=== PATIENT | female | born 1935 | race Caucasian/White ===

== ENCOUNTER 2019-11-22 12:02 | Outpatient (REF) | payer MEDICARE, OTHER, SELFPAY ==
[2019-11-22 14:43] LABS: Anion Gap 17 (12-20); Blood Urea Nitrogen 30 mg/dL (9-16); Calcium 10.3 mg/dL (8.4-10.2); Carbon Dioxide 21 mmol/L (22-29); Chloride 110 mmol/L (96-108); Estimated Glomerular Filt Rate 32; Potassium 4.8 mmol/l (3.3-5.1); Sodium 143 mmol/L (135-145)
[2019-11-25 19:16] LABS: Calcium (PTHI) 10.3 mg/dL (8.6-10.4); PTHI 211 pg/mL (14-64)
== END 2019-11-22 12:03 | disposition home or self-care (01) ==
LOC: HO.HMGCLDS 12:02
PROVIDERS: PCP Family Medicine; Visit Provider Family Medicine
DX: I10 Essential (primary) hypertension (principal); E21.3 Hyperparathyroidism, unspecified
CPT/HCPCS: 36415; 80051; 82310; 82565; 83970; 84520

== ENCOUNTER 2020-03-23 09:57 | Outpatient (REF) | payer MEDICARE, OTHER, SELFPAY ==
--- NOTE | 2020-03-23 | US_ITS ---
EXAMINATION: US EXTRACRANIAL CAROTID DUPLEX, BILATERAL CLINICAL INFORMATION: Carotid artery stenosis COMPARISON: Carotid artery ultrasound on 07/12/2018 and 07/17/2012 TECHNIQUE: Real-time ultrasound and Doppler techniques (integrating B-mode 2-D vascular images, Doppler spectral analysis and color-flow Doppler imaging) were utilized to interrogate the extracranial carotid arteries, the vertebral arteries and proximal subclavian arteries bilaterally. The degree of stenosis is determined by criteria similar to NASCET. FINDINGS: Right Side: 1. There is minimal atherosclerotic plaque seen in the bifurcation/proximal ICA region. 2. The common carotid artery PSV proximally is 87.4 cm/s and distally 95 cm/s. 3. The proximal internal carotid artery velocities are 103 cm/s systolic and 22.9 cm/s diastolic. 4. The proximal external carotid artery PSV is 96.2 cm/s. 5. The vertebral artery shows antegrade flow. 6. The subclavian artery waveforms are normal. Left Side: 1. There is mild to moderate atherosclerotic plaque seen in the bifurcation/proximal ICA region. 2. The common carotid artery PSV proximally is 99.7 cm/s and distally 58.1 cm/s. 3. The proximal internal carotid artery velocities are 127 cm/s systolic and 40.9 cm/s diastolic. 4. The proximal external carotid artery PSV is 139 cm/s. 5. The vertebral artery shows antegrade flow. 6. The subclavian artery waveforms are normal. US/US carotid duplex BI IMPRESSION: 1. RIGHT: Minimal, non-hemodynamically significant stenosis of the proximal right internal carotid artery corresponding to a 0-49% stenosis by velocity criteria. There is no change in the severity of disease when compared to the prior exam on 07/12/2018. 2. LEFT: Moderate, hemodynamically significant stenosis of the proximal left internal carotid artery corresponding to a 50-79% stenosis by velocity criteria. This represents an increase in the severity of disease when compared to the prior exam on 07/12/2018, previously 0-49% stenosis by velocity criteria.
[2020-03-23 14:21] LABS: Alanine Aminotransferase 25 U/L (0-31); Anion Gap 17 (12-20); Blood Urea Nitrogen 27 mg/dL (9-16); Carbon Dioxide 22 mmol/L (22-29); Chloride 107 mmol/L (96-108); Estimated Glomerular Filt Rate 33; Potassium 4.4 mmol/L (3.3-5.1); Sodium 142 mmol/L (135-145)
== END 2020-03-23 09:58 | disposition home or self-care (01) ==
LOC: HO.HMGCX 09:57
PROVIDERS: PCP Family Medicine; Visit Provider Internal Medicine
DX: E05.90 Thyrotoxicosis, unspecified without thyrotoxic crisis or storm (principal); E78.00 Pure hypercholesterolemia, unspecified; I10 Essential (primary) hypertension; Z79.899 Other long term (current) drug therapy; I65.23 Occlusion and stenosis of bilateral carotid arteries
CPT/HCPCS: 36415; 80051; 82310; 82550; 82565; 84460; 84520; 93880

== ENCOUNTER → 2020-04-16 10:31 | Outpatient (BNVA) | payer MEDICARE, OTHER, SELFPAY | PROVIDERS: PCP Family Medicine; Visit Provider Internal Medicine | DX: E66.9 Obesity, unspecified (principal); J98.4 Other disorders of lung; G47.34 Idiopathic sleep related nonobstructive alveolar hypoventilation; J44.9 Chronic obstructive pulmonary disease, unspecified; F17.200 Nicotine dependence, unspecified, uncomplicated | CPT/HCPCS: 99212 ==

== ENCOUNTER → 2020-04-21 14:16 | Outpatient (BNVA) | payer MEDICARE, OTHER, SELFPAY | PROVIDERS: PCP Family Medicine; Visit Provider Internal Medicine | DX: Z13.89 Encounter for screening for other disorder (principal) | CPT/HCPCS: 93005; 99212 ==

== ENCOUNTER 2020-04-21 14:58 | Emergency (ER) | payer MEDICARE, OTHER, SELFPAY ==
--- NOTE | ~2020-04-21 | CT_ITS ---
EXAMINATION: CT BRAIN AND CT CERVICAL SPINE WITHOUT CONTRAST. CLINICAL INFORMATION: Status post fall. COMPARISON: None TECHNIQUE: 5 mm thin axial and reformatted 2 mm thin sagittal and coronal images of brain were obtained. Subsequently axial 3 mm thin and reformatted 2 mm thin sagittal and coronal images of cervical spine were obtained. DLP 1567 mGy. FINDINGS: Brain: There is no acute intra-axial, extra-axial bleed, collection, masses or midline shift. There is no acute infarction in evolution. The lateral ventricles are symmetrical in size and configuration without enlargement. There is dystrophic bibasal ganglia calcifications. The great white matter differentiation is maintained. Bone windows reveal no calvarial abnormality. Bilateral paranasal sinuses and mastoid air cells are well-aerated. There is no scalp soft tissue abnormality. Cervical spine: On sagittal reconstructed images there is normal cervical lordosis. Grade 1 anterolisthesis C4 over C5. Rest of the alignment is normal. Loss of C3-C4, C5-C6 and C6-C7 disc heights with mild posterior spondylosis noted. The craniovertebral junction and C1-C2 alignment is normal. There is moderate bilateral mild facet joint arthropathy is also seen on the right at C3-C4 disc level. No visible acute fracture or dislocation seen. The prevertebral and paravertebral soft tissues are normal. The thyroid lobes are symmetrical and normal. The lung apices are clear. CT/CT head/brain wo con IMPRESSION: No acute intracranial process seen. Degenerative disc changes C3-C4, C5-C6 and C6 S1 disc levels with posterior spondylosis. No visible acute fracture or dislocation seen.
--- NOTE | ~2020-04-21 | CT_ITS ---
EXAMINATION: CT BRAIN AND CT CERVICAL SPINE WITHOUT CONTRAST. CLINICAL INFORMATION: Status post fall. COMPARISON: None TECHNIQUE: 5 mm thin axial and reformatted 2 mm thin sagittal and coronal images of brain were obtained. Subsequently axial 3 mm thin and reformatted 2 mm thin sagittal and coronal images of cervical spine were obtained. DLP 1567 mGy. FINDINGS: Brain: There is no acute intra-axial, extra-axial bleed, collection, masses or midline shift. There is no acute infarction in evolution. The lateral ventricles are symmetrical in size and configuration without enlargement. There is dystrophic bibasal ganglia calcifications. The great white matter differentiation is maintained. Bone windows reveal no calvarial abnormality. Bilateral paranasal sinuses and mastoid air cells are well-aerated. There is no scalp soft tissue abnormality. Cervical spine: On sagittal reconstructed images there is normal cervical lordosis. Grade 1 anterolisthesis C4 over C5. Rest of the alignment is normal. Loss of C3-C4, C5-C6 and C6-C7 disc heights with mild posterior spondylosis noted. The craniovertebral junction and C1-C2 alignment is normal. There is moderate bilateral mild facet joint arthropathy is also seen on the right at C3-C4 disc level. No visible acute fracture or dislocation seen. The prevertebral and paravertebral soft tissues are normal. The thyroid lobes are symmetrical and normal. The lung apices are clear. CT/CT cervical spine wo con IMPRESSION: No acute intracranial process seen. Degenerative disc changes C3-C4, C5-C6 and C6 S1 disc levels with posterior spondylosis. No visible acute fracture or dislocation seen.
[2020-04-21 15:01] VITALS: BP 150/58; PULSE 81; RESP 16; TEMP 36.6; O2SAT 96; BMI 48.0
--- NOTE | 2020-04-21 15:20 | ED.FALL ---
HPI - Fall General Chief Complaint: Fall Stated Complaint: FALL Time Seen by Provider: 04/21/20 15:15 Source: patient Mode of arrival: other (Stretcher from primary care office upstairs) Limitations: no limitations History of Present Illness HPI Narrative: 84-year-old female with past medical history that is significant for obesity, chronic obstructive pulmonary disease not on oxygen, obesity, reactive airway disease who is a sometimes smoker she does at baseline use a walker with wheels she was presenting today to the outpatient primary care offices for routine visit while she was awaiting her appointment in the office waiting room she was sitting on her walker with wheels as she was trying to wheel herself out of the bathroom she apparently reports her walker wheels bump on the door threshold and causing her to fall backwards hitting her head causing laceration to the posterior scalp. Denies LOC. Denies any torso or extremity injury. Aside from the fall and related scalp laceration she reports she has otherwise been doing well. She is not sure of her last tetanus vaccination. She is on daily aspirin otherwise no other anticoagulant. MD complaint: fall Onset (ago): minute(s) Fall from: other (Sitting on walkers with wheels ) Fall witnessed: yes, by bystander (Medical staff in the office) Place fall occurred: other (Doctor's office) Loss of consciousness: none Prolonged down time: no Symptoms prior to fall: none Context: tripped/slipped Location of injury: head Associated symptoms (after fall): other (She reports pain at the posterior scalp laceration and mild nausea) Related Data Home Medications Medication Instructions Recorded Confirmed atorvastatin 40 mg tablet 40 mg PO DAILY 04/16/20 04/21/20 cholecalciferol (vitamin D3) 10 10 mcg PO DAILY 04/16/20 04/21/20 mcg (400 unit) capsule furosemide 20 mg tablet 20 mg PO DAILY 04/16/20 04/21/20 lisinopril 20 mg tablet 20 mg PO DAILY 04/16/20 04/21/20 metoprolol succinate 25 mg 25 mg PO DAILY 04/16/20 04/21/20 tablet,extended release 24 hr aspirin 81 mg tablet,delayed 81 mg PO DAILY 04/21/20 04/21/20 release Previous Rx's Medication Instructions Recorded umeclidinium 62.5 mcg/actuation 1 inh INHALATION DAILY 30 Days #30 11/28/19 blister powder for inhalation ea albuterol sulfate 90 mcg/actuation 2 puff INHALATION Q4-6H PRN #3 ea 02/10/20 aerosol inhaler Allergies Allergy/AdvReac Type Severity Reaction Status Date / Time No Known Allergies Allergy Verified 04/16/20 10:42 [No Known Allergies*] Review of Systems Review of Systems: Constitutional: No Weight loss, No Fever, No Chills, No Night Sweats, No Fatigue, No Malaise ENT/Mouth: No Hearing loss, No Ear Pain, No Nasal Congestion, No Sinus Pain, No Hoarseness, No sore throat, No Rhinorrhea, No Swallowing Difficulty Eyes: No Eye Pain, No Swelling, No Redness, No Foreign Body, No Discharge, No Vision Changes Cardiovascular: No Chest Pain, No SOB, No Dyspnea on Exertion, No Orthopnea, No Edema, No Palpitations Respiratory: No Cough, No Sputum, No Wheezing, No Dyspnea Gastrointestinal: + Nausea, No Vomiting, No Diarrhea, No Constipation, No abdominal Pain, No Hematochezia, No Melena Genitourinary: no irregular bleeding, No Dysuria, No Urinary Frequency, No Hematuria, No Urinary Incontinence, No Urgency, No Flank Pain, No Urinary Flow Changes, No Hesitancy Musculoskeletal: No joint pain, No Myalgias, No Joint Swelling Skin: No Skin Lesions, No rash, scalp laceration Neuro: No Weakness, No Numbness, No Paresthesias, No Loss of Consciousness, No Dizziness Psych: No Social Issues Heme/Lymph: No Bruising, No Bleeding,No Lymphadenopathy Endocrine: No Polyuria, No Polydipsia, No Temperature Intolerance Yes all other systems are reviewed and are negative [facility] Past Medical History Medical History Atherosclerotic cardiovascular disease COPD (chronic obstructive pulmonary disease) Nocturnal hypoxemia Obesity Restrictive lung disease Smoker Surgical History Status post insertion of endovascular thoracic aortic stent graft Social History Social History Alcohol intake: never Smoking Status: Current some day smoker Use of substances other than those prescribed or required for medical reasons: No Advance Directives: No Advance Directives Information Provided: No Physical Exam Vital Signs: Vital Signs: Last Vital Signs Temp 97.9 F 04/21/20 15:01 Pulse 81 04/21/20 15:01 Resp 16 04/21/20 15:01 BP 150/58 H 04/21/20 15:01 Pulse Ox 96 04/21/20 15:01 Body Mass Index 48.0 Reviewed Const: General: cooperative; No acute distress or intoxicated appearing Nutritional Appearance: average body habitus Orientation/consciousness: patient oriented x3 HENMT: Head: Yes normal to inspection and Yes laceration Head images: 1. Clean linear 4 cm laceration to the posterior scalp. No active bleeding. Ears: hearing grossly normal bilaterally Eyes: General: appearance normal, both eyes and all related structures Neck: Neck: Yes normal visual inspection, No positive Brudzinski's sign, No positive Kernig's sign and No tender Thyroid: Thyroid normal Chest: Chest palpation & inspection: normal inspection of the chest and no tenderness Resp: Effort & Inspection: normal respiratory effort Auscultation: clear to auscultation bilaterally Cardio: Jugular venous distension: no JVD Rhythm: regular rhythm Heart sounds: S1 normal heart sound present and S2 normal heart sound present GI: Inspection: Yes normal to inspection Percussion: Yes normal to percussion Auscultation: normal bowel sounds : General: Yes no CVA tenderness Back/Spine/Pelvis: Back: no CVA tenderness Skin: General skin exam: no rashes or lesions noted Neuro: General: patient oriented x3 Extrem: Other: She is moving all extremities without pain. Able to bend knees and lift without problem. Torso exam without focal tender palpation or signs of injury. General: Yes normal to inspection NIH Stroke Scale Internal: Initial- Upon Arrival Level of Consciousness: Alert Level of Consciousness Questions: Answers both questions correctly Level of Consciousness Commands: Performs both tasks correctly Best Gaze: Normal Visual: No visual loss Facial Palsy: Normal Motor Arm (Right): No drift Motor Arm (Left): No drift Motor Leg (Right): No drift Motor Leg (Left): No drift Limb Ataxia: Absent Sensory: Normal Best Language: No aphasia Dysarthia: Normal Extinction and Inattention: No abnormality Score: 0 Course Reevaluation(s) Reevaluation #1: In review of the chart it looks like she had appointment with Dr. Felix cardiology for six months follow-up status post carotid ultrasound. Procedures Laceration Laceration 1: Site: scalp Size (cm): 4 Description: linear Depth: simple, single layer Local Anesthetic: lidocaine 1% Amount of anesthesia used (mL): 5 Pre-repair: wound explored (Five ousmane) MDM - Fall MDM Narrative Medical decision making narrative: AP consistent with mechanical fall from fall related to a wheeled walker resulting in posterior scalp laceration requiring 5 ousmane repair. Head/cervical spine CT unremarkable. Given tetanus vaccination, home care instructions, precaution return follow-up instructions provided. Tolerated p.o. intake well here. Did get up with assistance at baseline and ambulated well. Stable for discharge. Differential Diagnosis Differential diagnosis: Likely fracture and concussion without loss of consciousness; Unlikely syncope, dislocation, compression fracture and concussion with loss of consciousness Medical Records Attestation: I reviewed the patient's medical records. Lab Data Attestation: I reviewed the patient's lab results. Imaging Data Head/cervical spine CT: Radiologist's impression: [address] [id number] Scan ReportSigned Patient: Portia Appiah CMR#: [id number]: [id number]/Sex: 84 / FADM Date: 04/21/20Loc: [email or web address].EDAttending Dr: Ordering Physician: Ruben Hightower NP Date of Service: 04/21/20 Procedure(s): CT cervical spine wo con Accession Number(s): [id number] cc: Ruben Hightower TECHNICAL DATA ANALYST~ EXAMINATION: CT BRAIN AND CT CERVICAL SPINE WITHOUT CONTRAST. CLINICAL INFORMATION: Status post fall. COMPARISON: None TECHNIQUE: 5 mm thin axial and reformatted 2 mm thin sagittal and coronal images of brain were obtained. Subsequently axial 3 mm thin and reformatted 2 mm thin sagittal and coronal images of cervical spine were obtained. DLP 1567 mGy. FINDINGS: Brain: There is no acute intra-axial, extra-axial bleed, collection, masses or midline shift. There is no acute infarction in evolution. The lateral ventricles are symmetrical in size and configuration without enlargement. There is dystrophic bibasal ganglia calcifications. The great white matter differentiation is maintained. Bone windows reveal no calvarial abnormality. Bilateral paranasal sinuses and mastoid air cells are well-aerated. There is no scalp soft tissue abnormality. Cervical spine: On sagittal reconstructed images there is normal cervical lordosis. Grade 1 anterolisthesis C4 over C5. Rest of the alignment is normal. Loss of C3-C4, C5-C6 and C6-C7 disc heights with mild posterior spondylosis noted. The craniovertebral junction and C1-C2 alignment is normal. There is moderate bilateral mild facet joint arthropathy is also seen on the right at C3-C4 disc level. No visible acute fracture or dislocation seen. The prevertebral and paravertebral soft tissues are normal. The thyroid lobes are symmetrical and normal. The lung apices are clear. CT/CT cervical spine wo con IMPRESSION: No acute intracranial process seen. Degenerative disc changes C3-C4, C5-C6 and C6 S1 disc levels with posterior spondylosis. No visible acute fracture or dislocation seen. Dictated By:YONG GALVEZ MDSigned By:<Electronically signed by YONG GALVEZ MD in OV>04/21/20 1604 DD/ 1515TD/TT: Talent Acquisition Manager: [facility] [place] Discharge Clinical Impression: Fall Qualifiers: Encounter type: initial encounter Qualified Code(s): W19.XXXA - Unspecified fall, initial encounter Scalp laceration Qualifiers: Encounter type: initial encounter Qualified Code(s): S01.01XA - Laceration without foreign body of scalp, initial encounter Patient Disposition: Home, Self-Care Instructions: Head Injury (ED), Staple Care (ED), Head Laceration (ED) Additional Instructions: Today your given tetanus vaccine The CT scan of your head and brain did not show any acute findings The laceration on the back of the head was repaired with 5 ousmane You to have the ousmane removed and 10 days Return if any concerns or worsening symptoms Keep site dry and clean for the next 48 hours and thereafter he can shower normally Thank you Prescriptions: No Action Incruse Ellipta 62.5 mcg/actuation blister with device 1 inh inhalation DAILY 30 Days Qty: 30 RF: 3 albuterol sulfate [ProAir HFA] 90 mcg/actuation HFA aerosol inhaler 2 puff inhalation Q4-6H PRN (Reason: shortness of breath or wheezing) Qty: 3 RF: 1 furosemide 20 mg tablet 20 mg PO DAILY RF: 0 metoprolol succinate 25 mg tablet extended release 24 hr 25 mg PO DAILY RF: 0 atorvastatin 40 mg tablet 40 mg PO DAILY RF: 0 lisinopril 20 mg tablet 20 mg PO DAILY RF: 0 cholecalciferol (vitamin D3) 10 mcg (400 unit) capsule 10 mcg PO DAILY RF: 0 aspirin [Adult Low Dose Aspirin] 81 mg tablet,delayed release (DR/EC) 81 mg PO DAILY RF: 0 Referrals: ED Physician,Generic [Physician] - 1 week (Your primary care) Discharge Date/Time: 04/21/20 17:55
[2020-04-21] MEDS: ondansetron HCL 4 MG/2 ML VIAL IVPUSH (15:21)
--- NOTE | 2020-04-21 15:22 | PC.NURSE ---
pt continues to ask the same questions over and over. copy reader aware
[2020-04-21] MEDS: Lidocaine HCl 1 % MPF 5 ML VIAL SUBCUT (16:34)
--- NOTE | 2020-04-21 17:15 | PC.NURSE ---
pt given a sandwich and gingerale per senior quality control inspector
== END 2020-04-21 17:55 | disposition home or self-care (01) ==
PROVIDERS: Emergency Provider Emergency Medicine; PCP Family Medicine
DX: S01.01XA Laceration without foreign body of scalp, initial encounter (principal); W17.89XA Other fall from one level to another, initial encounter; J44.9 Chronic obstructive pulmonary disease, unspecified; F17.200 Nicotine dependence, unspecified, uncomplicated; Y93.89 Activity, other specified; Y92.531 Health care provider office as the place of occurrence of the external cause; Y99.8 Other external cause status
CPT/HCPCS: 12002; 70450; 72125; 90471; 90715; 93005; 96374; 96375; 99212; 99284; J2405

== ENCOUNTER → 2020-05-14 09:12 | Outpatient (BNVA) | payer MEDICARE, OTHER, SELFPAY | PROVIDERS: PCP Family Medicine; Visit Provider Surgery Vascular Surgery | DX: I65.23 Occlusion and stenosis of bilateral carotid arteries (principal); I71.4 Abdominal aortic aneurysm, without rupture | CPT/HCPCS: 99212 ==

== ENCOUNTER 2020-05-21 09:18 | Outpatient (REF) | payer MEDICARE, OTHER, SELFPAY ==
--- NOTE | ~2020-05-21 | CT_ITS ---
EXAMINATION: CTA ABDOMEN AND PELVIS CLINICAL INFORMATION: Abdominal aortic aneurysm. TECHNIQUE: Multiple axial images were obtained through the abdomen and pelvis before and after administration of 80 mL of Omnipaque 350 intravenously. Images were evaluated on independent dedicated 3-D workstation and 3-D images were reconstructed with concurrent radiologist supervision and subsequently interpreted. Specific vascular measurements are placed directly on the 3-D rendered images and are documented and stored in PACS. This CT examination was performed using dose optimization techniques as appropriate, variously including the following: Automated exposure control. *Adjustment of mA and/or kV according to patient size (this includes techniques or standardized protocols for targeted exams where dose is matched to indication/reason for exam, i.e., extremities or head). *Use of iterative reconstruction technique. COMPARISON: 10/23/2018 and 12/12/2017 DLP: 647 mGy-cm. FINDINGS: VASCULAR: ABDOMINAL AORTA: The patient is post endovascular repair of an infrarenal abdominal aortic aneurysm. In comparison to the 2019 examination, there has been an interval increase in the size of the aneurysm sac, now measuring up to 6.7 x 6.7 cm. The aneurysm sac previously measured 6.0 x 6.0 cm in 2019 and 5.7 x 5.7 cm in 2018. As before, there is contrast seen within the distal aortic aneurysm which appears to be filling from a lumbar artery. This is consistent with a persistent type II endoleak. The graft is otherwise widely patent. ILIAC ARTERIES: The iliac limbs of the graft are widely patent. There is moderate calcified atherosclerosis of the right external iliac artery. However, there is no hemodynamically significant stenosis. The internal iliac arteries are widely patent. There is mild atherosclerosis of the left external iliac artery. However, it remains widely patent without hemodynamically significant stenosis. The visualized femoral vessels are patent and normal in caliber. MESENTERIC ARTERIES: The proximal celiac artery appears occluded. Threadlike flow identified to the proximal celiac on the prior examination is not clearly seen. Branches of the celiac artery opacify normally, most likely via collaterals. The SMA is widely patent and branches normally. The JOSE D is not visualized. There is a replaced right hepatic artery arising from the proximal SMA. RENAL ARTERIES: There are single bilateral renal arteries which arise at the superiormost aspect of the aortic graft. Both renal arteries appear widely patent without flow-limiting stenosis. NONVASCULAR: LUNG BASES: An 8 mm ground-glass nodule at the base of the right lung medially is stable from 2019. No new or enlarging pulmonary nodules identified. Minimal bibasilar atelectasis. The visualized heart is within normal limits. LIVER, GALLBLADDER, BILIARY TREE: The liver is normal in size and diffusely low in attenuation. No focal lesions identified on this arterial phase exam. No ductal dilatation identified. The gallbladder is unremarkable with no evidence of radiopaque gallstones, gallbladder wall thickening, or pericholecystic inflammatory changes. PANCREAS: Unremarkable. SPLEEN: Unremarkable. ADRENAL GLANDS: Unremarkable. KIDNEYS AND URETERS: The kidneys are moderately atrophic. There is bilateral renal cortical thinning. There are few punctate calcifications seen within the kidneys consistent with small obstructing nonobstructing stones. The largest stone on the left measures 3 mm on image 10/26, and on the right, measures 2 mm on image 11/26. There is no hydronephrosis. A cyst within the lower pole of the left kidney is stable. BLADDER: Unremarkable. Gastrointestinal Tract: No evidence of obstruction. No perienteric inflammation. Scattered colonic diverticulosis without evidence of diverticulitis. ABDOMINAL WALL: Small fat-containing umbilical hernia. LYMPH NODES: Normal. PELVIC VISCERA: Unremarkable. OSSEOUS STRUCTURES: No suspicious osseous lesions. Mild lumbar spondylosis. CT/CT angio abdomen pelvis IMPRESSION: 1. Post endovascular repair of an infrarenal abdominal aortic aneurysm. There has been progressive increase in the size of the excluded aneurysm sac which now measures up to 6.7 cm, previously measuring 6 cm in 2019, and 5.7 cm in 2018. 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 2. 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 The celiac axis opacifies well, most likely via collaterals. 3. Sigmoid diverticulosis without evidence of diverticulitis. Findings will be communicated to the ordering provider by [place] [facility] on 05/22/2020
[2020-05-21 10:16] LABS: Blood Urea Nitrogen 30 mg/dL (9-16); Estimated Glomerular Filt Rate 28
== END 2020-05-21 09:19 | disposition home or self-care (01) ==
LOC: HO.CT 09:18
PROVIDERS: PCP Family Medicine; Visit Provider Surgery Vascular Surgery
DX: I71.4 Abdominal aortic aneurysm, without rupture (principal)
CPT/HCPCS: 36415; 74174; 82565; 84520; Q9967

== ENCOUNTER → 2020-06-11 13:21 | Outpatient (BNVA) | payer MEDICARE, OTHER, SELFPAY | PROVIDERS: PCP Family Medicine; Visit Provider Surgery Vascular Surgery | DX: I71.4 Abdominal aortic aneurysm, without rupture (principal) | CPT/HCPCS: 99212 ==

== ENCOUNTER → 2020-06-18 10:11 | Outpatient (BNVA) | payer MEDICARE, OTHER, SELFPAY | PROVIDERS: PCP Family Medicine; Visit Provider Internal Medicine | DX: E66.9 Obesity, unspecified (principal); J98.4 Other disorders of lung; G47.34 Idiopathic sleep related nonobstructive alveolar hypoventilation | CPT/HCPCS: 99212 ==

== ENCOUNTER → 2020-10-05 10:26 | Outpatient (BNVA) | payer MEDICARE, OTHER, SELFPAY | PROVIDERS: PCP Family Medicine; Visit Provider Internal Medicine | DX: J44.9 Chronic obstructive pulmonary disease, unspecified (principal); J98.4 Other disorders of lung; G47.34 Idiopathic sleep related nonobstructive alveolar hypoventilation; E66.9 Obesity, unspecified | CPT/HCPCS: 99212 ==

== ENCOUNTER 2020-11-02 11:11 | Outpatient (REF) | payer MEDICARE, OTHER, SELFPAY ==
[2020-11-02 14:20] LABS: Blood Urea Nitrogen 32 mg/dL (9-16); Estimated Glomerular Filt Rate 29
== END 2020-11-02 11:12 | disposition home or self-care (01) ==
LOC: HO.HMGCLDS 11:11
PROVIDERS: PCP Family Medicine; Referring Provider Surgery Vascular Surgery; Visit Provider Internal Medicine
DX: I65.22 Occlusion and stenosis of left carotid artery (principal); I25.10 Atherosclerotic heart disease of native coronary artery without angina pectoris; F17.200 Nicotine dependence, unspecified, uncomplicated; I71.4 Abdominal aortic aneurysm, without rupture; Z79.899 Other long term (current) drug therapy
CPT/HCPCS: 36415; 82565; 84520; 99212

== ENCOUNTER 2020-11-17 07:36 | Outpatient (REF) | payer MEDICARE, OTHER, SELFPAY ==
--- NOTE | ~2020-11-17 | CT_ITS ---
EXAMINATION: CT ANGIOGRAM ABDOMEN AND PELVIS CLINICAL INFORMATION: Abdominal aortic aneurysm without rupture. COMPARISON: CT angiography 05/21/2020 TECHNIQUE: Multiple axial images were obtained through the abdomen and pelvis prior to and following the administration of 80 mL of Omnipaque 350 intravenous contrast. Images were reviewed on a dedicated 3-D workstation. This CT examination was performed using dose optimization techniques as appropriate, variously including the following: *Automated exposure control *Adjustment of mA and/or kV according to patient size (this includes techniques or standardized protocols for targeted exams where dose is matched to indication/reason for exam; i.e. extremities or head) *Use of iterative reconstruction technique DLP: 663 mGy-cm FINDINGS: VASCULAR: Dilated distal descending thoracic aorta measures approximately 3.6 cm in diameter. This tapers to the aortic hiatus. Redemonstration of an abdominal aortic aneurysm post endovascular repair with bilateral iliac components. The aneurysm sac when measured at the level of the L3-L4 interspace measures 6.9 x 7.1 cm, previously 6.7 x 6.9 cm when measured at the same plane and level. There is subtle persistent enhancement of the aneurysm sac along its right distal lateral aspect. There is also opacification of the excluded sac posterior to the bilateral iliac components (image 398, series 6). There is enhancement of a lumbar vessel at this level which could potentially represent the source of this type II endoleak. The lumbar may communicate with the left iliolumbar artery. There is either near-occlusive stenosis or occlusion of the celiac trunk with reconstitution of the vessel 9 mm distal to its origin. The branches of the celiac are well opacified. The superior mesenteric artery origin is widely patent and there is a replaced right hepatic artery. There is faint opacification of the inferior mesenteric artery origin. The bilateral iliac vessels are normal in caliber. There is eccentric calcific disease without hemodynamically significant stenosis. The proximal femoral vessels are patent. There is an unremarkable appearance of the venous structures for an arterial phase of contrast. NONVASCULAR: Unchanged 8 mm ground-glass opacity at the medial base of the right lung may represent a region of scarring. There are additional foci of subsegmental atelectasis. There is no pleural effusion. The imaged heart is unremarkable. The liver is normal in size and overall attenuation. The gallbladder is unremarkable. There is no intrahepatic or extrahepatic duct dilation. The pancreas is unremarkable, and there is no pancreatic duct dilation. The spleen is unremarkable. The adrenal glands are unremarkable. The kidneys are again atrophic, and there are foci of renal cortical thinning. There are small bilateral renal calculi. The largest on the right is at the lower pole and measures 4 mm. The largest on the left is at the lower pole and measures 4 mm. Multiple punctate calculi are seen within the proximal right ureter, similar to prior and there is chronic mild fullness of the right renal collecting system. Unchanged appearance of a 1.7 cm cyst arising from the lower pole of the left kidney. The bladder is normal in contour. No bladder calculi or soft tissue lesion is identified. Unremarkable appearance of the uterus. No adnexal lesions. The distal esophagus and stomach are unremarkable. The small and large bowel are nondilated. There is colonic diverticulosis without inflammation to suggest diverticulitis. There is a minimal fat-containing periumbilical hernia. No other significant hernia of the abdominal wall identified. There is no free intraperitoneal fluid. There is no abdominopelvic or peritoneal lymphadenopathy seen. Mild multilevel degenerative changes of the imaged thoracolumbar spine are again noted. There is no acute or aggressive bony abnormality. CT/CT angio abdomen pelvis IMPRESSION: Redemonstration of postprocedural changes relating to endovascular repair of the abdominal aortic aneurysm. 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 This likely communicates with the left iliolumbar. Interval increase in the size of the excluded aneurysm sac which now measures up to 6.9 x 7.1 cm, previously 6.7 x 6.9 cm. Stable dilation of the distal descending thoracic aorta up to 3.6 cm. Either severe near-occlusive stenosis versus occlusion of the celiac trunk with reconstitution of the vessel 9 mm distal to its origin. Colonic diverticulosis.
[2020-11-17] MEDS: iohexoL 350 MG/ML 100 ML INFUS..BTL IV (12:31)
== END 2020-11-17 07:37 | disposition home or self-care (01) ==
LOC: HO.MDS 07:36
PROVIDERS: Visit Provider Surgery Vascular Surgery
DX: I71.4 Abdominal aortic aneurysm, without rupture (principal)
CPT/HCPCS: 74174; 96360; 96361; Q9967

== ENCOUNTER 2020-12-17 09:24 | Outpatient (REF) | payer MEDICARE, OTHER, SELFPAY ==
[2020-12-17 11:43] LABS: Alanine Aminotransferase 14 U/L (0-31); Anion Gap 16 (12-20); Blood Urea Nitrogen 32 mg/dL (9-16); Carbon Dioxide 18 mmol/L (22-29); Chloride 109 mmol/L (96-108); Estimated Glomerular Filt Rate 28; Potassium 4.2 mmol/L (3.3-5.1); Sodium 139 mmol/L (135-145)
== END 2020-12-17 09:25 | disposition home or self-care (01) ==
LOC: HO.HMGCLDS 09:24
PROVIDERS: PCP Family Medicine; Visit Provider Surgery Vascular Surgery
DX: I71.4 Abdominal aortic aneurysm, without rupture (principal); I10 Essential (primary) hypertension; E78.00 Pure hypercholesterolemia, unspecified; Z79.899 Other long term (current) drug therapy
CPT/HCPCS: 36415; 80051; 82550; 82565; 84460; 84520; 99212

== ENCOUNTER 2020-12-21 08:49 | Outpatient (REF) | payer MEDICARE, OTHER, SELFPAY ==
--- NOTE | ~2020-12-21 | US_ITS ---
EXAMINATION: US EXTRACRANIAL CAROTID DUPLEX, BILATERAL CLINICAL INFORMATION: This is an 85 year old female with a history of carotid artery stenosis. Carotid artery disease. COMPARISON: Comparison is made to a previous study dated March 23, 2020 which demonstrated 0-49% right internal carotid artery stenosis and 50-79% left internal carotid artery stenosis. TECHNIQUE: Real-time ultrasound and Doppler techniques (integrating B-mode 2-D vascular images, Doppler spectral analysis and color-flow Doppler imaging) were utilized to interrogate the extracranial carotid arteries, the vertebral arteries and proximal subclavian arteries bilaterally. The degree of stenosis is determined by criteria similar to NASCET. FINDINGS: Right Side: 1. There is minimal atherosclerotic plaque seen in the bifurcation/proximal ICA region. 2. The common carotid artery PSV proximally is 73 cm/s and distally 92 cm/s. 3. The proximal internal carotid artery velocities are 96 cm/s systolic and 23 cm/s diastolic. 4. The proximal external carotid artery PSV is 92 cm/s. 5. The vertebral artery shows antegrade flow. 6. The subclavian artery waveforms are normal. Left Side: 1. There is a mall atherosclerotic plaque seen in the bifurcation/proximal ICA region. 2. The common carotid artery PSV proximally is 62 cm/s and distally 79 cm/s. 3. The proximal internal carotid artery velocities are 145 cm/s systolic and 30 cm/s diastolic. 4. The proximal external carotid artery PSV is 90 cm/s. 5. The vertebral artery shows antegrade flow. 6. The subclavian artery waveforms are normal. US/US carotid duplex BI IMPRESSION: 1. RIGHT: Minimal, non-hemodynamically significant stenosis of the proximal right internal carotid artery corresponding to a 0-49% stenosis by velocity criteria. 2. LEFT: Moderate, hemodynamically significant stenosis of the proximal left internal carotid artery corresponding to a 50-79% stenosis by velocity criteria. 3. There is no change in the category severity of disease when compared to the previous study dated March 23, 2020.
== END 2020-12-21 08:50 | disposition home or self-care (01) ==
LOC: HO.HMGCX 08:49
PROVIDERS: PCP Family Medicine; Visit Provider Internal Medicine
DX: I65.23 Occlusion and stenosis of bilateral carotid arteries (principal)
CPT/HCPCS: 93880

== ENCOUNTER → 2021-05-17 10:02 | Outpatient (BNVA) | payer MEDICARE, OTHER, SELFPAY | PROVIDERS: PCP Family Medicine; Visit Provider Internal Medicine | DX: J44.9 Chronic obstructive pulmonary disease, unspecified (principal); J98.4 Other disorders of lung; G47.34 Idiopathic sleep related nonobstructive alveolar hypoventilation | CPT/HCPCS: 99212 ==

== ENCOUNTER 2021-05-24 13:38 | Outpatient (REF) | payer MEDICARE, OTHER, SELFPAY ==
--- NOTE | ~2021-05-24 | CT_ITS ---
EXAMINATION: CT ABDOMEN AND PELVIS WITHOUT CONTRAST CLINICAL INFORMATION: Abdominal aortic aneurysm. COMPARISON: Previous CTA of the abdomen and pelvis most recent October 2020. TECHNIQUE: Multidetector volumetric imaging was performed from the superior aspect of the liver through the pubic symphysis. Sagittal and coronal reformatted images were obtained on the technologist's workstation. This CT examination was performed using dose optimization techniques as appropriate, variously including the following: *Automated exposure control *Adjustment of mA and/or kV according to patient size (this includes techniques or standardized protocols for targeted exams where dose is matched to indication/reason for exam; i.e. extremities or head) *Use of iterative reconstruction technique DLP: 747 mGy-cm FINDINGS: LUNG BASES: There is atelectasis at the lung bases. The descending thoracic aorta is tortuous and dilated. The descending thoracic aorta measures 4.4 cm. LIVER, GALLBLADDER, AND BILIARY TREE: The liver is normal in size, shape, and attenuation. There is a 6 mm low-attenuation lesion in the central liver axial image 26 series 3 that is stable. No biliary ductal dilatation is present. The gallbladder is unremarkable with no evidence of radiopaque gallstones, gallbladder wall thickening, or obvious pericholecystic inflammatory changes. PANCREAS: There is fatty infiltration of the head of the pancreas. SPLEEN: Unremarkable. ADRENAL GLANDS: Unremarkable. KIDNEYS AND URETERS: Both kidneys are small. There is bilateral renal cortical thinning. There are bilateral renal stones, largest measuring 4 cm in the lower pole of the left kidney. There are bilateral renal cysts that are stable. There is a 5 mm hyperdense cyst in the right kidney and 2 simple-appearing cyst in the lower pole, largest measuring 1 x 1.5 cm. BLADDER: Not optimally distended. GASTROINTESTINAL TRACT: There is diverticulosis of the colon. Small and large bowel is otherwise unremarkable. The appendix is unremarkable. The stomach is unremarkable. ABDOMINAL WALL: There is a small umbilical hernia containing fat. LYMPH NODES: Normal. VASCULAR: There is an aortobiiliac stent graft that appears unchanged. There is a abdominal aortic aneurysm. This measures 7 x 7.5 cm compared to 7 x 7.1 cm in AP and transverse dimension. PELVIC VISCERA: Unremarkable. OSSEOUS STRUCTURES: There are degenerative changes of the spine and hip joints. CT/CT abdomen pelvis wo con IMPRESSION: Aortobiiliac stent graft in similar position. Slight interval increase in the large abdominal aortic aneurysm now measuring 7 x 7.5 cm in AP and transverse dimension compared to 7 x 7.1 cm January 2021 exam. Aneurysm of the descending thoracic aorta measuring 4.4 cm. Bilateral renal cortical thinning or scarring. Bilateral renal stones and bilateral renal cysts. Diverticulosis of the colon. Fleischner guidelines were followed.
[2021-05-24 14:11] LABS: Blood Urea Nitrogen 38 mg/dL (9-16); Estimated Glomerular Filt Rate 21
== END 2021-05-24 13:39 | disposition home or self-care (01) ==
LOC: HO.CT 13:38
PROVIDERS: PCP Family Medicine; Visit Provider Surgery Vascular Surgery
DX: I71.4 Abdominal aortic aneurysm, without rupture (principal)
CPT/HCPCS: 36415; 74176; 82565; 84520

== ENCOUNTER 2021-06-07 07:34 | Inpatient (IN) | payer MEDICARE, OTHER, SELFPAY ==
[2021-06-07] VITALS (15 sets, daily range): BP systolic 90–129; BP diastolic 34–103; PULSE 70–99; RESP 16–26; TEMP 36.8–37.6; O2SAT 92–97; BMI 43.1
--- NOTE | ~2021-06-07 | CT_ITS ---
EXAMINATION: CT HEAD, CT CERVICAL SPINE, CT CHEST, ABDOMEN PELVIS WITHOUT CONTRAST. CLINICAL INFORMATION: Status post fall with left flank ecchymosis, left lower quadrant pain and neck pain. COMPARISON: None TECHNIQUE: 5 mm thin axial and reformatted 2 mm thin sagittal and coronal images of brain were obtained. Axial 3 mm thin and reformatted 2 minutes thin sagittal and coronal images of cervical spine were obtained. DLP [id number]. Axial 3 mm thin and reformatted 3 mm thin sagittal and coronal images of chest, abdomen pelvis were obtained. DLP [id number]. FINDINGS: Brain: There is no acute intra-axial, extra-axial bleed, masses or midline shift. There is no acute infarction evolution. The lateral ventricles are symmetrical in size and configuration but mildly enlarged. There is dystrophic bibasilar ganglia calcifications. There is mild hypodensity seen in the periventricular white matter in both cerebral hemispheres. Bone windows reveal no calvarial abnormality. There is no scalp soft tissue abnormality. Bilateral paranasal sinuses and mastoid air cells are well aerated. There is no scalp soft tissue abnormality seen. Cervical spine: On sagittal reconstructed images there is mild straightening of cervical lordosis. There is loss of C3-C4, C5-C6 and C6-C7 disc heights with mild posterior spondylosis at C3-C4, C5-C6 and C6-C7 disc levels. The craniovertebral junction and the C1-C2 alignment is normal. There is moderate right C2-C3, bilateral C3-C4, right C4-C5 and C5-C6 facet joint arthropathy. No visible acute fracture, dislocation or subluxation seen. The airways widely patent. The lung apices are clear with mild left apical pleural thickening. The thyroid lobes are symmetrical. The central airways widely patent. There is atherosclerotic bilateral carotid arteries. No abnormal neck mass or lymph nodes seen. The salivary glands are symmetrical and normal. CHEST: The lungs are well-expanded and clear of acute pneumonic process. There is no consolidation, nodule or mass seen. Minimal dependent atelectasis seen in both lung bases. The thyroid lobes are symmetric and normal. The central trachea and bronchi are widely patent. No abnormal-sized images lymph nodes seen. There is aneurysmal descending thoracic aorta measuring 4.7 x 4.8 cm on axial image 30/5.The heart size is normal. There are coronary artery calcifications present. No pericardial effusion seen. There is no pleural effusion, thickening or calcifications. The axilla and the chest wall appears unremarkable. Bone windows reveal no compression fracture thoracic spine. There are no rib fractures seen. Mild degenerative disc changes are seen in lower dorsal spine. Abdomen and pelvis: Visualized liver, spleen, pancreas and bilateral adrenal glands unremarkable. There are no radiopaque gallstones or wall thickening. There is no ductal dilatation. There is a 3 mm radiopaque calculi in the dependent portion of right kidney pelvis. There is mild right hydronephrosis with several small 2 mm radiopaque calculi at the UPJ and proximal right ureter. There is a nonobstructive 5 mm radiopaque calculi and a 1.2 cm cyst lower pole left kidney. There is bilateral perinephric stranding seen. There is aneurysmal dilatation of abdominal aorta with a aortic iliac stent graft in place. The aneurysm measures 7.5 x 7.2 cm. There is scattered colonic diverticulosis without diverticulitis. The appendix and the small bowel bowel loops are normal caliber. Imaging to the pelvis reveals unremarkable urinary bladder. The uterus is atrophied or surgically removed. No free fluid in the pelvis. There is minimal free fluid in the pelvis. Bone windows reveal no lytic or sclerotic process. No compression fracture. CT/CT cervical spine wo con IMPRESSION: No acute intracranial process seen. There is no acute fracture or dislocation cervical spine except for mild straightening of cervical lordosis likely spasm and degenerative disc changes as described above. No acute process seen in the chest, abdomen pelvis. There is aneurysmal descending thoracic aorta. There is aneurysmal distal abdominal aorta with a aortic graft/stent in place extending from about aneurysm 2 the common iliac arteries. There are bilateral radiopaque renal calculi with mild right hydronephrosis from right UPJ and proximal ureteral small stones. There is no fracture involving the thoracic cage or the lumbosacral spine.
--- NOTE | ~2021-06-07 | NM_ITS ---
EXAMINATION: NUCLEAR MEDICINE GI BLEEDING SCAN. CLINICAL INFORMATION: Active rectal bleeding. COMPARISON: None TECHNIQUE: Following intravenous administration of labeled RBCs with 25 mCi of 99m technetium pertechnetate, immediate perfusion images up to 1 minute 20 seconds and delayed static images were obtained up to 60 minutes. FINDINGS: On immediate perfusion images there is no blood pooling or extravasation seen. On delayed static images there is a normal activity seen in the aorta and the IVC as well as in both kidneys and the ureter. No isotope extravasation seen to suspect any acute GI bleeding source at this time. NM/NM GI bleeding IMPRESSION: No extravasation of isotope activity seen to suspect any GI bleeding site.
--- NOTE | ~2021-06-07 | FL_ITS ---
EXAMINATION: XR FLUOROSCOPY WITH IMAGES CLINICAL INFORMATION: Right-sided stent placement COMPARISON: CT of June 07, 2021 TECHNIQUE: Fluoroscopy performed by Dr. Mitchell Sung. Fluoroscopy time: 1.03 minutes DAP: 27.7 mGy Images: 3 FINDINGS: 3 images demonstrate placement of 1 and then stent within the dilated right upper collecting system. Portion of an aortic stent graft seen on the imaging. FL/FL guidance in OR IMPRESSION: Right ureteral stent placement.
--- NOTE | 2021-06-07 07:52 | ED.ABDPAIN ---
HPI - Abdominal Pain General Chief Complaint: General Medical Stated Complaint: fall yesterday - abd pain/bloody stool Time Seen by Provider: 06/07/21 07:52 Source: patient Mode of arrival: ambulatory Limitations: no limitations History of Present Illness HPI narrative: 85 y/o female with history of COPD on 2L NC QHS, AAA (7cm x 7.5cm), morbid obesity, intermittent smoker, left cartoid artery stenosis who presents to the ED from home via EMS with left sided abdominal pain and blood bowel movements that started after she fell at home twice yesterday. She was using her walker at home yesterday, reports getting lightheaded and just going down. She lives home alone and falls were unwitnessed. She denies head strike or LOC but fell onto her walker. She states the pain was not that bad until nighttime when she started having bloody bowel movements. She reports 3 overnight and 1 this morning. She states they were a bright red mucus type of BM. No hx GIB, not on anticoagulation. No NSAIDs. Denies current chest pain, SOB, dizziness or lightheadedness. She reports ongoing 8/10 left sided abdominal pain, mostly in the LLQ. No nausea or vomiting. She denies and chest pain or SOB. No bleeding prior to the falls. MD elicited complaint: abdominal pain Pertinent past history: other (s/p fall, hx AAA) Onset (ago): hour(s) Pain Consistency: constant Location: LLQ and L flank Severity: severe Pain scale (0-10): 8 Quality: aching Radiation: none Migration to: no migration Exacerbating factors: movement Relieving factors: nothing Associated symptoms: hematochezia Related Data Home Medications Medication Instructions Recorded Confirmed cholecalciferol (vitamin D3) 10 10 mcg PO DAILY 04/16/20 06/07/21 mcg (400 unit) capsule furosemide 20 mg tablet 20 mg PO DAILY 04/16/20 06/07/21 lisinopril 20 mg tablet 20 mg PO DAILY 04/16/20 06/07/21 aspirin 81 mg tablet,delayed 81 mg PO DAILY 04/21/20 06/07/21 release (Adult Low Dose Aspirin) meclizine 12.5 mg tablet 12.5 mg PO TID PRN tab 05/14/20 06/07/21 Previous Rx's Medication Instructions Recorded albuterol sulfate 90 mcg/actuation 2 puff INHALATION Q4-6H PRN #3 ea 02/10/20 aerosol inhaler (ProAir HFA) Incruse Ellipta 62.5 mcg/actuation 1 inh PO DAILY #30 ea NS 12/23/20 powder for inhalation (umeclidinium) atorvastatin 40 mg tablet 40 mg PO DAILY 90 Days #90 tab 02/22/21 metoprolol succinate 25 mg 25 mg PO DAILY 90 Days #90 tab 02/22/21 tablet,extended release 24 hr Allergies Allergy/AdvReac Type Severity Reaction Status Date / Time No Known Allergies Allergy Verified 05/17/21 10:30 [No Known Allergies*] Review of Systems Review of Systems Constitutional: No Fever, No Chills ENT/Mouth: No sore throat, No Rhinorrhea, No Swallowing Difficulty Eyes: No Eye Pain, No Swelling, No Redness Cardiovascular: + Chest Pain, No SOB, No Orthopnea, No Edema Respiratory: No Cough, No Sputum, No Wheezing, No dyspnea Gastrointestinal: No Nausea, No Vomiting, No Diarrhea, + abdominal Pain, + Hematochezia, No Melena Genitourinary: No Dysuria, No Urinary Frequency, No Hematuria Musculoskeletal: +joint pain, No Myalgias Skin: No Skin Lesions, No rash Neuro: +Weakness, No Numbness, + Dizziness, No Headache Psych: + Anxiety/Panic, No Depression Heme/Lymph: + Bruising, No Lymphadenopathy Endocrine: No Polyuria, No Polydipsia [facility] Past Medical History Medical History Atherosclerotic cardiovascular disease COPD (chronic obstructive pulmonary disease) Nocturnal hypoxemia Obesity Restrictive lung disease Smoker Family History Family History Father No problems noted. Mother No problems noted. Social History Social History Alcohol intake: never Patient Tobacco Use Status: Current someday Tobacco user Cigarettes Per Day: 1 Use of substances other than those prescribed or required for medical reasons: No Advance Directives: No Advance Directives Information Provided: No Physical Exam ED Vital Signs: Vital Signs - 24 hr 06/07/21 07:52 06/07/21 09:39 06/07/21 14:49 Temperature 98.3 F 99.6 F Pulse Rate 96 92 89 Respiratory Rate 16 20 20 Blood Pressure 96/46 L 115/61 101/50 L Pulse Oximetry 94 96 95 BMI result Body Mass Index 43.1 Appearance: Alert elderly female laying on the stretcher. Oriented X3. Pale. Appears uncomfortable. Eyes: Pupils equal, round and reactive to light. ENT: Pharynx normal. Neck: Normal inspection. Neck supple. CVS: Normal heart rate and rhythm. Pulses normal. Chest wall with 2 moderate areas of ecchymosis, mildly tender no crepitus Respiratory: No respiratory distress. Breath sounds normal. Abdomen: Obese, left sided flank ecchymosis, Soft with significant tenderness of the LLQ, LUQ and left flank. +BS x4 Skin: Skin warm and dry. Normal skin color. Normal skin turgor. No rashes. Extremities: No lower extremity edema. Left dorsal hand with a superficial laceration Neuro: Oriented X 3. No motor deficit. No sensory deficit. Procedures Laceration Laceration 1: Site: hand Side (If applicable): left Description: linear, flap and irregular Depth: simple, single layer Pre-repair: wound explored, irrigated extensively and deep structures intact Skin layer closed with: other (multiple steri strips) Course Course Course Narrative: 85 y/o female with history of large AAA s/p stent, COPD on nocturnal O2, carotid artery stenosis coming to the ER with LLQ and left flank pain s/p fall x2 yesterday as well as new onset of BRBPR x3 overnight. She arrives to the ER with soft BP 90/60s with MAP 59. She is AAOx3 with ecchymosis on her left flank and chest. Sixty really tender left lower quadrant and left flank. Concern for internal bleeding or injury. She is not on anticoagulation. Will get emergent CT imaging for further evaluation of internal injuries, IV fluids ordered, p.o. Tylenol ordered for pain at this time until blood pressure improves. She reports her baseline BP is ?normal? and is not on antihypertensive medications. Reevaluation(s) Reevaluation #1: 9:45 am - Lactic acid 4.1, likely trauma related. The magnet Does not appear septic at this time. H/H is 8.8/28.6 (11.8/38.2) without evidence of active bleeding. Could be blood loss from GI bleed vs hematoma. WBC 13.8, likely reactive. CT scans are still pending. pain improved with tylenol. BP much improved with fluids. Reevaluation #2: 11:40 - CT scans with no acute traumatic injuries. No large hematoma. She has mild right sided hydronephrosis wtih right sided UPJ stone and small proximal ureteral stones on the right. Her stool is brown, heme+ and all of her pain is on the left. Will plan for admission for further monitoring and workup for acute anemia, kidney stones with ?GI bleed and falls. Repeat lactic acid and troponin are still pending, lab delays due to staffing. Will add H/H to trend. Still awaiting UA - will place Pedro per Dr. Diaz recleigh ann. Reevaluation #3: 2:54 pm - labs return with significant downtrend in H/H, in part likely dilutional after 2L IVF given. No GI bleeding while in the ED. Will need to continue to trend closely and monitor hematoma for expansion. She remains hemodynamically stable not tachycardic with BP 101/50, HR 89. She is comfortable at this time. Dr. Diaz has accepted the patient. MDM - Abdominal Pain Medical Records Attestation: I reviewed the patient's medical records. Lab Data Attestation: I reviewed the patient's lab results. Result diagrams: 06/07/21 14:28 06/07/21 09:24 Labs: Lab Results 06/07/21 06/07/21 06/07/21 Range/Units 08:35 08:35 08:42 WBC 13.8 H (4.8-10.8) X10*3/uL RBC 3.34 L (4.20-5.50) X10*6/uL Hgb 8.8 L (12.0-16.0) g/dl Hct 28.6 L (37.0-47.0) % MCV 85.6 (80.0-98.0) fL MCH 26.3 L (27.0-33.0) pg MCHC 30.8 L (31.0-35.0) g/dl RDW 19.7 H (11.0-16.0) % Plt Count 205 (160-400) X10*3/uL MPV 9.8 (9.4-12.3) fL Immature Gran % (Auto) 0.5 H (0.0-0.4) % Neut % (Auto) 76.4 H (45-73) % Lymph % (Auto) 14.5 L (20-40) % [place] % (Auto) 8.2 (2-11) % Eos % (Auto) 0.1 (0-4) % Baso % (Auto) 0.3 (0-2) % Lymph # (Auto) 2.0 (1.2-4.9) X10*3/uL [place] # (Auto) 1.1 (0.1-1.2) X10*3/uL Eos # (Auto) 0.0 (0.0-0.4) X10*3/uL Baso # (Auto) 0.0 (0.0-0.2) X10*3/uL Abs Immat Gran (auto) 0.07 H (0.00-0.03) X10*3/uL Absolute Neuts (auto) 10.5 H (2.0-8.3) x10*3/uL Absolute Nucleated RBC 0.000 (0.0-0.012) X10*3/uL Nucleated RBC % (auto) 0.0 (0.0-0.2) /100WBC PT (9.9-13.0) SEC INR (0.9-1.1) APTT (24.1-38.0) SEC Sodium (135-145) mmol/L Potassium (3.3-5.1) mmol/L Chloride (96-108) mmol/L Carbon Dioxide (22-29) mmol/L Anion Gap (12-20) BUN (9-16) mg/dL Creatinine (0.5-1.4) mg/dL Estim Creat Clear Calc Estimated GFR Random Glucose (60-115) mg/dL Lactic Acid 4.1 H* (0.5-2.0) mmol/L Lactic Acid F/U @ 2Hr (0.5-2.0) mmol/L Calcium (8.4-10.2) mg/dL Magnesium (1.6-2.6) mg/dL Total Bilirubin (0.0-1.0) mg/dL Direct Bilirubin (0.0-0.5) mg/dL AST (5-31) U/L ALT (0-31) U/L Alkaline Phosphatase (39-117) U/L Total Creatine Kinase (26-140) U/L Troponin I High Sens (<3.5-17.0) ng/L Total Protein (6.5-8.0) g/dL Albumin (3.5-5.0) g/dL Stool Occult Blood (NEGATIVE) COVID-19 ([facility]) Negative (Negative) COVID-19 Clin Com See Note Blood Type Antibody Screen Crossmatch 06/07/21 06/07/21 06/07/21 Range/Units 08:42 08:54 09:24 WBC (4.8-10.8) X10*3/uL RBC (4.20-5.50) X10*6/uL Hgb (12.0-16.0) g/dl Hct (37.0-47.0) % MCV (80.0-98.0) fL MCH (27.0-33.0) pg MCHC (31.0-35.0) g/dl RDW (11.0-16.0) % Plt Count (160-400) X10*3/uL MPV (9.4-12.3) fL Immature Gran % (Auto) (0.0-0.4) % Neut % (Auto) (45-73) % Lymph % (Auto) (20-40) % [place] % (Auto) (2-11) % Eos % (Auto) (0-4) % Baso % (Auto) (0-2) % Lymph # (Auto) (1.2-4.9) X10*3/uL [place] # (Auto) (0.1-1.2) X10*3/uL Eos # (Auto) (0.0-0.4) X10*3/uL Baso # (Auto) (0.0-0.2) X10*3/uL Abs Immat Gran (auto) (0.00-0.03) X10*3/uL Absolute Neuts (auto) (2.0-8.3) x10*3/uL Absolute Nucleated RBC (0.0-0.012) X10*3/uL Nucleated RBC % (auto) (0.0-0.2) /100WBC PT 12.3 (9.9-13.0) SEC INR 1.1 (0.9-1.1) APTT 29.4 (24.1-38.0) SEC Sodium (135-145) mmol/L Potassium (3.3-5.1) mmol/L Chloride (96-108) mmol/L Carbon Dioxide (22-29) mmol/L Anion Gap (12-20) BUN (9-16) mg/dL Creatinine (0.5-1.4) mg/dL Estim Creat Clear Calc Estimated GFR Random Glucose (60-115) mg/dL Lactic Acid (0.5-2.0) mmol/L Lactic Acid F/U @ 2Hr (0.5-2.0) mmol/L Calcium (8.4-10.2) mg/dL Magnesium (1.6-2.6) mg/dL Total Bilirubin (0.0-1.0) mg/dL Direct Bilirubin (0.0-0.5) mg/dL AST (5-31) U/L ALT (0-31) U/L Alkaline Phosphatase (39-117) U/L Total Creatine Kinase (26-140) U/L Troponin I High Sens 104.7 H* (<3.5-17.0) ng/L Total Protein (6.5-8.0) g/dL Albumin (3.5-5.0) g/dL Stool Occult Blood (NEGATIVE) COVID-19 ([facility]) (Negative) COVID-19 Clin Com Blood Type O Negative Antibody Screen NEGATIVE Crossmatch See Detail 06/07/21 06/07/21 06/07/21 Range/Units 09:24 12:02 14:28 WBC (4.8-10.8) X10*3/uL RBC (4.20-5.50) X10*6/uL Hgb (12.0-16.0) g/dl Hct (37.0-47.0) % MCV (80.0-98.0) fL MCH (27.0-33.0) pg MCHC (31.0-35.0) g/dl RDW (11.0-16.0) % Plt Count (160-400) X10*3/uL MPV (9.4-12.3) fL Immature Gran % (Auto) (0.0-0.4) % Neut % (Auto) (45-73) % Lymph % (Auto) (20-40) % [place] % (Auto) (2-11) % Eos % (Auto) (0-4) % Baso % (Auto) (0-2) % Lymph # (Auto) (1.2-4.9) X10*3/uL [place] # (Auto) (0.1-1.2) X10*3/uL Eos # (Auto) (0.0-0.4) X10*3/uL Baso # (Auto) (0.0-0.2) X10*3/uL Abs Immat Gran (auto) (0.00-0.03) X10*3/uL Absolute Neuts (auto) (2.0-8.3) x10*3/uL Absolute Nucleated RBC (0.0-0.012) X10*3/uL Nucleated RBC % (auto) (0.0-0.2) /100WBC PT (9.9-13.0) SEC INR (0.9-1.1) APTT (24.1-38.0) SEC Sodium 139 (135-145) mmol/L Potassium 4.3 (3.3-5.1) mmol/L Chloride 110 H (96-108) mmol/L Carbon Dioxide 15 L (22-29) mmol/L Anion Gap 18 (12-20) BUN 35 H (9-16) mg/dL Creatinine 2.66 H (0.5-1.4) mg/dL Estim Creat Clear Calc 18.4 Estimated GFR 17 Random Glucose 84 (60-115) mg/dL Lactic Acid (0.5-2.0) mmol/L Lactic Acid F/U @ 2Hr 1.9 (0.5-2.0) mmol/L Calcium 9.5 (8.4-10.2) mg/dL Magnesium 1.9 (1.6-2.6) mg/dL Total Bilirubin 0.9 (0.0-1.0) mg/dL Direct Bilirubin 0.3 (0.0-0.5) mg/dL AST 15 (5-31) U/L ALT 10 (0-31) U/L Alkaline Phosphatase 103 (39-117) U/L Total Creatine Kinase 76 D (26-140) U/L Troponin I High Sens (<3.5-17.0) ng/L Total Protein 6.5 (6.5-8.0) g/dL Albumin 3.1 L (3.5-5.0) g/dL Stool Occult Blood POSITIVE (NEGATIVE) COVID-19 ([facility]) (Negative) COVID-19 Clin Com Blood Type Antibody Screen Crossmatch 06/07/21 Range/Units 14:28 WBC (4.8-10.8) X10*3/uL RBC (4.20-5.50) X10*6/uL Hgb 7.6 L (12.0-16.0) g/dl Hct 25.0 L (37.0-47.0) % MCV (80.0-98.0) fL MCH (27.0-33.0) pg MCHC (31.0-35.0) g/dl RDW (11.0-16.0) % Plt Count (160-400) X10*3/uL MPV (9.4-12.3) fL Immature Gran % (Auto) (0.0-0.4) % Neut % (Auto) (45-73) % Lymph % (Auto) (20-40) % [place] % (Auto) (2-11) % Eos % (Auto) (0-4) % Baso % (Auto) (0-2) % Lymph # (Auto) (1.2-4.9) X10*3/uL [place] # (Auto) (0.1-1.2) X10*3/uL Eos # (Auto) (0.0-0.4) X10*3/uL Baso # (Auto) (0.0-0.2) X10*3/uL Abs Immat Gran (auto) (0.00-0.03) X10*3/uL Absolute Neuts (auto) (2.0-8.3) x10*3/uL Absolute Nucleated RBC (0.0-0.012) X10*3/uL Nucleated RBC % (auto) (0.0-0.2) /100WBC PT (9.9-13.0) SEC INR (0.9-1.1) APTT (24.1-38.0) SEC Sodium (135-145) mmol/L Potassium (3.3-5.1) mmol/L Chloride (96-108) mmol/L Carbon Dioxide (22-29) mmol/L Anion Gap (12-20) BUN (9-16) mg/dL Creatinine (0.5-1.4) mg/dL Estim Creat Clear Calc Estimated GFR Random Glucose (60-115) mg/dL Lactic Acid (0.5-2.0) mmol/L Lactic Acid F/U @ 2Hr (0.5-2.0) mmol/L Calcium (8.4-10.2) mg/dL Magnesium (1.6-2.6) mg/dL Total Bilirubin (0.0-1.0) mg/dL Direct Bilirubin (0.0-0.5) mg/dL AST (5-31) U/L ALT (0-31) U/L Alkaline Phosphatase (39-117) U/L Total Creatine Kinase (26-140) U/L Troponin I High Sens (<3.5-17.0) ng/L Total Protein (6.5-8.0) g/dL Albumin (3.5-5.0) g/dL Stool Occult Blood (NEGATIVE) COVID-19 ([facility]) (Negative) COVID-19 Clin Com Blood Type Antibody Screen Crossmatch ECG Data Attestation: I personally reviewed and interpreted this ECG as follows: ECG interpretation date: 06/07/21 ECG interpretation time: 09:06 Prior ECG tracings: available for review Interpretation: Normal sinus rhythm, accelerated junctional rhythm, heart rate 94 beats per minute, prolonged QTc 682, no ST segment elevations or depressions Critical Care Time Critical Care Time Critical Care Time: Yes Total Critical Care Time: 44 Attestation: I have personally provided critical care time exclusive of time spent on separately billable procedures. Time includes review of lab data, radiology results, discussion with consultants, frequent bedside reassessments and monitoring for potential decompensation. Intervention performed as documented. Discharge Plan Discharge Clinical Impression: Acute blood loss anemia, GI bleed, Hematoma of left flank, Skin tear of hand without complication, Recurrent falls, Kidney stone on right side Patient Disposition: Admitted As Inpatient
--- NOTE | 2021-06-07 07:56 | ECG_ITS ---
Test Reason : FALL Blood Pressure : / mmHG Vent. Rate : 094 BPM Atrial Rate : 096 BPM P-R Int : 000 ms QRS Dur : 062 ms QT Int : 546 ms P-R-T Axes : 062 053 037 degrees QTc Int : 682 ms Sinus rhythm with 1st degree A-V block Low voltage QRS Possible Anterolateral infarct , age undetermined Abnormal ECG When compared with ECG of 20-JAN-2014 10:36, Premature atrial complexes are no longer Present Referred By: Oma Cortez Electronically Signed By:JESUS GARCIA MD
[2021-06-07 08:47] LABS: MANUAL DIFF FLAG NO
[2021-06-07] MEDS: 0.9 % Sodium Chloride 1,000 ML 999 ML IVCONT ×2 (08:48→10:00)
[2021-06-07 08:51] LABS: Basophils Percent Auto 0.3 % (0-2); Eosinophils Percent Auto 0.1 % (0-4); Hematocrit 28.6 % (37.0-47.0); Hemoglobin 8.8 g/dl (12.0-16.0); Imm Gran Abs Auto 0.07 X10*3/uL (0.00-0.03); Imm Gran Pct Auto 0.5 % (0.0-0.4); Lymphocytes Percent Auto 14.5 % (20-40); Mean Corpuscular HGB Conc 30.8 g/dl (31.0-35.0); Mean Corpuscular Hemoglobin 26.3 pg (27.0-33.0); Mean Corpuscular Volume 85.6 fL (80.0-98.0); Mean Platelet Volume 9.8 fL (9.4-12.3); Monocytes Absolute Auto 1.1 X10*3/uL (0.1-1.2); Monocytes Percent Auto 8.2 % (2-11); Neutrophils Absolute Auto 10.5 x10*3/uL (2.0-8.3); Neutrophils Percent Auto 76.4 % (45-73); Platelet Count 205 X10*3/uL (160-400); Red Blood Count 3.34 X10*6/uL (4.20-5.50); Red Cell Distribution Width 19.7 % (11.0-16.0); White Blood Count 13.8 X10*3/uL (4.8-10.8)
[2021-06-07 08:59] LABS: Lactic Acid 4.1 mmol/L (0.5-2.0)
[2021-06-07 09:13] LABS: COVID-19 Test Negative (Negative); IDNOW Serial# 16C4AD1C
[2021-06-07 09:16] LABS: Troponin-I High Sensitivity 104.7 ng/L (<3.5-17.0)
[2021-06-07 09:35] LABS: INTERNATIONAL NORM RATIO 1.1 (0.9-1.1); Prothrombin Time 12.3 SEC (9.9-13.0)
[2021-06-07 09:38] LABS: Partial Thromboplastin Time 29.4 SEC (24.1-38.0)
[2021-06-07] MEDS: Magnesium Sulfate/D5W 1 GM/100 ML PIGGYBACK IV (09:43)
[2021-06-07] MEDS: Acetaminophen 325 MG TABLET 975 MG PO (09:43)
[2021-06-07 09:49] LABS: Alanine Aminotransferase 10 U/L (0-31); Albumin Level 3.1 g/dL (3.5-5.0); Alkaline Phosphatase 103 U/L (39-117); Anion Gap 18 (12-20); Aspartate Amino Transferase 15 U/L (5-31); Bilirubin Direct 0.3 mg/dL (0.0-0.5); Bilirubin Total 0.9 mg/dL (0.0-1.0); Blood Urea Nitrogen 35 mg/dL (9-16); Calcium 9.5 mg/dL (8.4-10.2); Carbon Dioxide 15 mmol/L (22-29); Chloride 110 mmol/L (96-108); Creatinine Clr Calc Pharmacy 18.4; Estimated Glomerular Filt Rate 17; Glucose Random 84 mg/dL (60-115); Magnesium 1.9 mg/dL (1.6-2.6); Potassium 4.3 mmol/L (3.3-5.1); Sodium 139 mmol/L (135-145); Total Protein 6.5 g/dL (6.5-8.0)
[2021-06-07 10:42] LABS: Reflex Lactate? Lactic Acid Added
[2021-06-07 12:11] LABS: OBS1 POSITIVE (NEGATIVE)
[2021-06-07 12:12] LABS: OBS Int Ctl Valid YES
--- NOTE | 2021-06-07 14:29 | PHA.MEDREC ---
Pharmacy Consult ? Medication Reconciliation Pharmacy has completed the medication reconciliation. SPOKE WITH PT
[2021-06-07 14:37] LABS: Hemoglobin 7.6 g/dl (12.0-16.0)
[2021-06-07] MEDS: Diphth,Pertus(ACell),Tet Adult 0.5 ML SYRINGE IM (14:45)
[2021-06-07 14:47] LABS: ~Lactic Acid-LAB USE ONLY 1.9 mmol/L (0.5-2.0)
--- NOTE | 2021-06-07 14:57 | PM.IMHP ---
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, patient presented to [facility] via EMS due to left-sided abdominal pain and for episodes of bloody mouth movement that started since yesterday after she fell at home twice as per patient she was using a walker to ambulate she felt lightheaded and fell down on her walker, she denies loss of consciousness or head injury, she sustained few bruises on anterior chest left arm and right thigh, her abdominal pain is localized to left lower quadrant with no radiation worse with coughing , she complained of mild nausea without vomiting, she noted to have bright red mucous CD discharge x3 without mixed in stool, patient is chronically on aspirin denies use of NSAIDs, patient denies right-sided flank or lower abdominal pain she complained of chills without any fever denies chest pain, no palpitations, no shortness of breath, in the emergency room workup revealed lactic acid 4.1, troponin 104.7, INR 1.1, magnesium 1.9, baseline creatinine 1.7 noted to be 2.66 today, EKG showed no ischemia but showed prolonged QT Review of Systems Review of Systems: [employer] no headache, no lightheadedness while resting CVS no chest pain, no palpitation GI positive nausea no vomiting left lower quadrant abdominal pain with coughing no urinary urgency, no frequency no hematuria Yes all other systems are reviewed and are negative [facility] Medical History Atherosclerotic cardiovascular disease COPD (chronic obstructive pulmonary disease) Nocturnal hypoxemia Obesity Restrictive lung disease Smoker Family History Father No problems noted. Mother No problems noted. Social History Alcohol intake: never Patient Tobacco Use Status: Current someday Tobacco user Cigarettes Per Day: 1 Use of substances other than those prescribed or required for medical reasons: No Advance Directives: No Advance Directives Information Provided: No Meds Allergies Allergy/AdvReac Type Severity Reaction Status Date / Time No Known Allergies Allergy Verified 05/17/21 10:30 [No Known Allergies*] Active Medications: Current Medications Acetaminophen (Acetaminophen 325 Mg Tablet) 650 mg PO Q6H PRN PRN Reason: Pain, Mild (Pain Scale 1-3) Ondansetron HCl (Ondansetron Hcl 4 Mg/2 Ml Vial) 4 mg IVPUSH Q8H PRN PRN Reason: Nausea and Vomiting Pharmacy Consult (Consult Rx Perform Med Rec) 1 each MISCELLANE ONCE PRN PRN Reason: Consult order Sodium Chloride (0.9 % Sodium Chloride Flush 3 Ml Syringe) 3 ml IVFLUSH QSHIFT [facility] Medications Medication Instructions Recorded Confirmed Last Taken Type cholecalciferol (vitamin D3) 10 10 mcg PO DAILY 04/16/20 06/07/21 06/05/21 History mcg (400 unit) capsule furosemide 20 mg tablet 20 mg PO DAILY 04/16/20 06/07/21 06/05/21 History lisinopril 20 mg tablet 20 mg PO DAILY 04/16/20 06/07/21 06/05/21 History aspirin 81 mg tablet,delayed 81 mg PO DAILY 04/21/20 06/07/21 06/05/21 History release (Adult Low Dose Aspirin) meclizine 12.5 mg tablet 12.5 mg PO TID PRN tab 05/14/20 06/07/21 06/05/21 History Physical Exam Vital Signs and Narrative: Vital Signs: Last Vital Signs Temp 99.6 F 06/07/21 14:49 Pulse 89 06/07/21 14:49 Resp 20 06/07/21 14:49 BP 101/50 L 06/07/21 14:49 Pulse Ox 95 06/07/21 14:49 BMI result Body Mass Index 43.1 Const: Other: General awake alert, no acute distress. HEENT anicteric sclerae Neck supple no JVD. CVS regular rate rhythm, Respiratory lungs clear to auscultation, no respiratory distress Gastrointestinal abdomen soft, nontender, obese, bowel sounds audible, left lower quadrant tenderness with minimal palpation Extremities no edema. Neuro nonfocal, moving all 4 extremity speech clear. Skin multiple bruises anterior chest, left arm and right thigh Psych appropriate affect Results Labs CBC and Chem 7: 06/07/21 14:28 06/07/21 09:24 Labs: Laboratory Results - last 24 hr 06/07/21 06/07/21 06/07/21 08:35 08:35 08:42 MCV 85.6 MCH 26.3 L MCHC 30.8 L RDW 19.7 H Plt Count 205 MPV 9.8 Immature Gran % (Auto) 0.5 H Neut % (Auto) 76.4 H Lymph % (Auto) 14.5 L [place] % (Auto) 8.2 Eos % (Auto) 0.1 Baso % (Auto) 0.3 Lymph # (Auto) 2.0 [place] # (Auto) 1.1 Eos # (Auto) 0.0 Baso # (Auto) 0.0 Abs Immat Gran (auto) 0.07 H Absolute Neuts (auto) 10.5 H Absolute Nucleated RBC 0.000 Nucleated RBC % (auto) 0.0 PT INR APTT Anion Gap Estim Creat Clear Calc Estimated GFR Random Glucose Lactic Acid 4.1 H* Lactic Acid F/U @ 2Hr Calcium Magnesium Total Bilirubin Direct Bilirubin AST ALT Alkaline Phosphatase Total Creatine Kinase Troponin I High Sens Total Protein Albumin Stool Occult Blood COVID-19 (HEVER) Negative COVID-[employer] See Note Blood Type Antibody Screen Crossmatch 06/07/21 06/07/21 06/07/21 08:42 08:54 09:24 MCV MCH MCHC RDW Plt Count MPV Immature Gran % (Auto) Neut % (Auto) Lymph % (Auto) [place] % (Auto) Eos % (Auto) Baso % (Auto) Lymph # (Auto) [place] # (Auto) Eos # (Auto) Baso # (Auto) Abs Immat Gran (auto) Absolute Neuts (auto) Absolute Nucleated RBC Nucleated RBC % (auto) PT 12.3 INR 1.1 APTT 29.4 Anion Gap Estim Creat Clear Calc Estimated GFR Random Glucose Lactic Acid Lactic Acid F/U @ 2Hr Calcium Magnesium Total Bilirubin Direct Bilirubin AST ALT Alkaline Phosphatase Total Creatine Kinase Troponin I High Sens 104.7 H* Total Protein Albumin Stool Occult Blood COVID-19 ([facility]VER) COVID-[place] Com Blood Type O Negative Antibody Screen NEGATIVE Crossmatch See Detail 06/07/21 06/07/21 06/07/21 09:24 12:02 14:28 MCV MCH MCHC RDW Plt Count MPV Immature Gran % (Auto) Neut % (Auto) Lymph % (Auto) [place] % (Auto) Eos % (Auto) Baso % (Auto) Lymph # (Auto) [place] # (Auto) Eos # (Auto) Baso # (Auto) Abs Immat Gran (auto) Absolute Neuts (auto) Absolute Nucleated RBC Nucleated RBC % (auto) PT INR APTT Anion Gap 18 Estim Creat Clear Calc 18.4 Estimated GFR 17 Random Glucose 84 Lactic Acid Lactic Acid F/U @ 2Hr 1.9 Calcium 9.5 Magnesium 1.9 Total Bilirubin 0.9 Direct Bilirubin 0.3 AST 15 ALT 10 Alkaline Phosphatase 103 Total Creatine Kinase 76 D Troponin I High Sens Total Protein 6.5 Albumin 3.1 L Stool Occult Blood POSITIVE COVID-19 (HEVER) COVID-19 Clin Com Blood Type Antibody Screen Crossmatch Imaging Radiologist's Impressions: Impressions Cervical Spine CT 06/07/21 10:27 IMPRESSION: No acute intracranial process seen. There is no acute fracture or dislocation cervical spine except for mild straightening of cervical lordosis likely spasm and degenerative disc changes as described above. No acute process seen in the chest, abdomen pelvis. There is aneurysmal descending thoracic aorta. There is aneurysmal distal abdominal aorta with a aortic graft/stent in place extending from about aneurysm 2 the common iliac arteries. There are bilateral radiopaque renal calculi with mild right hydronephrosis from right UPJ and proximal ureteral small stones. There is no fracture involving the thoracic cage or the lumbosacral spine. Head CT 06/07/21 10:28 IMPRESSION: No acute intracranial process seen. There is no acute fracture or dislocation cervical spine except for mild straightening of cervical lordosis likely spasm and degenerative disc changes as described above. No acute process seen in the chest, abdomen pelvis. There is aneurysmal descending thoracic aorta. There is aneurysmal distal abdominal aorta with a aortic graft/stent in place extending from about aneurysm 2 the common iliac arteries. There are bilateral radiopaque renal calculi with mild right hydronephrosis from right UPJ and proximal ureteral small stones. There is no fracture involving the thoracic cage or the lumbosacral spine. Abdomen/Pelvis CT 06/07/21 10:34 IMPRESSION: No acute intracranial process seen. There is no acute fracture or dislocation cervical spine except for mild straightening of cervical lordosis likely spasm and degenerative disc changes as described above. No acute process seen in the chest, abdomen pelvis. There is aneurysmal descending thoracic aorta. There is aneurysmal distal abdominal aorta with a aortic graft/stent in place extending from about aneurysm 2 the common iliac arteries. There are bilateral radiopaque renal calculi with mild right hydronephrosis from right UPJ and proximal ureteral small stones. There is no fracture involving the thoracic cage or the lumbosacral spine. Chest CT 06/07/21 10:34 IMPRESSION: No acute intracranial process seen. There is no acute fracture or dislocation cervical spine except for mild straightening of cervical lordosis likely spasm and degenerative disc changes as described above. No acute process seen in the chest, abdomen pelvis. There is aneurysmal descending thoracic aorta. There is aneurysmal distal abdominal aorta with a aortic graft/stent in place extending from about aneurysm 2 the common iliac arteries. There are bilateral radiopaque renal calculi with mild right hydronephrosis from right UPJ and proximal ureteral small stones. There is no fracture involving the thoracic cage or the lumbosacral spine. Assessment and Plan (1) Acute blood loss anemia: Status: Acute (2) GI bleed: Status: Acute (3) Recurrent falls: Status: Acute (4) Kidney stone on right side: Status: Acute (5) Abdominal aortic aneurysm (AAA) without rupture: Status: Acute (6) Nocturnal hypoxemia: Status: Acute (7) Obesity: Status: Acute (8) Acute worsening of stage 3 chronic kidney disease: Status: Acute (9) Lactic acidosis: Status: Acute (10) Elevated troponin: Status: Acute Plan 85-year-old female patient with past medical history significant for morbid obesity, COPD/restrictive lung disease on 2 L of oxygen at night, history of endovascular repair of aortic aneurysm July of 2015, history of bilateral carotid artery stenosis, history of intermittent dizziness on meclizine, lives alone at home ambulates with a walker presented to [facility] after she fell twice at home she became lightheaded,while ambulating without associated chest pain or palpitation, and landed on her walker got injury to left lower abdomen, anterior chest and right thigh, after fall patient developed left lower quadrant abdominal pain and also noted for episodes of bright-red Jelly like discharge from rectum patient in the emergency room noted to have lactic acidosis significant drop in hematocrit, elevated creatinine, CT abdomen showed right hydronephrosis, right UPJ and proximal ureteral stone patient is being admitted for continued monitoring and treatment. Unsteady gait and fall Likely related to low blood pressure/will check orthostatic blood pressure, hold antihypertensive obtain PT eval once medically stable Bright red blood per rectum likely lower GI bleed No recurrent episodes in the emergency room, rectal exam as per ER provider brown stool guaiac positive CT abdomen showed no acute abnormality/no diverticuli Placed on Protonix/clear liquid diet/DC aspirin Case discussed with Dr. Yuen he will see patient at a.m. Acute blood loss anemia Due to GI bleed, will transfuse 1 unit follow CBC, avoid aspirin Elevated troponin Troponin elevated but flat, No chest pain, no palpitation likely due to renal disease, EKG showed no acute ischemic change Lactic acidosis Likely due to dehydration/lactic acid improved with IV fluids avoid hypotension/not related to severe sepsis Leukocytosis Normal CT chest and CT abdomen, Will check urinalysis will place empirically on IV ceftriaxone due to history of renal stones and right hydronephrosis Right hydronephrosis with right UPJ and proximal ureteral stone status post multiple lithotripsies in the past by Dr. Spence III will consult urology, patient denies right flank pain Acute on chronic kidney disease stage 3 with acidosis Avoid hypotension, avoid nephrotoxins, DC lisinopril, DC Lasix, add soda bicarb Patient not aware of kidney disease will consult Nephrology Prolonged QTC received magnesium in the ED will repeat EKG History of AAA repair, CT showed aneurysmal distal abdominal aorta with a aortic graft/stent in place extending from about aneurysm 2 the common iliac arteries. COPD/restrictive lung disease no acute exacerbation continue home inhalers and 2 L of oxygen at night Morbid obesity weight reduction recommended. DVT prophylaxis with compression boots avoid heparin due to GI bleed Code status full code Patient will need to inpatient night hospitalization due to acute GI bleed requiring blood transfusion also with acute on chronic kidney disease will need GI/renal workup. Quality Stroke Does the patient have a stroke diagnosis?: No VTE Prior VTE?: No VTE Risk Level:: Medical - moderate - high VTE Device Contraindication: N/A - Device Ordered VTE Drug Contraindication: Treatment Not Indicated
[2021-06-07] MEDS: cefTRIAXone sodium 1 GM in 0.9 % Sodium Chloride 50 ML IV (16:03)
[2021-06-07] MEDS: Pantoprazole Sodium 40 MG/10 ML VIAL IVPUSH (16:03)
[2021-06-07] MEDS: 0.9 % Sodium Chloride Flush 3 ML SYRINGE IVFLUSH (16:03)
--- NOTE | 2021-06-07 17:01 | PC.NURSE ---
Patient alert and oriented x 3. Patient denies any pain, sob, and dizziness. Dr. Diaz ordered 1 unit of RBC's for low hgb and hct will recheck h & h to check improvement. When blood came blood pressure dropped from
[2021-06-07 18:10] LABS: Appearance Urine CLEAR; Color Urine YELLOW; Glucose Urine UA NEG (NEG); Leukocyte Esterase Urine 2+ (NEG); Nitrite Urine NEG (NEG); PH 5.5 (5.0-8.0); Specific Gravity - Urine 1.025 (1.005-1.025); UACC Culture Trigger YES; Urine Blood NEG (NEG); Urine Ketones NEG (NEG); Urine Protein TRACE MG/DL (NEG-TRACE)
--- NOTE | 2021-06-07 18:25 | PM.EVENT ---
Event Note Date of Service: 06/07/21 Event Note: Patient was just admitted for LGIB, acute blood loss anemia, initially stable but a shile ago had actibe bleed (BRBPR), with drop in hemoglobin to 7 from 8, and SBP droping below 100. Concern for diverticular bleed, requesting bleeding scan, transfer to ICU and if bleeding scan is positibe will needs surgery consult. Serial H/H. I discussed transfer of care with Dr. Mg
[2021-06-07 18:29] LABS: Bacteria Urine 4+ /LPF; RBC Urine 0 /HPF (0); Squamous Epithelial Cell Urine 1+ /LPF; WBC Urine 30-49 /HPF (0-4)
[2021-06-07 19:55] LABS: Hematocrit 29.3 % (37.0-47.0); Hemoglobin 9.1 g/dl (12.0-16.0); Mean Corpuscular HGB Conc 31.1 g/dl (31.0-35.0); Mean Corpuscular Hemoglobin 26.8 pg (27.0-33.0); Mean Corpuscular Volume 86.2 fL (80.0-98.0); Platelet Count 159 X10*3/uL (160-400); Red Cell Distribution Width 18.6 % (11.0-16.0); White Blood Count 13.3 X10*3/uL (4.8-10.8)
--- NOTE | 2021-06-07 20:00 | PC.NURSE ---
Patient alert and oriented x 3. Patient has small amount of blood gush out of rectum Dr. Diaz notified. Patients blood pressure started dropping shortly after bleeding from rectum at around 1640pm Dr. Diaz notified. Instructed to start RBC's. bp was 92/50 previous bp was 121/52. RBC's started put on pressure bag. Patient at 1723 c/o another gush of blood Dr. Diaz notified ordered another order of RBC's. Dr. Truong coming to assess patient. Patient being transferred to ICU for closer observation. Gave report to RN. Will transport to ICU.
[2021-06-07 20:06] LABS: Blood Urea Nitrogen 32 mg/dL (9-16); Creatinine Clr Calc Pharmacy 20.7; Estimated Glomerular Filt Rate 19
--- NOTE | 2021-06-07 21:57 | W.PM.CCCN ---
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 Patient had presented to the emergency room this morning via ambulance after experiencing 3 bloody bowel movements, proceeding to these the patient has had 2 falls at home 1 of which is described by family members as a possible syncope as the patient was on the toilet tried to get up and fell, hit her walker and reported to have blacked out on the floor for a couple of hours, subsequently she had a 2nd fall and reported the bowel movements with some blood to the family who advised her to come to the emergency room.? In the emergency room, she reported the above along with left-sided flank pain, she has not been taking any anticoagulation therapy or NSAIDs.? There is no history of colon cancer, no history of hemorrhoids or prior GI bleed.? She had a trauma survey including head, cervical CT, chest abdomen pelvis results which are not significant for acute processes although she does have a known AAA approximately 7.5 cm. ?On arrival, her white count was 13.8, H&H 8.8 and 28.6 from a previous baseline 3 years ago of 11.8 and 38.2.? Repeated H&H approximately 6 hours later did show decrease to 7.6 and 25.0 respectively, the patient did receive 1 unit of packed red blood cells.? Her BUN creatinine was 35 and 2.6 respectively with a creatinine baseline of 2.3, troponin levels were 104.7 but repeated test went down to 89.0 without EKG changes.? Patient was initially admitted to the Internal Medicine Services but given the concern of worsening GI bleed and borderline hypotension with low was blood pressure of 90/35 were consulted to bring this patient to the ICU.? The patient is currently undergoing a red blood cell scan, denies any additional symptomatology and there is no active bleeding that we can see. ROS:? as above, otherwise Past Medical History:? As above CKD cr baseline of 2.33 BPV Past Surgical History: Bilatertal Cataract Surgery Aorto-Femoral Graft 2005 Lithotripsy for Kidney Stones Family history: ?Noncontributory Social History:? Patient lives at home, she has a 60 pack-year history of tobacco consumption, decreased from 2 and half packs to a few cigarettes per day for the last 2 years.? Denies alcohol, drugs.? Does use a walker. CODE STATUS: FULL CODE Allergies: NKDA Home Medications: See Med Rec PHYSICAL EXAM: VS: ?Blood pressure 120/40, heart rate 88, respirations 16, O2 sat 96% on room air, temperature 98.3 degrees. General: Obese, ?Alert oriented x3 no acute distress.? Speaking full sentences.? Speech is well articulated, thought process is coherent.? Following all commands. Skin:? Intact, no lesions, edema, erythema, clubbing or cyanosis.? No ulcers. HEENT:? Head is normocephalic, atraumatic, pupils equal round reactive to light accommodation bilaterally.? Extraocular movements appear intact.? Buccal mucosa is moist, Neck is supple without lymphadenopathy. Cardiac:? Clear S1-S2, no murmurs rubs or gallops. Pulmonary:? Clear to auscultation, no wheezes, rales or rhonchi. Abdomen:? Protuberant, positive bowel sounds in all 4 quadrants.? Soft, nontender, no rebound or guarding.? Musculoskeletal:? Moving all 4 extremities upon request a major joints, there is no crepitus or tenderness.? The strength is 5/5 bilaterally and throughout all 4 extremities.? There is no leg edema , no calf tenderness , no leg asymmetry.? Gait not assessed at this point. Neurologic:? As above, cranial nerves 2-12 are grossly intact.? No focal deficits noted. Motor strength as above.? Vascular:? 2+ pulses upper and lower extremities distally. SIGNIFICANT LABORATORY DATA:? As above REVIEW OF IMAGES: ? HEAD/ CERVICAL CT / CT CHEST/ ABDOMEN AND PELVIS WITHOUT CONTRAST: No acute intracranial process seen. There is no acute fracture or dislocation cervical spine except for mild straightening of cervical lordosis likely spasm and degenerative disc changes as described above. No acute process seen in the chest, abdomen pelvis. There is aneurysmal descending thoracic aorta. There is aneurysmal distal abdominal aorta with a aortic graft/stent in place extending from about aneurysm 2 the common iliac arteries. There are bilateral radiopaque renal calculi with mild right hydronephrosis from right UPJ and proximal ureteral small stones.? There is no fracture involving the thoracic cage or the lumbosacral spine. EKG REVIEW:? Sinus rhythm with first-degree AV block, age-indeterminate changes in the anterior lateral leads.? No ST elevations or depressions noted. ?94 beats per minute.? QTC 682.? No comparison available. ASSESSMENT AND PLAN: 1. Lower GI bleed of unknown source 2. Syncopal episode 3. Bilateral nephrolithiasis with mild right hydronephrosis new from prior study at the beginning of May of this month 4. Anemia of acute blood loss 5. Improved acute kidney injury on chronic kidney disease 6. Stable essential hypertension 7. Obesity 8. COPD without active exacerbation 9. Tobacco abuse, patient's consult on smoking cessation, refused the patch, refuses to quit smoking 10. QT prolongation 11. Asymptomatic bacteriuria 12. Resolved lactic acidosis, likely due to GI bleed but not clear evidence of sepsis. Patient was transferred to the ICU, should be monitored closely, keep an eye on her blood pressure, a change was repeated upon arrival to the unit and appears to be stable after packed red blood cell, patient will have the nuclear medicine study and depending on its result, further GI evaluation in the am by Dr. Yuen.? The patient did receive Rocephin for possibility of a UTI although she has been asymptomatic, the urine does appear dirty, she did have a white count and elevated lactic acid which could be reactive versus early infectious process, nevertheless she has mi right hydronephrosis and Urology will be consulted.? Will repeat blood levels every 6 hours, monitor her renal function, provide supportive care for her COPD including oxygen at night and continue with cardiac monitoring. No aspirin or alike products. I did have a lengthy discussion with the patient's was the patient is knees and nephews who live with her and take care of her, they are all in agreement that the patient will continue to be full code.? The patient may need a tilt test given her history of vertigo as well as reported syncope.? She may also need an echo. GI PROPHYLAXIS:? Ppi DVT PROPHYLAXIS:? Pneumatic stockings while in bed only. Critical care time used for critical evaluation of this patient, diagnosis, treatment and coordination of care, review her records and documentation TOTAL CRITICAL CARE TIME 90 MIN . Patient's care was discussed in detail with Dr. Mg.? He is aware of all the above as well as the plan of care for this patient. [facility] Past Medical History Medical History Atherosclerotic cardiovascular disease COPD (chronic obstructive pulmonary disease) Nocturnal hypoxemia Obesity Restrictive lung disease Smoker Family History Family History Father No problems noted. Mother No problems noted. Social History Social History Household Members: None Housing: House Alcohol intake: never Patient Tobacco Use Status: Current someday Tobacco user Tobacco use type: Cigarette Cigarettes Per Day: 1 Packs Per Year: 70 Smoked in Last 30 Days: Yes Patient Interested in Nicotine Replacement: No Patient Given Instructions on How to Stop Smoking: No Use of substances other than those prescribed or required for medical reasons: No Currently Displaying Signs/Symptoms of Drug Intoxication Withdrawal: No service: No Current occupational status: [email or web address] Allergies Allergy/AdvReac Type Severity Reaction Status Date / Time No Known Allergies Allergy Verified 05/17/21 10:30 [No Known Allergies*] Active Medications: Current Medications Acetaminophen (Acetaminophen 325 Mg Tablet) 650 mg PO Q6H PRN PRN Reason: Pain, Mild (Pain Scale 1-3) Albuterol Sulfate (Albuterol Sulfate 90 Mcg 8 Gm Inhaler) 2 puff INHALE Q4H PRN PRN Reason: shortness of breath or wheezing Ceftriaxone Sodium 1 gm/ (Sodium Chloride) 50 mls @ 100 mls/hr IV Q24H [facility] Last Infusion: 06/07/21 17:52 Dose: Infused Documented by: Meclizine HCl (Meclizine Hcl 12.5 Mg Tablet) 12.5 mg PO TID PRN PRN Reason: Dizziness Ondansetron HCl (Ondansetron Hcl 4 Mg/2 Ml Vial) 4 mg IVPUSH Q8H PRN PRN Reason: Nausea and Vomiting Pantoprazole Sodium (Pantoprazole Sodium 40 Mg/10 Ml Vial) 40 mg IVPUSH DAILY@0630 [facility] Pharmacy Consult (Consult Rx Perform Med Rec) 1 each MISCELLANE ONCE PRN PRN Reason: Consult order Sodium Chloride (0.9 % Sodium Chloride Flush 3 Ml Syringe) 3 ml IVFLUSH QSHIFT [facility] Last Admin: 06/07/21 16:03 Dose: 3 ml Documented by: Tiotropium Bock (Tiotropium Bock 18 Mcg Cap.W.Dev) 1 puff INHALE RDAILY [facility] Home Medications Medication Instructions Recorded Confirmed Last Taken Type cholecalciferol (vitamin D3) 10 10 mcg PO DAILY 04/16/20 06/07/21 06/05/21 History mcg (400 unit) capsule furosemide 20 mg tablet 20 mg PO DAILY 04/16/20 06/07/21 06/05/21 History lisinopril 20 mg tablet 20 mg PO DAILY 04/16/20 06/07/21 06/05/21 History aspirin 81 mg tablet,delayed 81 mg PO DAILY 04/21/20 06/07/21 06/05/21 History release (Adult Low Dose Aspirin) meclizine 12.5 mg tablet 12.5 mg PO TID PRN tab 05/14/20 06/07/21 06/05/21 History Physical Exam Vital Signs: Vital Signs: Last Vital Signs Temp 98.3 F 06/07/21 19:09 Pulse 88 06/07/21 21:51 Resp 16 06/07/21 21:51 BP 108/49 L 06/07/21 21:51 Pulse Ox 95 06/07/21 21:51 BMI result Body Mass Index 43.1 Results Labs CBC & Chem 7: 06/08/21 18:07 06/08/21 05:16 Labs: Short CBC 06/07/21 06/07/21 06/07/21 Range/Units 08:42 14:28 19:42 WBC 13.8 H 13.3 H (4.8-10.8) X10*3/uL Hgb 8.8 L 7.6 L 9.1 L (12.0-16.0) g/dl Hct 28.6 L 25.0 L 29.3 L (37.0-47.0) % Plt Count 205 159 L (160-400) X10*3/uL BMP 06/07/21 06/07/21 09:24 19:46 Sodium 139 Potassium 4.3 Chloride 110 H Carbon Dioxide 15 L BUN 35 H 32 H Creatinine 2.66 H 2.37 H Calcium 9.5 Cardiac Enzymes 06/07/21 Range/Units 09:24 Total Creatine Kinase 76 D (26-140) U/L Liver Function 06/07/21 Range/Units 09:24 Total Bilirubin 0.9 (0.0-1.0) mg/dL Direct Bilirubin 0.3 (0.0-0.5) mg/dL AST 15 (5-31) U/L ALT 10 (0-31) U/L Alkaline Phosphatase 103 (39-117) U/L Albumin 3.1 L (3.5-5.0) g/dL Urine 06/07/21 Range/Units 17:57 Urine Color YELLOW Urine Appearance CLEAR Urine pH 5.5 (5.0-8.0) Ur Specific [place] 1.025 (1.005-1.025) Urine Protein TRACE (NEG-TRACE) MG/DL Urine Glucose (UA) NEG (NEG) MG/DL
[2021-06-08] VITALS (26 sets, daily range): BP systolic 88–131; BP diastolic 31–64; PULSE 76–100; RESP 17–26; TEMP 36.6–37.7; O2SAT 90–98; BMI 45.5
[2021-06-08 03:02] LABS: Hematocrit 28.1 % (37.0-47.0); Hemoglobin 8.7 g/dl (12.0-16.0)
[2021-06-08] MEDS: Lactated Ringers 500 ML 999 ML IV (03:25)
[2021-06-08 05:37] LABS: Hematocrit 27.3 % (37.0-47.0); Hemoglobin 8.4 g/dl (12.0-16.0); Mean Corpuscular HGB Conc 30.8 g/dl (31.0-35.0); Mean Corpuscular Hemoglobin 26.4 pg (27.0-33.0); Mean Corpuscular Volume 85.8 fL (80.0-98.0); Mean Platelet Volume 10.1 fL (9.4-12.3); Platelet Count 152 X10*3/uL (160-400); Red Blood Count 3.18 X10*6/uL (4.20-5.50); Red Cell Distribution Width 18.7 % (11.0-16.0); White Blood Count 9.3 X10*3/uL (4.8-10.8)
[2021-06-08 06:01] LABS: Anion Gap 13 (12-20); Blood Urea Nitrogen 30 mg/dL (9-16); Calcium 9.2 mg/dL (8.4-10.2); Carbon Dioxide 19 mmol/L (22-29); Chloride 114 mmol/L (96-108); Creatinine Clr Calc Pharmacy 22.3; Estimated Glomerular Filt Rate 21; Glucose Random 87 mg/dL (60-115); Potassium 4.5 mmol/L (3.3-5.1); Sodium 141 mmol/L (135-145)
[2021-06-08 06:03] LABS: Alanine Aminotransferase 10 U/L (0-31); Albumin Level 2.7 g/dL (3.5-5.0); Alkaline Phosphatase 90 U/L (39-117); Anion Gap 12 (12-20); Aspartate Amino Transferase 13 U/L (5-31); Bilirubin Total 0.8 mg/dL (0.0-1.0); Blood Urea Nitrogen 30 mg/dL (9-16); Calcium 9.2 mg/dL (8.4-10.2); Carbon Dioxide 20 mmol/L (22-29); Chloride 114 mmol/L (96-108); Creatinine Clr Calc Pharmacy 22.3; Estimated Glomerular Filt Rate 21; Glucose Random 88 mg/dL (60-115); Potassium 4.6 mmol/L (3.3-5.1); Sodium 141 mmol/L (135-145); Total Protein 5.5 g/dL (6.5-8.0)
[2021-06-08] MEDS: Pantoprazole Sodium 40 MG/10 ML VIAL IVPUSH (06:12)
--- NOTE | 2021-06-08 06:18 | PC.NURSE ---
Initial contact: approximately 1999. pt received from ER. A&ox4, speech clear, LS clear. ABD is soft, tender to palpation with rebound tenderness. Pt endorses bloody BM. Pt had a bloody BM as soon as she got to the unit, scant amount. Pt did not have any other BM through the night. Pt has kevin with pale yellow/cloudy urine output roughly 40-60ml/hr. Pt is mildly weak. Pt does have some bruising on the left hip and lower ext. no pressure injuries or reddness on coccyx noted. After initial assessment pt was taken to [facility] for scan, returned to floor at 2200. RN stayed with patient throughout the scan. Pt BP has been soft through the night. BPs ranged from 80s-low 100s systolic. PA is aware of all low BPs and MAPs. Pt was not symptomatic from any BPs through the night. Pt was able to sleep in a semi-upright position greater than 30 degrees. Pt was placed on 2l NC for sleep. Pt refused to have pillows under her sides. Pt denies pain at rest.
[2021-06-08] MEDS: Albumin Human 25 % 100 ML IV ×2 (07:52→10:55)
[2021-06-08] MEDS: 0.9 % Sodium Chloride Flush 3 ML SYRINGE IVFLUSH ×3 (07:55→23:12)
--- NOTE | 2021-06-08 08:27 | PM.CNNEP ---
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 She had reported mechanical fall at home prior to ED presentation without LOC. Patient is chronically on aspirin denies use of NSAIDs, patient denies right-sided flank or lower abdominal pain she complained of chills without any fever denies chest pain, no palpitations, no shortness of breath, in the emergency room workup revealed lactic acid 4.1, troponin 104.7, INR 1.1, magnesium 1.9, Cr = 2.66 mg/dL, EKG showed no ischemia but showed prolonged QT. CT abdomen showed right hydronephrosis, right UPJ and proximal ureteral stone. She was admitted and received 1 unit prbc transfusion. She was initially stable however developed additional brbpr episode and there was concern for diverticular bleed. As such, she was transferred to ICU for closer monitoring. Nephrology was consulted for GAURANG on CKD. ROS otherwise negative. Review of Systems Review of Systems Yes all other systems are reviewed and are negative Constitutional: Reports as per [facility] Past Medical History Medical History Atherosclerotic cardiovascular disease COPD (chronic obstructive pulmonary disease) Nocturnal hypoxemia Obesity Restrictive lung disease Smoker Family History Family History Father No problems noted. Mother No problems noted. Social History Social History Household Members: None Housing: House Alcohol intake: never Patient Tobacco Use Status: Current someday Tobacco user Tobacco use type: Cigarette Cigarettes Per Day: 1 Meds Allergies Allergy/AdvReac Type Severity Reaction Status Date / Time No Known Allergies Allergy Verified 05/17/21 10:30 [No Known Allergies*] Active Medications: Current Medications Acetaminophen (Acetaminophen 325 Mg Tablet) 650 mg PO Q6H PRN PRN Reason: Pain, Mild (Pain Scale 1-3) Albuterol Sulfate (Albuterol Sulfate 90 Mcg 8 Gm Inhaler) 2 puff INHALE Q4H PRN PRN Reason: shortness of breath or wheezing Ceftriaxone Sodium 1 gm/ (Sodium Chloride) 50 mls @ 100 mls/hr IV Q24H [facility] Last Infusion: 06/07/21 17:52 Dose: Infused Documented by: Albumin Human (Kedbumin 25 %) 100 mls @ 100 mls/hr IV Q1H [facility] Stop: 06/08/21 08:59 Last Admin: 06/08/21 07:52 Dose: 100 mls/hr Documented by: Meclizine HCl (Meclizine Hcl 12.5 Mg Tablet) 12.5 mg PO TID PRN PRN Reason: Dizziness Ondansetron HCl (Ondansetron Hcl 4 Mg/2 Ml Vial) 4 mg IVPUSH Q8H PRN PRN Reason: Nausea and Vomiting Pantoprazole Sodium (Pantoprazole Sodium 40 Mg/10 Ml Vial) 40 mg IVPUSH DAILY@0630 [facility] Last Admin: 06/08/21 06:12 Dose: 40 mg Documented by: Pharmacy Consult (Consult Rx Perform Med Rec) 1 each MISCELLANE ONCE PRN PRN Reason: Consult order Sodium Chloride (0.9 % Sodium Chloride Flush 3 Ml Syringe) 3 ml IVFLUSH QSHIFT [facility] Last Admin: 06/08/21 07:55 Dose: 3 ml Documented by: Tiotropium Calhoun (Tiotropium [place] 18 Mcg Cap.W.Dev) 1 puff INHALE RDAILY [facility] Last Admin: 06/08/21 07:42 Dose: 1 puff Documented by: Home Medications Medication Instructions Recorded Confirmed Last Taken Type cholecalciferol (vitamin D3) 10 10 mcg PO DAILY 04/16/20 06/07/21 06/05/21 History mcg (400 unit) capsule furosemide 20 mg tablet 20 mg PO DAILY 04/16/20 06/07/21 06/05/21 History lisinopril 20 mg tablet 20 mg PO DAILY 04/16/20 06/07/21 06/05/21 History aspirin 81 mg tablet,delayed 81 mg PO DAILY 04/21/20 06/07/21 06/05/21 History release (Adult Low Dose Aspirin) meclizine 12.5 mg tablet 12.5 mg PO TID PRN tab 05/14/20 06/07/21 06/05/21 History Physical Exam Vital Signs: Last Vital Signs Temp 97.9 F 06/08/21 08:00 Pulse 95 06/08/21 08:00 Resp 20 06/08/21 08:00 BP 102/43 L 06/08/21 08:00 Pulse Ox 90 L 06/08/21 08:00 BMI result Body Mass Index 45.5 Const General: cooperative and no acute distress Orientation/consciousness: oriented to person, oriented to place, oriented to time and patient oriented x3 Neck Neck: Yes no JVD Resp Effort & Inspection: normal respiratory effort and able to speak in complete sentences Cardio Jugular venous distension: no JVD Rate: regular rate Rhythm: regular rhythm Heart sounds: S1 normal heart sound present and S2 normal heart sound present GI Auscultation: normal bowel sounds Neuro General: oriented to person, oriented to place, oriented to time and patient oriented x3 Extrem General: Yes no clubbing, cyanosis or edema Results Lab Results Result Diagrams: 06/08/21 05:16 06/08/21 05:16 Lab results: Chemistry 06/07/21 06/07/21 06/08/21 09:24 19:46 05:16 Sodium 139 141 Potassium 4.3 4.5 Carbon Dioxide 15 L 19 L BUN 35 H 32 H 30 H Creatinine 2.66 H 2.37 H 2.20 H Calcium 9.5 9.2 06/08/21 05:16 Sodium 141 Potassium 4.6 Carbon Dioxide 20 L BUN 30 H Creatinine 2.20 H Calcium 9.2 Hematology 06/07/21 06/07/21 06/07/21 08:42 14:28 19:42 WBC 13.8 H 13.3 H Hgb 8.8 L 7.6 L 9.1 L Plt Count 205 159 L 06/08/21 06/08/21 02:45 05:16 WBC 9.3 Hgb 8.7 L 8.4 L Plt Count 152 L Urinalysis 06/07/21 17:57 Urine Color YELLOW Urine Appearance CLEAR Urine pH 5.5 Ur Specific [place] 1.025 Urine Protein TRACE Urine Glucose (UA) NEG Urine Ketones NEG Urine Blood NEG Urine Nitrite NEG Ur Leukocyte Esterase 2+ H Urine RBC 0 Urine WBC 30-49 H Ur Squamous Epith Cells 1+ Assessment and Plan (1) Kidney stone on right side: Status: Acute (2) GAURANG (acute kidney injury): Status: Acute (3) CKD (chronic kidney disease) stage 3, GFR 30-59 ml/min: Status: Acute Plan #)GAURANG on CKD (III) at BL The patient presented with noted elevation in S-Cr compared to prior BL. Appears her BL was ~ 1.7 mg/dL until November 2020 however there is question as to whether her CKD has since progressed and new BL ~ 2.2 mg/dL. We will continue to monitor and she will require outpatient follow up for continued assessment. At this time, her GAURANG is likely secondary to combination of hypotension and acute blood loss anemia. I suspect there is a component of ischemic atn from her GIB. She has appropriately received prbc transfusion and is now on albumin to defend her intravascular space. Additionally, her concurrent use of acei and loop diuretic further exacerbated her hypotension and induced pre-renal gaurang. -Continue to hold nephrotoxic agents such as acei/arb, nsaids, IV contrast, and renal dose abx. Agree with hold loop diuretic for now as well. -Monitor I/O's. She has appreciated mild hydronephrosis on imaging. Urology following. I have added additional urine studies for assessment. UA with reflex to culture pending. Despite mechanical fall, no evidence of rhabdomyolysis per available UA. Unclear reason why she is hypoalbuminuric. Receiving albumin. Will check urine protein gap. May be secondary to poor nutritional status. #Anemia: prbc tranfusion for now to maintain hgb> 7.0. Will need to follow up on iron panel and determine whether candidate for ERIC> #Electrolytes otherwise stable. #CKD-MBD: phos level added. check PTH as well along with iCa Procedures Date of Service Date of Service: 06/08/21
--- NOTE | 2021-06-08 08:48 | PM.EVENT ---
Event Note Date of Service: 06/08/21 Event Note: GI Consult-Full note dictated. Hx via patient, [employer], and EMR. Imp: Lower GI bleed s/p fall at home. Prior to that she was not having any GI issues. She take takes 1 81mg aspirin daily, but no other blood thinners. No bleeding overnight, stable Hgb after transfusions, benign abdominal exam, and negative nuclear medicine bleeding scan and CT of abdomen/pelvis. Her last colonoscopy was > 10 years ago in [place]. Diff dx: Ischemic colitis or diverticular bleed. Doubt neoplasm. Rec: I did discuss eventual colonoscopy with MAC with her. Full consent obtained for this, including risks of bleeding and perforation. I would typically recommend a bowel prep today and colonoscopy for tomorrow. However, she is in a lot of discomfort from her fall and does not think she will be able to move from bed to commode/bathroom without great difficulty and pain. Therefore, as long as things remain stable, I told her we can wait a couple of days while things improve in regard to her discomfort, as well as any other medical issues. She can start full liquids today. I will plan for her to have a bowel prep and colonoscopy for Monday. Please let me know if she has any recurrent significant bleeding in the interim. She was comfortable with this plan. Thanks
[2021-06-08 08:51] LABS: Phosphorus 3.6 mg/dL (2.7-4.5)
--- NOTE | 2021-06-08 09:58 | P.PNCC_ITS ---
Subjective Subjective Date of Service: 06/08/21 Interval History: Mrs. Appiah was transferred to the ICU yesterday with bright red blood per rectum. The patient is an 85-year-old F with PMHx of COPD who uses oxygen at night only, 2L NC, hyperlipidemia, obesity, leg edema without CHF, history of kidney stones status post 18 ESWLs, AAA s/p aortobiiliac endograft 2016, left carotid artery stenosis, possible coronary artery disease without intervention as described per patient, ongoing smoker, bladder incontinence among others.? She takes a baby aspirin, no other anticoagulation.? No prior h/o hemorrhoids or GI bleeding She lives alone.? Still does some cooking.? Gets around with a walker. The patient was BIBA to the ED yesterday morning after experiencing 4 bloody bowel movements.? Had fallen twice at home prior to that, one of which was a poss syncopal episode.? She reportedly fell on her walker. In the emergency room, she was fully alert, c/o left-sided flank pain where she fell.? VS on admission showed HR 96, BP 96/46, RR 16, Sat 94-96% on room air.? She had ecchymoses on her left flank and left chest wall with left sided abdominal tenderness.? No neuro deficits.? A left hand laceration required Steri-Strips closure. Labs in the ED notable for white count 13, hemoglobin 8.8 (last hemoglobin was 11.8 in 2019).? Coags were normal.? BUN/creatinine were 35/2.6 (last 38/2.2 on 05/24/2021).? Albumin was 3.1.? Troponins were 104 and 89 with no EKG changes. ?Lactic acid was 4.1.? Head, C-spine, chest, and abdominal CTs were unremarkable other than showing the known AAA and endograft.? Multiple renal stones along with mild right hydronephrosis were also noted (no hydronephrosis on her last abdominal CT on 05/24/2021). The patient was given IV fluids.? Her lactic acid normalized.? Blood pressure came up to 115/61. ?The patient was discussed with Dr. Yuen.? A bleeding scan was scheduled. ?Repeat H&H approximately 6 hours later was 7.6.? The patient subsequently dropped her blood pressure to 90/35.? RBCs were transfused and the patient was transferred to the ICU.? The bleeding scan was negative.? The patient has had no subsequent lower GI bleeding since admission to the ICU. Overnight, she did drop her blood pressure to 88/32, which responded to fluids.? Hemoglobin last night after transfusion of one unit RBCs was 9.1.? This morning at 0245 hemoglobin was 8.7, and at 0516 hemoglobin was 8.4. This morning, she is fully awake and alert and appropriate.? Breathing easy, with sat 95% on 1 L oxygen by nasal cannula.? Heart rate is 94, sinus rhythm.? Blood pressure is 118/49.? She?s been afebrile throughout.? No JVD at 30 degrees.? Abdomen is benign.? She has a moderate-sized area of ecchymoses on her left flank, with significant soreness in that area.? She declines analgesics.? No gross edema. LABORATORY DATA:? Below.? Notably, creatinine down to 2.2 this morning. MICROBIOLOGY:? 1 out of 2 sets of blood cultures just reported positive at 24 hours for Gram-positive cocci in clusters. IMPRESSION: 1. Morbid obesity 2. CKD 3. COPD 2? tobacco abuse. ? 4. GI bleed of unknown source, most likely lower GI.? No further bleeding since admission to the ICU last night. ?Per Dr. Yeun, the plan is for prep on and colonoscopy on Monday. 5. History of AAA repair with endovascular graft. ?I spoke with Dr. Castillo yesterday and he indicated to me that the likelihood that the lower GI bleed has anything to do with the endovascular graft is extremely minimal (in contrast to what might be the case in an unrepaired AAA). 6. Anemia 2? blood loss.? Seems stable at this point. Hb recheck 5pm today (ordered) 7. Possible syncopal episode.? Most likely 2? blood loss hypovolemia. D/W Dr. Rudolph. No further w/u nec. 8. Bilateral nephrolithiasis with mild right hydronephrosis.? The latter is new from prior study.? Consulted Dr Sung re w/u, mx. 9. GAURANG.? Most likely 2? hypovolemia, but ? partly obstructive. 10. Asymptomatic bacteriuria.? Possible UTI based on u/a.? Culture is pending.? For now we have her on ceftriaxone. 11. Lactic acid elevation on admission.? Pretty much a certainty that it was 2? GI bleed, given that it resolved immediately w volume resuscitation. 12. Postive blood cultures.? Most likely a contaminant.? I have redrawn the blood cultures.? I am not treating those cultures. 13. It is 100% certain that the patient is not, nor was she ever septic. Stable for transfer to med surg. Will sign out to hospitalists. Critical Care Time (minutes): 0 Physical Exam Vital Signs: Vital Signs: Last Vital Signs Temp 97.9 F 06/08/21 08:00 Pulse 93 06/08/21 09:00 Resp 21 H 06/08/21 09:00 BP 104/52 L 06/08/21 09:00 Pulse Ox 95 06/08/21 09:00 BMI result Body Mass Index 45.5 Objective Data Labs CBC & Chem 7: 06/08/21 05:16 06/08/21 05:16 Labs: Laboratory Results - last 24 hr 06/07/21 06/07/21 06/07/21 08:54 09:24 12:02 WBC RBC Hgb Hct MCV MCH MCHC RDW Plt Count MPV Absolute Nucleated RBC Nucleated RBC % (auto) Sodium Potassium Chloride Carbon Dioxide Anion Gap BUN Creatinine Estim Creat Clear Calc Estimated GFR Random Glucose Lactic Acid F/U @ 2Hr Calcium Phosphorus Total Bilirubin AST ALT Alkaline Phosphatase Total Creatine Kinase 76 D Troponin I High Sens Total Protein Albumin Urine Color Urine Appearance Urine pH Ur Specific [place] Urine Protein Urine Glucose (UA) Urine Ketones Urine Blood Urine Nitrite Ur Leukocyte Esterase Urine RBC Urine WBC Ur Squamous Epith Cells Urine Bacteria Stool Occult Blood POSITIVE Blood Type O Negative Antibody Screen NEGATIVE Crossmatch See Detail 06/07/21 06/07/21 06/07/21 14:28 14:28 14:28 WBC RBC Hgb 7.6 L Hct 25.0 L MCV MCH MCHC RDW Plt Count MPV Absolute Nucleated RBC Nucleated RBC % (auto) Sodium Potassium Chloride Carbon Dioxide Anion Gap BUN Creatinine Estim Creat Clear Calc Estimated GFR Random Glucose Lactic Acid F/U @ 2Hr 1.9 Calcium Phosphorus Total Bilirubin AST ALT Alkaline Phosphatase Total Creatine Kinase Troponin I High Sens 89.0 H* Total Protein Albumin Urine Color Urine Appearance Urine pH Ur Specific [place] Urine Protein Urine Glucose (UA) Urine Ketones Urine Blood Urine Nitrite Ur Leukocyte Esterase Urine RBC Urine WBC Ur Squamous Epith Cells Urine Bacteria Stool Occult Blood Blood Type Antibody Screen Crossmatch 06/07/21 06/07/21 06/07/21 17:57 19:42 19:46 WBC 13.3 H RBC 3.40 L Hgb 9.1 L Hct 29.3 L MCV 86.2 MCH 26.8 L MCHC 31.1 RDW 18.6 H Plt Count 159 L MPV 10.0 Absolute Nucleated RBC 0.000 Nucleated RBC % (auto) 0.0 Sodium Potassium Chloride Carbon Dioxide Anion Gap BUN 32 H Creatinine 2.37 H Estim Creat Clear Calc 20.7 Estimated GFR 19 Random Glucose Lactic Acid F/U @ 2Hr Calcium Phosphorus Total Bilirubin AST ALT Alkaline Phosphatase Total Creatine Kinase Troponin I High Sens Total Protein Albumin Urine Color YELLOW Urine Appearance CLEAR Urine pH 5.5 Ur Specific [place] 1.025 Urine Protein TRACE Urine Glucose (UA) NEG Urine Ketones NEG Urine Blood NEG Urine Nitrite NEG Ur Leukocyte Esterase 2+ H Urine RBC 0 Urine WBC 30-49 H Ur Squamous Epith Cells 1+ Urine Bacteria 4+ Stool Occult Blood Blood Type Antibody Screen Crossmatch 06/08/21 06/08/21 06/08/21 02:45 05:16 05:16 WBC 9.3 RBC 3.18 L Hgb 8.7 L 8.4 L Hct 28.1 L 27.3 L MCV 85.8 MCH 26.4 L MCHC 30.8 L RDW 18.7 H Plt Count 152 L MPV 10.1 Absolute Nucleated RBC 0.000 Nucleated RBC % (auto) 0.0 Sodium 141 Potassium 4.5 Chloride 114 H Carbon Dioxide 19 L Anion Gap 13 BUN 30 H Creatinine 2.20 H Estim Creat Clear Calc 22.3 Estimated GFR 21 Random Glucose 87 Lactic Acid F/U @ 2Hr Calcium 9.2 Phosphorus Total Bilirubin AST ALT Alkaline Phosphatase Total Creatine Kinase Troponin I High Sens Total Protein Albumin Urine Color Urine Appearance Urine pH Ur Specific [place] Urine Protein Urine Glucose (UA) Urine Ketones Urine Blood Urine Nitrite Ur Leukocyte Esterase Urine RBC Urine WBC Ur Squamous Epith Cells Urine Bacteria Stool Occult Blood Blood Type Antibody Screen Crossmatch 06/08/21 05:16 WBC RBC Hgb Hct MCV MCH MCHC RDW Plt Count MPV Absolute Nucleated RBC Nucleated RBC % (auto) Sodium 141 Potassium 4.6 Chloride 114 H Carbon Dioxide 20 L Anion Gap 12 BUN 30 H Creatinine 2.20 H Estim Creat Clear Calc 22.3 Estimated GFR 21 Random Glucose 88 Lactic Acid F/U @ 2Hr Calcium 9.2 Phosphorus 3.6 Total Bilirubin 0.8 AST 13 ALT 10 Alkaline Phosphatase 90 Total Creatine Kinase Troponin I High Sens Total Protein 5.5 L Albumin 2.7 L Urine Color Urine Appearance Urine pH Ur Specific [place] Urine Protein Urine Glucose (UA) Urine Ketones Urine Blood Urine Nitrite Ur Leukocyte Esterase Urine RBC Urine WBC Ur Squamous Epith Cells Urine Bacteria Stool Occult Blood Blood Type Antibody Screen Crossmatch Quality Stroke Does the patient have a stroke diagnosis?: No VTE Prior VTE?: No VTE Risk Level:: Medical - moderate - high VTE Device Contraindication: N/A - Device Ordered VTE Drug Contraindication: Treatment Not Indicated
--- NOTE | 2021-06-08 10:12 | CONS_ITS ---
DATE OF SERVICE: 06/08/2021 REASON FOR CONSULTATION: Lower GI bleeding. HISTORY OF PRESENT ILLNESS: This has been obtained from the patient, the RN, and the medical record. The patient is an 85-year-old female who was in her usual state of health until having 2 falls at home. She apparently hit herself on her walker on the left side of her abdomen and left thigh. She came to the ER the day after that due to some rectal bleeding. Prior to the fall, she denies any GI symptoms whatsoever. She typically enjoys a good appetite without any significant heartburn or dysphagia. She denies any previous abdominal pain, nor any trouble with her bowel movements. She did not notice any constipation, diarrhea, nor bleeding before her fall. She describes a colonoscopy over 10 years ago in [place]. She also describes a colonoscopy in the more distant past having polyps removed. She is not sure about the results of the most recent colonoscopy over 10 years ago. After the fall at home, she began having some rectal bleeding with some associated brown stool. She denies any signs of melena. She did have some nausea but no vomiting. Her pain is localized to the area where she fell and denies any other abdominal pains. She does take a low-dose aspirin, but no other anti-inflammatories nor blood thinners. She smokes occasionally. She does not use any alcohol. She denies any known family history of colorectal cancer nor inflammatory bowel disease. Since admission here, she has received a transfusion.. She also had a nuclear medicine bleeding scan, which was negative. Her initial hemoglobin on arrival was 8.8, which fell to 7.6. Since that time, the hemoglobin has been stable at 9.1, 8.7, and 8.4. She has had no bleeding overnight. Her present medications include acetaminophen, albuterol, ceftriaxone, meclizine, Zofran, IV pantoprazole, and inhaler. PAST MEDICAL HISTORY: Abdominal aortic aneurysm, status post stent. Kidney stones, status post lithotripsy. COPD. She does wear oxygen at night. She denies any history of stroke, diabetes. She does have renal insufficiency and history of kidney stones. SOCIAL HISTORY: She is a and lives by herself. As above. FAMILY HISTORY: Noncontributory. REVIEW OF SYSTEMS: CONSTITUTIONAL: Prior to falling, She had been feeling at her baseline with good appetite. SKIN: No rash. CARDIAC: No chest pain. PULMONARY: No cough, no hemoptysis. GI: As above. PHYSICAL EXAMINATION: GENERAL: The patient is a pleasant, alert, comfortable elderly female, lying in bed, in no distress. She is having some liquids without difficulty. SKIN: Warm and dry. Anicteric sclerae. NECK: Supple. ABDOMEN: Soft. Normal bowel sounds. Nondistended. She does have some tenderness in the left lower quadrant in relation to her fall.. She does have an ecchymosis along the left lower side of her abdomen area. LABORATORY DATA: As above. Most recent CBC from this morning shows white blood cell count of 9.3, hemoglobin 8.4, platelets 152,000 PT was 12.3 with INR 1.1. Normal electrolytes. BUN 30, creatinine 2.2. Liver profile was normal. She did have a CT scan of the abdomen and pelvis without contrast. The CT did not show any obvious bowel pathology other than some diverticulosis. There was no bowel obstruction nor any sign of inflammation. IMPRESSION: In regard to the patient's GI bleeding, this seems to be very stable at the present time. Her hemoglobin has been stable, there has been no obvious bleeding overnight, and the nuclear medicine bleeding scan has been negative. Given her history. I suspect the differential diagnosis would be that of possible ischemic colitis in relation to her fall and some possible hypotension. Another possibility would be that of diverticular bleeding. I do not think this represents anything such as neoplasm given that she was feeling well before the fall. I did advise her that I would typically recommend a bowel prep today and colonoscopy tomorrow for further evaluation of the source of her bleeding. However, she is quite uncomfortable from her fall and does not think she will be able to get up to a commode or the bathroom without great difficulty and discomfort. As such, since she is clinically stable from the bleeding standpoint, I advised that we could probably wait a couple of days and try to do the colonoscopy by the end of the week. I did advise her obviously if things change in regard to recurrent bleeding, we could then reassess that plan. I did review colonoscopy with her in detail and obtained full consent from her for this, including risks of bleeding and perforation. In the meantime, I think she can be advanced to a full liquid diet as long as things remain stable. If things remain stable, I will plan to have her do a bowel prep on June 10, and the colonoscopy on June 11. However, please call me if she has any signs of recurrent bleeding before that. I would continue to follow her hemoglobin as well. This has been reviewed with the patient in detail and she is comfortable with that plan. Thank you for the consultation. MD CARLEEN Freire/GABBY / [id number] MTDD
[2021-06-08 10:30] LABS: Creatinine Urine 76.97 mg/dL
[2021-06-08 10:32] LABS: Creatinine Urine 77.62 mg/dL; Total Protein Urine Random 28 mg/dL (<12)
[2021-06-08 11:33] LABS: Lactic Acid 1.5 mmol/L (0.5-2.0)
--- NOTE | 2021-06-08 12:15 | PM.EVENT ---
Documented by User: Elvira Perez NP 06/08/21 12:24 Event Note Date of Service: 06/08/21 Event Note: Patient transferred to IMC from ICU. Discussed with ICU attending. Bacteremia GPC 1/2 MRSA nasal swab consider tx with vanco if positive otherwise wait for final cx Hypotension from acute blood loss anemia received 1 unit PRBC with good effect. Bleeding scan negative EGD later this week UTI Rocephin follow cx Elevated troponin flat likely from CKD and hypotension no ischemic changes on EKG GAURANG on CKD 4 Likely from hypotension, hypoperfusion also noted hydro on Abd CT trending down nephro consult Fall PT consult when stable Right side hydronephrosis. Hx of stones Urology consult DVT hold ac for now d/t GI bleed Documented by User: Brayden Viera MD 06/08/21 16:25 Event Note Date of Service: 06/08/21
--- NOTE | 2021-06-08 12:28 | MHC.CM.PN ---
Met with pt to discuss d/c planning: pt resides alone at [facility]. She has [facility] weekly for homemaking needs and [facility] for overnight O2. She has a walker and her apt is handicap accessible. Pt's son or niece assist her with transportation. Pt receptive to [facility] referral to [facility] for skilled RN assessments following d/c. SANDRA on file, vax x 2. CM to follow for d/c needs.
[2021-06-08] MEDS: Acetaminophen 325 MG TABLET 650 MG PO ×2 (12:52→19:41)
[2021-06-08 14:33] LABS: MRSA Nasal PCR NEGATIVE (Negative); SA Nasal PCR POSITIVE (Negative)
--- NOTE | 2021-06-08 16:16 | P.CNUR_ITS ---
History of Present Illness Consult details Consult date: 06/08/21 Narrative: Portia is an 85-year-old female Admitted to hospital with UTI, bacteremia and hypotension CT imaging - mild right hydronephrosis and apparent small stones right proximal ureter Creatinine 2.2 above her baseline 1.5 Findings consistent with subtle changes from obstructing stone, may well be for source of infection Recommend cystoscopy, right retrograde, right stent placement Has prior stone history Review of Systems Constitutional: Constitutional: Denies chills and Denies fever(s) Cardiovascular: Cardiovascular: Reports no additional cardiovascular complaints and Denies syncope Respiratory: Respiratory: Denies cough Gastrointestinal: Gastrointestinal: Denies abdominal pain and Denies heartburn Genitourinary: Genitourinary: Reports as per HPI and Denies change in libido Neurologic: Denies syncope Psychiatric: Psychiatric: Denies change in libido Endocrine: Endocrine: Denies change in libido [facility] Past Medical History Medical History Atherosclerotic cardiovascular disease COPD (chronic obstructive pulmonary disease) Nocturnal hypoxemia Obesity Restrictive lung disease Smoker Family History Family History Father No problems noted. Mother No problems noted. Social History Social History Household Members: None Housing: House Alcohol intake: never Patient Tobacco Use Status: Current someday Tobacco user Tobacco use type: Cigarette Cigarettes Per Day: 1 service: No Current occupational status: retired [employer] Allergies Allergy/AdvReac Type Severity Reaction Status Date / Time No Known Allergies Allergy Verified 05/17/21 10:30 [No Known Allergies*] Active Medications: Current Medications Acetaminophen (Acetaminophen 325 Mg Tablet) 650 mg PO Q6H PRN PRN Reason: Pain, Mild (Pain Scale 1-3) Last Admin: 06/08/21 12:52 Dose: 650 mg Documented by: Albuterol Sulfate (Albuterol Sulfate 90 Mcg 8 Gm Inhaler) 2 puff INHALE Q4H PRN PRN Reason: shortness of breath or wheezing Atorvastatin Calcium (Atorvastatin Calcium 40 Mg Tablet) 40 mg PO DAILY [facility] Ceftriaxone Sodium 1 gm/ (Sodium Chloride) 50 mls @ 100 mls/hr IV Q24H IVORY Last Infusion: 06/07/21 17:52 Dose: Infused Documented by: Meclizine HCl (Meclizine Hcl 12.5 Mg Tablet) 12.5 mg PO TID PRN PRN Reason: Dizziness Ondansetron HCl (Ondansetron Hcl 4 Mg/2 Ml Vial) 4 mg IVPUSH Q8H PRN PRN Reason: Nausea and Vomiting Pantoprazole Sodium (Pantoprazole Sodium 40 Mg/10 Ml Vial) 40 mg IVPUSH DAILY@0630 [facility] Last Admin: 06/08/21 06:12 Dose: 40 mg Documented by: Pharmacy Consult (Consult Rx Perform Med Rec) 1 each MISCELLANE ONCE PRN PRN Reason: Consult order Sodium Chloride (0.9 % Sodium Chloride Flush 3 Ml Syringe) 3 ml IVFLUSH QSHIFT [facility] Last Admin: 06/08/21 07:55 Dose: 3 ml Documented by: Tiotropium Ennis (Tiotropium Ennis 18 Mcg Cap.W.Dev) 1 puff INHALE RDAILY [facility] Last Admin: 06/08/21 07:42 Dose: 1 puff Documented by: Vitamin D (Cholecalciferol (Vitamin D3) 10 Mcg Tablet) 10 mcg PO DAILY [facility] Home Medications Medication Instructions Recorded Confirmed Last Taken Type cholecalciferol (vitamin D3) 10 10 mcg PO DAILY 04/16/20 06/07/21 06/05/21 History mcg (400 unit) capsule furosemide 20 mg tablet 20 mg PO DAILY 04/16/20 06/07/21 06/05/21 History lisinopril 20 mg tablet 20 mg PO DAILY 04/16/20 06/07/21 06/05/21 History aspirin 81 mg tablet,delayed 81 mg PO DAILY 04/21/20 06/07/21 06/05/21 History release (Adult Low Dose Aspirin) meclizine 12.5 mg tablet 12.5 mg PO TID PRN tab 05/14/20 06/07/21 06/05/21 History Physical Exam Vital Signs: Vital Signs: Last Vital Signs Temp 99.3 F 06/08/21 15:40 Pulse 92 06/08/21 15:40 Resp 18 06/08/21 15:40 BP 98/50 L 06/08/21 15:40 Pulse Ox 94 06/08/21 15:40 BMI result Body Mass Index 45.5 Const: General: cooperative, healthy appearing, comfortable and no acute distress Orientation/consciousness: patient oriented x3 HEENT: Face and sinus: Yes normal facial exam Mouth: moist mucous membranes Neck: Neck: Yes normal visual inspection, Yes full ROM and Yes trachea midline Chest: Chest palpation & inspection: normal inspection of the chest Resp: Effort & Inspection: normal respiratory effort, able to speak in complete sentences and no respiratory distress GI: Inspection: Yes normal to inspection Back/Spine/Pelvis: Cervical Spine: normal cervical lordosis Thoracic/Lumbar Spine: thoracic and lumbar spine normal to inspection Skin: General skin exam: no rashes or lesions noted Neuro: General: patient oriented x3, gait normal, tone normal and moves all extremities Extrem: General: Yes normal to inspection and Yes capillary refill normal Results Labs Result diagrams: 06/08/21 05:16 06/08/21 05:16 Labs: Abnormal lab results 06/07/21 06/07/21 06/07/21 Range/Units 08:54 17:57 19:42 WBC 13.3 H (4.8-10.8) X10*3/uL RBC 3.40 L (4.20-5.50) X10*6/uL Hgb 9.1 L (12.0-16.0) g/dl Hct 29.3 L (37.0-47.0) % MCH 26.8 L (27.0-33.0) pg MCHC (31.0-35.0) g/dl RDW 18.6 H (11.0-16.0) % Plt Count 159 L (160-400) X10*3/uL Chloride (96-108) mmol/L Carbon Dioxide (22-29) mmol/L BUN (9-16) mg/dL Creatinine (0.5-1.4) mg/dL Total Protein (6.5-8.0) g/dL Albumin (3.5-5.0) g/dL Ur Leukocyte Esterase 2+ H (NEG) Urine WBC 30-49 H (0-4) /HPF U Random Total Protein (<12) mg/dL Nasal S. aureus Screen (Negative) Crossmatch See Detail 06/07/21 06/08/21 06/08/21 Range/Units 19:46 02:45 05:16 WBC (4.8-10.8) X10*3/uL RBC 3.18 L (4.20-5.50) X10*6/uL Hgb 8.7 L 8.4 L (12.0-16.0) g/dl Hct 28.1 L 27.3 L (37.0-47.0) % MCH 26.4 L (27.0-33.0) pg MCHC 30.8 L (31.0-35.0) g/dl RDW 18.7 H (11.0-16.0) % Plt Count 152 L (160-400) X10*3/uL Chloride (96-108) mmol/L Carbon Dioxide (22-29) mmol/L BUN 32 H (9-16) mg/dL Creatinine 2.37 H (0.5-1.4) mg/dL Total Protein (6.5-8.0) g/dL Albumin (3.5-5.0) g/dL Ur Leukocyte Esterase (NEG) Urine WBC (0-4) /HPF U Random Total Protein (<12) mg/dL Nasal S. aureus Screen (Negative) Crossmatch 06/08/21 06/08/21 06/08/21 Range/Units 05:16 05:16 09:53 WBC (4.8-10.8) X10*3/uL RBC (4.20-5.50) X10*6/uL Hgb (12.0-16.0) g/dl Hct (37.0-47.0) % MCH (27.0-33.0) pg MCHC (31.0-35.0) g/dl RDW (11.0-16.0) % Plt Count (160-400) X10*3/uL Chloride 114 H 114 H (96-108) mmol/L Carbon Dioxide 19 L 20 L (22-29) mmol/L BUN 30 H 30 H (9-16) mg/dL Creatinine 2.20 H 2.20 H (0.5-1.4) mg/dL Total Protein 5.5 L (6.5-8.0) g/dL Albumin 2.7 L (3.5-5.0) g/dL Ur Leukocyte Esterase (NEG) Urine WBC (0-4) /HPF U Random Total Protein 28 H (<12) mg/dL Nasal S. aureus Screen (Negative) Crossmatch 06/08/21 Range/Units 12:55 WBC (4.8-10.8) X10*3/uL RBC (4.20-5.50) X10*6/uL Hgb (12.0-16.0) g/dl Hct (37.0-47.0) % MCH (27.0-33.0) pg MCHC (31.0-35.0) g/dl RDW (11.0-16.0) % Plt Count (160-400) X10*3/uL Chloride (96-108) mmol/L Carbon Dioxide (22-29) mmol/L BUN (9-16) mg/dL Creatinine (0.5-1.4) mg/dL Total Protein (6.5-8.0) g/dL Albumin (3.5-5.0) g/dL Ur Leukocyte Esterase (NEG) Urine WBC (0-4) /HPF U Random Total Protein (<12) mg/dL Nasal S. aureus Screen POSITIVE A (Negative) Crossmatch Short CBC 06/07/21 06/08/21 06/08/21 Range/Units 19:42 02:45 05:16 WBC 13.3 H 9.3 (4.8-10.8) X10*3/uL Hgb 9.1 L 8.7 L 8.4 L (12.0-16.0) g/dl Hct 29.3 L 28.1 L 27.3 L (37.0-47.0) % Plt Count 159 L 152 L (160-400) X10*3/uL BMP 06/07/21 06/08/21 06/08/21 19:46 05:16 05:16 Sodium 141 141 Potassium 4.5 4.6 Chloride 114 H 114 H Carbon Dioxide 19 L 20 L BUN 32 H 30 H 30 H Creatinine 2.37 H 2.20 H 2.20 H Calcium 9.2 9.2 Liver Function 06/08/21 Range/Units 05:16 Total Bilirubin 0.8 (0.0-1.0) mg/dL AST 13 (5-31) U/L ALT 10 (0-31) U/L Alkaline Phosphatase 90 (39-117) U/L Albumin 2.7 L (3.5-5.0) g/dL Urine 06/07/21 Range/Units 17:57 Urine Color YELLOW Urine Appearance CLEAR Urine pH 5.5 (5.0-8.0) Ur Specific [place] 1.025 (1.005-1.025) Urine Protein TRACE (NEG-TRACE) MG/DL Urine Glucose (UA) NEG (NEG) MG/DL All other labs normal. Assessment and Plan (1) GAURANG (acute kidney injury): Status: Acute (2) Kidney stone on right side: Status: Acute Plan Risks, benefits and alternatives to therapy were discussed. These include but are not limited to infection, bleeding, damage to local organs and tissues, need for further interventions. Anesthetic risks regarding cardiac arrhythmia, blood clots, and potential mortality were discussed. The patient understands the typical recovery time and the outpatient nature of the procedure. After consideration of these risks the patient gives full informed consent and they wish to move ahead with the procedure. Cystoscopy, right retrograde, right stent placement Procedures Date of Service Date of Service: 06/08/21
--- NOTE | 2021-06-08 16:19 | HO.ANESPROP2 ---
Documented by User: Anusha Chau CRNA 06/08/21 16:38 [facility] Active Problems Active Problems: All Active Problems (Updated 06/08/21 @ 08:35 by Nehemias Taylor MD) CKD (chronic kidney disease) stage 3, GFR 30-59 ml/min (Acute) GAURANG (acute kidney injury) (Acute) Elevated troponin (Acute) Lactic acidosis (Acute) Acute worsening of stage 3 chronic kidney disease (Acute) Acute blood loss anemia (Acute) GI bleed (Acute) Hematoma of left flank (Acute) Skin tear of hand without complication (Acute) Recurrent falls (Acute) Kidney stone on right side (Acute) Abdominal aortic aneurysm (AAA) without rupture (Acute) Bilateral carotid artery stenosis (Acute) Left carotid artery stenosis (Acute) Atherosclerotic cardiovascular disease (Acute) Smoker (Acute) Nocturnal hypoxemia (Acute) Restrictive lung disease (Acute) Obesity (Acute) COPD (chronic obstructive pulmonary disease) (Acute) Past Medical History Medical History Atherosclerotic cardiovascular disease COPD (chronic obstructive pulmonary disease) Nocturnal hypoxemia Obesity Restrictive lung disease Smoker Cognitive capacity: AAOX3 Functional capacity: uses cane/walker (SOB with minimal exertion) Patient : No Family History Family History Father No problems noted. Mother No problems noted. Family history of problems with anesthesia: No Surgical History History of Problems with Anesthesia: No Social History Social History Household Members: None Housing: House Alcohol intake: never Patient Tobacco Use Status: Current someday Tobacco user Tobacco use type: Cigarette Cigarettes Per Day: 1 Packs Per Year: 70 Smoked in Last 30 Days: Yes Patient Interested in Nicotine Replacement: No Patient Given Instructions on How to Stop Smoking: No Use of substances other than those prescribed or required for medical reasons: No Currently Displaying Signs/Symptoms of Drug Intoxication Withdrawal: No service: No Current occupational status: retired Travel History History of recent travel: No Meds Allergies Allergy/AdvReac Type Severity Reaction Status Date / Time No Known Allergies Allergy Verified 05/17/21 10:30 [No Known Allergies*] Active Medications: Current Medications Acetaminophen (Acetaminophen 325 Mg Tablet) 650 mg PO Q6H PRN PRN Reason: Pain, Mild (Pain Scale 1-3) Last Admin: 06/08/21 12:52 Dose: 650 mg Documented by: Albuterol Sulfate (Albuterol Sulfate 90 Mcg 8 Gm Inhaler) 2 puff INHALE Q4H PRN PRN Reason: shortness of breath or wheezing Atorvastatin Calcium (Atorvastatin Calcium 40 Mg Tablet) 40 mg PO DAILY [facility] Ceftriaxone Sodium 1 gm/ (Sodium Chloride) 50 mls @ 100 mls/hr IV Q24H [facility] Last Infusion: 06/07/21 17:52 Dose: Infused Documented by: Meclizine HCl (Meclizine Hcl 12.5 Mg Tablet) 12.5 mg PO TID PRN PRN Reason: Dizziness Ondansetron HCl (Ondansetron Hcl 4 Mg/2 Ml Vial) 4 mg IVPUSH Q8H PRN PRN Reason: Nausea and Vomiting Pantoprazole Sodium (Pantoprazole Sodium 40 Mg/10 Ml Vial) 40 mg IVPUSH DAILY@0630 [facility] Last Admin: 06/08/21 06:12 Dose: 40 mg Documented by: Pharmacy Consult (Consult Rx Perform Med Rec) 1 each MISCELLANE ONCE PRN PRN Reason: Consult order Sodium Chloride (0.9 % Sodium Chloride Flush 3 Ml Syringe) 3 ml IVFLUSH QSHIFT [facility] Last Admin: 06/08/21 07:55 Dose: 3 ml Documented by: Tiotropium [place] (Tiotropium [place] 18 Mcg Cap.W.Dev) 1 puff INHALE RDAILY [facility] Last Admin: 06/08/21 07:42 Dose: 1 puff Documented by: Vitamin D (Cholecalciferol (Vitamin D3) 10 Mcg Tablet) 10 mcg PO DAILY [facility] Home Medications Medication Instructions Recorded Confirmed Last Taken Type cholecalciferol (vitamin D3) 10 10 mcg PO DAILY 04/16/20 06/07/21 06/05/21 History mcg (400 unit) capsule furosemide 20 mg tablet 20 mg PO DAILY 04/16/20 06/07/21 06/05/21 History lisinopril 20 mg tablet 20 mg PO DAILY 04/16/20 06/07/21 06/05/21 History aspirin 81 mg tablet,delayed 81 mg PO DAILY 04/21/20 06/07/21 06/05/21 History release (Adult Low Dose Aspirin) meclizine 12.5 mg tablet 12.5 mg PO TID PRN tab 05/14/20 06/07/21 06/05/21 History Exam Exam Date and Time: June 08, 2021 161 Height,Weight and Vital Signs: Height 5 ft 3 in Weight 116.5 kg Last Vital Signs Temp 99.3 F 06/08/21 15:40 Pulse 92 06/08/21 15:40 Resp 18 06/08/21 15:40 BP 98/50 L 06/08/21 15:40 Pulse Ox 94 06/08/21 15:40 Pertinent Lab Results Pertinent Lab Results: Laboratory Tests 06/07/21 06/07/21 06/07/21 08:35 08:35 08:42 WBC 13.8 H RBC 3.34 L Hgb 8.8 L Hct 28.6 L MCV 85.6 MCH 26.3 L MCHC 30.8 L RDW 19.7 H Plt Count 205 MPV 9.8 Immature Gran % (Auto) 0.5 H Neut % (Auto) 76.4 H Lymph % (Auto) 14.5 L [place] % (Auto) 8.2 Eos % (Auto) 0.1 Baso % (Auto) 0.3 Lymph # (Auto) 2.0 [place] # (Auto) 1.1 Eos # (Auto) 0.0 Baso # (Auto) 0.0 Abs Immat Gran (auto) 0.07 H Absolute Neuts (auto) 10.5 H Absolute Nucleated RBC 0.000 Nucleated RBC % (auto) 0.0 PT INR APTT Sodium Potassium Chloride Carbon Dioxide Anion Gap BUN Creatinine Estim Creat Clear Calc Estimated GFR Random Glucose Lactic Acid 4.1 H* Lactic Acid F/U @ 2Hr Calcium Phosphorus Magnesium Total Bilirubin Direct Bilirubin AST ALT Alkaline Phosphatase Total Creatine Kinase Troponin I High Sens Total Protein Albumin Urine Color Urine Appearance Urine pH Ur Specific [place] Urine Protein Urine Glucose (UA) Urine Ketones Urine Blood Urine Nitrite Ur Leukocyte Esterase Urine RBC Urine WBC Ur Squamous Epith Cells Urine Bacteria U Random Total Protein Ur Random Sodium Urine Creatinine Urine Microalbumin Microalb/Creat Ratio Nasal Screen MRSA (PCR) Nasal S. aureus Screen Nasal MRSA/S.aureus Interp Stool Occult Blood COVID-19 ([facility]) Negative COVID-19 Clin Com See Note Blood Type Antibody Screen Crossmatch 06/07/21 06/07/21 06/07/21 08:42 08:54 09:24 WBC RBC Hgb Hct MCV MCH MCHC RDW Plt Count MPV Immature Gran % (Auto) Neut % (Auto) Lymph % (Auto) [place] % (Auto) Eos % (Auto) Baso % (Auto) Lymph # (Auto) [place] # (Auto) Eos # (Auto) Baso # (Auto) Abs Immat Gran (auto) Absolute Neuts (auto) Absolute Nucleated RBC Nucleated RBC % (auto) PT 12.3 INR 1.1 APTT 29.4 Sodium Potassium Chloride Carbon Dioxide Anion Gap BUN Creatinine Estim Creat Clear Calc Estimated GFR Random Glucose Lactic Acid Lactic Acid F/U @ 2Hr Calcium Phosphorus Magnesium Total Bilirubin Direct Bilirubin AST ALT Alkaline Phosphatase Total Creatine Kinase Troponin I High Sens 104.7 H* Total Protein Albumin Urine Color Urine Appearance Urine pH Ur Specific [place] Urine Protein Urine Glucose (UA) Urine Ketones Urine Blood Urine Nitrite Ur Leukocyte Esterase Urine RBC Urine WBC Ur Squamous Epith Cells Urine Bacteria U Random Total Protein Ur Random Sodium Urine Creatinine Urine Microalbumin Microalb/Creat Ratio Nasal Screen MRSA (PCR) Nasal S. aureus Screen Nasal MRSA/S.aureus Interp Stool Occult Blood COVID-19 ([facility]) COVID-19 Clin Com Blood Type O Negative Antibody Screen NEGATIVE Crossmatch See Detail 06/07/21 06/07/21 06/07/21 09:24 12:02 14:28 WBC RBC Hgb Hct MCV MCH MCHC RDW Plt Count MPV Immature Gran % (Auto) Neut % (Auto) Lymph % (Auto) [place] % (Auto) Eos % (Auto) Baso % (Auto) Lymph # (Auto) [place] # (Auto) Eos # (Auto) Baso # (Auto) Abs Immat Gran (auto) Absolute Neuts (auto) Absolute Nucleated RBC Nucleated RBC % (auto) PT INR APTT Sodium 139 Potassium 4.3 Chloride 110 H Carbon Dioxide 15 L Anion Gap 18 BUN 35 H Creatinine 2.66 H Estim Creat Clear Calc 18.4 Estimated GFR 17 Random Glucose 84 Lactic Acid Lactic Acid F/U @ 2Hr 1.9 Calcium 9.5 Phosphorus Magnesium 1.9 Total Bilirubin 0.9 Direct Bilirubin 0.3 AST 15 ALT 10 Alkaline Phosphatase 103 Total Creatine Kinase 76 D Troponin I High Sens Total Protein 6.5 Albumin 3.1 L Urine Color Urine Appearance Urine pH Ur Specific [place] Urine Protein Urine Glucose (UA) Urine Ketones Urine Blood Urine Nitrite Ur Leukocyte Esterase Urine RBC Urine WBC Ur Squamous Epith Cells Urine Bacteria U Random Total Protein Ur Random Sodium Urine Creatinine Urine Microalbumin Microalb/Creat Ratio Nasal Screen MRSA (PCR) Nasal S. aureus Screen Nasal MRSA/S.aureus Interp Stool Occult Blood POSITIVE COVID-19 ([facility]) COVID-19 [facility] Blood Type Antibody Screen Crossmatch 06/07/21 06/07/21 06/07/21 14:28 14:28 17:57 WBC RBC Hgb 7.6 L Hct 25.0 L MCV MCH MCHC RDW Plt Count MPV Immature Gran % (Auto) Neut % (Auto) Lymph % (Auto) [place] % (Auto) Eos % (Auto) Baso % (Auto) Lymph # (Auto) [place] # (Auto) Eos # (Auto) Baso # (Auto) Abs Immat Gran (auto) Absolute Neuts (auto) Absolute Nucleated RBC Nucleated RBC % (auto) PT INR APTT Sodium Potassium Chloride Carbon Dioxide Anion Gap BUN Creatinine Estim Creat Clear Calc Estimated GFR Random Glucose Lactic Acid Lactic Acid F/U @ 2Hr Calcium Phosphorus Magnesium Total Bilirubin Direct Bilirubin AST ALT Alkaline Phosphatase Total Creatine Kinase Troponin I High Sens 89.0 H* Total Protein Albumin Urine Color YELLOW Urine Appearance CLEAR Urine pH 5.5 Ur Specific [place] 1.025 Urine Protein TRACE Urine Glucose (UA) NEG Urine Ketones NEG Urine Blood NEG Urine Nitrite NEG Ur Leukocyte Esterase 2+ H Urine RBC 0 Urine WBC 30-49 H Ur Squamous Epith Cells 1+ Urine Bacteria 4+ U Random Total Protein Ur Random Sodium Urine Creatinine Urine Microalbumin Microalb/Creat Ratio Nasal Screen MRSA (PCR) Nasal S. aureus Screen Nasal MRSA/S.aureus Interp Stool Occult Blood COVID-19 ([facility]) COVID-19 [facility] Blood Type Antibody Screen Crossmatch 06/07/21 06/07/21 06/08/21 19:42 19:46 02:45 WBC 13.3 H RBC 3.40 L Hgb 9.1 L 8.7 L Hct 29.3 L 28.1 L MCV 86.2 MCH 26.8 L MCHC 31.1 RDW 18.6 H Plt Count 159 L MPV 10.0 Immature Gran % (Auto) Neut % (Auto) Lymph % (Auto) [place] % (Auto) Eos % (Auto) Baso % (Auto) Lymph # (Auto) [place] # (Auto) Eos # (Auto) Baso # (Auto) Abs Immat Gran (auto) Absolute Neuts (auto) Absolute Nucleated RBC 0.000 Nucleated RBC % (auto) 0.0 PT INR APTT Sodium Potassium Chloride Carbon Dioxide Anion Gap BUN 32 H Creatinine 2.37 H Estim Creat Clear Calc 20.7 Estimated GFR 19 Random Glucose Lactic Acid Lactic Acid F/U @ 2Hr Calcium Phosphorus Magnesium Total Bilirubin Direct Bilirubin AST ALT Alkaline Phosphatase Total Creatine Kinase Troponin I High Sens Total Protein Albumin Urine Color Urine Appearance Urine pH Ur Specific [place] Urine Protein Urine Glucose (UA) Urine Ketones Urine Blood Urine Nitrite Ur Leukocyte Esterase Urine RBC Urine WBC Ur Squamous Epith Cells Urine Bacteria U Random Total Protein Ur Random Sodium Urine Creatinine Urine Microalbumin Microalb/Creat Ratio Nasal Screen MRSA (PCR) Nasal S. aureus Screen Nasal MRSA/S.aureus Interp Stool Occult Blood COVID-19 ([facility]) COVID-19 Clin Com Blood Type Antibody Screen Crossmatch 06/08/21 06/08/21 06/08/21 05:16 05:16 05:16 WBC 9.3 RBC 3.18 L Hgb 8.4 L Hct 27.3 L MCV 85.8 MCH 26.4 L MCHC 30.8 L RDW 18.7 H Plt Count 152 L MPV 10.1 Immature Gran % (Auto) Neut % (Auto) Lymph % (Auto) [place] % (Auto) Eos % (Auto) Baso % (Auto) Lymph # (Auto) [place] # (Auto) Eos # (Auto) Baso # (Auto) Abs Immat Gran (auto) Absolute Neuts (auto) Absolute Nucleated RBC 0.000 Nucleated RBC % (auto) 0.0 PT INR APTT Sodium 141 141 Potassium 4.5 4.6 Chloride 114 H 114 H Carbon Dioxide 19 L 20 L Anion Gap 13 12 BUN 30 H 30 H Creatinine 2.20 H 2.20 H Estim Creat Clear Calc 22.3 22.3 Estimated GFR 21 21 Random Glucose 87 88 Lactic Acid Lactic Acid F/U @ 2Hr Calcium 9.2 9.2 Phosphorus 3.6 Magnesium Total Bilirubin 0.8 Direct Bilirubin AST 13 ALT 10 Alkaline Phosphatase 90 Total Creatine Kinase Troponin I High Sens Total Protein 5.5 L Albumin 2.7 L Urine Color Urine Appearance Urine pH Ur Specific [place] Urine Protein Urine Glucose (UA) Urine Ketones Urine Blood Urine Nitrite Ur Leukocyte Esterase Urine RBC Urine WBC Ur Squamous Epith Cells Urine Bacteria U Random Total Protein Ur Random Sodium Urine Creatinine Urine Microalbumin Microalb/Creat Ratio Nasal Screen MRSA (PCR) Nasal S. aureus Screen Nasal MRSA/S.aureus Interp Stool Occult Blood COVID-19 ([facility]) COVID-19 [facility] Blood Type Antibody Screen Crossmatch 06/08/21 06/08/21 06/08/21 09:53 09:54 11:17 WBC RBC Hgb Hct MCV MCH MCHC RDW Plt Count MPV Immature Gran % (Auto) Neut % (Auto) Lymph % (Auto) [place] % (Auto) Eos % (Auto) Baso % (Auto) Lymph # (Auto) [place] # (Auto) Eos # (Auto) Baso # (Auto) Abs Immat Gran (auto) Absolute Neuts (auto) Absolute Nucleated RBC Nucleated RBC % (auto) PT INR APTT Sodium Potassium Chloride Carbon Dioxide Anion Gap BUN Creatinine Estim Creat Clear Calc Estimated GFR Random Glucose Lactic Acid 1.5 Lactic Acid F/U @ 2Hr Calcium Phosphorus Magnesium Total Bilirubin Direct Bilirubin AST ALT Alkaline Phosphatase Total Creatine Kinase Troponin I High Sens Total Protein Albumin Urine Color Urine Appearance Urine pH Ur Specific [place] Urine Protein Urine Glucose (UA) Urine Ketones Urine Blood Urine Nitrite Ur Leukocyte Esterase Urine RBC Urine WBC Ur Squamous Epith Cells Urine Bacteria U Random Total Protein 28 H Ur Random Sodium 66.0 Urine Creatinine 77.62 76.97 Urine Microalbumin 66.0 Microalb/Creat Ratio 85.0 Nasal Screen MRSA (PCR) Nasal S. aureus Screen Nasal MRSA/S.aureus Interp Stool Occult Blood COVID-19 ([facility]) COVID-19 [facility] Blood Type Antibody Screen Crossmatch 06/08/21 12:55 WBC RBC Hgb Hct MCV MCH MCHC RDW Plt Count MPV Immature Gran % (Auto) Neut % (Auto) Lymph % (Auto) [place] % (Auto) Eos % (Auto) Baso % (Auto) Lymph # (Auto) [place] # (Auto) Eos # (Auto) Baso # (Auto) Abs Immat Gran (auto) Absolute Neuts (auto) Absolute Nucleated RBC Nucleated RBC % (auto) PT INR APTT Sodium Potassium Chloride Carbon Dioxide Anion Gap BUN Creatinine Estim Creat Clear Calc Estimated GFR Random Glucose Lactic Acid Lactic Acid F/U @ 2Hr Calcium Phosphorus Magnesium Total Bilirubin Direct Bilirubin AST ALT Alkaline Phosphatase Total Creatine Kinase Troponin I High Sens Total Protein Albumin Urine Color Urine Appearance Urine pH Ur Specific [place] Urine Protein Urine Glucose (UA) Urine Ketones Urine Blood Urine Nitrite Ur Leukocyte Esterase Urine RBC Urine WBC Ur Squamous Epith Cells Urine Bacteria U Random Total Protein Ur Random Sodium Urine Creatinine Urine Microalbumin Microalb/Creat Ratio Nasal Screen MRSA (PCR) NEGATIVE Nasal S. aureus Screen POSITIVE A Nasal MRSA/S.aureus Interp SEE NOTE Stool Occult Blood COVID-19 ([facility]) COVID-19 Clin Com Blood Type Antibody Screen Crossmatch Assessment and Plan Assessment Anesthesia Assessment: Anesthesia Plan Discussed and Chart Reviewed Final Anesthetic Review Family History of Problems with Anesthesia: No History of Problems with Anesthesia: No NPO: Yes ASA Class: IV and Emergency Final Preanesthetic Review: No Changes in Pt Med Stat Patient Risk: High Anesthetic Plan Anesthetic Plan: GA Disposition: Standard PACU Documented by User: Davon Valerio MD 06/08/21 18:28 HPI - Anesthesia Eval Consult details Narrative: 85 F for cystoscopy and stent placement COPD 2L nocturnal oxygen , , hyperlipidemia, obesity, leg edema , history of kidney stones s/p multiple ESWL, AAA s/p aortobiiliac endograft 2016, left carotid artery stenosis, CAD, ongoing smoker, on baby aspirin, no other anticoagulation.? [facility] Past Medical History Medical History Atherosclerotic cardiovascular disease COPD (chronic obstructive pulmonary disease) Nocturnal hypoxemia Obesity Restrictive lung disease Smoker Family History Family History Father No problems noted. Mother No problems noted. Social History Social History Household Members: None Housing: House Alcohol intake: never Patient Tobacco Use Status: Current someday Tobacco user Tobacco use type: Cigarette Cigarettes Per Day: 1 Packs Per Year: 70 Smoked in Last 30 Days: Yes Patient Interested in Nicotine Replacement: No Patient Given Instructions on How to Stop Smoking: No Use of substances other than those prescribed or required for medical reasons: No Currently Displaying Signs/Symptoms of Drug Intoxication Withdrawal: No service: No Current occupational status: retired Meds Allergies Allergy/AdvReac Type Severity Reaction Status Date / Time No Known Allergies Allergy Verified 05/17/21 10:30 [No Known Allergies*] Home Medications Medication Instructions Recorded Confirmed Last Taken Type cholecalciferol (vitamin D3) 10 10 mcg PO DAILY 04/16/20 06/07/21 06/05/21 History mcg (400 unit) capsule furosemide 20 mg tablet 20 mg PO DAILY 04/16/20 06/07/21 06/05/21 History lisinopril 20 mg tablet 20 mg PO DAILY 04/16/20 06/07/21 06/05/21 History aspirin 81 mg tablet,delayed 81 mg PO DAILY 04/21/20 06/07/21 06/05/21 History release (Adult Low Dose Aspirin) meclizine 12.5 mg tablet 12.5 mg PO TID PRN tab 05/14/20 06/07/21 06/05/21 History Exam Airway Mallampati Class: III TM Dist: >3cm Neck ROM: Full Loose/Missing/Broken Teeth: Yes (Missing and loose teeth ) Heart: S1 , S2 Lungs: distant breath sounds Assessment and Plan Final Anesthetic Review Final Preanesthetic Review: Meds/Allgs Chart Reviewed, Consent Obtained/Reviewed and Anes Risks/Benef Reviewed Procedure Risk: Intermediate Anesthetic Plan Disposition: Inp. Admit - Standard Bed
--- NOTE | 2021-06-08 17:40 | MHC.SHP ---
Pre-Procedural Eval Section A Date of Service: 06/08/21 The patient is an INPATIENT: Yes Changes since office visit: No Cold of Flu in the past 2 weeks, No New Medical Problems, No Changes in Medication and No Patient answered all questions The History & Physical has been completed within 30 days and I have reviewed it.: Yes Section B Chief Complaint: bright red blood per rectum Allergies: Allergies Allergy/AdvReac Type Severity Reaction Status Date / Time No Known Allergies Allergy Verified 05/17/21 10:30 [No Known Allergies*] Plan Diagnosis/Plan: Unchanged (Cystoscopy, right retrograde, right stent placement) I have reviewed the history and physical and performed a pertinent physical examination on my patient. No changes have occurred unless specified.
--- NOTE | 2021-06-08 17:42 | W.PM.OPN ---
Operative Note Operative Note Date of Service: 06/08/21 Narrative: PreOperative Diagnosis: right proximal ureteral stone with hydronephrosis Post Operative Diagnosis: same Procedure: cystoscopy, right retrograde, right stent placement Surgeon: Dr Mitchell Sung Anesthesia: general Indications for procedure: right hydronephrosis with elevated creatinine Procedure: After informed consent was verified the patient was brought to the operating room and placed in a supine position. Anesthesia was administered per protocol. The patient was placed in modified dorsal lithotomy position and prepped and draped in a sterile fashion. A safety pause time-out was performed. Laterality of procedure and antibiotics were confirmed. appropriate imaging was available A 22 [place] cystoscope was introduced per urethra. No abnormality was noted. Both ureteric orifices were seen in a normal position. The right ureter was cannulated with an open ended catheter and a retrograde examination was performed. right hydronephrosis seen, open-ended catheter advanced right renal pelvis and right renal pelvis aspirated . A Sensor guidewire was placed under fluoroscopy and a good coil was seen within the renal pelvis. A 6 [place] by 24 cm stent was advanced over the wire and up to the level of the renal pelvis under fluoroscopic and direct visualization. The stent was seen with appropriate coil within the renal pelvis and in the bladder after deployment. The patient tolerated the procedure well and was transferred in stable condition to the recovery area. Pathology: right hydronephrosis Drains: 6 [place] by 24 cm double-J stent
[2021-06-08 18:18] LABS: Hematocrit 25.2 % (37.0-47.0); Hemoglobin 7.8 g/dl (12.0-16.0)
[2021-06-08] MEDS: Phenazopyridine HCL 100 MG TABLET PO (19:38)
[2021-06-09] VITALS (8 sets, daily range): BP systolic 115–134; BP diastolic 51–64; PULSE 76–92; RESP 17–20; TEMP 36–36.8; O2SAT 90–98; BMI 45.3
[2021-06-09] MEDS: Pantoprazole Sodium 40 MG/10 ML VIAL IVPUSH (05:16)
[2021-06-09] MEDS: Acetaminophen 325 MG TABLET 650 MG PO (05:22)
[2021-06-09 05:41] LABS: Hematocrit 26.9 % (37.0-47.0); Hemoglobin 8.2 g/dl (12.0-16.0); Mean Corpuscular HGB Conc 30.5 g/dl (31.0-35.0); Mean Corpuscular Hemoglobin 26.5 pg (27.0-33.0); Mean Corpuscular Volume 86.8 fL (80.0-98.0); Mean Platelet Volume 10.1 fL (9.4-12.3); Platelet Count 145 X10*3/uL (160-400); Red Cell Distribution Width 18.8 % (11.0-16.0); White Blood Count 5.6 X10*3/uL (4.8-10.8)
[2021-06-09 06:14] LABS: Albumin Level 3.1 g/dL (3.5-5.0); Anion Gap 13 (12-20); Blood Urea Nitrogen 25 mg/dL (9-16); Calcium 9.3 mg/dL (8.4-10.2); Carbon Dioxide 17 mmol/L (22-29); Chloride 113 mmol/L (96-108); Creatinine Clr Calc Pharmacy 26.5; Estimated Glomerular Filt Rate 25; Glucose Random 120 mg/dL (60-115); Magnesium 2.1 mg/dL (1.6-2.6); Potassium 3.8 mmol/L (3.3-5.1); Sodium 139 mmol/L (135-145)
[2021-06-09] MEDS: Atorvastatin Calcium 40 MG TABLET PO (07:46)
[2021-06-09] MEDS: Cholecalciferol (Vitamin D3) 10 MCG TABLET PO (07:46)
[2021-06-09] MEDS: 0.9 % Sodium Chloride Flush 3 ML SYRINGE IVFLUSH ×3 (07:46→22:58)
[2021-06-09] MEDS: oxyCODONE HCl Immed Release 5 MG TABLET PO ×4 (08:09→23:16)
--- NOTE | 2021-06-09 09:23 | HO.POSTANES ---
Post Anesthesia Evaluation Post Anesthesia Evaluation Vital Signs: Vital Signs Temp Pulse Resp BP Pulse Ox 06/09/21 07:55 92 20 06/09/21 06:48 97 F 76 19 134/64 90 L 06/09/21 04:00 98 F 81 18 115/56 L 98 06/08/21 23:39 98.1 F 76 18 100/58 L 98 Anesthesia: General Mental Status: Awake Pain Control: Satisfactory Nausea/Vomiting: None Hydration: Adequate Anesthesia-Related Issues: No Anes. Related Issues
--- NOTE | 2021-06-09 10:16 | PM.PNNEP ---
Subjective Subjective Date of Service: 06/09/21 Principal diagnosis: GAURANG, non-oliguric Interval history: No acute overnight events. Physical Exam Vital Signs: Vital Signs: Last Vital Signs Temp 97 F 06/09/21 06:48 Pulse 92 06/09/21 07:55 Resp 20 06/09/21 07:55 BP 134/64 06/09/21 06:48 Pulse Ox 90 L 06/09/21 06:48 BMI result Body Mass Index 45.3 Const: General: cooperative and no acute distress Orientation/consciousness: patient oriented x3 HEENT: Head: Yes normal to inspection, Yes normocephalic and Yes atraumatic Neck: Neck: Yes no JVD Resp: Effort & Inspection: normal respiratory effort Auscultation: clear to auscultation bilaterally Cardio: Jugular venous distension: no JVD Rate: regular rate Rhythm: regular rhythm Heart sounds: S1 normal heart sound present and S2 normal heart sound present GI: Auscultation: normal bowel sounds Neuro: General: patient oriented x3 Extrem: General: Yes no clubbing, cyanosis or edema Objective Data Labs CBC & Chem 7: 06/09/21 05:16 06/09/21 05:16 Labs: Laboratory Results - last 24 hr 06/08/21 06/08/21 06/08/21 09:53 09:54 11:17 WBC RBC Hgb Hct MCV MCH MCHC RDW Plt Count MPV Absolute Nucleated RBC Nucleated RBC % (auto) Sodium Potassium Chloride Carbon Dioxide Anion Gap BUN Creatinine Estim Creat Clear Calc Estimated GFR Random Glucose Lactic Acid 1.5 Calcium Phosphorus Magnesium Albumin U Random Total Protein 28 H Ur Random Sodium 66.0 Urine Creatinine 77.62 76.97 Urine Microalbumin 66.0 Microalb/Creat Ratio 85.0 Nasal Screen MRSA (PCR) Nasal S. aureus Screen Nasal MRSA/S.aureus Interp 06/08/21 06/08/21 06/09/21 12:55 18:07 05:16 WBC 5.6 RBC 3.10 L Hgb 7.8 L 8.2 L Hct 25.2 L 26.9 L MCV 86.8 MCH 26.5 L MCHC 30.5 L RDW 18.8 H Plt Count 145 L MPV 10.1 Absolute Nucleated RBC 0.000 Nucleated RBC % (auto) 0.0 Sodium Potassium Chloride Carbon Dioxide Anion Gap BUN Creatinine Estim Creat Clear Calc Estimated GFR Random Glucose Lactic Acid Calcium Phosphorus Magnesium Albumin U Random Total Protein Ur Random Sodium Urine Creatinine Urine Microalbumin Microalb/Creat Ratio Nasal Screen MRSA (PCR) NEGATIVE Nasal S. aureus Screen POSITIVE A Nasal MRSA/S.aureus Interp SEE NOTE 06/09/21 05:16 WBC RBC Hgb Hct MCV MCH MCHC RDW Plt Count MPV Absolute Nucleated RBC Nucleated RBC % (auto) Sodium 139 Potassium 3.8 Chloride 113 H Carbon Dioxide 17 L Anion Gap 13 BUN 25 H Creatinine 1.91 H Estim Creat Clear Calc 26.5 Estimated GFR 25 Random Glucose 120 H Lactic Acid Calcium 9.3 Phosphorus 3.0 Magnesium 2.1 Albumin 3.1 L U Random Total Protein Ur Random Sodium Urine Creatinine Urine Microalbumin Microalb/Creat Ratio Nasal Screen MRSA (PCR) Nasal S. aureus Screen Nasal MRSA/S.aureus Interp Microbiology Microbiology Results: Microbiology 06/07/21 08:42 Blood - Venous Blood Culture - Final Coag negative Staphylococcus 06/07/21 18:24 Urine Catheterized - Pedro Catheter Urine Culture - Preliminary Culture too young to evaluate. 06/07/21 08:34 Blood - Venous Blood Culture - Preliminary No growth after 24 hours. Procedures Date of Service Date of Service: 06/09/21 Assessment & Plan Assessment and plan (1) GAURANG (acute kidney injury): Status: Acute (2) Kidney stone on right side: Status: Acute Plan #)GAURANG on CKD (III) at BL The patient presented with noted elevation in S-Cr compared to prior BL. Appears her BL was ~ 1.7 mg/dL until November 2020 however there is question as to whether her CKD has since progressed and new BL ~ 2.2 mg/dL. We will continue to monitor and she will require outpatient follow up for continued assessment. At this time, her GAURANG is likely secondary to combination of hypotension and acute blood loss anemia. I suspect there is a component of ischemic atn from her GIB. She has appropriately received prbc transfusion and is now on albumin to defend her intravascular space. Additionally, her concurrent use of acei and loop diuretic further exacerbated her hypotension and induced pre-renal gaurang. -Continue to hold nephrotoxic agents such as acei/arb, nsaids, IV contrast, and renal dose abx. -Can resume home loop diueretic following stent placement. Agree with hold loop diuretic for now as well. -Monitor I/O's. She has appreciated mild hydronephrosis on imaging. Urology following. Plan for stent placement. -S-Cr improving with resolution of anemia. -no evidence of rhabdomyolysis Unclear reason why she is hypoalbuminuric. Receiving albumin. Will check urine protein gap. May be secondary to poor nutritional status. Urine studies not yet resulted. #Anemia:?prbc tranfusion for now to maintain hgb> 7.0. #Electrolytes?otherwise stable. 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 check PTH as well along with iCa Time Spent With Patient Time: Total time spent is greater than 50% in coordination of care (as documented) at patient's floor/unit and/or counseling patient: Progress Note: Quality Stroke Does the patient have a stroke diagnosis?: No
--- NOTE | 2021-06-09 11:38 | HO.PM.IMPN ---
Subjective Subjective Date of Service: 06/09/21 Interval History: No acute issues overnight. Complaining of left upper chest pain worse with coughing Review of Systems Admits to chest pain with cough Denies shortness of breath Denies nausea vomiting diarrhea Denies fever and chills Physical Exam Vital Signs: Vital Signs: Last Vital Signs Temp 96.8 F 06/09/21 11:15 Pulse 76 06/09/21 11:15 Resp 20 06/09/21 11:15 BP 119/61 06/09/21 11:15 Pulse Ox 94 06/09/21 11:15 BMI result Body Mass Index 45.3 Const: Other: No acute distress Resp: Other: Clear to auscultation bilaterally no rales rhonchi or wheezes Cardio: Other: No S4; positive S1-S2; no S3 murmur so to gallops GI: Other: Soft nontender nondistended with normoactive bowel sounds Extrem: Other: No edema bilaterally Objective Data Active Medications Acetaminophen (Acetaminophen 325 Mg Tablet) 650 mg PO Q6H PRN PRN Reason: Pain, Mild (Pain Scale 1-3) Last Admin: 06/09/21 05:22 Dose: 650 mg Documented by: RACHEL Albuterol Sulfate (Albuterol Sulfate 90 Mcg 8 Gm Inhaler) 2 puff INHALE Q4H PRN PRN Reason: shortness of breath or wheezing Atorvastatin Calcium (Atorvastatin Calcium 40 Mg Tablet) 40 mg PO DAILY [facility] Last Admin: 06/09/21 07:46 Dose: 40 mg Documented by: DEBORA Ceftriaxone Sodium 1 gm/ (Sodium Chloride) 50 mls @ 100 mls/hr IV Q24H [facility] Last Admin: 06/08/21 19:37 Dose: Not Given Documented by: GEOFFREY Non-Admin Reason: given by anesthesia Meclizine HCl (Meclizine Hcl 12.5 Mg Tablet) 12.5 mg PO TID PRN PRN Reason: Dizziness Ondansetron HCl (Ondansetron Hcl 4 Mg/2 Ml Vial) 4 mg IVPUSH Q8H PRN PRN Reason: Nausea and Vomiting Oxycodone HCl (Oxycodone Hcl Immed Release 5 Mg Tablet) 5 mg PO Q4H PRN PRN Reason: Pain, Moderate (Pain Scale 4-6 Last Admin: 06/09/21 08:09 Dose: 5 mg Documented by: DEBORA Pantoprazole Sodium (Pantoprazole Sodium 40 Mg/10 Ml Vial) 40 mg IVPUSH DAILY@0630 [facility] Last Admin: 06/09/21 05:16 Dose: 40 mg Documented by: RACHEL Pharmacy Consult (Consult Rx Perform Med Rec) 1 each MISCELLANE ONCE PRN PRN Reason: Consult order Sodium Chloride (0.9 % Sodium Chloride Flush 3 Ml Syringe) 3 ml IVFLUSH QSHIFT [facility] Last Admin: 06/09/21 07:46 Dose: 3 ml Documented by: DEBORA Tiotropium [place] (Tiotropium [place] 18 Mcg Cap.W.Dev) 1 puff INHALE RDAILY [facility] Last Admin: 06/09/21 07:54 Dose: 1 puff Documented by: HEATHER Vitamin D (Cholecalciferol (Vitamin D3) 10 Mcg Tablet) 10 mcg PO DAILY [facility] Last Admin: 06/09/21 07:46 Dose: 10 mcg Documented by: DEBORA Labs CBC & Chem 7: 06/09/21 05:16 06/09/21 05:16 Labs: Laboratory Results - last 24 hr 06/07/21 06/07/21 06/08/21 09:24 19:46 05:16 MCV MCH MCHC RDW Plt Count MPV Absolute Nucleated RBC Nucleated RBC % (auto) Anion Gap Creatinine 2.66 H 2.37 H 2.20 H Estim Creat Clear Calc Estimated GFR Random Glucose Calcium Phosphorus Magnesium Albumin Nasal Screen MRSA (PCR) Nasal S. aureus Screen Nasal MRSA/S.aureus Interp 06/08/21 06/08/21 06/09/21 05:16 12:55 05:16 MCV 86.8 MCH 26.5 L MCHC 30.5 L RDW 18.8 H Plt Count 145 L MPV 10.1 Absolute Nucleated RBC 0.000 Nucleated RBC % (auto) 0.0 Anion Gap Creatinine 2.20 H Estim Creat Clear Calc Estimated GFR Random Glucose Calcium Phosphorus Magnesium Albumin Nasal Screen MRSA (PCR) NEGATIVE Nasal S. aureus Screen POSITIVE A Nasal MRSA/S.aureus Interp SEE NOTE 06/09/21 05:16 MCV MCH MCHC RDW Plt Count MPV Absolute Nucleated RBC Nucleated RBC % (auto) Anion Gap 13 Creatinine 1.91 H Estim Creat Clear Calc 26.5 Estimated GFR 25 Random Glucose 120 H Calcium 9.3 Phosphorus 3.0 Magnesium 2.1 Albumin 3.1 L Nasal Screen MRSA (PCR) Nasal S. aureus Screen Nasal MRSA/S.aureus Interp Microbiology Microbiology Results: Microbiology 06/07/21 18:24 Urine Culture - Preliminary Urine Catheterized - Pedro Catheter Gram negative hiren 06/07/21 08:34 Blood Culture - Preliminary Blood - Venous No growth after 48 hours. 06/07/21 08:42 Blood Culture - Final Blood - Venous Coag negative Staphylococcus Assessment and Plan (1) GI bleed: Status: Acute (2) Acute blood loss anemia: Status: Acute (3) Kidney stone on right side: Status: Acute (4) Acute worsening of stage 3 chronic kidney disease: Status: Acute (5) COPD (chronic obstructive pulmonary disease): Status: Acute Plan 85-year-old female patient with past medical history significant for morbid obesity, COPD/restrictive lung disease on 2 L of oxygen at night, history of endovascular repair of aortic aneurysm July of 2015, history of bilateral carotid artery stenosis, history of intermittent dizziness on meclizine, lives alone at home ambulates with a walker presented to [facility] after she fell twice at home she became lightheaded,while ambulating without associated chest pain or palpitation, and landed on her walker got injury to left lower abdomen, anterior chest and right thigh, after fall patient developed left lower quadrant abdominal pain and also noted for episodes of bright-red Jelly like discharge from rectum patient in the emergency room noted to have lactic acidosis significant drop in hematocrit, elevated creatinine, CT abdomen showed right hydronephrosis, right UPJ and proximal ureteral stone patient is being admitted for continued monitoring and treatment. 1.GI bleed -no further bleeding since admission -Protonix/clear liquid diet/DC aspirin -Dr. Yuen to scope 06/11 2.Acute blood loss anemia -hemoglobin stable -transfuse to maintain hemoglobin > 7 3.Right hydronephrosis with right UPJ and proximal ureteral stone -right stent placed by Urology 06/08/2021 -rate consult if any further issues 4.Acute on chronic kidney disease stage 3 -creatinine plateaued -follow renals/divalents -a patient of for allergy follow-up 5.COPD/restrictive lung disease -continue outpatient therapy -titrate O2 during the day; 2 L overnight DVT prophylaxis with compression boots avoid heparin due to GI bleed Code status full code Patient will need inpatient hospitalization due to acute GI bleed requiring blood transfusion also with acute on chronic kidney disease. GI to scope 06/11 Quality Stroke Does the patient have a stroke diagnosis?: No VTE Prior VTE?: No VTE Risk Level:: Medical - moderate - high VTE Device Contraindication: N/A - Device Ordered VTE Drug Contraindication: Treatment Not Indicated
[2021-06-09] MEDS: cefTRIAXone sodium 1 GM in 0.9 % Sodium Chloride 50 ML IV (15:15)
--- NOTE | 2021-06-09 17:49 | P.PNGI_ITS ---
Subjective Subjective Date of Service: 06/09/21 Interval History: Hx via patient, RN, and EMR. Patient has had no further signs of GI bleeding. She denies abdominal pain, N/V/diarrhea. She is s/p a procedure yesterday for a ureteral stent. She is still quite sore from her fall, especially in the left chest area. Critical Care Time (minutes): 0 Physical Exam Vital Signs: Vital Signs: Last Vital Signs Temp 98.3 F 06/09/21 15:11 Pulse 76 06/09/21 15:11 Resp 18 06/09/21 15:11 BP 131/64 06/09/21 15:11 Pulse Ox 97 06/09/21 15:11 BMI result Body Mass Index 45.3 Const: General: cooperative, comfortable, no acute distress, well developed, alert and awake Eyes: Other: Anicteric GI: Other: +BS, soft, NT, nondistended Objective Data Labs CBC & Chem 7: 06/09/21 05:16 06/09/21 05:16 Labs: Laboratory Results - last 24 hr 06/08/21 06/09/21 06/09/21 18:07 05:16 05:16 WBC 5.6 RBC 3.10 L Hgb 7.8 L 8.2 L Hct 25.2 L 26.9 L MCV 86.8 MCH 26.5 L MCHC 30.5 L RDW 18.8 H Plt Count 145 L MPV 10.1 Absolute Nucleated RBC 0.000 Nucleated RBC % (auto) 0.0 Sodium 139 Potassium 3.8 Chloride 113 H Carbon Dioxide 17 L Anion Gap 13 BUN 25 H Creatinine 1.91 H Estim Creat Clear Calc 26.5 Estimated GFR 25 Random Glucose 120 H Calcium 9.3 Phosphorus 3.0 Magnesium 2.1 Albumin 3.1 L Microbiology Microbiology Results: Microbiology 06/08/21 11:17 Blood - Venous Blood Culture - Preliminary No growth after 24 hours. 06/08/21 11:17 Blood - Venous Blood Culture - Preliminary No growth after 24 hours. 06/08/21 Unknown Urine Other - Kidney Right Urine Culture - Preliminary Culture too young to evaluate. 06/07/21 18:24 Urine Catheterized - Pedro Catheter Urine Culture - Preliminary Gram negative hiren 06/07/21 08:34 Blood - Venous Blood Culture - Preliminary No growth after 48 hours. 06/07/21 08:42 Blood - Venous Blood Culture - Final Coag negative Staphylococcus Procedures Date of Service Date of Service: 06/09/21 Progress Note: A&P Assessment and plan (1) Lower GI bleed: Status: Acute Assessment and Plan: Imp: She has had no further bleeding. I suspect this was either a limited diverticular bleed or ischemic colitis. She presently appears quite stable. Rec: I did review the history of her recent lower GI bleeding with her in detail and the differential diagnosis of diverticular bleeding, ischemic colitis with bleeding, polyps, or neoplasm. I recommended a colonoscopy for 06/11/2021 with a bowel prep on , 06/10/2021. However, due to her discomfort from the fall, she would like to think about it and will decide tomorrow. I will order clear liquids for her starting in the AM, but will hold off on ordering the bowel prep until she decides. She was comfortable with this plan. Thanks Fall Risk Details Current Medications: Current Medications Acetaminophen (Acetaminophen 325 Mg Tablet) 650 mg PO Q6H PRN PRN Reason: Pain, Mild (Pain Scale 1-3) Last Admin: 06/09/21 05:22 Dose: 650 mg Documented by: Albuterol Sulfate (Albuterol Sulfate 90 Mcg 8 Gm Inhaler) 2 puff INHALE Q4H PRN PRN Reason: shortness of breath or wheezing Atorvastatin Calcium (Atorvastatin Calcium 40 Mg Tablet) 40 mg PO DAILY [facility] Last Admin: 06/09/21 07:46 Dose: 40 mg Documented by: Ceftriaxone Sodium 1 gm/ (Sodium Chloride) 50 mls @ 100 mls/hr IV Q24H [facility] Last Infusion: 06/09/21 16:13 Dose: Infused Documented by: Meclizine HCl (Meclizine Hcl 12.5 Mg Tablet) 12.5 mg PO TID PRN PRN Reason: Dizziness Ondansetron HCl (Ondansetron Hcl 4 Mg/2 Ml Vial) 4 mg IVPUSH Q8H PRN PRN Reason: Nausea and Vomiting Oxycodone HCl (Oxycodone Hcl Immed Release 5 Mg Tablet) 5 mg PO Q4H PRN PRN Reason: Pain, Moderate (Pain Scale 4-6 Last Admin: 06/09/21 14:10 Dose: 5 mg Documented by: Pantoprazole Sodium (Pantoprazole Sodium 40 Mg/10 Ml Vial) 40 mg IVPUSH DAILY@0630 [facility] Last Admin: 06/09/21 05:16 Dose: 40 mg Documented by: Pharmacy Consult (Consult Rx Perform Med Rec) 1 each MISCELLANE ONCE PRN PRN Reason: Consult order Sodium Chloride (0.9 % Sodium Chloride Flush 3 Ml Syringe) 3 ml IVFLUSH QSHIFT [facility] Last Admin: 06/09/21 15:16 Dose: 3 ml Documented by: Tiotropium [place] (Tiotropium [place] 18 Mcg Cap.W.Dev) 1 puff INHALE RDAILY [facility] Last Admin: 06/09/21 07:54 Dose: 1 puff Documented by: Vitamin D (Cholecalciferol (Vitamin D3) 10 Mcg Tablet) 10 mcg PO DAILY [facility] Last Admin: 06/09/21 07:46 Dose: 10 mcg Documented by: Time Spent With Patient Time: Total time spent is greater than 50% in coordination of care (as documented) at patient's floor/unit and/or counseling patient: Quality Stroke Does the patient have a stroke diagnosis?: No VTE Prior VTE?: No VTE Risk Level:: Medical - moderate - high VTE Device Contraindication: N/A - Device Ordered VTE Drug Contraindication: Treatment Not Indicated
--- NOTE | 2021-06-09 19:54 | PC.NURSE ---
P left hand skin tear present I area cleansed with sterile saline,oil emulsion drsg applied and dsd over E will monitor
[2021-06-10] VITALS (8 sets, daily range): BP systolic 122–183; BP diastolic 58–82; PULSE 89–101; RESP 17–22; TEMP 36.2–37.1; O2SAT 92–95
[2021-06-10] MEDS: Pantoprazole Sodium 40 MG/10 ML VIAL IVPUSH (05:33)
[2021-06-10 06:12] LABS: MANUAL DIFF FLAG NO
[2021-06-10 06:27] LABS: Basophils Percent Auto 0.4 % (0-2); Eosinophils Absolute Auto 0.2 X10*3/uL (0.0-0.4); Eosinophils Percent Auto 3.3 % (0-4); Hematocrit 27.5 % (37.0-47.0); Hemoglobin 8.4 g/dl (12.0-16.0); Imm Gran Abs Auto 0.01 X10*3/uL (0.00-0.03); Imm Gran Pct Auto 0.2 % (0.0-0.4); Mean Corpuscular HGB Conc 30.5 g/dl (31.0-35.0); Mean Corpuscular Hemoglobin 26.5 pg (27.0-33.0); Mean Corpuscular Volume 86.8 fL (80.0-98.0); Mean Platelet Volume 9.7 fL (9.4-12.3); Monocytes Absolute Auto 0.4 X10*3/uL (0.1-1.2); Monocytes Percent Auto 8.5 % (2-11); Neutrophils Percent Auto 43.6 % (45-73); Platelet Count 151 X10*3/uL (160-400); Red Blood Count 3.17 X10*6/uL (4.20-5.50); Red Cell Distribution Width 19.1 % (11.0-16.0); White Blood Count 4.6 X10*3/uL (4.8-10.8)
[2021-06-10 06:53] LABS: Alanine Aminotransferase 12 U/L (0-31); Albumin Level 2.9 g/dL (3.5-5.0); Alkaline Phosphatase 99 U/L (39-117); Anion Gap 10 (12-20); Aspartate Amino Transferase 21 U/L (5-31); Bilirubin Total 0.2 mg/dL (0.0-1.0); Blood Urea Nitrogen 23 mg/dL (9-16); Carbon Dioxide 20 mmol/L (22-29); Chloride 114 mmol/L (96-108); Creatinine Clr Calc Pharmacy 29.1; Estimated Glomerular Filt Rate 28; Glucose Fasting 100 mg/dL (60-99); Potassium 4.2 mmol/L (3.3-5.1); Sodium 140 mmol/L (135-145); Total Protein 5.6 g/dL (6.5-8.0)
[2021-06-10] MEDS: Cholecalciferol (Vitamin D3) 10 MCG TABLET PO (07:18)
[2021-06-10] MEDS: oxyCODONE HCl Immed Release 5 MG TABLET PO (07:18)
[2021-06-10] MEDS: 0.9 % Sodium Chloride Flush 3 ML SYRINGE IVFLUSH ×3 (07:19→20:25)
[2021-06-10] MEDS: Atorvastatin Calcium 40 MG TABLET PO (07:19)
--- NOTE | 2021-06-10 09:59 | PM.PNNEP ---
Subjective Subjective Date of Service: 06/10/21 Principal diagnosis: GAURANG, non-oliguric Interval history: Hx via patient, RN, and EMR. Patient has had no further signs of GI bleeding. She denies abdominal pain, N/V/diarrhea. noted hydronephrosis with subsequent stent placement. Physical Exam Vital Signs: Vital Signs: Last Vital Signs Temp 97.2 F 06/10/21 07:16 Pulse 101 H 06/10/21 09:08 Resp 22 H 06/10/21 07:32 BP 134/60 06/10/21 09:08 Pulse Ox 93 06/10/21 07:16 BMI result Body Mass Index 45.3 Const: General: cooperative and no acute distress Orientation/consciousness: patient oriented x3 HEENT: Head: Yes No palpable skull fracture present, Yes normocephalic and Yes atraumatic Neck: Neck: Yes no JVD Resp: Effort & Inspection: normal respiratory effort and able to speak in complete sentences Cardio: Jugular venous distension: no JVD Rate: regular rate Rhythm: regular rhythm Heart sounds: S1 normal heart sound present and S2 normal heart sound present GI: Auscultation: normal bowel sounds Neuro: General: patient oriented x3 Extrem: General: Yes no clubbing, cyanosis or edema Objective Data Labs CBC & Chem 7: 06/10/21 05:15 06/10/21 05:15 Labs: Laboratory Results - last 24 hr 06/07/21 06/10/21 06/10/21 08:54 05:15 05:15 WBC 4.6 L RBC 3.17 L Hgb 8.4 L Hct 27.5 L MCV 86.8 MCH 26.5 L MCHC 30.5 L RDW 19.1 H Plt Count 151 L MPV 9.7 Immature Gran % (Auto) 0.2 Neut % (Auto) 43.6 L Lymph % (Auto) 44.0 H [place] % (Auto) 8.5 Eos % (Auto) 3.3 Baso % (Auto) 0.4 Lymph # (Auto) 2.0 [place] # (Auto) 0.4 Eos # (Auto) 0.2 Baso # (Auto) 0.0 Abs Immat Gran (auto) 0.01 Absolute Neuts (auto) 2.0 Absolute Nucleated RBC 0.000 Nucleated RBC % (auto) 0.0 Sodium 140 Potassium 4.2 Chloride 114 H Carbon Dioxide 20 L Anion Gap 10 L BUN 23 H Creatinine 1.74 H Estim Creat Clear Calc 29.1 Estimated GFR 28 Fasting Glucose 100 H Calcium 9.0 Total Bilirubin 0.2 AST 21 D ALT 12 Alkaline Phosphatase 99 Total Protein 5.6 L Albumin 2.9 L Crossmatch See Detail Microbiology Microbiology Results: Microbiology 06/08/21 Unknown Urine Other - Kidney Right Urine Culture - Final 06/07/21 18:24 Urine Catheterized - Pedro Catheter Urine Culture - Final Escherichia coli 06/08/21 11:17 Blood - Venous Blood Culture - Preliminary No growth after 24 hours. 06/08/21 11:17 Blood - Venous Blood Culture - Preliminary No growth after 24 hours. 06/07/21 08:34 Blood - Venous Blood Culture - Preliminary No growth after 48 hours. 06/07/21 08:42 Blood - Venous Blood Culture - Final Coag negative Staphylococcus Procedures Date of Service Date of Service: 06/10/21 Assessment & Plan Assessment and plan (1) GAURANG (acute kidney injury): Status: Acute Plan #)GAURANG on CKD (III) at BL The patient presented with noted elevation in S-Cr compared to prior BL. Appears her BL was ~ 1.7 mg/dL until November 2020 however there is question as to whether her CKD has since progressed. We will monitor and she will require outpatient follow up for continued assessment. At this time, her GAURANG is likely secondary to combination of hypotension and acute blood loss anemia. I suspect there is a component of ischemic atn from her GIB. She has appropriately received prbc transfusion and albumin to defend her intravascular space. Additionally, her concurrent use of acei and loop diuretic further exacerbated her hypotension and induced pre-renal gaurang. -Continue to hold nephrotoxic agents such as acei/arb, nsaids, IV contrast, and renal dose abx. -Can resume home loop diueretic following stent placement. -Monitor I/O's. She had appreciated mild hydronephrosis on imaging. Urology following. s/p stent placement -S-Cr improving with resolution of anemia. -no evidence of rhabdomyolysis #Anemia: prbc tranfusion for now to maintain hgb> 7.0. #Electrolytes otherwise stable. #CKD-MBD: phos ok. PTH added Time Spent With Patient Time: Total time spent is greater than 50% in coordination of care (as documented) at patient's floor/unit and/or counseling patient: Progress Note: Quality Stroke Does the patient have a stroke diagnosis?: No
--- NOTE | 2021-06-10 10:15 | MHC.CM.PN ---
nurse manager case note electronic medical record revieqed along with case discussed with nelly nurse , per documentation possible colonoscopy on monday (patient is considerin this and will et physician know , she is followed by gi/renal discharge plan home with [facility] has accepted her and can provide nurisng and home pt self resumptio n of [employer] for home oxygen at night pcp dr montez medley self resumption of excisitng [facility] transportation home her son imm 06/08/21
--- NOTE | 2021-06-10 12:02 | P.PNIM_ITS ---
Subjective Subjective Date of Service: 06/10/21 Interval History: No acute issues overnight. No bleeding noted. Still very uncomfortable and extremely immobile secondary to pain Review of Systems Denies chest pain Denies shortness of breath Denies nausea vomiting diarrhea Denies fever chills Physical Exam Vital Signs: Vital Signs: Last Vital Signs Temp 97.3 F 06/10/21 11:45 Pulse 98 06/10/21 11:45 Resp 19 06/10/21 11:45 BP 130/82 06/10/21 11:45 Pulse Ox 95 06/10/21 11:45 BMI result Body Mass Index 45.3 Const: Other: No acute distress Resp: Other: Clear to auscultation bilaterally no rales rhonchi or wheezes Cardio: Other: No S4; positive S1-S2; no S3 murmur so to gallops GI: Other: Soft nontender nondistended with normoactive bowel sounds Extrem: Other: No edema bilaterally Objective Data Active Medications Acetaminophen (Acetaminophen 325 Mg Tablet) 650 mg PO Q6H PRN PRN Reason: Pain, Mild (Pain Scale 1-3) Last Admin: 06/09/21 05:22 Dose: 650 mg Documented by: RACHEL Albuterol Sulfate (Albuterol Sulfate 90 Mcg 8 Gm Inhaler) 2 puff INHALE Q4H PRN PRN Reason: shortness of breath or wheezing Atorvastatin Calcium (Atorvastatin Calcium 40 Mg Tablet) 40 mg PO DAILY FORMERLY [facility], [facility] Last Admin: 06/10/21 07:19 Dose: 40 mg Documented by: SARBJIT Ceftriaxone Sodium 1 gm/ (Sodium Chloride) 50 mls @ 100 mls/hr IV Q24H [facility], [facility] Last Infusion: 06/09/21 16:13 Dose: 0 mls/hr Documented by: GEOFFREY Meclizine HCl (Meclizine Hcl 12.5 Mg Tablet) 12.5 mg PO TID PRN PRN Reason: Dizziness Ondansetron HCl (Ondansetron Hcl 4 Mg/2 Ml Vial) 4 mg IVPUSH Q8H PRN PRN Reason: Nausea and Vomiting Oxycodone HCl (Oxycodone Hcl Immed Release 5 Mg Tablet) 5 mg PO Q4H PRN PRN Reason: Pain, Moderate (Pain Scale 4-6 Last Admin: 06/10/21 07:18 Dose: 5 mg Documented by: SARBJIT Pantoprazole Sodium (Pantoprazole Sodium 40 Mg/10 Ml Vial) 40 mg IVPUSH DAILY@0630 FOR[facility]LY [facility], [facility] Last Admin: 06/10/21 05:33 Dose: 40 mg Documented by: RACHEL Pharmacy Consult (Consult Rx Perform Med Rec) 1 each MISCELLANE ONCE PRN PRN Reason: Consult order Sodium Chloride (0.9 % Sodium Chloride Flush 3 Ml Syringe) 3 ml IVFLUSH QSHIFT FOR[facility]LY [facility], [facility] Last Admin: 06/10/21 07:19 Dose: 3 ml Documented by: SARBJIT Tiotropium [place] (Tiotropium [place] 18 Mcg Cap.W.Dev) 1 puff INHALE RDAILY [facility], [facility] Last Admin: 06/10/21 07:30 Dose: 1 puff Documented by: KEVIN Vitamin D (Cholecalciferol (Vitamin D3) 10 Mcg Tablet) 10 mcg PO DAILY [facility], [facility] Last Admin: 06/10/21 07:18 Dose: 10 mcg Documented by: SARBJIT Labs CBC & Chem 7: 06/10/21 05:15 06/10/21 05:15 Labs: Laboratory Results - last 24 hr 06/07/21 06/10/21 06/10/21 08:54 05:15 05:15 MCV 86.8 MCH 26.5 L MCHC 30.5 L RDW 19.1 H Plt Count 151 L MPV 9.7 Immature Gran % (Auto) 0.2 Neut % (Auto) 43.6 L Lymph % (Auto) 44.0 H [place] % (Auto) 8.5 Eos % (Auto) 3.3 Baso % (Auto) 0.4 Lymph # (Auto) 2.0 [place] # (Auto) 0.4 Eos # (Auto) 0.2 Baso # (Auto) 0.0 Abs Immat Gran (auto) 0.01 Absolute Neuts (auto) 2.0 Absolute Nucleated RBC 0.000 Nucleated RBC % (auto) 0.0 Anion Gap 10 L Estim Creat Clear Calc 29.1 Estimated GFR 28 Fasting Glucose 100 H Calcium 9.0 Total Bilirubin 0.2 AST 21 D ALT 12 Alkaline Phosphatase 99 Total Protein 5.6 L Albumin 2.9 L Crossmatch See Detail Microbiology Microbiology Results: Microbiology 06/08/21 Unknown Urine Culture - Final Urine Other - Kidney Right 06/07/21 18:24 Urine Culture - Final Urine Catheterized - Pedro Catheter Escherichia coli 06/08/21 11:17 Blood Culture - Preliminary Blood - Venous No growth after 24 hours. 06/08/21 11:17 Blood Culture - Preliminary Blood - Venous No growth after 24 hours. 06/07/21 08:34 Blood Culture - Preliminary Blood - Venous No growth after 48 hours. 06/07/21 08:42 Blood Culture - Final Blood - Venous Coag negative Staphylococcus Assessment and Plan (1) Lower GI bleed: Status: Acute (2) Kidney stone on right side: Status: Acute (3) Acute worsening of stage 3 chronic kidney disease: Status: Acute (4) COPD (chronic obstructive pulmonary disease): Status: Acute Plan 85-year-old female patient with past medical history significant for morbid obesity, COPD/restrictive lung disease on 2 L of oxygen at night, history of endovascular repair of aortic aneurysm July of 2015, history of bilateral carotid artery stenosis, history of intermittent dizziness on meclizine, lives alone at home ambulates with a walker presented to [facility] after she fell twice at home she became lightheaded,while ambulating without associated chest pain or palpitation, and landed on her walker got injury to left lower abdomen, anterior chest and right thigh, after fall patient developed left lower quadrant abdominal pain and also noted for episodes of bright-red Jelly like discharge from rectum patient in the emergency room noted to have lactic acidosis significant drop in hematocrit, elevated creatinine, CT abdomen showed right hydronephrosis, right UPJ and proximal ureteral stone patient is being admitted for continued monitoring and treatment. 1.GI bleed -discussed with patient and with Dr. Yuen; patient has had no further bleeding since admission and hemoglobin has remained stable. -Given her extreme discomfort do not believe she would be able to tolerate the prep. All in agreement, this can be done outpatient. --Continue PPI as ordered advance diet 2.Acute blood loss anemia -hemoglobin stable -transfuse to maintain hemoglobin > 7 3.Right hydronephrosis with right UPJ and proximal ureteral stone -right stent placed by Urology 06/08/2021 -rate consult if any further issues 4.Acute on chronic kidney disease stage 3 -creatinine plateaued -follow renals/divalents -a patient of for allergy follow-up 5.COPD/restrictive lung disease -continue outpatient therapy -titrate O2 during the day; 2 L overnight DVT prophylaxis with compression boots avoid heparin due to GI bleed Code status full code Patient will need inpatient hospitalization to monitor for bleeding and to follow hemoglobin Quality Stroke Does the patient have a stroke diagnosis?: No VTE Prior VTE?: No VTE Risk Level:: Medical - moderate - high VTE Device Contraindication: N/A - Device Ordered VTE Drug Contraindication: Treatment Not Indicated
--- NOTE | 2021-06-10 14:50 | MHC.CM.PN ---
nurse rehabilitation case coordinator note colonoscopy fpr tomorrw cancelled instead this will be done later as outpatient , evaluated by physical therapy and patient requires short term rehab , met with patient [facility] [place] and wishes to go to [facility] her [facility] choice or [facility] or [facility] [address] , she is aware that we are planning of dischagre tomorrow , referrals iniated to these referral facilityies, also clled to [facility] for the well nurse as we need hcp, molst form and copy of her covid vacination reors , requested these be faxed to our case management dept. discharge plan short term rehab will need [facility] for transport with oxygen medicare immm 06/08/21
[2021-06-10] MEDS: cefTRIAXone sodium 1 GM in 0.9 % Sodium Chloride 50 ML IV (16:14)
--- NOTE | 2021-06-10 17:05 | PM.EVENT ---
Event Note Date of Service: 06/10/21 Event Note: GI-Course noted. Case D/W patient and hospitalist service. Patient has decided that she is not up to having the bowel prep nor the colonoscopy done due to her overall condition, including her pain and poor mobility. Therefore, she can F/U with her PCP after discharge and she can be referred to me as an outpatient if the situation improves and she changes her mind. Thanks.
--- NOTE | 2021-06-10 17:54 | PC.NURSE ---
Pt without any BM or bleeding per rectum. C/o pain to left chest/shoulder area, especially when coughing. Oxycodone given earlier in the day, currently with Kpad in place and effective. Offered additional pain meication but pt decljned at this time.Purewick in place draining rust/dk bridgette urine.
[2021-06-11] VITALS: BP 119/56; PULSE 104; RESP 17; TEMP 36.4; O2SAT 94
[2021-06-11] MEDS: Acetaminophen 325 MG TABLET 650 MG PO (02:35)
[2021-06-11 04:00] VITALS: BP 117/54; PULSE 98; RESP 17; TEMP 36.3; O2SAT 94
[2021-06-11] MEDS: Pantoprazole Sodium 40 MG/10 ML VIAL IVPUSH (05:43)
[2021-06-11 06:01] LABS: MANUAL DIFF FLAG NO
[2021-06-11 06:09] LABS: Basophils Percent Auto 0.4 % (0-2); Eosinophils Absolute Auto 0.1 X10*3/uL (0.0-0.4); Eosinophils Percent Auto 2.9 % (0-4); Hematocrit 27.6 % (37.0-47.0); Hemoglobin 8.4 g/dl (12.0-16.0); Imm Gran Abs Auto 0.01 X10*3/uL (0.00-0.03); Imm Gran Pct Auto 0.2 % (0.0-0.4); Lymphocytes Absolute Auto 2.4 X10*3/uL (1.2-4.9); Lymphocytes Percent Auto 49.6 % (20-40); Mean Corpuscular HGB Conc 30.4 g/dl (31.0-35.0); Mean Corpuscular Hemoglobin 26.3 pg (27.0-33.0); Mean Corpuscular Volume 86.5 fL (80.0-98.0); Mean Platelet Volume 9.7 fL (9.4-12.3); Monocytes Absolute Auto 0.5 X10*3/uL (0.1-1.2); Monocytes Percent Auto 10.5 % (2-11); Neutrophils Absolute Auto 1.7 x10*3/uL (2.0-8.3); Neutrophils Percent Auto 36.4 % (45-73); Platelet Count 169 X10*3/uL (160-400); Red Blood Count 3.19 X10*6/uL (4.20-5.50); Red Cell Distribution Width 19.2 % (11.0-16.0); White Blood Count 4.8 X10*3/uL (4.8-10.8)
[2021-06-11 06:44] LABS: Alanine Aminotransferase 12 U/L (0-31); Albumin Level 2.9 g/dL (3.5-5.0); Alkaline Phosphatase 109 U/L (39-117); Anion Gap 12 (12-20); Aspartate Amino Transferase 16 U/L (5-31); Bilirubin Total 0.5 mg/dL (0.0-1.0); Blood Urea Nitrogen 20 mg/dL (9-16); Calcium 9.4 mg/dL (8.4-10.2); Carbon Dioxide 19 mmol/L (22-29); Chloride 112 mmol/L (96-108); Creatinine Clr Calc Pharmacy 30.3; Estimated Glomerular Filt Rate 29; Glucose Fasting 92 mg/dL (60-99); Potassium 4.1 mmol/L (3.3-5.1); Sodium 139 mmol/L (135-145); Total Protein 5.7 g/dL (6.5-8.0)
[2021-06-11 07:46] VITALS: PULSE 74; RESP 18; O2SAT 94
[2021-06-11] MEDS: Cholecalciferol (Vitamin D3) 10 MCG TABLET PO (07:55)
[2021-06-11] MEDS: Atorvastatin Calcium 40 MG TABLET PO (07:55)
[2021-06-11] MEDS: 0.9 % Sodium Chloride Flush 3 ML SYRINGE IVFLUSH ×2 (07:56→16:24)
[2021-06-11 08:00] VITALS: BP 164/76; PULSE 100; RESP 16; TEMP 36.1; O2SAT 92
--- NOTE | 2021-06-11 08:05 | PM.PNNEP ---
Subjective Subjective Date of Service: 06/11/21 Principal diagnosis: GAURANG, non-oliguric Interval history: No acute issues overnight. Physical Exam Vital Signs: Vital Signs: Last Vital Signs Temp 97.4 F 06/11/21 04:00 Pulse 74 06/11/21 07:46 Resp 18 06/11/21 07:46 BP 117/54 L 06/11/21 04:00 Pulse Ox 94 06/11/21 04:00 BMI result Body Mass Index 45.3 Const: General: cooperative and no acute distress Orientation/consciousness: patient oriented x3 HEENT: Head: Yes normocephalic and Yes atraumatic Neck: Neck: Yes no JVD Resp: Effort & Inspection: normal respiratory effort Auscultation: clear to auscultation bilaterally Cardio: Jugular venous distension: no JVD Rate: regular rate Rhythm: regular rhythm Heart sounds: S1 normal heart sound present and S2 normal heart sound present GI: Auscultation: normal bowel sounds Neuro: General: patient oriented x3 Extrem: General: Yes no clubbing, cyanosis or edema Objective Data Labs CBC & Chem 7: 06/11/21 05:27 06/11/21 05:27 Labs: Laboratory Results - last 24 hr 06/07/21 06/11/21 06/11/21 08:54 05:27 05:27 WBC 4.8 RBC 3.19 L Hgb 8.4 L Hct 27.6 L MCV 86.5 MCH 26.3 L MCHC 30.4 L RDW 19.2 H Plt Count 169 MPV 9.7 Immature Gran % (Auto) 0.2 Neut % (Auto) 36.4 L Lymph % (Auto) 49.6 H [place] % (Auto) 10.5 Eos % (Auto) 2.9 Baso % (Auto) 0.4 Lymph # (Auto) 2.4 [place] # (Auto) 0.5 Eos # (Auto) 0.1 Baso # (Auto) 0.0 Abs Immat Gran (auto) 0.01 Absolute Neuts (auto) 1.7 L Absolute Nucleated RBC 0.000 Nucleated RBC % (auto) 0.0 Sodium 139 Potassium 4.1 Chloride 112 H Carbon Dioxide 19 L Anion Gap 12 BUN 20 H Creatinine 1.67 H Estim Creat Clear Calc 30.3 Estimated GFR 29 Fasting Glucose 92 Calcium 9.4 Total Bilirubin 0.5 AST 16 ALT 12 Alkaline Phosphatase 109 Total Protein 5.7 L Albumin 2.9 L Crossmatch See Detail Microbiology Microbiology Results: Microbiology 06/08/21 11:17 Blood - Venous Blood Culture - Preliminary No growth after 48 hours. 06/08/21 11:17 Blood - Venous Blood Culture - Preliminary No growth after 48 hours. 06/08/21 Unknown Urine Other - Kidney Right Urine Culture - Final 06/07/21 18:24 Urine Catheterized - Pedro Catheter Urine Culture - Final Escherichia coli 06/07/21 08:34 Blood - Venous Blood Culture - Preliminary No growth after 48 hours. 06/07/21 08:42 Blood - Venous Blood Culture - Final Coag negative Staphylococcus Procedures Date of Service Date of Service: 06/11/21 Assessment & Plan Assessment and plan (1) GAURANG (acute kidney injury): Status: Acute Plan #)GAURANG on CKD (III) at BL The patient presented with noted elevation in S-Cr compared to prior BL. Appears her BL was ~ 1.7 mg/dL until November 2020 however there is question as to whether her CKD has since progressed. We will monitor and she will require outpatient follow up for continued assessment. At this time, her GAURANG is likely secondary to combination of hypotension and acute blood loss anemia. I suspect there is a component of ischemic atn from her GIB. She has appropriately received prbc transfusion and albumin to defend her intravascular space. -S-Cr continues to downtrend. Additionally, her concurrent use of acei and loop diuretic further exacerbated her hypotension and induced pre-renal gaurang. -Continue to hold nephrotoxic agents such as acei/arb, nsaids, IV contrast, and renal dose abx. -Monitor I/O's. She had appreciated mild hydronephrosis on imaging. Urology following. s/p stent placement -S-Cr improving with resolution of anemia. -no evidence of rhabdomyolysis #Anemia: prbc tranfusion for now to maintain hgb> 7.0. #Nephrolithiasis. She will require outpatient follow up for nephrolithiasis. WOuld support 24 hour collection and certainly stone analysis if able to collect sample. maintain vitD > 40. zana and Ca ok. PTH pending. #Electrolytes otherwise stable. #CKD-MBD: phos ok. PTH pending Time Spent With Patient Time: Total time spent is greater than 50% in coordination of care (as documented) at patient's floor/unit and/or counseling patient: Progress Note: Quality Stroke Does the patient have a stroke diagnosis?: No
--- NOTE | 2021-06-11 08:22 | P.DS_ITS ---
DS: Providers Provider Date of Service: 06/11/21 Date of admission: 06/07/21 14:45 Primary care physician: Aguilar Moreno MD Consults: 06/07/21 14:48 Consult to Gastroenterology Routine Consulting Provider: Bj Cervantes Reason for consultation: brbpr significant drop in hct Has provider been notified: No 06/07/21 14:50 Consult to Urology Routine Consulting Provider: Mitchell Sung Reason for consultation: rt hydronephrosis Has provider been notified: No 06/07/21 15:35 Consult to Nephrology Routine Consulting Provider: Wilmer Wood Reason for consultation: gaurang DS: Diagnosis Discharge Diagnosis (1) Acute blood loss anemia: Status: Acute (2) GAURANG (acute kidney injury): Status: Acute (3) Kidney stone on right side: Status: Acute (4) COPD (chronic obstructive pulmonary disease): Status: Acute DS: Summary Hospital Course Hospital Course: 85-year-old female patient with history of COPD on 2 L of oxygen at night, morbid obesity, restrictive lung disease, history of AAA s/p endograft repair in July 2015 with history of type 2 endoleak, patient presented to [facility] via EMS due to left-sided abdominal pain and for episodes of bloody mouth movement that started since yesterday after she fell at home twice as per patient she was using a walker to ambulate she felt lightheaded and fell down on her walker, she denies loss of consciousness or head injury, she sustained few bruises on anterior chest left arm and right thigh, her abdominal pain is localized to left lower quadrant with no radiation worse with coughing , she complained of mild nausea without vomiting, she noted to have bright red mucous CD discharge x3 without mixed in stool, patient is chronically on aspirin denies use of NSAIDs, patient denies right-sided flank or lower abdominal pain she complained of chills without any fever denies chest pain, no palpitations, no shortness of breath, in the emergency room workup revealed lactic acid 4.1, troponin 104.7, INR 1.1, magnesium 1.9, baseline creatinine 1.7 noted to be 2.66 today, EKG showed no ischemia but showed prolonged QT GI Consult Imp: Lower GI bleed s/p fall at home. Prior to that she was not having any GI issues. She take takes 1 81mg aspirin daily, but no other blood thinners. No bleeding overnight, stable Hgb after transfusions, benign abdominal exam, and negative nuclear medicine bleeding scan and CT of abdomen/pelvis. Her last colonoscopy was > 10 years ago in [place]. Hospital course Admitted to general medical floor given IV fluids and transfused response of hemoglobin. She continued to have decreased mobility with increased pain from her fall. GI recommended colonoscopy however given the lack of patient's active bleeding in hospital and stable hemoglobin in the backdrop of persistent pain and decreased mobility, it was decided the colonoscopy could be deferred to outpatient. She was seen by Physical therapy who recommended short-term rehab. On the day of discharge she is medically acceptable for transfer Time Spent with Patient Time attestation: Total time spent providing and/or coordinating discharge services: Discharge coordination time: Greater than 30 minutes Quality: Safe Use of Opioids Does Pt have an Active Cancer Diagnosis on the Problem List?: No Quality: Stroke Does the patient have a stroke diagnosis?: No Physical Exam Vital Signs: Vital Signs: Last Vital Signs Temp 97 F 06/11/21 08:00 Pulse 100 06/11/21 08:00 Resp 16 06/11/21 08:00 BP 164/76 H 06/11/21 08:00 Pulse Ox 92 06/11/21 08:00 BMI result Body Mass Index 45.3 Const: Other: No acute distress Resp: Other: Clear to auscultation bilaterally no rales rhonchi or wheezes Cardio: Other: No S4; positive S1-S2; no S3 murmur so to gallops GI: Other: Soft nontender nondistended with normoactive bowel sounds Extrem: Other: No edema bilaterally DS: Data Data Completed and Pending Labs on day of discharge: Laboratory Results - last 24 hr 06/07/21 06/11/21 06/11/21 08:54 05:27 05:27 WBC 4.8 RBC 3.19 L Hgb 8.4 L Hct 27.6 L MCV 86.5 MCH 26.3 L MCHC 30.4 L RDW 19.2 H Plt Count 169 MPV 9.7 Immature Gran % (Auto) 0.2 Neut % (Auto) 36.4 L Lymph % (Auto) 49.6 H [place] % (Auto) 10.5 Eos % (Auto) 2.9 Baso % (Auto) 0.4 Lymph # (Auto) 2.4 [place] # (Auto) 0.5 Eos # (Auto) 0.1 Baso # (Auto) 0.0 Abs Immat Gran (auto) 0.01 Absolute Neuts (auto) 1.7 L Absolute Nucleated RBC 0.000 Nucleated RBC % (auto) 0.0 Sodium 139 Potassium 4.1 Chloride 112 H Carbon Dioxide 19 L Anion Gap 12 BUN 20 H Creatinine 1.67 H Estim Creat Clear Calc 30.3 Estimated GFR 29 Fasting Glucose 92 Calcium 9.4 Total Bilirubin 0.5 AST 16 ALT 12 Alkaline Phosphatase 109 Total Protein 5.7 L Albumin 2.9 L Crossmatch See Detail Preliminary micro results at discharge 06/08/21 11:17 Blood Culture - Preliminary Blood - Venous No growth after 48 hours. 06/08/21 11:17 Blood Culture - Preliminary Blood - Venous No growth after 48 hours. 06/07/21 08:34 Blood Culture - Preliminary Blood - Venous No growth after 48 hours. Discharge Plan Discharge Patient Disposition: er [facility] Discharge Diagnosis: Acute blood loss anemia Referrals: [facility]ER[facility]RO[facility] [Other] - 1 Day (DISCHARGED TO [facility] FOR SHORT TERM REHAB ON OXYGEN TO BE TRANSPORTED [facility]IA [facility] TODAY POST DISCHARGE FORM REHAB [facility] IS FOLLOWING FOR [employer] [facility] [facility] ) Aguilar Moreno MD [Primary Care Provider] - 1 Week Discharge Medications: New Spiriva with HandiHaler 18 mcg Capsule, W/Inhalation Device 18 mcg inhalation RDAILY Qty: 60 0RF cefuroxime axetil 250 mg tablet 250 mg PO BID 5 Days Qty: 10 0RF Continued albuterol sulfate [ProAir HFA] 90 mcg/actuation HFA aerosol inhaler 2 puff inhalation Q4-6H PRN (Reason: shortness of breath or wheezing) Qty: 3 1RF atorvastatin 40 mg tablet 40 mg PO DAILY 90 Days Qty: 90 3RF metoprolol succinate 25 mg tablet extended release 24 hr 25 mg PO DAILY 90 Days Qty: 90 3RF Incruse Ellipta 62.5 mcg/actuation blister with device 1 inh PO DAILY Qty: 30 0RF furosemide 20 mg tablet 20 mg PO DAILY 0RF lisinopril 20 mg tablet 20 mg PO DAILY 0RF cholecalciferol (vitamin D3) 10 mcg (400 unit) capsule 10 mcg PO DAILY 0RF aspirin [Adult Low Dose Aspirin] 81 mg tablet,delayed release (DR/EC) 81 mg PO DAILY 0RF meclizine 12.5 mg tablet 12.5 mg PO TID PRN (Reason: Dizziness) 0RF Discharge Orders: Discharge Order (Routine); Ordered 06/11/21 Ordered By: Erasmo Hassan Diet: advance to usual diet Activity on Discharge: As tolerated Stand Alone Forms: Patient Portal Discharge page Care Plan Goals: Complete 5 days of Ceftin for urinary tract infection Health Concerns: Schedule outpatient follow-up with Dr. Yuen to schedule colonoscopy with rehab complete Plan of Treatment: Aggressive physical therapy if hopes return home Assessment: See discharge summary
[2021-06-11 11:55] VITALS: BP 140/64; PULSE 100; RESP 15; TEMP 36; O2SAT 92
[2021-06-11 12:43] LABS: COVID-19 Test Negative (Negative); IDNOW Serial# 16C4AD1C
--- NOTE | 2021-06-11 13:10 | MHC.CM.PN ---
Addendum entered by Che Saucedo 06/11/21 16:25: patients nephew brought in the covid verification card uploaded to [employer] and sent to [facility] proxy , the rapisd covid for 06/11/21 and the covid verification record . discharge to [facility] (o2 at hs ) transportation [facility] at 4pm Original Note: NURSE CUSTOM CLOTHIER NTOE ELECTRONIC MEDICAL RECORD REVIEQWED ALONG WITH CASE DISCUSSED WITH [facility] NURSE AND HOSPITLSIT PATIENT O BE DISCHARGED TODAY , MET WITH PATIENT AND HER SON VLADIMIR RAMON I EXPLAINED TO HER THAT THE OTHER [facility] FACILIRTIES WE TRIED DID NOT HAVE FEMALE BEDS AND HER FIRST [facility] HAS ACCEPTED HER PENDING RAPID COVID TEST , HCP AND COVID VACINATION CARD VERIFICATION , (SHE REPORTED SHE HADS A HCP AT HOME BUT HAS NO IDEAS WHERE IT IS, AND WOULD LIKE TO COMPLETE ANOTHER ONE NAMING HER SON TEO RAMON, THIS WAS COMPLETED , ORIGINAL AND FIVE COPIES GIVEN TO HER AND ONE PLACED IN CHRT AND UPLOADED TO ALL SCRIPT S, HER RAPID 06/11 COVID CORINNA T WAS NEGATIVE AND UPLAODED TO [employer] COVID VACINATIONS GIVEN AT PCP OFFICE DR WERO OSCAR I CALLED SEVERAL TIME AND THERE WA SNO ANSWER, HER SON WILL BRING IN COPIE OF CARD TODAY MID AFTERNOON. [facility] AFTER RECIVING HER COVID VACINATION CARD.
[2021-06-11 15:09] VITALS: BP 135/61; PULSE 99; RESP 17; TEMP 36.3; O2SAT 94
[2021-06-11] MEDS: cefTRIAXone sodium 1 GM in 0.9 % Sodium Chloride 50 ML IV (16:20)
[2021-06-14 15:57] LABS: Calcium (PTHI) 9.1 mg/dL (8.6-10.4); PTHI 179 pg/mL (16-77)
== END 2021-06-11 23:05 | disposition skilled nursing facility (03) | DRG 988 ==
LOC: HO.ED 13:04 → HO.EDOVER 14:55 → HO.IMC 15:43 → HO.ICU 18:25 → HO.S3 06-08 15:01
PROVIDERS: Anesthesiology; Internal Medicine Nephrology; Nurse Practitioner Acute Care; Physician Assistant; Physician Assistant Medical; Urology; Admitting Provider Hospitalist; Emergency Provider Emergency Medicine; PCP Family Medicine; Visit Provider Hospitalist
PROC: 0T768DZ Dilation of Right Ureter with Intraluminal Device, Via Natural or Artificial Opening Endoscopic (ICD-10-PCS; principal; 2021-06-08 16:30)
DX: K92.2 Gastrointestinal hemorrhage, unspecified (principal); D62 Acute posthemorrhagic anemia; Z68.42 Body mass index [BMI] 45.0-49.9, adult; E87.2 Acidosis; N17.9 Acute kidney failure, unspecified; N13.2 Hydronephrosis with renal and ureteral calculous obstruction; N39.0 Urinary tract infection, site not specified; Z20.822 Contact with and (suspected) exposure to COVID-19; F17.210 Nicotine dependence, cigarettes, uncomplicated; R29.6 Repeated falls; N18.30 Chronic kidney disease, stage 3 unspecified; R94.31 Abnormal electrocardiogram [ECG] [EKG]; D72.829 Elevated white blood cell count, unspecified; Z91.81 History of falling; I65.22 Occlusion and stenosis of left carotid artery; N25.0 Renal osteodystrophy; I95.9 Hypotension, unspecified; D63.1 Anemia in chronic kidney disease; Z99.81 Dependence on supplemental oxygen; E66.01 Morbid (severe) obesity due to excess calories; I71.4 Abdominal aortic aneurysm, without rupture; Z71.6 Tobacco abuse counseling; Z79.82 Long term (current) use of aspirin; Z79.899 Other long term (current) drug therapy
CPT/HCPCS: 36415; 36430; 70450; 71250; 72125; 74176; 78278; 80048; 80053; 80076; 81001; 82040; 82043; 82272; 82550; 82565; 83605; 83735; 83970; 84100; 84156; 84300; 84484; 84520; 84540; 85014; 85018; 85025; 85027; 85610; 85730; 86850; 86900; 86901; 86923; 87040; 87086; 87088; 87147; 87186; 87205; 87635; 87640; 87641; 90471; 90715; 93005; 96361; 96365; 96366; 97110; 97162; 97530; 99285; 99291; A9560; C1758; C1769; C2617; J0696; J2370; J3010; J3475; P9016; P9047; Q9967

== ENCOUNTER → 2021-07-16 13:09 | Outpatient (BNVA) | payer MEDICARE, OTHER, SELFPAY | PROVIDERS: PCP Family Medicine; Visit Provider Urology | DX: N13.2 Hydronephrosis with renal and ureteral calculous obstruction (principal) | CPT/HCPCS: 52310; 99212 ==

== ENCOUNTER 2021-07-20 14:23 | Inpatient (IN) | payer MEDICARE, OTHER, SELFPAY ==
[2021-07-20] VITALS (23 sets, daily range): BP systolic 74–125; BP diastolic 28–58; PULSE 71–93; RESP 13–30; TEMP 35.9–37.3; O2SAT 93–98; BMI 41.3; BMI 42.7
--- NOTE | ~2021-07-20 | US_ITS ---
EXAMINATION: US RETROPERITONEAL LIMITED (RENAL ONLY) CLINICAL INFORMATION: Bilateral hydronephrosis. COMPARISON: CT abdomen and pelvis 07/20/2021. Renal ultrasound 02/28/2019 and 08/21/2018. X-ray KUB 08/08/2018 and 04/26/2017. TECHNIQUE: Real-time imaging of the kidneys. FINDINGS: RIGHT KIDNEY: 10.7 x 5.6 x 6.2 cm (SAG x AP x TRV). The kidney is normal in size, contour, and echogenicity. Renal cortical thickness is normal. No renal calculi or focal parenchymal lesions. Right-sided stent seen with mild fullness to the collecting system but no significant hydronephrosis. LEFT KIDNEY: 10.9 x 6.1 x 4.9 cm (SAG x AP x TRV). The kidney is normal in size, contour, and echogenicity. Renal cortical thickness is normal. No hydronephrosis. 1.7 cm thin septated complex cyst in the lateral mid kidney US/US renal BI IMPRESSION: No obstructive changes. 1.7 cm complex septated cyst in the left kidney.
--- NOTE | ~2021-07-20 | XR_ITS ---
EXAMINATION: XR CHEST CLINICAL INFORMATION: Dizziness COMPARISON: CT chest 06/07/2021, chest radiograph 03/06/2018 TECHNIQUE: Frontal view of the chest was obtained. FINDINGS: Lungs are hypoexpanded compared to prior chest radiograph. New atelectasis seen at left lung base along with a possible tiny pleural effusion/pleural thickening in the lateral costophrenic sulcus. No consolidations. Heart is probably within normal limits given the inspiratory effort. The aorta is tortuous. No evidence of CHF. XR/XR chest 1V IMPRESSION: No acute intrathoracic disease. Left lower lobe atelectasis.
--- NOTE | ~2021-07-20 | CT_ITS ---
EXAMINATION: CT ABDOMEN AND PELVIS WITHOUT CONTRAST CLINICAL INFORMATION: Dominant pain, acute kidney insufficiency, recent stent removal COMPARISON: CT abdomen pelvis 06/07/2021 TECHNIQUE: Multidetector volumetric imaging was performed from the superior aspect of the liver through the pubic symphysis. Sagittal and coronal reformatted images were obtained on the technologist's workstation. This CT examination was performed using dose optimization techniques as appropriate, variously including the following: *Automated exposure control *Adjustment of mA and/or kV according to patient size (this includes techniques or standardized protocols for targeted exams where dose is matched to indication/reason for exam; i.e. extremities or head) *Use of iterative reconstruction technique DLP: 926 mGy-cm FINDINGS: LUNG BASES: The visualized lung bases are unremarkable. Basilar scarring/atelectasis is present. LIVER, GALLBLADDER, AND BILIARY TREE: The liver is normal in size, shape, and attenuation. No focal hepatic lesion or biliary ductal dilatation is present. The gallbladder is unremarkable with no evidence of radiopaque gallstones, gallbladder wall thickening, or obvious pericholecystic inflammatory changes. PANCREAS: Unremarkable. SPLEEN: Unremarkable. Splenic granulomas are seen. ADRENAL GLANDS: Unremarkable. KIDNEYS AND URETERS: Right : Compared to the prior study, there is worsening of bilateral hydronephrosis. There is a new obstructing stone present in the distal right ureter measuring about 4 mm in size (4:562). Other intrarenal nonobstructing calculi are seen on the right. A previously seen larger 5 mm right lower pole renal calculus has migrated into the ureter. Again seen are some stones in the proximal ureter. No worrisome renal masses are seen. Mild perinephric stranding is present. Left: New left-sided hydronephrosis is present with dilatation of the ureter down to the level of the bladder. However, no definite obstructing stone is seen within the ureter. Nonobstructing 5 mm calculus is again noted, unchanged in position left lower pole. No worrisome renal masses are seen. Moderate perinephric stranding is present. BLADDER: Pedro catheter is present in the bladder which is empty GASTROINTESTINAL TRACT: The small and large bowel are unremarkable aside from colonic diverticula without diverticulitis. No evidence of appendicitis. ABDOMINAL WALL: No significant hernia is appreciated. There is a tiny periumbilical hernia seen containing only fat. LYMPH NODES: No retroperitoneal lymphadenopathy. VASCULAR: Infrarenal abdominal aortic aneurysm is again seen with aorto biiliac stent graft in place. Sac size seen unchanged with maximal diameter of about 7.5 cm. Without IV contrast, assessment cannot be made for an endoleak. PELVIC VISCERA: Unremarkable. OSSEOUS STRUCTURES: Unremarkable. Mild degenerative changes in the lower thoracic spine. CT/CT abdomen pelvis wo con IMPRESSION: Worsening of bilateral hydronephrosis most likely accounts for worsening of renal function. Bilateral retrograde ureteral stents could be of value. Other incidental findings as described above. Fleischner guidelines were followed.
--- NOTE | ~2021-07-20 | XR_ITS ---
EXAMINATION: XR ANKLE, RIGHT CLINICAL INFORMATION: Fall. Pain. COMPARISON: None TECHNIQUE: AP, lateral, and mortise views of the right ankle. FINDINGS: There is bimalleolar soft tissue swelling without any visible acute fracture, dislocation or lytic process. The ankle mortise and subtalar joints are normal. XR/XR ankle RT 2V IMPRESSION: Unremarkable right ankle exam.
--- NOTE | ~2021-07-20 | FL_ITS ---
EXAMINATION: XR FLUOROSCOPY WITH IMAGES CLINICAL INFORMATION: Bilateral stent placement COMPARISON: CT of July 20, 2021 TECHNIQUE: Fluoroscopy performed by . Fluoroscopy time: 27.1) seconds DAP: 10.01 mGy Images: 3 FINDINGS: Imaging demonstrates patient be status post abdominal aortic stent graft placement. Proximal aspects of both ureteral stents appear coiled. Bladder not included on imaging. FL/FL guidance in OR IMPRESSION: Bilateral ureteral stent placement.
--- NOTE | ~2021-07-20 | XR_ITS ---
EXAMINATION: XR CHEST CLINICAL INFORMATION: Central line placement COMPARISON: Chest x-ray 07/20/2021 TECHNIQUE: Frontal portable view of the chest was obtained. 5:24 PM FINDINGS: Right IJ catheter tip in superior vena cava. Lungs normally aerated. No pulmonary vascular congestion. No pleural effusion or pneumothorax. Cardiac and mediastinal contours unchanged. XR/XR chest 1V IMPRESSION: Right IJ central port catheter tip in superior vena cava. There is no pneumothorax.
--- NOTE | 2021-07-20 14:39 | ECG_ITS ---
Test Reason : HYPOTENSION Blood Pressure : / mmHG Vent. Rate : 083 BPM Atrial Rate : 083 BPM P-R Int : 208 ms QRS Dur : 106 ms QT Int : 362 ms P-R-T Axes : 073 039 008 degrees QTc Int : 425 ms Normal sinus rhythm Low voltage QRS Inferior infarct , age undetermined Possible Anterolateral infarct (cited on or before 07-JUN-2021) Abnormal ECG When compared with ECG of 07-JUN-2021 08:04, No significant changes seen Referred By: Julieta Devries Electronically Signed By:JESUS GARCIA MD
--- NOTE | 2021-07-20 14:41 | ED.GENADULT ---
HPI - General Adult General Chief complaint: Recheck/Abnormal Lab/Rx Stated complaint: ABN LAB,NOT FEELING WELL FROM SNF PER EMS Time Seen by Provider: 07/20/21 14:39 Source: patient, EMS, RN notes reviewed and old records reviewed Mode of arrival: EMS Limitations: no limitations History of Present Illness HPI narrative: 85-year-old female came in from long term for evaluation of hypotension, vomiting, diarrhea. Patient had recent right ureteric stent removal 3 days ago, patient had history of GAURANG secondary to obstructive ureteric stone, history of COPD using 2 L of oxygen at nighttime, morbid obesity, restrictive lung disease, a s/p endograft repair of AAA. Patient been having nausea and vomiting and nonbloody watery diarrhea for the last 2-3 days with decreased p.o. intake patient found to be hypotensive at the long term and on arrival to the ED Patient currently declined dizziness, no chest pain, no abdominal pain. Related Data Home Medications Medication Instructions Recorded Confirmed cholecalciferol (vitamin D3) 10 10 mcg PO DAILY 04/16/20 07/20/21 mcg (400 unit) capsule furosemide 20 mg tablet 20 mg PO DAILY 04/16/20 07/20/21 lisinopril 20 mg tablet 20 mg PO DAILY 04/16/20 07/20/21 aspirin 81 mg tablet,delayed 81 mg PO DAILY 04/21/20 07/20/21 release (Adult Low Dose Aspirin) acetaminophen 325 mg tablet 650 mg PO DAILY 07/20/21 07/20/21 (Tylenol) atorvastatin 40 mg tablet 40 mg PO BEDTIME 07/20/21 07/20/21 docusate sodium 100 mg capsule 100 mg PO BID 07/20/21 07/20/21 (Colace) guaifenesin 100 mg/5 mL oral liquid 200 mg PO TID 07/20/21 07/20/21 meclizine 12.5 mg tablet 12.5 mg PO TID PRN 07/20/21 07/20/21 melatonin 3 mg tablet 3 mg PO BEDTIME 07/20/21 07/20/21 omeprazole 20 mg tablet,delayed 20 mg PO DAILY 07/20/21 07/20/21 release pantoprazole 40 mg tablet,delayed 40 mg PO DAILY 07/20/21 07/20/21 release (Protonix) polyethylene glycol 3350 17 17 g PO DAILY 07/20/21 07/20/21 gram/dose oral powder (Miralax) Previous Rx's Medication Instructions Recorded metoprolol succinate 25 mg 25 mg PO DAILY 90 Days #90 tab 02/22/21 tablet,extended release 24 hr Incruse Ellipta 62.5 mcg/actuation 1 inh PO DAILY #30 ea NS 06/09/21 powder for inhalation (umeclidinium) tiotropium bromide 18 mcg capsule 18 mcg INHALATION RDAILY #60 inh 06/11/21 with inhalation device (Spiriva with HandiHaler) Allergies Allergy/AdvReac Type Severity Reaction Status Date / Time No Known Allergies Allergy Verified 05/17/21 10:30 [No Known Allergies*] Review of Systems Review of Systems: All other systems are reviewed and are negative Constitutional: Reports as per HPI and Reports no additional constitutional complaints Eyes: Reports as per HPI and Reports no additional eye complaints Reports system reviewed and no additional complaints, except as documented Cardiovascular: Reports as per HPI and Reports no additional cardiovascular complaints Respiratory: Reports as per HPI and Reports no additional respiratory complaints Gastrointestinal: Reports as per HPI and Reports no additional gastrointestinal complaints Genitourinary: Reports no additional female genitourinary complaints Musculoskeletal: Reports no additional musculoskeletal complaints Skin/Breast: Reports system reviewed and no additional complaints, except as docu Psychiatric: Reports no additional psychiatric complaints Endocrine: Reports no additional endocrine complaints Hematologic/Lymphatic: Reports no additional hematologic/lymphatic complaints Allergic/Immunologic: Reports no additional allergic/immunologic complaints Reports system reviewed and no additional complaints, except as documented and Reports Abnormal speech present FOR[facility]LY [facility] Past Medical History Medical History Abdominal aortic aneurysm (AAA) without rupture Acute blood loss anemia Atherosclerotic cardiovascular disease CKD (chronic kidney disease) stage 3, GFR 30-59 ml/min COPD (chronic obstructive pulmonary disease) Kidney stone on right side Nocturnal hypoxemia Obesity Recurrent falls Restrictive lung disease Skin tear of hand without complication Smoker Family History Family History Father No problems noted. Mother No problems noted. Social History Social History Household Members: None Housing: House Alcohol intake: never Patient Tobacco Use Status: Current someday Tobacco user Tobacco use type: Cigarette Cigarettes Per Day: 1 Any prior treatment program specific to substance use: No Advance Directives: No Advance Directives Information Provided: No service: No Current occupational status: retired Physical Exam ED Vital Signs: Vital Signs - 24 hr 07/20/21 14:32 07/20/21 15:22 07/20/21 15:32 Temperature 97.8 F Pulse Rate 82 Respiratory Rate 20 Blood Pressure 76/30 L 74/34 L 78/36 L Pulse Oximetry 94 07/20/21 15:41 07/20/21 15:52 07/20/21 16:00 Temperature 96.6 F L 97.7 F 97.7 F Pulse Rate 86 88 88 Respiratory Rate 16 28 H 18 Blood Pressure 75/34 L 91/43 L 83/32 L Pulse Oximetry 94 95 93 07/20/21 16:28 07/20/21 16:34 07/20/21 17:45 Temperature 97.7 F Pulse Rate 93 Respiratory Rate 30 H Blood Pressure 83/54 L 82/38 L 93/32 L Pulse Oximetry 96 07/20/21 17:55 07/20/21 18:00 07/20/21 18:50 Temperature Pulse Rate Respiratory Rate Blood Pressure 105/33 L 103/32 L 125/44 L Pulse Oximetry BMI result Body Mass Index 42.7 Vital signs have been reviewed as appeared to be correct. Blood pressure low. Heart rate normal. Respiration rate normal. Temperature normal. Oxygen saturation normal. Appearance: Alert. Oriented X3. No acute distress. Head: Normal external exam. Normocephalic. Atraumatic. No Grover signs noted. No raccoon eyes noted Eyes: PERRLA. EOMI. Conjunctiva and sclera normal. Eyelids normal. ENT: TM's Normal. Pharynx normal. Uvula midline. Dry mucous membranes. No trismus noted. No drooling noted. No muffled voice noted. Neck: Normal inspection. Neck supple. FROM. No adenopathy. Thyroid Normal. No meningeal signs. No neck mass noted. CVS: Normal heart rate and rhythm. Heart sound normal. No murmurs noted. Pulses normal throughout. Respiratory: No respiratory distress. Painless inspiration. Breath sounds normal. No wheezes/rales/rhonchi noted. Chest nontender. No accessory muscle usage noted or decreased air movement noted. Abdomen: Soft and nontender. Bowel sounds normal in all 4 quadrants. No distention noted. No organomegaly noted. No visible injury noted. Back: R CVA tenderness. Full range of motion noted. Skin: Skin warm and dry. Normal skin color. Normal skin turgor. No rashes/lesions/lacerations noted. Extremities: No lower extremity edema. Extremities exhibit normal range of motion. Extremities nontender. Neuro: Oriented X 3. Cranial nerve exam: II-XII are grossly intact No motor deficit. No sensory deficit. Reflexes normal. Course Reevaluation(s) Reevaluation #1: Assessment and plan. 85 years old female came in today for evaluation of hypotension, patient found to be in septic shock due to right pyelonephritis, patient received1,503 mls matching to 30 cc/kg ideal body weight patient and IV ceftriaxone, awaiting for CT abdomen and pelvis to rule out obstructive uropathy. Because the persistence of hypotension Levophed was started. Patient meets criteria for septic shock will admit to ICU. Acute on chronic renal failure with hyperkalemia with no EKG changes. Case discussed with from Renal Service and to start the patient on bicarb drip. Time: 18:34 Procedures Central Line Placement Right IJ: Time Out Performed: Yes Patient Placed on Monitor/Pulse Ox: Yes MD Prep: mask, gown, gloves and other Central Line Prep: Chlorhexidine scrub Local Anesthetic: lidocaine 1% Amount of anesthesia used (mL): 3 Ultrasound Used for Placement: Yes Central Line Lumen Inserted: triple Post Procedure: sutured in place, good blood return, all ports aspirated, flushed, capped and sterile dressing applied Post Procedure X-Ray: tip of catheter in good position and no pneumothorax seen Patient Tolerated Procedure: well and no complications Medical Decision Making Medical Records Medical records reviewed: Yes I reviewed the patient's medical records. Lab Data Lab results reviewed: Yes I reviewed the patient's lab results. Result diagrams: 07/20/21 15:18 07/20/21 18:53 Labs: Lab Results 07/20/21 07/20/21 07/20/21 Range/Units 15:18 15:18 15:18 WBC 18.7 H (4.8-10.8) X10*3/uL RBC 3.02 L (4.20-5.50) X10*6/uL Hgb 8.4 L (12.0-16.0) g/dl Hct 27.6 L (37.0-47.0) % MCV 91.4 (80.0-98.0) fL MCH 27.8 (27.0-33.0) pg MCHC 30.4 L (31.0-35.0) g/dl RDW 20.8 H (11.0-16.0) % Plt Count 265 D (160-400) X10*3/uL MPV 10.3 (9.4-12.3) fL Immature Gran % (Auto) 0.5 H (0.0-0.4) % Neut % (Auto) 73.9 H (45-73) % Lymph % (Auto) 18.6 L (20-40) % [place] % (Auto) 6.3 (2-11) % Eos % (Auto) 0.2 (0-4) % Baso % (Auto) 0.5 (0-2) % Lymph # (Auto) 3.5 (1.2-4.9) X10*3/uL [place] # (Auto) 1.2 (0.1-1.2) X10*3/uL Eos # (Auto) 0.0 (0.0-0.4) X10*3/uL Baso # (Auto) 0.1 (0.0-0.2) X10*3/uL Abs Immat Gran (auto) 0.09 H (0.00-0.03) X10*3/uL Absolute Neuts (auto) 13.9 H (2.0-8.3) x10*3/uL Absolute Nucleated RBC 0.030 H (0.0-0.012) X10*3/uL Nucleated RBC % (auto) 0.2 (0.0-0.2) /100WBC Sodium 134 L (135-145) mmol/L Potassium 6.3 H* D (3.3-5.1) mmol/L Chloride 109 H (96-108) mmol/L Carbon Dioxide 12 L (22-29) mmol/L Anion Gap 19 (12-20) BUN 101 H D (9-16) mg/dL Creatinine 5.97 H* (0.5-1.4) mg/dL Estim Creat Clear Calc 7.8 Estimated GFR 7 Random Glucose 100 (60-115) mg/dL Lactic Acid 1.8 (0.5-2.0) mmol/L Calcium 8.9 (8.4-10.2) mg/dL Total Bilirubin 0.5 (0.0-1.0) mg/dL Direct Bilirubin 0.3 (0.0-0.5) mg/dL AST 20 (5-31) U/L ALT 12 (0-31) U/L Alkaline Phosphatase 182 H D (39-117) U/L Troponin I High Sens (<3.5-17.0) ng/L B-Natriuretic Peptide (<100) pg/mL Total Protein 6.8 (6.5-8.0) g/dL Albumin 2.6 L (3.5-5.0) g/dL Lipase 21 (8-78) U/L Urine Color Urine Appearance Urine pH (5.0-8.0) Ur Specific Victor (1.005-1.025) Urine Protein (NEG-TRACE) MG/DL Urine Glucose (UA) (NEG) MG/DL Urine Ketones (NEG) MG/DL Urine Blood (NEG) Urine Nitrite (NEG) Ur Leukocyte Esterase (NEG) Urine RBC (0) /HPF Urine WBC (0-4) /HPF Ur Squamous Epith Cells /LPF Urine Bacteria /LPF Influenza Type A (PCR) (Negative) Influenza Type B (PCR) (Negative) RSV RNA Qual (PCR) (Negative) SARS-CoV-2 RNA (RT-PCR) (Negative) 07/20/21 07/20/21 07/20/21 Range/Units 15:18 15:18 15:19 WBC (4.8-10.8) X10*3/uL RBC (4.20-5.50) X10*6/uL Hgb (12.0-16.0) g/dl Hct (37.0-47.0) % MCV (80.0-98.0) fL MCH (27.0-33.0) pg MCHC (31.0-35.0) g/dl RDW (11.0-16.0) % Plt Count (160-400) X10*3/uL MPV (9.4-12.3) fL Immature Gran % (Auto) (0.0-0.4) % Neut % (Auto) (45-73) % Lymph % (Auto) (20-40) % [place] % (Auto) (2-11) % Eos % (Auto) (0-4) % Baso % (Auto) (0-2) % Lymph # (Auto) (1.2-4.9) X10*3/uL [place] # (Auto) (0.1-1.2) X10*3/uL Eos # (Auto) (0.0-0.4) X10*3/uL Baso # (Auto) (0.0-0.2) X10*3/uL Abs Immat Gran (auto) (0.00-0.03) X10*3/uL Absolute Neuts (auto) (2.0-8.3) x10*3/uL Absolute Nucleated RBC (0.0-0.012) X10*3/uL Nucleated RBC % (auto) (0.0-0.2) /100WBC Sodium (135-145) mmol/L Potassium (3.3-5.1) mmol/L Chloride (96-108) mmol/L Carbon Dioxide (22-29) mmol/L Anion Gap (12-20) BUN (9-16) mg/dL Creatinine (0.5-1.4) mg/dL Estim Creat Clear Calc Estimated GFR Random Glucose (60-115) mg/dL Lactic Acid (0.5-2.0) mmol/L Calcium (8.4-10.2) mg/dL Total Bilirubin (0.0-1.0) mg/dL Direct Bilirubin (0.0-0.5) mg/dL AST (5-31) U/L ALT (0-31) U/L Alkaline Phosphatase (39-117) U/L Troponin I High Sens 142.3 H* D (<3.5-17.0) ng/L B-Natriuretic Peptide 107 H (<100) pg/mL Total Protein (6.5-8.0) g/dL Albumin (3.5-5.0) g/dL Lipase (8-78) U/L Urine Color YELLOW Urine Appearance TURBID Urine pH 6.0 (5.0-8.0) Ur Specific Victor 1.020 (1.005-1.025) Urine Protein 1+ H (NEG-TRACE) MG/DL Urine Glucose (UA) NEG (NEG) MG/DL Urine Ketones NEG (NEG) MG/DL Urine Blood 3+ H (NEG) Urine Nitrite NEG (NEG) Ur Leukocyte Esterase 3+ H (NEG) Urine RBC 30-49 H (0) /HPF Urine WBC TNTC H (0-4) /HPF Ur Squamous Epith Cells NONE /LPF Urine Bacteria 3+ /LPF Influenza Type A (PCR) NEGATIVE (Negative) Influenza Type B (PCR) NEGATIVE (Negative) RSV RNA Qual (PCR) NEGATIVE (Negative) SARS-CoV-2 RNA (RT-PCR) NEGATIVE (Negative) 07/20/21 07/20/21 Range/Units 18:53 19:44 WBC (4.8-10.8) X10*3/uL RBC (4.20-5.50) X10*6/uL Hgb (12.0-16.0) g/dl Hct (37.0-47.0) % MCV (80.0-98.0) fL MCH (27.0-33.0) pg MCHC (31.0-35.0) g/dl RDW (11.0-16.0) % Plt Count (160-400) X10*3/uL MPV (9.4-12.3) fL Immature Gran % (Auto) (0.0-0.4) % Neut % (Auto) (45-73) % Lymph % (Auto) (20-40) % [place] % (Auto) (2-11) % Eos % (Auto) (0-4) % Baso % (Auto) (0-2) % Lymph # (Auto) (1.2-4.9) X10*3/uL [place] # (Auto) (0.1-1.2) X10*3/uL Eos # (Auto) (0.0-0.4) X10*3/uL Baso # (Auto) (0.0-0.2) X10*3/uL Abs Immat Gran (auto) (0.00-0.03) X10*3/uL Absolute Neuts (auto) (2.0-8.3) x10*3/uL Absolute Nucleated RBC (0.0-0.012) X10*3/uL Nucleated RBC % (auto) (0.0-0.2) /100WBC Sodium 135 (135-145) mmol/L Potassium 5.6 H (3.3-5.1) mmol/L Chloride 112 H (96-108) mmol/L Carbon Dioxide 12 L (22-29) mmol/L Anion Gap 17 (12-20) BUN 96 H (9-16) mg/dL Creatinine 5.67 H* (0.5-1.4) mg/dL Estim Creat Clear Calc 8.2 Estimated GFR 7 Random Glucose 115 (60-115) mg/dL Lactic Acid (0.5-2.0) mmol/L Calcium 8.7 (8.4-10.2) mg/dL Total Bilirubin (0.0-1.0) mg/dL Direct Bilirubin (0.0-0.5) mg/dL AST (5-31) U/L ALT (0-31) U/L Alkaline Phosphatase (39-117) U/L Troponin I High Sens 144.2 H* (<3.5-17.0) ng/L B-Natriuretic Peptide (<100) pg/mL Total Protein (6.5-8.0) g/dL Albumin (3.5-5.0) g/dL Lipase (8-78) U/L Urine Color Urine Appearance Urine pH (5.0-8.0) Ur Specific Victor (1.005-1.025) Urine Protein (NEG-TRACE) MG/DL Urine Glucose (UA) (NEG) MG/DL Urine Ketones (NEG) MG/DL Urine Blood (NEG) Urine Nitrite (NEG) Ur Leukocyte Esterase (NEG) Urine RBC (0) /HPF Urine WBC (0-4) /HPF Ur Squamous Epith Cells /LPF Urine Bacteria /LPF Influenza Type A (PCR) (Negative) Influenza Type B (PCR) (Negative) RSV RNA Qual (PCR) (Negative) SARS-CoV-2 RNA (RT-PCR) (Negative) Imaging Data Chest x-ray: Attestation: I personally reviewed and interpreted this imaging study as follows: Radiologist's impression: No acute intrathoracic disease. Left lower lobe atelectasis. Critical Care Time Critical Care Time Critical Care Time: Yes Total Critical Care Time: 60 Attestation: I spent 60 minutes providing critical care service to the patient, this including time spent at the bedside to evaluate the patient, reassess the patient, monitoring vital signs, review labs, and radiographic studies, counseling the patient/family, discussing the case with consultants, disposition the patient. Discharge Plan Discharge Clinical Impression: Acute pyelonephritis, Acute on chronic kidney failure, Acute hyperkalemia Patient Disposition: Admitted As Inpatient
[2021-07-20 15:27] LABS: MANUAL DIFF FLAG NO
[2021-07-20 15:29] LABS: Basophils Absolute Auto 0.1 X10*3/uL (0.0-0.2); Basophils Percent Auto 0.5 % (0-2); Eosinophils Percent Auto 0.2 % (0-4); Hematocrit 27.6 % (37.0-47.0); Hemoglobin 8.4 g/dl (12.0-16.0); Imm Gran Abs Auto 0.09 X10*3/uL (0.00-0.03); Imm Gran Pct Auto 0.5 % (0.0-0.4); Lymphocytes Absolute Auto 3.5 X10*3/uL (1.2-4.9); Lymphocytes Percent Auto 18.6 % (20-40); Mean Corpuscular HGB Conc 30.4 g/dl (31.0-35.0); Mean Corpuscular Hemoglobin 27.8 pg (27.0-33.0); Mean Corpuscular Volume 91.4 fL (80.0-98.0); Mean Platelet Volume 10.3 fL (9.4-12.3); Monocytes Absolute Auto 1.2 X10*3/uL (0.1-1.2); Monocytes Percent Auto 6.3 % (2-11); NRBC Pct Auto 0.2 /100WBC (0.0-0.2); Neutrophils Absolute Auto 13.9 x10*3/uL (2.0-8.3); Neutrophils Percent Auto 73.9 % (45-73); Platelet Count 265 X10*3/uL (160-400); Red Blood Count 3.02 X10*6/uL (4.20-5.50); Red Cell Distribution Width 20.8 % (11.0-16.0); White Blood Count 18.7 X10*3/uL (4.8-10.8)
[2021-07-20] MEDS: cefTRIAXone sodium 1 GM in 0.9 % Sodium Chloride 50 ML IV (15:29)
[2021-07-20 15:42] LABS: Appearance Urine TURBID; Color Urine YELLOW; Glucose Urine UA NEG (NEG); Nitrite Urine NEG (NEG); Urine Blood 3+ (NEG); Urine Ketones NEG (NEG); Urine Protein 1+ MG/DL (NEG-TRACE)
[2021-07-20 15:43] LABS: Lactic Acid 1.8 mmol/L (0.5-2.0); Leukocyte Esterase Urine 3+ (NEG); UACC Culture Trigger YES
--- NOTE | 2021-07-20 15:47 | PC.NURSE ---
BPs comfirmed and accurate.
[2021-07-20 15:48] LABS: WBC Urine TNTC /HPF (0-4)
[2021-07-20 15:50] LABS: Bacteria Urine 3+ /LPF; RBC Urine 30-49 /HPF (0)
[2021-07-20 15:51] LABS: Alanine Aminotransferase 12 U/L (0-31); Albumin Level 2.6 g/dL (3.5-5.0); Alkaline Phosphatase 182 U/L (39-117); Anion Gap 19 (12-20); Aspartate Amino Transferase 20 U/L (5-31); Bilirubin Direct 0.3 mg/dL (0.0-0.5); Bilirubin Total 0.5 mg/dL (0.0-1.0); Blood Urea Nitrogen 101 mg/dL (9-16); Calcium 8.9 mg/dL (8.4-10.2); Carbon Dioxide 12 mmol/L (22-29); Chloride 109 mmol/L (96-108); Creatinine Clr Calc Pharmacy 7.8; Estimated Glomerular Filt Rate 7; Glucose Random 100 mg/dL (60-115); Lipase 21 U/L (8-78); Potassium 6.3 mmol/L (3.3-5.1); Sodium 134 mmol/L (135-145); Total Protein 6.8 g/dL (6.5-8.0)
[2021-07-20 15:56] LABS: B Type Natriuretic Peptide 107 pg/mL (<100); Troponin-I High Sensitivity 142.3 ng/L (<3.5-17.0)
--- NOTE | 2021-07-20 15:57 | PHA.MEDREC ---
Pharmacy Consult ? Medication Reconciliation Pharmacy has completed the medication reconciliation. Pt takes both protonix and prilosec, [facility]
[2021-07-20 16:10] LABS: Influenza A PCR NEGATIVE (Negative); Influenza B PCR NEGATIVE (Negative); Resp Syncy Virus RNA Qual PCR NEGATIVE (Negative); SARS COV2 PCR INHOUSE NEGATIVE (Negative)
--- NOTE | 2021-07-20 16:22 | PC.NURSE ---
This RN spoke to elsa Sin, number given to Dr Devries to return call for update/plan supervisor throwing department
--- NOTE | 2021-07-20 17:25 | PC.NURSE ---
Central line placed Rt IJ. conset signed by pt and provider. CXR to confirm
--- NOTE | 2021-07-20 17:45 | PC.NURSE ---
Per : okay to use centraline.
[2021-07-20 19:22] LABS: Anion Gap 17 (12-20); Blood Urea Nitrogen 96 mg/dL (9-16); Calcium 8.7 mg/dL (8.4-10.2); Carbon Dioxide 12 mmol/L (22-29); Chloride 112 mmol/L (96-108); Creatinine Clr Calc Pharmacy 8.2; Estimated Glomerular Filt Rate 7; Glucose Random 115 mg/dL (60-115); Potassium 5.6 mmol/L (3.3-5.1); Sodium 135 mmol/L (135-145)
[2021-07-20 20:12] LABS: Troponin-I High Sensitivity 144.2 ng/L (<3.5-17.0)
[2021-07-20] MEDS: Sodium Bicarbonate 8.4% 150 MEQ in Dextrose 5 % 850 ML IV (20:15)
--- NOTE | 2021-07-20 20:24 | PC.NURSE ---
Result given to HAN Umana Who will notify Provider Sunny who is overseeing care.
[2021-07-20] MEDS: Piperacillin Sodium/Tazobactam 3.375 GM in 0.9 % Sodium Chloride 50 ML IV (20:25)
[2021-07-20] MEDS: Heparin Sodium,Porcine 5,000 UNIT/ML VIAL 5000 UNIT SUBCUT (21:42)
--- NOTE | 2021-07-20 21:47 | P.HPCC_ITS ---
History of Present Illness Date of Service: 07/20/21 Attending physician on admission: Bruce Mg Chief Complaint: UTI, SEPSIS HPI: ?Patient is an 85-year-old female with underlying history nephrolithiasis with multiple little 3 apices surgeries and stent placement, chronic kidney disease stage 3, COPD with a 100-120 pack-year history, quit heavy smoking at age 53, uses oxygen at home 2 L nasal cannula at night only, history of atherosclerotic disease and CAD without intervention. ?Patient presented to the emergency room on today with complaints of dysuria, nausea, vomiting and diarrhea for the last 3 days.? She was transported from a local half-way where she was noted to be hypotensive today, it is known the patient recently had a right ureteric stent removal about [address] Sung, stent which had been placed due to a obstructive uropathy and acute kidney injury. In the emergency room, the patient was noted to be hypotensive with the lowest blood pressure of 74/34, otherwise not tachycardic or febrile, not hypoxemic.? Her workup however revealed a white count of 18.7, H&H of 8.4 and 27.6, absolute neutrophilic count of 13.9, potassium 5.6, BUN of 96 and creatinine of 5.671 her baseline is (1.6-2.6), lactic acid was 1.8, troponin 144.? The patient was given 30 mL/kilos of IV fluids, started on Rocephin, given that her blood pressure was still low, right IJ central line had been placed and the patient was started on vasopressors.Nephrologywas consulted and recommended given this patient 3 amps bicarbonate and D5 which was started in the ER. CT abdomen and pelvis is pending.?Influenza and COVID test were negative. At this point, the patient states that she feels much better than when she came in, denies any abdominal pain, nausea, vomiting, headache, chest pain, shortness of breath, she has not had any more diarrhea.? She does admit having some hematuria earlier on. ROS:? Denies history of stroke or seizures, denies tinnitus it, ear pain, epistaxis, problems swallowing or speaking, no history of thyroid disease, no cardiac interventions although she thinks she had a PR a long time ago, denies current chest pain, palpitations, arm or jaw pain, no cough, shortness of breath, hemoptysis, denies abdominal pain at this point, no history of liver, gallbladder issues, no hx of abdominal surgeries, denies melena or hematochezia.? Denies history of DVT, PE, leg edema, CHF, no recent contact with people with COVID.? The remainder of the review systems were reviewed and they were all negative. Past Medical History:? As above Past Surgical History: Multiple lithotripsies with recent stent removal AAA repair Cataract and lens replacement surgery bilateral eyes Family history:? Noncontributory Social History:? Patient states she lives in an apartment with 7 stairs, she does use a walker, has someone preparing her meals twice to 3 times per week.? Denies alcohol or drug history. CODE STATUS: FULL CODE Allergies: NKDA? Home Medications: See [facility] SEPSIS PHYSICAL EXAM done at 1915 pm VS: ?125/44, heart rate 80, respirations 22, O2 sat 98% on room air, temperature 99 degrees F. General:? Alert oriented x3 no acute distress.? Speaking full sentences.? Speech is well articulated, thought process is coherent.? Following all commands. Skin:? Intact, no lesions, edema, erythema, clubbing or cyanosis.? No ulcers. ?Small old hematoma noted in the right distal inner thigh. HEENT:? Head is normocephalic, atraumatic, pupils equal round reactive to light accommodation bilaterally.? Extraocular movements appear intact.? Buccal mucosa is dry, Neck is supple without lymphadenopathy. Cardiac:? Clear S1-S2, no murmurs rubs or gallops. Pulmonary:? Clear to auscultation, no wheezes, rales or rhonchi. Abdomen:? Protuberant, positive bowel sounds in all 4 quadrants.? Soft, nontender, no rebound or guarding.? No CVA tenderness noted.? Pedro catheter in place with thick, purulent urine. Musculoskeletal:? Moving all 4 extremities upon request a major joints, there is no crepitus or tenderness.? The strength is 5/5 bilaterally and throughout all 4 extremities.? There is no leg edema , no calf tenderness , no leg asymmetry.? Gait not assessed at this point. Neurologic:? As above, cranial nerves 2-12 are grossly intact.? No focal deficits noted. Motor strength as above.? Vascular:? 2+ pulses upper and lower extremities distally. Less than 2nd capillary refill finger and toes bilaterally SIGNIFICANT LABORATORY DATA:? As above REVIEW OF IMAGES: CT abdomen pelvis without contrast I am reviewing at this point in a shows worsening of bilateral hydronephrosis most likely due to worsening renal function inn the setting of small obstructing stones in both kidneys.? Bilateral retrograde ureteral stents could be of value.? Other incidental findings as described above.? Chest x-ray shows the lungs are normally I radiated.? No pulmonary vascular congestion, no pleural effusion or pneumothorax, right IJ central port catheter tip in the superior vena cava.? Cardiac and mediastinal contours unchanged. EKG REVIEW: ?My interpretation is normal sinus rhythm ventricular rate 83 beats per minute.? There is no ST elevations or depressions.? Undetermined changes of the inferior leads with lots of artifact.? QTC 425.? No comparison available. ? ASSESSMENT AND PLAN: 1. Urinary tract infection 2. Severe sepsis due to the above 3. Bilateral hydronephrosis without obstructive uropathy 4. Acute kidney injury on chronic kidney disease likely multifactorial including small obstructive stones, nephrotoxins such as Lasix and lisinopril, dehydration, volume depletion 5. Borderline hyperkalemia 6. Anemia of chronic disease 7. Reactive troponin abnormality without EKG changes 8. Hypoalbuminemia Patient will be admitted to the ICU, renally adjusted so Viera will be given, w ill redraw lactic acid and chemistry now. I spoke to Dr. Sung the urologist in regards to the above-mentioned CT findings, he recommends a Pedro catheter which is already in placed and an ultrasound of the kidneys done within 48 hours which will be ordered.? Will repeat labs in the morning and will discontinue nephrotoxins.? I will give her albumin salt and hopefully titrate down the vasopressors. ?Albuterol p.r.n., were oxygen for nighttime. ?Even though the troponin was slightly elevated, I do not think this represents an ACS event specially given the lack of symptoms and EKG changes.? This will not be followed anymore at this point. 0110 am on 07/21/21 follow-up sepsis exam Blood pressure 111/38; heart rate 85 respiratory rate 22; O2 sat 97% on 2 L NC; temperature 99.1 Alert, oriented x3, no acute distress, follows all commands Skin unchanged, no mottling Heart regular rate and rhythm, no murmurs rubs gallops Lungs clear to auscultation bilateral no wheezes rales or rhonchi Abdomen is soft, positive bowel sounds in all 4 quadrants, not tender, no CVA tenderness. Musculoskeletal full range of motion of all 4 extremities upon request the major joints, no leg asymmetry, no edema of the lower extremities Vascular 2+ pulses bilaterally, less than 2nd capillary refill finger and toes bilaterally. Will continue with the above-mentioned plan. No changes at this point. GI PROPHYLAXIS: on oral PPI DVT PROPHYLAXIS: Heparin q 8h Critical care time used for critical evaluation of this patient, diagnosis, treatment and coordination of care, review her records and documentation TOTAL CRITICAL CARE TIME 120 MIN . Patient's care was discussed in detail with Dr. Mg.? He is aware of all the above as well as the plan of care for this patient. [facility] Past Medical History Medical History Abdominal aortic aneurysm (AAA) without rupture Acute blood loss anemia Atherosclerotic cardiovascular disease CKD (chronic kidney disease) stage 3, GFR 30-59 ml/min COPD (chronic obstructive pulmonary disease) Kidney stone on right side Nocturnal hypoxemia Obesity Recurrent falls Restrictive lung disease Skin tear of hand without complication Smoker Family History Family History Father No problems noted. Mother No problems noted. Social History Social History Household Members: None Housing: Other Housing Other:: [facility] Alcohol intake: never Patient Tobacco Use Status: Never used Tobacco Tobacco use type: Cigarette Cigarettes Per Day: 1 Use of substances other than those prescribed or required for medical reasons: No Currently Displaying Signs/Symptoms of Drug Intoxication Withdrawal: No Any prior treatment program specific to substance use: No Have you been hit, kicked, punched, or otherwise hurt by someone within the past year? If so, by whom?: No Do you feel safe in your current relationship?: No Current Relationship Is there a partner from a previous relationship who is making you feel unsafe now?: No Are you made to feel afraid or neglected: No Advance Directives: No Advance Directives Information Provided: No Do you have thoughts of harming others: None Do you have a plan to hurt others: No Plan Recently lost weight without trying: No Patient : No : No Poor oral hygiene: No service: No Current occupational status: retired [employer] Allergies Allergy/AdvReac Type Severity Reaction Status Date / Time No Known Allergies Allergy Verified 05/17/21 10:30 [No Known Allergies*] Active Medications: Current Medications Acetaminophen (Acetaminophen 325 Mg Tablet) 650 mg PO DAILY [facility] Aspirin (Aspirin Enteric Coated 81 Mg Tablet.) 81 mg PO DAILY [facility] Docusate Sodium (Docusate Sodium 100 Mg Capsule) 100 mg PO BID [facility] Last Admin: 07/20/21 21:42 Dose: Not Given Documented by: Heparin Sodium (Porcine) (Heparin Sodium,Porcine 5,000 Unit/Ml Vial) 5,000 unit SUBCUT Q8H [facility] Last Admin: 07/20/21 21:42 Dose: 5,000 unit Documented by: Hydromorphone HCl (Hydromorphone Hcl 0.5 Mg/0.5 Ml Syringe) 0.5 mg IVPUSH ONCE ONE; Protocol Stop: 07/20/21 21:38 Norepinephrine Bitartrate (Levophed) 8 mg in 250 mls @ 0 mls/hr IVCONT .Q0M [facility]; Protocol Last Titration: 07/20/21 20:34 Dose: 0.15 mcg/kg/min, 29.81 mls/hr Documented by: Sodium Bicarbonate 150 meq/ (Dextrose) 1,000 mls @ 150 mls/hr IV .Q6H40M [facility] Stop: 07/21/21 02:39 Last Admin: 07/20/21 20:15 Dose: 150 mls/hr Documented by: Piperacillin Sod/Tazobactam (Sod 2.25 gm/ Sodium Chloride) 50 mls @ 100 mls/hr IV Q8H [facility] Melatonin (Melatonin 3 Mg Tablet) 3 mg PO BEDTIME [facility] Last Admin: 07/20/21 21:46 Dose: Not Given Documented by: Omeprazole (Omeprazole 20 Mg Capsule.) 20 mg PO DAILY [facility] Pharmacy Consult (Consult Rx Perform Med Rec) 1 each MISCELLANE ONCE PRN PRN Reason: Consult order Vitamin D (Cholecalciferol (Vitamin D3) 10 Mcg Tablet) 10 mcg PO DAILY [facility] Home Medications Medication Instructions Recorded Confirmed Last Taken Type cholecalciferol (vitamin D3) 10 10 mcg PO DAILY 04/16/20 07/20/21 07/20/21 History mcg (400 unit) capsule furosemide 20 mg tablet 20 mg PO DAILY 02/07/20/21 07/20/21 History lisinopril 20 mg tablet 20 mg PO DAILY 04/16/20 07/20/21 07/20/21 History aspirin 81 mg tablet,delayed 81 mg PO DAILY 04/21/20 07/20/21 07/20/21 History release (Adult Low Dose Aspirin) acetaminophen 325 mg tablet 650 mg PO DAILY 07/20/21 07/20/21 07/20/21 History (Tylenol) atorvastatin 40 mg tablet 40 mg PO BEDTIME 07/20/21 07/20/21 07/19/21 History docusate sodium 100 mg capsule 100 mg PO BID 07/20/21 07/20/21 07/20/21 History (Colace) guaifenesin 100 mg/5 mL oral liquid 200 mg PO TID 07/20/21 07/20/21 07/20/21 History meclizine 12.5 mg tablet 12.5 mg PO TID PRN 07/20/21 07/20/21 Unknown History melatonin 3 mg tablet 3 mg PO BEDTIME 07/20/21 07/20/21 07/19/21 History omeprazole 20 mg tablet,delayed 20 mg PO DAILY 07/20/21 07/20/21 07/20/21 History release pantoprazole 40 mg tablet,delayed 40 mg PO DAILY 07/20/21 07/20/21 07/20/21 History release (Protonix) polyethylene glycol 3350 17 17 g PO DAILY 07/20/21 07/20/21 07/16/21 History gram/dose oral powder (Miralax) Physical Exam Vital Signs: Vital Signs: Last Vital Signs Temp 99 F 07/20/21 21:18 Pulse 75 07/20/21 21:18 Resp 22 H 07/20/21 21:18 BP 116/36 L 07/20/21 21:18 Pulse Ox 98 07/20/21 21:18 Oxygen Flow Rate 2 07/20/21 14:32 BMI result Body Mass Index 42.7 Results Labs CBC and Chem 7: 07/21/21 05:25 07/21/21 05:25 Labs: Laboratory Results - last 24 hr 07/20/21 07/20/21 07/20/21 15:18 15:18 15:18 MCV 91.4 MCH 27.8 MCHC 30.4 L RDW 20.8 H Plt Count 265 D MPV 10.3 Immature Gran % (Auto) 0.5 H Neut % (Auto) 73.9 H Lymph % (Auto) 18.6 L Fountain % (Auto) 6.3 Eos % (Auto) 0.2 Baso % (Auto) 0.5 Lymph # (Auto) 3.5 Fountain # (Auto) 1.2 Eos # (Auto) 0.0 Baso # (Auto) 0.1 Abs Immat Gran (auto) 0.09 H Absolute Neuts (auto) 13.9 H Absolute Nucleated RBC 0.030 H Nucleated RBC % (auto) 0.2 Anion Gap 19 Estim Creat Clear Calc 7.8 Estimated GFR 7 Random Glucose 100 Lactic Acid 1.8 Calcium 8.9 Total Bilirubin 0.5 Direct Bilirubin 0.3 AST 20 ALT 12 Alkaline Phosphatase 182 H D Troponin I High Sens B-Natriuretic Peptide Total Protein 6.8 Albumin 2.6 L Lipase 21 Urine Color Urine Appearance Urine pH Ur Specific [place] Urine Protein Urine Glucose (UA) Urine Ketones Urine Blood Urine Nitrite Ur Leukocyte Esterase Urine RBC Urine WBC Ur Squamous Epith Cells Urine Bacteria Influenza Type A (PCR) Influenza Type B (PCR) RSV RNA Qual (PCR) SARS-CoV-2 RNA (RT-PCR) 07/20/21 07/20/21 07/20/21 15:18 15:18 15:19 MCV MCH MCHC RDW Plt Count MPV Immature Gran % (Auto) Neut % (Auto) Lymph % (Auto) Fountain % (Auto) Eos % (Auto) Baso % (Auto) Lymph # (Auto) Fountain # (Auto) Eos # (Auto) Baso # (Auto) Abs Immat Gran (auto) Absolute Neuts (auto) Absolute Nucleated RBC Nucleated RBC % (auto) Anion Gap Estim Creat Clear Calc Estimated GFR Random Glucose Lactic Acid Calcium Total Bilirubin Direct Bilirubin AST ALT Alkaline Phosphatase Troponin I High Sens 142.3 H* D B-Natriuretic Peptide 107 H Total Protein Albumin Lipase Urine Color YELLOW Urine Appearance TURBID Urine pH 6.0 Ur Specific [place] 1.020 Urine Protein 1+ H Urine Glucose (UA) NEG Urine Ketones NEG Urine Blood 3+ H Urine Nitrite NEG Ur Leukocyte Esterase 3+ H Urine RBC 30-49 H Urine WBC TNTC H Ur Squamous Epith Cells NONE Urine Bacteria 3+ Influenza Type A (PCR) NEGATIVE Influenza Type B (PCR) NEGATIVE RSV RNA Qual (PCR) NEGATIVE SARS-CoV-2 RNA (RT-PCR) NEGATIVE 07/20/21 07/20/21 18:53 19:44 MCV MCH MCHC RDW Plt Count MPV Immature Gran % (Auto) Neut % (Auto) Lymph % (Auto) [place] % (Auto) Eos % (Auto) Baso % (Auto) Lymph # (Auto) [place] # (Auto) Eos # (Auto) Baso # (Auto) Abs Immat Gran (auto) Absolute Neuts (auto) Absolute Nucleated RBC Nucleated RBC % (auto) Anion Gap 17 Estim Creat Clear Calc 8.2 Estimated GFR 7 Random Glucose 115 Lactic Acid Calcium 8.7 Total Bilirubin Direct Bilirubin AST ALT Alkaline Phosphatase Troponin I High Sens 144.2 H* B-Natriuretic Peptide Total Protein Albumin Lipase Urine Color Urine Appearance Urine pH Ur Specific [place] Urine Protein Urine Glucose (UA) Urine Ketones Urine Blood Urine Nitrite Ur Leukocyte Esterase Urine RBC Urine WBC Ur Squamous Epith Cells Urine Bacteria Influenza Type A (PCR) Influenza Type B (PCR) RSV RNA Qual (PCR) SARS-CoV-2 RNA (RT-PCR) Imaging Radiologist's Impressions: Impressions Chest X-Ray 07/20/21 15:40 IMPRESSION: No acute intrathoracic disease. Left lower lobe atelectasis. Chest X-Ray 07/20/21 17:30 IMPRESSION: Right IJ central port catheter tip in superior vena cava. There is no pneumothorax. Abdomen/Pelvis CT 07/20/21 20:04 IMPRESSION: Worsening of bilateral hydronephrosis most likely accounts for worsening of renal function. Bilateral retrograde ureteral stents could be of value. Other incidental findings as described above. Fleischner guidelines were followed.
[2021-07-20 21:49] LABS: Lactic Acid 1.9 mmol/L (0.5-2.0)
[2021-07-20] MEDS: HYDROmorphone HCl 0.5 MG/0.5 ML SYRINGE IVPUSH (21:53)
[2021-07-21] VITALS (31 sets, daily range): BP systolic 89–127; BP diastolic 29–65; PULSE 72–103; RESP 15–25; TEMP 36.5–37.7; O2SAT 93–100; BMI 41.7
[2021-07-21 00:30] LABS: Anion Gap 19 (12-20); Blood Urea Nitrogen 95 mg/dL (9-16); Calcium 8.5 mg/dL (8.4-10.2); Carbon Dioxide 14 mmol/L (22-29); Chloride 108 mmol/L (96-108); Creatinine Clr Calc Pharmacy 8.5; Estimated Glomerular Filt Rate 7; Glucose Random 180 mg/dL (60-115); Potassium 5.5 mmol/L (3.3-5.1); Sodium 135 mmol/L (135-145)
[2021-07-21] MEDS: Piperacillin Sodium/Tazobactam 2.25 GM in 0.9 % Sodium Chloride 50 ML IV ×3 (04:19→19:20)
[2021-07-21] MEDS: Heparin Sodium,Porcine 5,000 UNIT/ML VIAL 5000 UNIT SUBCUT ×3 (04:29→20:01)
[2021-07-21 05:53] LABS: Basophils Absolute Auto 0.1 X10*3/uL (0.0-0.2); Basophils Percent Auto 0.5 % (0-2); Eosinophils Absolute Auto 0.1 X10*3/uL (0.0-0.4); Eosinophils Percent Auto 0.3 % (0-4); Hematocrit 25.7 % (37.0-47.0); Imm Gran Abs Auto 0.15 X10*3/uL (0.00-0.03); Imm Gran Pct Auto 0.8 % (0.0-0.4); LEFT SHIFT? 1; Lymphocytes Absolute Auto 2.4 X10*3/uL (1.2-4.9); Lymphocytes Percent Auto 12.1 % (20-40); Mean Corpuscular HGB Conc 31.1 g/dl (31.0-35.0); Mean Corpuscular Hemoglobin 27.5 pg (27.0-33.0); Mean Corpuscular Volume 88.3 fL (80.0-98.0); Mean Platelet Volume 9.9 fL (9.4-12.3); Monocytes Absolute Auto 1.7 X10*3/uL (0.1-1.2); Monocytes Percent Auto 8.5 % (2-11); NRBC Pct Auto 0.2 /100WBC (0.0-0.2); Neutrophils Absolute Auto 15.3 x10*3/uL (2.0-8.3); Neutrophils Percent Auto 77.8 % (45-73); Platelet Count 258 X10*3/uL (160-400); Red Blood Count 2.91 X10*6/uL (4.20-5.50); Red Cell Distribution Width 20.5 % (11.0-16.0); SCAN SMEAR FLAG 1; White Blood Count 19.7 X10*3/uL (4.8-10.8)
[2021-07-21 06:01] LABS: MANUAL DIFF FLAG SCAN
[2021-07-21 06:19] LABS: Alanine Aminotransferase 10 U/L (0-31); Albumin Level 2.4 g/dL (3.5-5.0); Alkaline Phosphatase 165 U/L (39-117); Anion Gap 18 (12-20); Aspartate Amino Transferase 16 U/L (5-31); Bilirubin Total 0.4 mg/dL (0.0-1.0); Blood Urea Nitrogen 91 mg/dL (9-16); Calcium 8.4 mg/dL (8.4-10.2); Carbon Dioxide 17 mmol/L (22-29); Chloride 107 mmol/L (96-108); Creatinine Clr Calc Pharmacy 8.8; Estimated Glomerular Filt Rate 8; Glucose Random 129 mg/dL (60-115); Sodium 137 mmol/L (135-145); Total Protein 6.3 g/dL (6.5-8.0)
[2021-07-21 06:23] LABS: SLIDE REVIEW VERIFIED
[2021-07-21] MEDS: Sodium Bicarbonate 8.4% 150 MEQ in Dextrose 5 % 850 ML 50 MEQ IV (08:21)
[2021-07-21] MEDS: Aspirin Enteric Coated 81 MG TABLET.DR PO (08:32)
[2021-07-21] MEDS: Omeprazole 20 MG CAPSULE.DR PO (08:32)
[2021-07-21] MEDS: Cholecalciferol (Vitamin D3) 10 MCG TABLET PO (08:32)
--- NOTE | 2021-07-21 10:13 | P.CNUR_ITS ---
History of Present Illness Consult details Consult date: 07/21/21 Narrative: Stent removed last Monday Pre presentation with bilateral hydro and ultrasound shows high risk renal indices Will attempt to place bilateral stents on behalf ICU and other physicians Review of Systems Constitutional: Constitutional: Reports as per HPI and Reports no additional constitutional complaints Cardiovascular: Cardiovascular: Reports as per HPI and Reports no additional cardiovascular complaints Respiratory: Respiratory: Reports as per HPI and Reports no additional respiratory complaints Gastrointestinal: Gastrointestinal: Reports as per HPI and Reports no additional gastrointestinal complaints Genitourinary: Genitourinary: Reports as per HPI Musculoskeletal: Musculoskeletal: Reports no additional musculoskeletal compl aints and Reports as per HPI Neurologic: Reports system reviewed and no additional complaints, except as documented and Reports as per HPI PMF Past Medical History Medical History Abdominal aortic aneurysm (AAA) without rupture Acute blood loss anemia Atherosclerotic cardiovascular disease CKD (chronic kidney disease) stage 3, GFR 30-59 ml/min COPD (chronic obstructive pulmonary disease) Kidney stone on right side Nocturnal hypoxemia Obesity Recurrent falls Restrictive lung disease Skin tear of hand without complication Smoker Family History Family History Father No problems noted. Mother No problems noted. Social History Social History Household Members: None Housing: Other Housing Other:: [facility] Alcohol intake: never Patient Tobacco Use Status: Never used Tobacco Tobacco use type: Cigarette Cigarettes Per Day: 1 Use of substances other than those prescribed or required for medical reasons: No Any prior treatment program specific to substance use: No Have you been hit, kicked, punched, or otherwise hurt by someone within the past year? If so, by whom?: No Do you feel safe in your current relationship?: No Current Relationship Is there a partner from a previous relationship who is making you feel unsafe now?: No Are you made to feel afraid or neglected: No Advance Directives: No Advance Directives Information Provided: No Do you have thoughts of harming others: None Do you have a plan to hurt others: No Plan Recently lost weight without trying: No Patient : No : No Poor oral hygiene: No service: No Current occupational status: retired Meds Allergies Allergy/AdvReac Type Severity Reaction Status Date / Time No Known Allergies Allergy Verified 05/17/21 10:30 [No Known Allergies*] Active Medications: Current Medications Acetaminophen (Acetaminophen 325 Mg Tablet) 650 mg PO DAILY [facility] Last Admin: 07/21/21 08:33 Dose: Not Given Documented by: Aspirin (Aspirin Enteric Coated 81 Mg Tablet.) 81 mg PO DAILY [facility] Last Admin: 07/21/21 08:32 Dose: 81 mg Documented by: Docusate Sodium (Docusate Sodium 100 Mg Capsule) 100 mg PO BID [facility] Last Admin: 07/21/21 08:32 Dose: Not Given Documented by: Heparin Sodium (Porcine) (Heparin Sodium,Porcine 5,000 Unit/Ml Vial) 5,000 unit SUBCUT Q8H [facility] Last Admin: 07/21/21 04:29 Dose: 5,000 unit Documented by: Norepinephrine Bitartrate (Levophed) 8 mg in 250 mls @ 0 mls/hr IVCONT .Q0M [facility]; Protocol Last Titration: 07/21/21 10:13 Dose: 0.12 mcg/kg/min, 23.85 mls/hr Documented by: Piperacillin Sod/Tazobactam (Sod 2.25 gm/ Sodium Chloride) 50 mls @ 100 mls/hr IV Q8H [facility] Last Infusion: 07/21/21 04:53 Dose: Infused Documented by: Sodium Bicarbonate 150 meq/ (Dextrose) 1,000 mls @ 50 mls/hr IV .Q20H [facility] Last Admin: 07/21/21 08:21 Dose: 50 mls/hr Documented by: Melatonin (Melatonin 3 Mg Tablet) 3 mg PO BEDTIME [facility] Last Admin: 07/20/21 21:46 Dose: Not Given Documented by: Omeprazole (Omeprazole 20 Mg Capsule.) 20 mg PO DAILY [facility] Last Admin: 07/21/21 08:32 Dose: 20 mg Documented by: Pharmacy Consult (Consult Rx Perform Med Rec) 1 each MISCELLANE ONCE PRN PRN Reason: Consult order Vitamin D (Cholecalciferol (Vitamin D3) 10 Mcg Tablet) 10 mcg PO DAILY [facility] Last Admin: 07/21/21 08:32 Dose: 10 mcg Documented by: Home Medications Medication Instructions Recorded Confirmed Last Taken Type cholecalciferol (vitamin D3) 10 10 mcg PO DAILY 04/16/20 07/20/21 07/20/21 History mcg (400 unit) capsule furosemide 20 mg tablet 20 mg PO DAILY 04/16/20 07/20/21 07/20/21 History lisinopril 20 mg tablet 20 mg PO DAILY 04/16/20 07/20/21 07/20/21 History aspirin 81 mg tablet,delayed 81 mg PO DAILY 04/21/20 07/20/21 07/20/21 History release (Adult Low Dose Aspirin) acetaminophen 325 mg tablet 650 mg PO DAILY 07/20/21 07/20/21 07/20/21 History (Tylenol) atorvastatin 40 mg tablet 40 mg PO BEDTIME 07/20/21 07/20/21 07/19/21 History docusate sodium 100 mg capsule 100 mg PO BID 07/20/21 07/20/21 07/20/21 History (Colace) guaifenesin 100 mg/5 mL oral liquid 200 mg PO TID 07/20/21 07/20/21 07/20/21 History meclizine 12.5 mg tablet 12.5 mg PO TID PRN 07/20/21 07/20/21 Unknown History melatonin 3 mg tablet 3 mg PO BEDTIME 07/20/21 07/20/21 07/19/21 History omeprazole 20 mg tablet,delayed 20 mg PO DAILY 07/20/21 07/20/21 07/20/21 History release pantoprazole 40 mg tablet,delayed 40 mg PO DAILY 07/20/21 07/20/21 07/20/21 History release (Protonix) polyethylene glycol 3350 17 17 g PO DAILY 07/20/21 07/20/21 07/16/21 History gram/dose oral powder (Miralax) Physical Exam Vital Signs: Vital Signs: Last Vital Signs Temp 99.9 F 07/21/21 10:00 Pulse 97 07/21/21 10:00 Resp 22 H 07/21/21 10:00 BP 89/29 L 07/21/21 10:00 Pulse Ox 96 07/21/21 10:00 Oxygen Flow Rate 2 07/20/21 14:32 BMI result Body Mass Index 41.7 Const: General: cooperative, healthy appearing, comfortable and no acute distress Orientation/consciousness: patient oriented x3 HEENT: Face and sinus: Yes normal facial exam Mouth: moist mucous membranes Neck: Neck: Yes normal visual inspection, Yes full ROM and Yes trachea midline Chest: Chest palpation & inspection: normal inspection of the chest Resp: Effort & Inspection: normal respiratory effort, able to speak in complete sentences and no respiratory distress GI: Inspection: Yes normal to inspection Back/Spine/Pelvis: Cervical Spine: normal cervical lordosis Thoracic/Lumbar Spine: thoracic and lumbar spine normal to inspection Skin: General skin exam: no rashes or lesions noted Neuro: General: patient oriented x3, tone normal and moves all extremities Extrem: General: Yes normal to inspection and Yes capillary refill normal Results Labs Result diagrams: 07/21/21 05:25 07/21/21 05:25 Labs: Abnormal lab results 07/20/21 07/20/21 07/20/21 Range/Units 15:18 15:18 15:18 WBC 18.7 H (4.8-10.8) X10*3/uL RBC 3.02 L (4.20-5.50) X10*6/uL Hgb 8.4 L (12.0-16.0) g/dl Hct 27.6 L (37.0-47.0) % MCHC 30.4 L (31.0-35.0) g/dl RDW 20.8 H (11.0-16.0) % Immature Gran % (Auto) 0.5 H (0.0-0.4) % Neut % (Auto) 73.9 H (45-73) % Lymph % (Auto) 18.6 L (20-40) % [place] # (Auto) (0.1-1.2) X10*3/uL Abs Immat Gran (auto) 0.09 H (0.00-0.03) X10*3/uL Absolute Neuts (auto) 13.9 H (2.0-8.3) x10*3/uL Absolute Nucleated RBC 0.030 H (0.0-0.012) X10*3/uL Sodium 134 L (135-145) mmol/L Potassium 6.3 H* D (3.3-5.1) mmol/L Chloride 109 H (96-108) mmol/L Carbon Dioxide 12 L (22-29) mmol/L BUN 101 H D (9-16) mg/dL Creatinine 5.97 H* (0.5-1.4) mg/dL Random Glucose (60-115) mg/dL Alkaline Phosphatase 182 H D (39-117) U/L Troponin I High Sens 142.3 H* D (<3.5-17.0) ng/L B-Natriuretic Peptide 107 H (<100) pg/mL Total Protein (6.5-8.0) g/dL Albumin 2.6 L (3.5-5.0) g/dL Urine Protein (NEG-TRACE) MG/DL Urine Blood (NEG) Ur Leukocyte Esterase (NEG) Urine RBC (0) /HPF Urine WBC (0-4) /HPF 07/20/21 07/20/21 07/20/21 Range/Units 15:18 18:53 19:44 WBC (4.8-10.8) X10*3/uL RBC (4.20-5.50) X10*6/uL Hgb (12.0-16.0) g/dl Hct (37.0-47.0) % MCHC (31.0-35.0) g/dl RDW (11.0-16.0) % Immature Gran % (Auto) (0.0-0.4) % Neut % (Auto) (45-73) % Lymph % (Auto) (20-40) % [place] # (Auto) (0.1-1.2) X10*3/uL Abs Immat Gran (auto) (0.00-0.03) X10*3/uL Absolute Neuts (auto) (2.0-8.3) x10*3/uL Absolute Nucleated RBC (0.0-0.012) X10*3/uL Sodium (135-145) mmol/L Potassium 5.6 H (3.3-5.1) mmol/L Chloride 112 H (96-108) mmol/L Carbon Dioxide 12 L (22-29) mmol/L BUN 96 H (9-16) mg/dL Creatinine 5.67 H* (0.5-1.4) mg/dL Random Glucose (60-115) mg/dL Alkaline Phosphatase (39-117) U/L Troponin I High Sens 144.2 H* (<3.5-17.0) ng/L B-Natriuretic Peptide (<100) pg/mL Total Protein (6.5-8.0) g/dL Albumin (3.5-5.0) g/dL Urine Protein 1+ H (NEG-TRACE) MG/DL Urine Blood 3+ H (NEG) Ur Leukocyte Esterase 3+ H (NEG) Urine RBC 30-49 H (0) /HPF Urine WBC TNTC H (0-4) /HPF 07/20/21 07/21/21 07/21/21 Range/Units 23:56 05:25 05:25 WBC 19.7 H (4.8-10.8) X10*3/uL RBC 2.91 L (4.20-5.50) X10*6/uL Hgb 8.0 L (12.0-16.0) g/dl Hct 25.7 L (37.0-47.0) % MCHC (31.0-35.0) g/dl RDW 20.5 H (11.0-16.0) % Immature Gran % (Auto) 0.8 H (0.0-0.4) % Neut % (Auto) 77.8 H (45-73) % Lymph % (Auto) 12.1 L (20-40) % [place] # (Auto) 1.7 H (0.1-1.2) X10*3/uL Abs Immat Gran (auto) 0.15 H (0.00-0.03) X10*3/uL Absolute Neuts (auto) 15.3 H (2.0-8.3) x10*3/uL Absolute Nucleated RBC 0.030 H (0.0-0.012) X10*3/uL Sodium (135-145) mmol/L Potassium 5.5 H (3.3-5.1) mmol/L Chloride (96-108) mmol/L Carbon Dioxide 14 L 17 L (22-29) mmol/L BUN 95 H 91 H (9-16) mg/dL Creatinine 5.53 H* 5.29 H* (0.5-1.4) mg/dL Random Glucose 180 H 129 H (60-115) mg/dL Alkaline Phosphatase 165 H (39-117) U/L Troponin I High Sens (<3.5-17.0) ng/L B-Natriuretic Peptide (<100) pg/mL Total Protein 6.3 L (6.5-8.0) g/dL Albumin 2.4 L (3.5-5.0) g/dL Urine Protein (NEG-TRACE) MG/DL Urine Blood (NEG) Ur Leukocyte Esterase (NEG) Urine RBC (0) /HPF Urine WBC (0-4) /HPF Short CBC 07/20/21 07/21/21 Range/Units 15:18 05:25 WBC 18.7 H 19.7 H (4.8-10.8) X10*3/uL Hgb 8.4 L 8.0 L (12.0-16.0) g/dl Hct 27.6 L 25.7 L (37.0-47.0) % Plt Count 265 D 258 (160-400) X10*3/uL BMP 07/20/21 07/20/21 07/20/21 15:18 18:53 23:56 Sodium 134 L 135 135 Potassium 6.3 H* D 5.6 H 5.5 H Chloride 109 H 112 H 108 Carbon Dioxide 12 L 12 L 14 L BUN 101 H D 96 H 95 H Creatinine 5.97 H* 5.67 H* 5.53 H* Calcium 8.9 8.7 8.5 07/21/21 05:25 Sodium 137 Potassium 5.0 Chloride 107 Carbon Dioxide 17 L BUN 91 H Creatinine 5.29 H* Calcium 8.4 Liver Function 07/20/21 07/21/21 Range/Units 15:18 05:25 Total Bilirubin 0.5 0.4 (0.0-1.0) mg/dL Direct Bilirubin 0.3 (0.0-0.5) mg/dL AST 20 16 (5-31) U/L ALT 12 10 (0-31) U/L Alkaline Phosphatase 182 H D 165 H (39-117) U/L Albumin 2.6 L 2.4 L (3.5-5.0) g/dL Urine 07/20/21 Range/Units 15:18 Urine Color YELLOW Urine Appearance TURBID Urine pH 6.0 (5.0-8.0) Ur Specific [place] 1.020 (1.005-1.025) Urine Protein 1+ H (NEG-TRACE) MG/DL Urine Glucose (UA) NEG (NEG) MG/DL All other labs normal. Assessment and Plan (1) Acute on chronic kidney failure: Status: Acute (2) Hydronephrosis: Status: Acute Plan Cystoscopy, bilateral retrograde, bilateral stent placement Procedures Date of Service Date of Service: 07/21/21
--- NOTE | 2021-07-21 11:05 | W.PM.OPN ---
Operative Note Operative Note Date of Service: 07/21/21 Narrative: PreOperative Diagnosis: Bilateral hydronephrosis and elevated creatinine Post Operative Diagnosis: Same Procedure: Cystoscopy, bilateral retrograde, bilateral stent placement Surgeon: Dr Mitchell Sung Anesthesia: General Indications for procedure: Rapidly rising creatinine and imaging with hydronephrosis Procedure: After informed consent was verified the patient was brought to the operating room and placed in a supine position. Anesthesia was administered per protocol. The patient was placed in modified dorsal lithotomy position and prepped and draped in a sterile fashion. A safety pause time-out was performed. Laterality of procedure and antibiotics were confirmed. appropriate imaging was available A 22 [place] cystoscope was introduced per urethra. No abnormality was noted. Both ureteric orifices were seen in a normal position. The left ureter was cannulated with an open ended catheter and a retrograde examination was performed. Hydroureteronephrosis down to the level of bladder was seen.. A Sensor guidewire was placed under fluoroscopy and a good coil was seen within the renal pelvis. A 6 [place] by 24 cm was advanced over the wire and up to the level of the renal pelvis under fluoroscopic and direct visualization. The stent was seen with appropriate coil within the renal pelvis and in the bladder after deployment. Simple procedure present repeated with right-hand side. Not quite as much hydronephrotic drip seen on right side. Sixteen [place] Pedro catheter placed for drainage The patient tolerated the procedure well and was transferred in stable condition to the recovery area. Pathology: Bilateral hydronephrosis Drains: Bilateral double-J stents with Pedro catheter
--- NOTE | 2021-07-21 11:24 | P.CONAN_ITS ---
[facility] Active Problems Active Problems: All Active Problems (Updated 07/21/21 @ 10:14 by Mitchell Sung MD) Hydronephrosis (Acute) Acute pyelonephritis (Acute) Acute on chronic kidney failure (Acute) Acute hyperkalemia (Acute) Hydronephrosis concurrent with and due to calculi of kidney and ureter (Acute) Bilateral carotid artery stenosis (Acute) Left carotid artery stenosis (Acute) Atherosclerotic cardiovascular disease (Acute) Smoker (Acute) Restrictive lung disease (Acute) Past Medical History Medical History Abdominal aortic aneurysm (AAA) without rupture Acute blood loss anemia Atherosclerotic cardiovascular disease CKD (chronic kidney disease) stage 3, GFR 30-59 ml/min COPD (chronic obstructive pulmonary disease) Kidney stone on right side Nocturnal hypoxemia Obesity Recurrent falls Restrictive lung disease Skin tear of hand without complication Smoker Family History Family History Father No problems noted. Mother No problems noted. Family history of problems with anesthesia: No Surgical History History of Problems with Anesthesia: No Social History Social History Household Members: None Housing: Other Housing Other:: [facility] Alcohol intake: never Patient Tobacco Use Status: Never used Tobacco Tobacco use type: Cigarette Cigarettes Per Day: 1 Use of substances other than those prescribed or required for medical reasons: No Any prior treatment program specific to substance use: No Have you been hit, kicked, punched, or otherwise hurt by someone within the past year? If so, by whom?: No Do you feel safe in your current relationship?: No Current Relationship Is there a partner from a previous relationship who is making you feel unsafe now?: No Are you made to feel afraid or neglected: No Advance Directives: No Advance Directives Information Provided: No Do you have thoughts of harming others: None Do you have a plan to hurt others: No Plan Recently lost weight without trying: No Patient : No : No Poor oral hygiene: No service: No Current occupational status: retired [employer] Allergies Allergy/AdvReac Type Severity Reaction Status Date / Time No Known Allergies Allergy Verified 05/17/21 10:30 [No Known Allergies*] Active Medications: Current Medications Acetaminophen (Acetaminophen 325 Mg Tablet) 650 mg PO DAILY [facility] Last Admin: 07/21/21 08:33 Dose: Not Given Documented by: Aspirin (Aspirin Enteric Coated 81 Mg Tablet.) 81 mg PO DAILY [facility] Last Admin: 07/21/21 08:32 Dose: 81 mg Documented by: Docusate Sodium (Docusate Sodium 100 Mg Capsule) 100 mg PO BID [facility] Last Admin: 07/21/21 08:32 Dose: Not Given Documented by: Heparin Sodium (Porcine) (Heparin Sodium,Porcine 5,000 Unit/Ml Vial) 5,000 unit SUBCUT Q8H [facility] Last Admin: 07/21/21 04:29 Dose: 5,000 unit Documented by: Norepinephrine Bitartrate (Levophed) 8 mg in 250 mls @ 0 mls/hr IVCONT .Q0M [facility]; Protocol Last Titration: 07/21/21 10:13 Dose: 0.12 mcg/kg/min, 23.85 mls/hr Documented by: Piperacillin Sod/Tazobactam (Sod 2.25 gm/ Sodium Chloride) 50 mls @ 100 mls/hr IV Q8H [facility] Last Infusion: 07/21/21 04:53 Dose: Infused Documented by: Sodium Bicarbonate 150 meq/ (Dextrose) 1,000 mls @ 50 mls/hr IV .Q20H [facility] Last Admin: 07/21/21 08:21 Dose: 50 mls/hr Documented by: Melatonin (Melatonin 3 Mg Tablet) 3 mg PO BEDTIME [facility] Last Admin: 07/20/21 21:46 Dose: Not Given Documented by: Omeprazole (Omeprazole 20 Mg Capsule.) 20 mg PO DAILY [facility] Last Admin: 07/21/21 08:32 Dose: 20 mg Documented by: Pharmacy Consult (Consult Rx Perform Med Rec) 1 each MISCELLANE ONCE PRN PRN Reason: Consult order Vitamin D (Cholecalciferol (Vitamin D3) 10 Mcg Tablet) 10 mcg PO DAILY [facility] Last Admin: 07/21/21 08:32 Dose: 10 mcg Documented by: Home Medications Medication Instructions Recorded Confirmed Last Taken Type cholecalciferol (vitamin D3) 10 10 mcg PO DAILY 04/16/20 07/20/21 07/20/21 History mcg (400 unit) capsule furosemide 20 mg tablet 20 mg PO DAILY 04/16/20 07/20/21 07/20/21 History lisinopril 20 mg tablet 20 mg PO DAILY 04/16/20 07/20/21 07/20/21 History aspirin 81 mg tablet,delayed 81 mg PO DAILY 04/21/20 07/20/21 07/20/21 History release (Adult Low Dose Aspirin) acetaminophen 325 mg tablet 650 mg PO DAILY 07/20/21 07/20/21 07/20/21 History (Tylenol) atorvastatin 40 mg tablet 40 mg PO BEDTIME 07/20/21 07/20/21 07/19/21 History docusate sodium 100 mg capsule 100 mg PO BID 07/20/21 07/20/21 07/20/21 History (Colace) guaifenesin 100 mg/5 mL oral liquid 200 mg PO TID 07/20/21 07/20/21 07/20/21 History meclizine 12.5 mg tablet 12.5 mg PO TID PRN 07/20/21 07/20/21 Unknown History melatonin 3 mg tablet 3 mg PO BEDTIME 07/20/21 07/20/21 07/19/21 History omeprazole 20 mg tablet,delayed 20 mg PO DAILY 07/20/21 07/20/21 07/20/21 History release pantoprazole 40 mg tablet,delayed 40 mg PO DAILY 07/20/21 07/20/21 07/20/21 History release (Protonix) polyethylene glycol 3350 17 17 g PO DAILY 07/20/21 07/20/21 07/16/21 History gram/dose oral powder (Miralax) Exam Exam Date and Time: July 21, 2021 1124 Height,Weight and Vital Signs: Height 5 ft 2 in Weight 103.4 kg Last Vital Signs Temp 99.9 F 07/21/21 10:00 Pulse 97 07/21/21 10:00 Resp 22 H 07/21/21 10:00 BP 89/29 L 07/21/21 10:00 Pulse Ox 96 07/21/21 10:00 Oxygen Flow Rate 2 07/20/21 14:32 Pertinent Lab Results Pertinent Lab Results: Laboratory Tests 07/20/21 07/20/21 07/20/21 15:18 15:18 15:18 WBC 18.7 H RBC 3.02 L Hgb 8.4 L Hct 27.6 L MCV 91.4 MCH 27.8 MCHC 30.4 L RDW 20.8 H Plt Count 265 D MPV 10.3 Immature Gran % (Auto) 0.5 H Neut % (Auto) 73.9 H Lymph % (Auto) 18.6 L [place] % (Auto) 6.3 Eos % (Auto) 0.2 Baso % (Auto) 0.5 Lymph # (Auto) 3.5 [place] # (Auto) 1.2 Eos # (Auto) 0.0 Baso # (Auto) 0.1 Abs Immat Gran (auto) 0.09 H Absolute Neuts (auto) 13.9 H Absolute Nucleated RBC 0.030 H Nucleated RBC % (auto) 0.2 Smear Tech's Comments Sodium 134 L Potassium 6.3 H* D Chloride 109 H Carbon Dioxide 12 L Anion Gap 19 BUN 101 H D Creatinine 5.97 H* Estim Creat Clear Calc 7.8 Estimated GFR 7 Random Glucose 100 Lactic Acid 1.8 Calcium 8.9 Total Bilirubin 0.5 Direct Bilirubin 0.3 AST 20 ALT 12 Alkaline Phosphatase 182 H D Troponin I High Sens B-Natriuretic Peptide Total Protein 6.8 Albumin 2.6 L Lipase 21 Urine Color Urine Appearance Urine pH Ur Specific [place] Urine Protein Urine Glucose (UA) Urine Ketones Urine Blood Urine Nitrite Ur Leukocyte Esterase Urine RBC Urine WBC Ur Squamous Epith Cells Urine Bacteria Influenza Type A (PCR) Influenza Type B (PCR) RSV RNA Qual (PCR) SARS-CoV-2 RNA (RT-PCR) 07/20/21 07/20/21 07/20/21 15:18 15:18 15:19 WBC RBC Hgb Hct MCV MCH MCHC RDW Plt Count MPV Immature Gran % (Auto) Neut % (Auto) Lymph % (Auto) [place] % (Auto) Eos % (Auto) Baso % (Auto) Lymph # (Auto) [place] # (Auto) Eos # (Auto) Baso # (Auto) Abs Immat Gran (auto) Absolute Neuts (auto) Absolute Nucleated RBC Nucleated RBC % (auto) Smear Tech's Comments Sodium Potassium Chloride Carbon Dioxide Anion Gap BUN Creatinine Estim Creat Clear Calc Estimated GFR Random Glucose Lactic Acid Calcium Total Bilirubin Direct Bilirubin AST ALT Alkaline Phosphatase Troponin I High Sens 142.3 H* D B-Natriuretic Peptide 107 H Total Protein Albumin Lipase Urine Color YELLOW Urine Appearance TURBID Urine pH 6.0 Ur Specific [place] 1.020 Urine Protein 1+ H Urine Glucose (UA) NEG Urine Ketones NEG Urine Blood 3+ H Urine Nitrite NEG Ur Leukocyte Esterase 3+ H Urine RBC 30-49 H Urine WBC TNTC H Ur Squamous Epith Cells NONE Urine Bacteria 3+ Influenza Type A (PCR) NEGATIVE Influenza Type B (PCR) NEGATIVE RSV RNA Qual (PCR) NEGATIVE SARS-CoV-2 RNA (RT-PCR) NEGATIVE 07/20/21 07/20/21 07/20/21 18:53 19:44 21:31 WBC RBC Hgb Hct MCV MCH MCHC RDW Plt Count MPV Immature Gran % (Auto) Neut % (Auto) Lymph % (Auto) [place] % (Auto) Eos % (Auto) Baso % (Auto) Lymph # (Auto) [place] # (Auto) Eos # (Auto) Baso # (Auto) Abs Immat Gran (auto) Absolute Neuts (auto) Absolute Nucleated RBC Nucleated RBC % (auto) Smear Tech's Comments Sodium 135 Potassium 5.6 H Chloride 112 H Carbon Dioxide 12 L Anion Gap 17 BUN 96 H Creatinine 5.67 H* Estim Creat Clear Calc 8.2 Estimated GFR 7 Random Glucose 115 Lactic Acid 1.9 Calcium 8.7 Total Bilirubin Direct Bilirubin AST ALT Alkaline Phosphatase Troponin I High Sens 144.2 H* B-Natriuretic Peptide Total Protein Albumin Lipase Urine Color Urine Appearance Urine pH Ur Specific [place] Urine Protein Urine Glucose (UA) Urine Ketones Urine Blood Urine Nitrite Ur Leukocyte Esterase Urine RBC Urine WBC Ur Squamous Epith Cells Urine Bacteria Influenza Type A (PCR) Influenza Type B (PCR) RSV RNA Qual (PCR) SARS-CoV-2 RNA (RT-PCR) 07/20/21 07/21/21 07/21/21 23:56 05:25 05:25 WBC 19.7 H RBC 2.91 L Hgb 8.0 L Hct 25.7 L MCV 88.3 MCH 27.5 MCHC 31.1 RDW 20.5 H Plt Count 258 MPV 9.9 Immature Gran % (Auto) 0.8 H Neut % (Auto) 77.8 H Lymph % (Auto) 12.1 L [place] % (Auto) 8.5 Eos % (Auto) 0.3 Baso % (Auto) 0.5 Lymph # (Auto) 2.4 [place] # (Auto) 1.7 H Eos # (Auto) 0.1 Baso # (Auto) 0.1 Abs Immat Gran (auto) 0.15 H Absolute Neuts (auto) 15.3 H Absolute Nucleated RBC 0.030 H Nucleated RBC % (auto) 0.2 Smear Tech's Comments VERIFIED Sodium 135 137 Potassium 5.5 H 5.0 Chloride 108 107 Carbon Dioxide 14 L 17 L Anion Gap 19 18 BUN 95 H 91 H Creatinine 5.53 H* 5.29 H* Estim Creat Clear Calc 8.5 8.8 Estimated GFR 7 8 Random Glucose 180 H 129 H Lactic Acid Calcium 8.5 8.4 Total Bilirubin 0.4 Direct Bilirubin AST 16 ALT 10 Alkaline Phosphatase 165 H Troponin I High Sens B-Natriuretic Peptide Total Protein 6.3 L Albumin 2.4 L Lipase Urine Color Urine Appearance Urine pH Ur Specific [place] Urine Protein Urine Glucose (UA) Urine Ketones Urine Blood Urine Nitrite Ur Leukocyte Esterase Urine RBC Urine WBC Ur Squamous Epith Cells Urine Bacteria Influenza Type A (PCR) Influenza Type B (PCR) RSV RNA Qual (PCR) SARS-CoV-2 RNA (RT-PCR) Airway Mallampati Class: II TM Dist: >3cm Neck ROM: Limited Denture: Upper Loose/Missing/Broken Teeth: Yes, Upper and Lower Heart: RRR Lungs: distant but cta Assessment and Plan Assessment Anesthesia Assessment: Anesthesia Plan Discussed and Chart Reviewed Final Anesthetic Review Family History of Problems with Anesthesia: No History of Problems with Anesthesia: No ASA Class: IV and Emergency Final Preanesthetic Review: Meds/Allgs Chart Reviewed, Consent Obtained/Reviewed and Anes Risks/Benef Reviewed Patient Risk: High Procedure Risk: Low Anesthetic Plan Anesthetic Plan: GA Disposition: Standard PACU
--- NOTE | 2021-07-21 12:27 | MHC.CM.PN ---
Met with pt in ICU to discuss d/c planning: pt resides alone in an apt with [facility] homemaking services 2 days/week for cooking and shopping. Pt also has support from her son and niece Meri Contreras. Pt uses a walker and O2 at night supplied by [facility]. HCP copy requested for records: Pt states she would like to return home and is accepting of [facility] referral for skilled RN visits. Referral placed. Meri or son Keshawn to transport home. Vax x2.
--- NOTE | 2021-07-21 18:39 | PC.NURSE ---
Patient stable after return from OR s/p ureteral stent placement. Urine output bloody and cloudy initially, now clearing to more yellow. Denies pain. Remains on Levophed to sustain MAP > 65. Tolerating PO liquids. Repositioned per patient wishes.
--- NOTE | 2021-07-21 19:30 | P.PNCC_ITS ---
Subjective Subjective Date of Service: 07/21/21 Interval History: Clinical Precedent to this date: ?Patient is an 85-year-old female who was admitted overnight to with UTI, sepsis and bilateral hydronephrosis in the setting of a small obstructive stones.? The patient had just had a right ureteral stent removed [address] Sung and had been at a rehab from which she was transported to the emergency room with complaints of nausea, vomiting and diarrhea, in the ER the patient was found to be septic, was given IV fluids and antibiotics and subsequently started on Levophed, transferred to the ICU.? The case had been discussed with the urologist who at the time advised to keep the Pedro catheter in place and get an ultrasound 48 hours.? This morning Dr. Lemon had discussed the case with him again and the patient underwent bilateral stent placement which to my understanding was successful. Subjective: Today the pt patient states she feels much better, she is a little sleepy and does not know why, denies nausea, vomiting, abdominal pain, fever or chill like symptoms.? She has not eaten, has poor appetite but denies any other complaints at this point. Focused Review of systems:? As above otherwise the remainder of the review systems were reviewed and they were negative. Objective VS: ?127/2051, heart rate 85, respirations 18, O2 sat 96% on 2 L nasal cannula. General:? Alert oriented x3 no acute distress Skin:? Intact, no lesions or rash HEENT:? Normocephalic, atraumatic, extraocular movements intact, neck is supple, no lymphadenopathy.? Buccal mucosa moist.? Throat midline. Cardiac:? Clear S1-S2, no murmurs rubs or gallops. Pulmonary:? Clear to auscultation, no wheezes, rales or rhonchi. Abdomen:? Protuberant, positive bowel sounds in all 4 quadrants.? Soft, minimally tender over the epigastric area only, but no rebound or guarding.? No CVA tenderness. Musculoskeletal:? Moving all 4 extremities upon request a major joints, no calf tenderness, no edema. Neurologic:? As above, no focal deficits. Vascular:? 2+ pulses upper and lower extremities distally. Less than 2nd capillary refill finger and toes bilaterally SIGNIFICANT LABORATORY DATA: ?Labs are reviewed from this morning prior to the stent procedure White count 19.7 which is slightly higher from yesterday (18), H&H 8 and 25.7 respectively, platelet count 258, ANC 15, sodium 137, potassium 5.0, chloride 1 7, carbon dioxide 17, BUN 9 day 1, creatinine 5.29 (5.53), albumin 2.4. ASSESSMENT AND PLAN: 1. UTI 2. Sepsis 3. Postop Cystoscopy, bilateral retrograde, bilateral stent placement for bilateral hydroureteronephrosis 4. Resolved hyperkalemia 5. Improving acute kidney injury on CKD III 6. Hypoalbuminemia 7. Stable in chronic COPD without exacerbation 8. Metabolic Acidosis At this point will continue to administer antibiotics and will continue with bicarb drip.? I will repeat a set of laboratories tonight and continue to monitor her renal function, patient is hypoalbuminemic, will give her albumin salt with hopes of increasing her oncotic pressure and hopefully discontinuing vasopressors.Appreciate Neprhology and Urology input. GI PROPHYLAXIS:? On PPI DVT PROPHYLAXIS:? On heparin Critical care time used for critical evaluation of this patient, diagnosis, treatment and coordination of care, review her records and documentation TOTAL CRITICAL CARE TIME 60 MIN Patient's care was discussed in detail with Dr. Mg.? He is aware of all the above as well as the plan of care for this patient.? Critical Care Time (minutes): 60 Physical Exam Vital Signs: Vital Signs: Last Vital Signs Temp 97.7 F 07/21/21 12:00 Pulse 85 07/21/21 19:00 Resp 18 07/21/21 19:00 BP 127/52 L 07/21/21 19:22 Pulse Ox 96 07/21/21 19:00 Oxygen Flow Rate 2 07/21/21 14:06 BMI result Body Mass Index 41.7 Objective Data Labs CBC & Chem 7: 07/22/21 05:35 07/22/21 05:35 Labs: Laboratory Results - last 24 hr 07/20/21 07/20/21 07/20/21 19:44 21:31 23:56 WBC RBC Hgb Hct MCV MCH MCHC RDW Plt Count MPV Immature Gran % (Auto) Neut % (Auto) Lymph % (Auto) [place] % (Auto) Eos % (Auto) Baso % (Auto) Lymph # (Auto) [place] # (Auto) Eos # (Auto) Baso # (Auto) Abs Immat Gran (auto) Absolute Neuts (auto) Absolute Nucleated RBC Nucleated RBC % (auto) Smear Tech's Comments Sodium 135 Potassium 5.5 H Chloride 108 Carbon Dioxide 14 L Anion Gap 19 BUN 95 H Creatinine 5.53 H* Estim Creat Clear Calc 8.5 Estimated GFR 7 Random Glucose 180 H Lactic Acid 1.9 Calcium 8.5 Total Bilirubin AST ALT Alkaline Phosphatase Troponin I High Sens 144.2 H* Total Protein Albumin 07/21/21 07/21/21 05:25 05:25 WBC 19.7 H RBC 2.91 L Hgb 8.0 L Hct 25.7 L MCV 88.3 MCH 27.5 MCHC 31.1 RDW 20.5 H Plt Count 258 MPV 9.9 Immature Gran % (Auto) 0.8 H Neut % (Auto) 77.8 H Lymph % (Auto) 12.1 L [place] % (Auto) 8.5 Eos % (Auto) 0.3 Baso % (Auto) 0.5 Lymph # (Auto) 2.4 [place] # (Auto) 1.7 H Eos # (Auto) 0.1 Baso # (Auto) 0.1 Abs Immat Gran (auto) 0.15 H Absolute Neuts (auto) 15.3 H Absolute Nucleated RBC 0.030 H Nucleated RBC % (auto) 0.2 Smear Tech's Comments VERIFIED Sodium 137 Potassium 5.0 Chloride 107 Carbon Dioxide 17 L Anion Gap 18 BUN 91 H Creatinine 5.29 H* Estim Creat Clear Calc 8.8 Estimated GFR 8 Random Glucose 129 H Lactic Acid Calcium 8.4 Total Bilirubin 0.4 AST 16 ALT 10 Alkaline Phosphatase 165 H Troponin I High Sens Total Protein 6.3 L Albumin 2.4 L Microbiology Microbiology Results: Microbiology 07/20/21 15:18 Blood - Venous Blood Culture - Preliminary No growth after 24 hours. 07/20/21 15:18 Blood - Venous Blood Culture - Preliminary Prelim: GNR Gram Stain only 07/20/21 15:44 Urine Catheterized - Pedro Catheter Urine Culture - Preliminary Culture in progress. Quality Stroke Does the patient have a stroke diagnosis?: No VTE Prior VTE?: No VTE Risk Level:: Medical - moderate - high VTE Device Contraindication: N/A - Device Ordered VTE Drug Contraindication: N/A - Med Ordered
[2021-07-21 19:57] LABS: Anion Gap 19 (12-20); Blood Urea Nitrogen 86 mg/dL (9-16); Carbon Dioxide 17 mmol/L (22-29); Chloride 106 mmol/L (96-108); Creatinine Clr Calc Pharmacy 9.9; Estimated Glomerular Filt Rate 9; Glucose Random 121 mg/dL (60-115); Potassium 4.5 mmol/L (3.3-5.1); Sodium 137 mmol/L (135-145)
[2021-07-21] MEDS: Albumin Human 25 % 100 ML IV ×2 (19:59→21:20)
[2021-07-22] VITALS (27 sets, daily range): BP systolic 90–134; BP diastolic 38–71; PULSE 68–99; RESP 16–25; TEMP 36.6–36.9; O2SAT 91–100; BMI 43.2
[2021-07-22] MEDS: Sodium Bicarbonate 8.4% 150 MEQ in Dextrose 5 % 850 ML 50 MEQ IV (03:18)
[2021-07-22] MEDS: Piperacillin Sodium/Tazobactam 2.25 GM in 0.9 % Sodium Chloride 50 ML IV ×3 (03:19→22:08)
[2021-07-22] MEDS: Heparin Sodium,Porcine 5,000 UNIT/ML VIAL 5000 UNIT SUBCUT (05:33)
[2021-07-22 05:48] LABS: MANUAL DIFF FLAG NO
[2021-07-22 05:53] LABS: Basophils Percent Auto 0.4 % (0-2); Eosinophils Absolute Auto 0.2 X10*3/uL (0.0-0.4); Eosinophils Percent Auto 1.6 % (0-4); Hematocrit 21.7 % (37.0-47.0); Imm Gran Abs Auto 0.08 X10*3/uL (0.00-0.03); Imm Gran Pct Auto 0.8 % (0.0-0.4); Lymphocytes Absolute Auto 2.5 X10*3/uL (1.2-4.9); Lymphocytes Percent Auto 23.8 % (20-40); Mean Corpuscular HGB Conc 31.3 g/dl (31.0-35.0); Mean Corpuscular Hemoglobin 27.5 pg (27.0-33.0); Mean Corpuscular Volume 87.9 fL (80.0-98.0); Mean Platelet Volume 9.4 fL (9.4-12.3); Monocytes Percent Auto 10.1 % (2-11); Neutrophils Absolute Auto 6.5 x10*3/uL (2.0-8.3); Neutrophils Percent Auto 63.3 % (45-73); Platelet Count 182 X10*3/uL (160-400); Red Blood Count 2.47 X10*6/uL (4.20-5.50); Red Cell Distribution Width 20.4 % (11.0-16.0); White Blood Count 10.3 X10*3/uL (4.8-10.8)
[2021-07-22 06:02] LABS: Hemoglobin 6.8 g/dl (12.0-16.0)
[2021-07-22 06:19] LABS: Alanine Aminotransferase 10 U/L (0-31); Albumin Level 2.6 g/dL (3.5-5.0); Alkaline Phosphatase 154 U/L (39-117); Anion Gap 16 (12-20); Aspartate Amino Transferase 15 U/L (5-31); Bilirubin Total 0.9 mg/dL (0.0-1.0); Blood Urea Nitrogen 84 mg/dL (9-16); Calcium 8.1 mg/dL (8.4-10.2); Carbon Dioxide 21 mmol/L (22-29); Chloride 105 mmol/L (96-108); Estimated Glomerular Filt Rate 10; Glucose Random 105 mg/dL (60-115); Phosphorus 4.4 mg/dL (2.7-4.5); Potassium 4.1 mmol/L (3.3-5.1); Sodium 138 mmol/L (135-145); Total Protein 5.8 g/dL (6.5-8.0)
--- NOTE | 2021-07-22 07:11 | HO.POSTANES ---
Post Anesthesia Evaluation Post Anesthesia Evaluation Vital Signs: Vital Signs Pulse Resp BP Pulse Ox 07/22/21 05:59 89 21 H 130/60 94 07/22/21 05:33 130/60 07/22/21 04:59 89 19 122/46 L 93 07/22/21 04:00 91 19 101/56 L 91 L 07/22/21 02:53 91 23 H 134/61 100 07/22/21 02:00 68 19 120/59 L 100 07/22/21 00:59 86 25 H 110/38 L 95 07/22/21 00:00 91 23 H 99/40 L 93 07/21/21 23:36 125/45 L 07/21/21 23:00 90 22 H 125/45 L 95 07/21/21 22:45 123/44 L 07/21/21 22:00 84 19 126/48 L 93 07/21/21 21:00 88 23 H 122/38 L 96 07/21/21 20:00 92 25 H 98/39 L 97 07/21/21 19:22 127/52 L Anesthesia: General Mental Status: Awake Pain Control: Satisfactory Nausea/Vomiting: Mild Hydration: Adequate Anesthesia-Related Issues: No Anes. Related Issues
[2021-07-22] MEDS: Acetaminophen 325 MG TABLET 650 MG PO (08:23)
[2021-07-22] MEDS: Sodium Bicarbonate 650 MG TABLET PO ×3 (08:24→20:26)
[2021-07-22] MEDS: Aspirin Enteric Coated 81 MG TABLET.DR PO (08:25)
[2021-07-22] MEDS: Docusate Sodium 100 MG CAPSULE PO (08:25)
[2021-07-22] MEDS: Omeprazole 20 MG CAPSULE.DR PO (08:25)
[2021-07-22] MEDS: Cholecalciferol (Vitamin D3) 10 MCG TABLET PO (08:25)
--- NOTE | 2021-07-22 11:05 | P.CONNP_ITS ---
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 Patient had recent right ureteric stent removal 3 days prior to ED presentation secondary to obstructive ureteric stone. CT abdomen and pelvis was performed which showed b/l hydronephrosis (new) with obstructing renal stone on right. She was subsequnetly seen by Urology and is now s/p cystoscopy, bilateral retrograde, bilateral stent placement. S-Cr has since been improving since that time. ROS otherwise negative. Review of Systems Constitutional: Reports as per [facility] Past Medical History Medical History Abdominal aortic aneurysm (AAA) without rupture Acute blood loss anemia Atherosclerotic cardiovascular disease CKD (chronic kidney disease) stage 3, GFR 30-59 ml/min COPD (chronic obstructive pulmonary disease) Kidney stone on right side Nocturnal hypoxemia Obesity Recurrent falls Restrictive lung disease Skin tear of hand without complication Smoker Family History Family History Father No problems noted. Mother No problems noted. Social History Social History Household Members: None Housing: Other Housing Other:: SNF Alcohol intake: never Patient Tobacco Use Status: Never used Tobacco Tobacco use type: Cigarette Cigarettes Per Day: 1 Use of substances other than those prescribed or required for medical reasons: No Currently Displaying Signs/Symptoms of Drug Intoxication Withdrawal: No Any prior treatment program specific to substance use: No Have you been hit, kicked, punched, or otherwise hurt by someone within the past year? If so, by whom?: No Do you feel safe in your current relationship?: No Current Relationship Is there a partner from a previous relationship who is making you feel unsafe now?: No Are you made to feel afraid or neglected: No Advance Directives: No Advance Directives Information Provided: No Do you have thoughts of harming others: None Do you have a plan to hurt others: No Plan Recently lost weight without trying: No Patient : No : No Poor oral hygiene: No service: No Current occupational status: retired [employer] Allergies Allergy/AdvReac Type Severity Reaction Status Date / Time No Known Allergies Allergy Verified 05/17/21 10:30 [No Known Allergies*] Active Medications: Current Medications Acetaminophen (Acetaminophen 325 Mg Tablet) 650 mg PO DAILY [facility] Last Admin: 07/22/21 08:23 Dose: 650 mg Documented by: Aspirin (Aspirin Enteric Coated 81 Mg Tablet.) 81 mg PO DAILY [facility] Last Admin: 07/22/21 08:25 Dose: 81 mg Documented by: Docusate Sodium (Docusate Sodium 100 Mg Capsule) 100 mg PO BID [facility] Last Admin: 07/22/21 08:25 Dose: 100 mg Documented by: Norepinephrine Bitartrate (Levophed) 8 mg in 250 mls @ 0 mls/hr IVCONT .Q0M [facility]; Protocol Last Titration: 07/22/21 08:34 Dose: 0.06 mcg/kg/min, 11.93 mls/hr Documented by: Piperacillin Sod/Tazobactam (Sod 2.25 gm/ Sodium Chloride) 50 mls @ 100 mls/hr IV Q8H [facility] Last Infusion: 07/22/21 04:06 Dose: Infused Documented by: Melatonin (Melatonin 3 Mg Tablet) 3 mg PO BEDTIME [facility] Last Admin: 07/21/21 20:02 Dose: Not Given Documented by: Omeprazole (Omeprazole 20 Mg Capsule.) 20 mg PO DAILY [facility] Last Admin: 07/22/21 08:25 Dose: 20 mg Documented by: Pharmacy Consult (Consult Rx Perform Med Rec) 1 each MISCELLANE ONCE PRN PRN Reason: Consult order Sodium Bicarbonate (Sodium Bicarbonate 650 Mg Tablet) 650 mg PO TID [facility] Last Admin: 07/22/21 08:24 Dose: 650 mg Documented by: Vitamin D (Cholecalciferol (Vitamin D3) 10 Mcg Tablet) 10 mcg PO DAILY [facility] Last Admin: 07/22/21 08:25 Dose: 10 mcg Documented by: Home Medications Medication Instructions Recorded Confirmed Last Taken Type cholecalciferol (vitamin D3) 10 10 mcg PO DAILY 04/16/20 07/20/21 07/20/21 History mcg (400 unit) capsule furosemide 20 mg tablet 20 mg PO DAILY 04/16/20 07/20/21 07/20/21 History lisinopril 20 mg tablet 20 mg PO DAILY 04/16/20 07/20/21 07/20/21 History aspirin 81 mg tablet,delayed 81 mg PO DAILY 04/21/20 07/20/21 07/20/21 History release (Adult Low Dose Aspirin) acetaminophen 325 mg tablet 650 mg PO DAILY 07/20/21 07/20/21 07/20/21 History (Tylenol) atorvastatin 40 mg tablet 40 mg PO BEDTIME 07/20/21 07/20/21 07/19/21 History docusate sodium 100 mg capsule 100 mg PO BID 07/20/21 07/20/21 07/20/21 History (Colace) guaifenesin 100 mg/5 mL oral liquid 200 mg PO TID 07/20/21 07/20/21 07/20/21 History meclizine 12.5 mg tablet 12.5 mg PO TID PRN 07/20/21 07/20/21 Unknown History melatonin 3 mg tablet 3 mg PO BEDTIME 07/20/21 07/20/21 07/19/21 History omeprazole 20 mg tablet,delayed 20 mg PO DAILY 07/20/21 07/20/21 07/20/21 History release pantoprazole 40 mg tablet,delayed 40 mg PO DAILY 07/20/21 07/20/21 07/20/21 History release (Protonix) polyethylene glycol 3350 17 17 g PO DAILY 07/20/21 07/20/21 07/16/21 History gram/dose oral powder (Miralax) Physical Exam Vital Signs: Last Vital Signs Temp 98.0 F 07/22/21 10:23 Pulse 74 07/22/21 10:23 Resp 20 07/22/21 10:23 BP 129/59 L 07/22/21 10:23 Pulse Ox 95 07/22/21 10:00 Oxygen Flow Rate 2 07/21/21 14:06 BMI result Body Mass Index 43.2 Const General: no acute distress Orientation/consciousness: patient oriented x3 HEENT Head: Yes normocephalic Neck Neck: Yes no JVD Resp Auscultation: clear to auscultation bilaterally Cardio Jugular venous distension: no JVD Rate: regular rate Rhythm: regular rhythm Heart sounds: S1 normal heart sound present and S2 normal heart sound present GI Auscultation: normal bowel sounds Neuro General: patient oriented x3 Extrem General: Yes no clubbing, cyanosis or edema Results Lab Results Result Diagrams: 07/22/21 05:35 07/22/21 05:35 Lab results: Chemistry 07/20/21 07/20/21 07/20/21 15:18 18:53 23:56 Sodium 134 L 135 135 Potassium 6.3 H* D 5.6 H 5.5 H Carbon Dioxide 12 L 12 L 14 L BUN 101 H D 96 H 95 H Creatinine 5.97 H* 5.67 H* 5.53 H* Calcium 8.9 8.7 8.5 Phosphorus 07/21/21 07/21/21 07/22/21 05:25 19:30 05:35 Sodium 137 137 138 Potassium 5.0 4.5 4.1 Carbon Dioxide 17 L 17 L 21 L BUN 91 H 86 H 84 H Creatinine 5.29 H* 4.68 H* 4.30 H* Calcium 8.4 8.0 L 8.1 L Phosphorus 4.4 Hematology 07/20/21 07/21/21 07/22/21 15:18 05:25 05:35 WBC 18.7 H 19.7 H 10.3 Hgb 8.4 L 8.0 L 6.8 L* Plt Count 265 D 258 182 D Urinalysis 07/20/21 15:18 Urine Color YELLOW Urine Appearance TURBID Urine pH 6.0 Ur Specific [place] 1.020 Urine Protein 1+ H Urine Glucose (UA) NEG Urine Ketones NEG Urine Blood 3+ H Urine Nitrite NEG Ur Leukocyte Esterase 3+ H Urine RBC 30-49 H Urine WBC TNTC H Ur Squamous Epith Cells NONE Assessment and Plan (1) Acute on chronic kidney failure: Status: Acute 85-year-old female patient with past medical history of CKD III (BL S-Cr ~ 2.2- 2.3 mg/dL), COPD on 2 L of oxygen at night, morbid obesity, restrictive lung disease, and 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 Patient had recent right ureteric stent removal 3 days prior to ED presentation secondary to obstructive ureteric stone. CT abdomen and pelvis was performed which showed b/l hydronephrosis (new) with obstructing renal stone on right. She was subsequently seen by Urology and is now s/p cystoscopy, bilateral retrograde, bilateral stent placement. S-Cr has since been improving since that time. #) GAURANG, non-oliguric on CKD -S-Cr peaked at 5.97 but has been trending downward since 07/20. -No indication for CEMENTER MACHINE at this time. -CKD - BL ~ 2.2 mg/dL. We will continue to monitor and she will require outpatient follow up for continued assessment. -She has appropriately received prbc transfusion and is now on albumin to defend her intravascular space. -Continue to hold nephrotoxic agents such as acei/arb, nsaids, IV contrast, and renal dose abx. -Monitor I/O's. #Anemia: prbc transfusion for now to maintain hgb> 7.0. Will need to follow up on iron panel and determine whether candidate for ERIC> #Electrolytes otherwise stable. #CKD-MBD: check PTH as well along with iCa, phosphorus. (2) Acute pyelonephritis: Status: Acute (3) Hydronephrosis: Status: Acute Procedures Date of Service Date of Service: 07/22/21
--- NOTE | 2021-07-22 13:28 | MHC.CM.PN ---
Per review into pt's previous admission, pt had been d/c'd to [facility] . Discussed this with pt who stated this was correct but wanted to return to home. Discussed physical deconditioning, need for continued medical manangement and nursing care and limitations with VNA for above: pt in agreement to referral back to [facility] for STR. Referral placed: awaiting acceptance. HCP from previous visit on file and verified: EUGENE to follow
--- NOTE | 2021-07-22 14:01 | PM.CCPN ---
Subjective Subjective Date of Service: 07/22/21 Interval History: Mrs. Appiah was admitted to ICU on July 20 [facility] of urosepsis and GAURANG. The patient is an 85-year-old F with PMHx of COPD who uses oxygen at night only, 2L NC, hyperlipidemia, obesity, leg edema without CHF, history of kidney stones status post 18 ESWLs, CKD (basline creat about 1.7), AAA s/p aortobiiliac endograft 2015, left carotid artery stenosis, possible coronary artery disease without intervention as described per patient, ongoing smoker, bladder incontinence among others.? She takes a baby aspirin, no other anticoagulation. Up until June 07, she lived alone.? Still did some cooking.? Got around with a walker. On June 07, she was BIBA to the ED w left sided abdominal pain and bloody bowel movements after she he fell at home.? She has BRBPR and GAURANG.? CT showed no acute abdom process, but she had new mild right hydronephrosis from a right UPJ and proximal ureteral stones.? A bleeding scan was negative.?? She was transfused 1 unit RBCs.? The next day she underwent cystoscopy and placement of a right-sided stent.? The patient declined a bowel prep and colonoscopy due to her overall condition, and was scheduled for GI follow-up as an outpatient.? Because of decreased mobility from her fall, she was discharged to rehab on June 11.? She tells me that at the rehab facility, they try to get her out of bed, but she cannot bear weight on her legs.? They do get her out of bed to a chair. HISTORY OF PRESENT ILLNESS: The patient was BIBA to the ED again on July 20 [facility] of hypotension and vomiting.? She had had her right-sided stent removed 3 days prior. In the ED the patient was alert and oriented, and in no distress.? She was hypotensive 76/30.? Otherwise breathing easy.? She was clinically dehydrated.? The abdomen was soft.? White count was 18, Hemoglobin was 8 (unchanged), BUN/creatinine were 101/5.9 (were 20/1.6 five weeks prior), potassium was 6.3, bicarb was 12, lactic acid was 1.8, albumin was 2.6.? Abdominal CT showed bilateral hydronephrosis, with a new obstructing stone in the distal right ureter; there was new left-sided hydronephrosis with no definite obstructing stone.? There was mild-moderate perinephric stranding. The patient was volume resuscitated, given antibiotics, and treated for hyperkalemia.? A central line was placed and she was started on Levophed.? She was admitted to the ICU with urinary tract infection, severe sepsis, acute kidney injury, with consequent hyperkalemia and metabolic acidosis.? She was continued with Zosyn, Levophed, and a bicarbonate drip. Yesterday the patient went to the OR for cysto and bilateral ureteral stents.? Notably, the left side had post-obstructive flow.? The patient has had progressive symptomatic improvement. On exam this afternoon, she is arousable and oriented.? Breathing easy on 2 L nasal cannula, sat was 98%.? On room air, her sat is 91%.? HR 87, SR. ?On Levophed 0.04ug, BP on right arm is 126/67, on left arm is 112/55.? F/U right arm BP with Levophed off is 134/62.? She?s been afebrile her entire hospital course.? No JVD at 30-40?.? Chest is clear to auscultation.? Heart rate and rhythm are regular, with normal-sounding S1 and S2 without any murmur or gallop.? Abdomen benign, no CVAT.? Has probably at least 1+ central edema. LABORATORY DATA:? As below.? Notably, white count is down to 10.3, hemoglobin down to 6.8.? BUN and creatinine down slightly to 84/4.3 (from 86/4.6 yesterday). MICROBIOLOGY: ?1 out of 2 sets of blood cultures drawn from the ED is growing Gram-negative rods, yet to be ID?d; the urine from the ED also growing Gram-negative rods, yet to be ID?d.? Note that her last urine cx on 06/07/21 grew EColi, sensitive to ceftriaxone and Levaquin. IMPRESSION: 1. Underlying? Morbid obesity. 2. Underlying deconditioning.? Needs intensive PT.? It?s going to be a long time till she?s able to live at home again if ever.? I?m doubtful she?ll ever go home. 3. Ongoing smoker with underlying COPD, on home oxygen. 4. History of nephrolithiasis. 5. Underlying CKD, probably stage III. 6. Underlying peripheral vascular disease 7. Acute right UPJ stone with obstructive uropathy and bilat hydronephrosis; s/p bilat stents. 8. GAURANG 2? obstructive uropathy, sepsis, hypovolemia.? Improving slowly. 9. UTI w severe sepsis 2? above.? On appropriate abx.? Should be able to narrow the spectrum once the ID comes back.? Needs repeat BCs.? Ordered for tomorrow morning. 10. Hypovolemia.? Resolving. 11. Hyperkalemia.? Resolved 12. Met acidosis.? 2? GAURANG.? Resolving. 13. Anemia.? Mostly ACD, but some blood loss component.? Also waiting for a stool guiac.? Transfused one unit RBC today. 14. Protein calorie malnutrition.? Probably moderate.? Renal diet. Stable for transfer to [facility].? Will sign out to hospitalists. Critical Care Time (minutes): 0 Physical Exam Vital Signs: Vital Signs: Last Vital Signs Temp 98.0 F 07/22/21 12:00 Pulse 86 07/22/21 13:00 Resp 17 07/22/21 13:00 BP 106/43 L 07/22/21 13:00 Pulse Ox 96 07/22/21 13:00 Oxygen Flow Rate 2 07/21/21 14:06 BMI result Body Mass Index 43.2 Objective Data Labs CBC & Chem 7: 07/22/21 05:35 07/22/21 05:35 Labs: Laboratory Results - last 24 hr 07/21/21 07/22/21 07/22/21 19:30 05:35 05:35 WBC 10.3 RBC 2.47 L Hgb 6.8 L* Hct 21.7 L MCV 87.9 MCH 27.5 MCHC 31.3 RDW 20.4 H Plt Count 182 D MPV 9.4 Immature Gran % (Auto) 0.8 H Neut % (Auto) 63.3 Lymph % (Auto) 23.8 [place] % (Auto) 10.1 Eos % (Auto) 1.6 Baso % (Auto) 0.4 Lymph # (Auto) 2.5 [place] # (Auto) 1.0 Eos # (Auto) 0.2 Baso # (Auto) 0.0 Abs Immat Gran (auto) 0.08 H Absolute Neuts (auto) 6.5 Absolute Nucleated RBC 0.000 Nucleated RBC % (auto) 0.0 Smear Path Review SEE NOTE Sodium 137 138 Potassium 4.5 4.1 Chloride 106 105 Carbon Dioxide 17 L 21 L Anion Gap 19 16 BUN 86 H 84 H Creatinine 4.68 H* 4.30 H* Estim Creat Clear Calc 9.9 11.0 Estimated GFR 9 10 Random Glucose 121 H 105 Calcium 8.0 L 8.1 L Phosphorus 4.4 Total Bilirubin 0.9 AST 15 ALT 10 Alkaline Phosphatase 154 H Total Protein 5.8 L Albumin 2.6 L Blood Type Antibody Screen Crossmatch 07/22/21 06:21 WBC RBC Hgb Hct MCV MCH MCHC RDW Plt Count MPV Immature Gran % (Auto) Neut % (Auto) Lymph % (Auto) [place] % (Auto) Eos % (Auto) Baso % (Auto) Lymph # (Auto) [place] # (Auto) Eos # (Auto) Baso # (Auto) Abs Immat Gran (auto) Absolute Neuts (auto) Absolute Nucleated RBC Nucleated RBC % (auto) Smear Path Review Sodium Potassium Chloride Carbon Dioxide Anion Gap BUN Creatinine Estim Creat Clear Calc Estimated GFR Random Glucose Calcium Phosphorus Total Bilirubin AST ALT Alkaline Phosphatase Total Protein Albumin Blood Type O Negative Antibody Screen NEGATIVE Crossmatch See Detail Microbiology Microbiology Results: Microbiology 07/20/21 15:44 Urine Catheterized - Pedro Catheter Urine Culture - Preliminary Gram negative hiren 07/20/21 15:18 Blood - Venous Blood Culture - Preliminary Gram negative hiren 07/20/21 15:18 Blood - Venous Blood Culture - Preliminary No growth after 24 hours. Quality Stroke Does the patient have a stroke diagnosis?: No VTE Prior VTE?: No VTE Risk Level:: Medical - moderate - high VTE Device Contraindication: N/A - Device Ordered VTE Drug Contraindication: N/A - Med Ordered
--- NOTE | 2021-07-22 16:23 | P.PNUR_ITS ---
Subjective Subjective Date of Service: 07/22/21 Interval history: Portia is 85-year-old female Admitted with acute on chronic renal failure Bilateral hydroureteronephrosis Bilateral stents placed 07/21/21 CT scan 07/20 bilateral hydroureteronephrosis. Left hydroureteronephrosis likely secondary to large AAA with desmoplastic reaction. Right ureter has small stone at UVJ White count resolving with antibiotics Showing some improvement in creatinine Would continue with drainage Physical Exam Vital Signs: Vital Signs: Last Vital Signs Temp 98.0 F 07/22/21 12:00 Pulse 97 07/22/21 15:00 Resp 23 H 07/22/21 15:00 BP 95/48 L 07/22/21 15:00 Pulse Ox 96 07/22/21 15:00 Oxygen Flow Rate 2 07/21/21 14:06 BMI result Body Mass Index 43.2 Const: General: cooperative, healthy appearing, comfortable and no acute distress Orientation/consciousness: patient oriented x3 HEENT: Face and sinus: Yes normal facial exam Mouth: moist mucous membranes Neck: Neck: Yes normal visual inspection, Yes full ROM and Yes trachea midline Chest: Chest palpation & inspection: normal inspection of the chest Resp: Effort & Inspection: normal respiratory effort, able to speak in complete sentences and no respiratory distress GI: Inspection: Yes normal to inspection Back/Spine/Pelvis: Cervical Spine: normal cervical lordosis Thoracic/Lumbar Spine: thoracic and lumbar spine normal to inspection Skin: General skin exam: no rashes or lesions noted Neuro: General: patient oriented x3, tone normal and moves all extremities Extrem: General: Yes normal to inspection and Yes capillary refill normal Urology Results Labs CBC & Chem 7: 07/22/21 05:35 07/22/21 05:35 Labs: Laboratory Results - last 24 hr 07/21/21 07/22/21 07/22/21 19:30 05:35 05:35 WBC 10.3 RBC 2.47 L Hgb 6.8 L* Hct 21.7 L MCV 87.9 MCH 27.5 MCHC 31.3 RDW 20.4 H Plt Count 182 D MPV 9.4 Immature Gran % (Auto) 0.8 H Neut % (Auto) 63.3 Lymph % (Auto) 23.8 [place] % (Auto) 10.1 Eos % (Auto) 1.6 Baso % (Auto) 0.4 Lymph # (Auto) 2.5 [place] # (Auto) 1.0 Eos # (Auto) 0.2 Baso # (Auto) 0.0 Abs Immat Gran (auto) 0.08 H Absolute Neuts (auto) 6.5 Absolute Nucleated RBC 0.000 Nucleated RBC % (auto) 0.0 Smear Path Review SEE NOTE Sodium 137 138 Potassium 4.5 4.1 Chloride 106 105 Carbon Dioxide 17 L 21 L Anion Gap 19 16 BUN 86 H 84 H Creatinine 4.68 H* 4.30 H* Estim Creat Clear Calc 9.9 11.0 Estimated GFR 9 10 Random Glucose 121 H 105 Calcium 8.0 L 8.1 L Phosphorus 4.4 Total Bilirubin 0.9 AST 15 ALT 10 Alkaline Phosphatase 154 H Total Protein 5.8 L Albumin 2.6 L Blood Type Antibody Screen Crossmatch 07/22/21 06:21 WBC RBC Hgb Hct MCV MCH MCHC RDW Plt Count MPV Immature Gran % (Auto) Neut % (Auto) Lymph % (Auto) [place] % (Auto) Eos % (Auto) Baso % (Auto) Lymph # (Auto) [place] # (Auto) Eos # (Auto) Baso # (Auto) Abs Immat Gran (auto) Absolute Neuts (auto) Absolute Nucleated RBC Nucleated RBC % (auto) Smear Path Review Sodium Potassium Chloride Carbon Dioxide Anion Gap BUN Creatinine Estim Creat Clear Calc Estimated GFR Random Glucose Calcium Phosphorus Total Bilirubin AST ALT Alkaline Phosphatase Total Protein Albumin Blood Type O Negative Antibody Screen NEGATIVE Crossmatch See Detail Progress Note: A&P Assessment and plan (1) Hydronephrosis: Status: Acute (2) Acute pyelonephritis: Status: Acute Plan Stents to remain while creatinine normalizes Time Spent With Patient Time: Total time spent is greater than 50% in coordination of care (as documented) at patient's floor/unit and/or counseling patient: Progress Note: Quality Stroke Does the patient have a stroke diagnosis?: No
[2021-07-22 16:43] LABS: OBS Int Ctl Valid YES; OBS1 POSITIVE (NEGATIVE)
--- NOTE | 2021-07-22 17:14 | PC.NURSE ---
RN TO RN REPORT GIVEN. FAMILY CALLED AND UPDATED ON HEALTH STATUS AND ROOM CHANGE. TLC REMOVED.
[2021-07-23 03:15] VITALS: BP 100/58; PULSE 94; RESP 20; TEMP 36.1; O2SAT 95
[2021-07-23 06:00] VITALS: BMI 40.6
[2021-07-23] MEDS: Piperacillin Sodium/Tazobactam 2.25 GM in 0.9 % Sodium Chloride 50 ML IV ×3 (06:13→22:40)
[2021-07-23 07:07] LABS: Hematocrit 24.7 % (37.0-47.0); Hemoglobin 7.8 g/dl (12.0-16.0); Mean Corpuscular HGB Conc 31.6 g/dl (31.0-35.0); Mean Corpuscular Hemoglobin 28.4 pg (27.0-33.0); Mean Corpuscular Volume 89.8 fL (80.0-98.0); Platelet Count 156 X10*3/uL (160-400); Red Blood Count 2.75 X10*6/uL (4.20-5.50); Red Cell Distribution Width 19.8 % (11.0-16.0); White Blood Count 7.4 X10*3/uL (4.8-10.8)
[2021-07-23 07:33] LABS: Anion Gap 13 (12-20); Blood Urea Nitrogen 72 mg/dL (9-16); Calcium 8.3 mg/dL (8.4-10.2); Carbon Dioxide 23 mmol/L (22-29); Chloride 109 mmol/L (96-108); Estimated Glomerular Filt Rate 12; Glucose Random 83 mg/dL (60-115); Phosphorus 4.1 mg/dL (2.7-4.5); Sodium 141 mmol/L (135-145)
[2021-07-23 07:34] LABS: Magnesium 1.3 mg/dL (1.6-2.6)
[2021-07-23 07:50] VITALS: BP 106/57; PULSE 85; RESP 18; TEMP 36.3; O2SAT 97
[2021-07-23 07:59] LABS: Hematocrit 25.5 % (37.0-47.0); Hemoglobin 7.8 g/dl (12.0-16.0); Mean Corpuscular HGB Conc 30.6 g/dl (31.0-35.0); Mean Corpuscular Hemoglobin 27.7 pg (27.0-33.0); Mean Corpuscular Volume 90.4 fL (80.0-98.0); Mean Platelet Volume 9.7 fL (9.4-12.3); NRBC Pct Auto 0.3 /100WBC (0.0-0.2); Platelet Count 149 X10*3/uL (160-400); Red Blood Count 2.82 X10*6/uL (4.20-5.50); Red Cell Distribution Width 19.8 % (11.0-16.0); White Blood Count 7.9 X10*3/uL (4.8-10.8)
[2021-07-23] MEDS: Aspirin Enteric Coated 81 MG TABLET.DR PO (08:18)
[2021-07-23] MEDS: Sodium Bicarbonate 650 MG TABLET PO ×3 (08:18→22:40)
[2021-07-23] MEDS: Acetaminophen 325 MG TABLET 650 MG PO (08:18)
[2021-07-23] MEDS: Omeprazole 20 MG CAPSULE.DR PO (08:18)
[2021-07-23] MEDS: Cholecalciferol (Vitamin D3) 10 MCG TABLET PO (08:20)
[2021-07-23] MEDS: Magnesium Sulfate/H2O 2 GM/50 ML PIGGYBACK IV (08:21)
[2021-07-23 08:39] VITALS: BP 106/57; PULSE 85; O2SAT 97
--- NOTE | 2021-07-23 09:00 | MHC.IC ---
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 Contact Precautions order placed. Provider and RN notified via [employer]
[2021-07-23 11:09] VITALS: BP 111/60; PULSE 88; RESP 18; TEMP 36.4; O2SAT 97
--- NOTE | 2021-07-23 11:56 | MHC.CM.PN ---
Per ROUNDS discussion, Patient is not yet medically cleared for dc (UTI,IV Zosyn); PT is recommending STR and CM will continue to follow.
--- NOTE | 2021-07-23 13:57 | HO.PM.IMPN ---
Subjective Subjective Date of Service: 07/23/21 Interval History: seen and examined this morning downgraded from the ICU yesterday afternoon follow up for urosepsis, GAURANG reporting pain at IV site, denies abdominal pain, nausea, vomiting, fever, chills. Denies flank pain Review of Systems Review of Systems: Yes all other systems are reviewed and are negative Constitutional Constitutional: Denies chills and Denies fever(s) Cardiovascular Cardiovascular: Denies chest pain, Denies palpitations and Denies dyspnea Respiratory Respiratory: Denies cough and Denies dyspnea Gastrointestinal Gastrointestinal: Denies diarrhea, Denies nausea and Denies vomiting Endocrine Endocrine: Denies palpitations Physical Exam Vital Signs: Vital Signs: Last Vital Signs Temp 97.5 F 07/23/21 11:09 Pulse 88 07/23/21 11:09 Resp 18 07/23/21 11:09 BP 111/60 07/23/21 11:09 Pulse Ox 97 07/23/21 11:09 Oxygen Flow Rate 2 07/21/21 14:06 BMI result Body Mass Index 40.6 Const: General: cooperative, no acute distress, alert and awake Nutritional Appearance: obese Orientation/consciousness: patient oriented x3 Resp: Effort & Inspection: normal respiratory effort, able to speak in complete sentences and decreased respiratory effort Auscultation: diminished lung sounds Cardio: Rate: regular rate Heart sounds: S1 normal heart sound present and S2 normal heart sound present GI: Inspection: No distended and Yes obesity Palpation (GI): Soft to palpation and nontender : Other: kevin draining clear yellow urine Neuro: General: patient oriented x3 Extrem: Other: Able to move all 4 extremities spontaneously General: Yes no pedal edema Objective Data Active Medications Acetaminophen (Acetaminophen 325 Mg Tablet) 650 mg PO DAILY [facility] Last Admin: 07/23/21 08:18 Dose: 650 mg Documented by: NARESH Aspirin (Aspirin Enteric Coated 81 Mg Tablet.Dr) 81 mg PO DAILY [facility] Last Admin: 07/23/21 08:18 Dose: 81 mg Documented by: NARESH Docusate Sodium (Docusate Sodium 100 Mg Capsule) 100 mg PO BID [facility] Last Admin: 07/23/21 08:20 Dose: Not Given Documented by: NARESH Non-Admin Reason: recent episode diarrhea Piperacillin Sod/Tazobactam (Sod 2.25 gm/ Sodium Chloride) 50 mls @ 100 mls/hr IV Q8H [facility] Last Infusion: 07/23/21 06:43 Dose: 0 mls/hr Documented by: MIRELA Melatonin (Melatonin 3 Mg Tablet) 3 mg PO BEDTIME [facility] Last Admin: 07/22/21 20:42 Dose: Not Given Documented by: CLAUDIA Non-Admin Reason: Patient Refused Omeprazole (Omeprazole 20 Mg Capsule.) 20 mg PO DAILY [facility] Last Admin: 07/23/21 08:18 Dose: 20 mg Documented by: NARESH Pharmacy Consult (Consult Rx Perform Med Rec) 1 each MISCELLANE ONCE PRN PRN Reason: Consult order Sodium Bicarbonate (Sodium Bicarbonate 650 Mg Tablet) 650 mg PO TID [facility] Last Admin: 07/23/21 08:18 Dose: 650 mg Documented by: NARESH Vitamin D (Cholecalciferol (Vitamin D3) 10 Mcg Tablet) 10 mcg PO DAILY [facility] Last Admin: 07/23/21 08:20 Dose: 10 mcg Documented by: NARESH Labs CBC & Chem 7: 07/23/21 07:37 07/23/21 06:55 Labs: Laboratory Results - last 24 hr 07/22/21 07/23/21 07/23/21 16:02 06:55 06:55 MCV 89.8 MCH 28.4 MCHC 31.6 RDW 19.8 H Plt Count 156 L MPV 9.0 L Absolute Nucleated RBC 0.000 Nucleated RBC % (auto) 0.0 Anion Gap 13 Estim Creat Clear Calc 13.0 Estimated GFR 12 Random Glucose 83 Calcium 8.3 L Phosphorus 4.1 Magnesium 1.3 L* Stool Occult Blood POSITIVE 07/23/21 07:37 MCV 90.4 MCH 27.7 MCHC 30.6 L RDW 19.8 H Plt Count 149 L MPV 9.7 Absolute Nucleated RBC 0.020 H Nucleated RBC % (auto) 0.3 H Anion Gap Estim Creat Clear Calc Estimated GFR Random Glucose Calcium Phosphorus Magnesium Stool Occult Blood Microbiology Microbiology Results: Microbiology 07/20/21 15:18 Blood Culture - Preliminary Blood - Venous Enterobacter cloacae complex 07/20/21 15:44 Urine Culture - Preliminary Urine Catheterized - Kevin Catheter Gram negative hiren Enterobacter cloacae complex 07/20/21 15:18 Blood Culture - Preliminary Blood - Venous No growth after 48 hours. Assessment and Plan (1) Acute pyelonephritis: Status: Acute (2) Acute on chronic kidney failure: Status: Acute (3) Hydronephrosis: Status: Acute Plan This is an 85-year-old female with history of COPD, TIAGO on 2 L of nocturnal oxygen, hyperlipidemia, CHF, CKD, AAA status post aortoiliac endo graft, left carotid artery stenosis initially presented July 20 with complaints of dysuria, nausea, vomiting found to have urosepsis, obstructive uropathy with bilateral hydronephrosis, GAURANG and was admitted to the ICU. She had bilateral stent placement on July 21 and was downgraded to medical floor on July 22. 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 Baseline creatinine around 2.2 nephrology following Hypomagnesemia Magnesium 1.3 today will replace with 2 gm IV mag repeat mag level in am Acute on chronic Normocytic anemia heme + stools s/p transfusion of 1U rbc 07/22 with appropriate rise in H/H GI consult pending Thrombocytopenia follow cbc Hyperkalemia r/t GAURANG resolved Metabolic acidosis r/t GAURANG resolved TIAGO continu 2L nocturnal oxygen dvt ppx - mehcnical devices due to anemia/heme + stools Attending - dr. garcia Patient requires ongoing inpatient hospitalization due to UTI/bacteremia with possible resistant organism, GAURANG, anemia with possible GI bleed needing gastroenterology evaluation Quality Stroke Does the patient have a stroke diagnosis?: No VTE Prior VTE?: No VTE Risk Level:: Medical - moderate - high VTE Device Contraindication: N/A - Device Ordered VTE Drug Contraindication: N/A - Med Ordered
--- NOTE | 2021-07-23 14:08 | P.CNID_ITS ---
History of Present Illness Data of Consult Service Date: 07/23/21 Requesting physician: Alexia Das Primary Care Provider: Aguilar Moreno MD HPI Reason for consult: CRE UTI She presents with malaise and nausea,vomiting and diarrhea She has vague abdominal discomfort. She had ureteric stent removed about three weeks ago. Urinalysis shows TNTC WBC and possible CRE. Review of Systems Review of Systems: Yes all other systems are reviewed and are negative PMFSH Past Medical History Medical History Abdominal aortic aneurysm (AAA) without rupture Acute blood loss anemia Atherosclerotic cardiovascular disease CKD (chronic kidney disease) stage 3, GFR 30-59 ml/min COPD (chronic obstructive pulmonary disease) Kidney stone on right side Nocturnal hypoxemia Obesity Recurrent falls Restrictive lung disease Skin tear of hand without complication Smoker Family History Family History Father No problems noted. Mother No problems noted. Social History Social History Household Members: None Housing: Other Housing Other:: SNF Alcohol intake: never Patient Tobacco Use Status: Never used Tobacco Tobacco use type: Cigarette Cigarettes Per Day: 1 service: No Current occupational status: retired [employer] Allergies Allergy/AdvReac Type Severity Reaction Status Date / Time No Known Allergies Allergy Verified 05/17/21 10:30 [No Known Allergies*] Active Medications: Current Medications Acetaminophen (Acetaminophen 325 Mg Tablet) 650 mg PO DAILY [facility] Last Admin: 07/23/21 08:18 Dose: 650 mg Documented by: Aspirin (Aspirin Enteric Coated 81 Mg Tablet.) 81 mg PO DAILY [facility] Last Admin: 07/23/21 08:18 Dose: 81 mg Documented by: Docusate Sodium (Docusate Sodium 100 Mg Capsule) 100 mg PO BID [facility] Last Admin: 07/23/21 08:20 Dose: Not Given Documented by: Piperacillin Sod/Tazobactam (Sod 2.25 gm/ Sodium Chloride) 50 mls @ 100 mls/hr IV Q8H [facility] Last Infusion: 07/23/21 06:43 Dose: Infused Documented by: Melatonin (Melatonin 3 Mg Tablet) 3 mg PO BEDTIME [facility] Last Admin: 07/22/21 20:42 Dose: Not Given Documented by: Omeprazole (Omeprazole 20 Mg Capsule.) 20 mg PO DAILY [facility] Last Admin: 07/23/21 08:18 Dose: 20 mg Documented by: Pharmacy Consult (Consult Rx Perform Med Rec) 1 each MISCELLANE ONCE PRN PRN Reason: Consult order Sodium Bicarbonate (Sodium Bicarbonate 650 Mg Tablet) 650 mg PO TID [facility] Last Admin: 07/23/21 08:18 Dose: 650 mg Documented by: Vitamin D (Cholecalciferol (Vitamin D3) 10 Mcg Tablet) 10 mcg PO DAILY [facility] Last Admin: 07/23/21 08:20 Dose: 10 mcg Documented by: Home Medications Medication Instructions Recorded Confirmed Last Taken Type cholecalciferol (vitamin D3) 10 10 mcg PO DAILY 04/16/20 07/20/21 07/20/21 History mcg (400 unit) capsule furosemide 20 mg tablet 20 mg PO DAILY 04/16/20 07/20/21 07/20/21 History lisinopril 20 mg tablet 20 mg PO DAILY 04/16/20 07/20/21 07/20/21 History aspirin 81 mg tablet,delayed 81 mg PO DAILY 04/21/20 07/20/21 07/20/21 History release (Adult Low Dose Aspirin) acetaminophen 325 mg tablet 650 mg PO DAILY 07/20/21 07/20/21 07/20/21 History (Tylenol) atorvastatin 40 mg tablet 40 mg PO BEDTIME 07/20/21 07/20/21 07/19/21 History docusate sodium 100 mg capsule 100 mg PO BID 07/20/21 07/20/21 07/20/21 History (Colace) guaifenesin 100 mg/5 mL oral liquid 200 mg PO TID 07/20/21 07/20/21 07/20/21 History meclizine 12.5 mg tablet 12.5 mg PO TID PRN 07/20/21 07/20/21 Unknown History melatonin 3 mg tablet 3 mg PO BEDTIME 07/20/21 07/20/21 07/19/21 History omeprazole 20 mg tablet,delayed 20 mg PO DAILY 07/20/21 07/20/21 07/20/21 History release pantoprazole 40 mg tablet,delayed 40 mg PO DAILY 07/20/21 07/20/21 07/20/21 History release (Protonix) polyethylene glycol 3350 17 17 g PO DAILY 07/20/21 07/20/21 07/16/21 History gram/dose oral powder (Miralax) Physical Exam Vital Signs: Vital Signs: Last Vital Signs Temp 97.5 F 07/23/21 11:09 Pulse 88 07/23/21 11:09 Resp 18 07/23/21 11:09 BP 111/60 07/23/21 11:09 Pulse Ox 97 07/23/21 11:09 Oxygen Flow Rate 2 07/21/21 14:06 BMI result Body Mass Index 40.6 Const: General: cooperative Eyes: General: appearance normal, both eyes and all related structures Resp: Effort & Inspection: normal respiratory effort Cardio: Rate: regular rate Rhythm: regular rhythm GI: Palpation (GI): Soft to palpation and nontender Extrem: General: Yes normal to inspection Results Labs CBC & Chem 7: 07/23/21 07:37 07/23/21 06:55 Labs: Short CBC 07/23/21 07/23/21 Range/Units 06:55 07:37 WBC 7.4 7.9 (4.8-10.8) X10*3/uL Hgb 7.8 L 7.8 L (12.0-16.0) g/dl Hct 24.7 L 25.5 L (37.0-47.0) % Plt Count 156 L 149 L (160-400) X10*3/uL BMP 07/23/21 06:55 Sodium 141 Potassium 4.0 Chloride 109 H Carbon Dioxide 23 BUN 72 H Creatinine 3.51 H Calcium 8.3 L Microbiology Microbiology Results: Microbiology 07/20/21 15:18 Blood - Venous Blood Culture - Preliminary Enterobacter cloacae complex 07/20/21 15:44 Urine Catheterized - Pedro Catheter Urine Culture - Preliminary Gram negative hiren Enterobacter cloacae complex 07/20/21 15:18 Blood - Venous Blood Culture - Preliminary No growth after 48 hours. Assessment and Plan (1) Hydronephrosis: Status: Acute (2) Acute pyelonephritis: Status: Acute She has probable pyelonephritis ,possible CRE. She has had urologic procedures. Plan Would continue Piperacillin/Tazobactam Await final cultures Adjust medication if needed and patient worsens give Zerbaxa (ceftolozane/tazobactam)
--- NOTE | 2021-07-23 14:19 | P.PNNP_ITS ---
Subjective Subjective Date of Service: 07/23/21 Interval history: CHart Reviewed. Events noted. Physical Exam Vital Signs: Vital Signs: Last Vital Signs Temp 97.5 F 07/23/21 11:09 Pulse 88 07/23/21 11:09 Resp 18 07/23/21 11:09 BP 111/60 07/23/21 11:09 Pulse Ox 97 07/23/21 11:09 Oxygen Flow Rate 2 07/21/21 14:06 BMI result Body Mass Index 40.6 HEENT: Head: Yes normocephalic Neck: Neck: Yes no JVD Resp: Auscultation: clear to auscultation bilaterally Cardio: Jugular venous distension: no JVD Rate: regular rate Rhythm: regular rhythm GI: Auscultation: normal bowel sounds Extrem: General: Yes no joint enlargement Objective Data Labs CBC & Chem 7: 07/23/21 07:37 07/23/21 06:55 Labs: Laboratory Results - last 24 hr 07/22/21 07/23/21 07/23/21 16:02 06:55 06:55 WBC 7.4 RBC 2.75 L Hgb 7.8 L Hct 24.7 L MCV 89.8 MCH 28.4 MCHC 31.6 RDW 19.8 H Plt Count 156 L MPV 9.0 L Absolute Nucleated RBC 0.000 Nucleated RBC % (auto) 0.0 Sodium 141 Potassium 4.0 Chloride 109 H Carbon Dioxide 23 Anion Gap 13 BUN 72 H Creatinine 3.51 H Estim Creat Clear Calc 13.0 Estimated GFR 12 Random Glucose 83 Calcium 8.3 L Phosphorus 4.1 Magnesium 1.3 L* Stool Occult Blood POSITIVE 07/23/21 07:37 WBC 7.9 RBC 2.82 L Hgb 7.8 L Hct 25.5 L MCV 90.4 MCH 27.7 MCHC 30.6 L RDW 19.8 H Plt Count 149 L MPV 9.7 Absolute Nucleated RBC 0.020 H Nucleated RBC % (auto) 0.3 H Sodium Potassium Chloride Carbon Dioxide Anion Gap BUN Creatinine Estim Creat Clear Calc Estimated GFR Random Glucose Calcium Phosphorus Magnesium Stool Occult Blood Microbiology Microbiology Results: Microbiology 07/20/21 15:18 Blood - Venous Blood Culture - Preliminary Enterobacter cloacae complex 07/20/21 15:44 Urine Catheterized - Pedro Catheter Urine Culture - Preliminary Gram negative hiren Enterobacter cloacae complex 07/20/21 15:18 Blood - Venous Blood Culture - Preliminary No growth after 48 hours. Procedures Date of Service Date of Service: 07/23/21 Assessment & Plan Assessment and plan (1) Hydronephrosis: Status: Acute (2) Acute on chronic kidney failure: Status: Acute Assessment and Plan: 85-year-old female patient with past medical history of CKD III (BL S-Cr ~ 2.2-2.3 mg/dL), COPD on 2 L of oxygen at night, morbid obesity, restrictive lung disease, and history of AAA s/p endograft repair in July 2015 with history of type 2 endoleak who presented to [facility] from senior living for evaluation of hypotension, vomiting, diarrhea. Patient had recent right ureteric stent removal 3 days prior to ED presentation secondary to obstructive ureteric stone. CT abdomen and pelvis was performed which showed b/l hydronephrosis (new) with obstructing renal stone on right. She was subsequently seen by Urology and is now s/p cystoscopy, bilateral retrograde, bilateral stent placement. S-Cr has since been improving since that time. #) GAURANG, non-oliguric on CKD -S-Cr peaked at 5.97 but has been trending downward since 07/20. -No indication for [employer] at this time. -CKD - BL ~ 2.2 mg/dL. We will continue to monitor and she will require outpatient follow up for continued assessment. -Continue to hold nephrotoxic agents such as acei/arb, nsaids, IV contrast, and renal dose abx. -Monitor I/O's. #Anemia: prbc transfusion for now to maintain hgb> 7.0. #Electrolytes otherwise stable. Time Spent With Patient Time: Total time spent is greater than 50% in coordination of care (as documented) at patient's floor/unit and/or counseling patient: Progress Note: Quality Stroke Does the patient have a stroke diagnosis?: No
[2021-07-23 18:44] VITALS: BP 106/55; PULSE 100; RESP 18; TEMP 36.2; O2SAT 91
[2021-07-23 23:01] VITALS: BP 129/72; PULSE 73; RESP 18; TEMP 36.7; O2SAT 95
[2021-07-24 03:34] VITALS: BP 113/53; PULSE 98; RESP 20; TEMP 36.8; O2SAT 96
[2021-07-24 06:00] VITALS: BMI 41.7
[2021-07-24] MEDS: Piperacillin Sodium/Tazobactam 2.25 GM in 0.9 % Sodium Chloride 50 ML IV ×3 (06:01→22:21)
[2021-07-24 06:10] LABS: Hematocrit 25.7 % (37.0-47.0); Hemoglobin 7.9 g/dl (12.0-16.0); Mean Corpuscular HGB Conc 30.7 g/dl (31.0-35.0); Mean Corpuscular Hemoglobin 27.6 pg (27.0-33.0); Mean Corpuscular Volume 89.9 fL (80.0-98.0); Mean Platelet Volume 9.3 fL (9.4-12.3); NRBC Pct Auto 0.3 /100WBC (0.0-0.2); Platelet Count 147 X10*3/uL (160-400); Red Blood Count 2.86 X10*6/uL (4.20-5.50); Red Cell Distribution Width 19.7 % (11.0-16.0); White Blood Count 6.6 X10*3/uL (4.8-10.8)
[2021-07-24 06:41] LABS: Anion Gap 13 (12-20); Blood Urea Nitrogen 62 mg/dL (9-16); Calcium 8.7 mg/dL (8.4-10.2); Carbon Dioxide 23 mmol/L (22-29); Chloride 108 mmol/L (96-108); Creatinine Clr Calc Pharmacy 15.8; Estimated Glomerular Filt Rate 15; Glucose Random 85 mg/dL (60-115); Iron 28 mcg/dL (30-160); Magnesium 1.7 mg/dL (1.6-2.6); Percent Iron Saturation 16 % (15-50); Potassium 3.8 mmol/L (3.3-5.1); Sodium 140 mmol/L (135-145); Total Iron Binding Capacity 179 mcg/dL (228-428); Unsaturated Iron Binding 151 ug/dL
[2021-07-24] MEDS: Acetaminophen 325 MG TABLET 650 MG PO (07:31)
[2021-07-24] MEDS: Docusate Sodium 100 MG CAPSULE PO (07:31)
[2021-07-24] MEDS: Aspirin Enteric Coated 81 MG TABLET.DR PO (07:31)
[2021-07-24] MEDS: Cholecalciferol (Vitamin D3) 10 MCG TABLET PO (07:31)
[2021-07-24] MEDS: Sodium Bicarbonate 650 MG TABLET PO ×2 (07:32→22:21)
[2021-07-24] MEDS: Omeprazole 20 MG CAPSULE.DR PO (07:32)
[2021-07-24 07:39] VITALS: BP 122/64; PULSE 96; RESP 20; TEMP 36.6; O2SAT 93
[2021-07-24 11:45] VITALS: BP 122/80; PULSE 63; RESP 20; TEMP 36.7; O2SAT 92
--- NOTE | 2021-07-24 12:47 | P.PNIM_ITS ---
Subjective Subjective Date of Service: 07/24/21 Interval History: seen and examined this morning follow up for urosepsis, GAURANG no overnight events reporting vertigo, says it is chronic and ongoing for over a year no nausea or vomiting Review of Systems Review of Systems: Yes all other systems are reviewed and are negative Constitutional Constitutional: Denies chills and Denies fever(s) ENT Ears, Nose, Mouth, and Throat: Reports vertigo Cardiovascular Cardiovascular: Denies chest pain, Denies palpitations and Denies dyspnea Respiratory Respiratory: Denies cough and Denies dyspnea Gastrointestinal Gastrointestinal: Denies abdominal pain, Denies nausea and Denies vomiting Neurologic Neurologic: Reports vertigo Endocrine Endocrine: Denies palpitations Physical Exam Vital Signs: Vital Signs: Last Vital Signs Temp 98.1 F 07/24/21 11:45 Pulse 63 07/24/21 11:45 Resp 20 07/24/21 11:45 BP 122/80 07/24/21 11:45 Pulse Ox 92 07/24/21 11:45 Oxygen Flow Rate 2 07/21/21 14:06 BMI result Body Mass Index 41.7 Const: General: cooperative, no acute distress, alert and awake Nutritional Appearance: obese Orientation/consciousness: patient oriented x3 Resp: Effort & Inspection: normal respiratory effort, able to speak in complete sentences and decreased respiratory effort Auscultation: diminished lung sounds Cardio: Rate: regular rate Heart sounds: S1 normal heart sound present and S2 normal heart sound present GI: Inspection: No distended and Yes obesity Palpation (GI): Soft to palpation and nontender : Other: kevin draining clear yellow urine Neuro: General: patient oriented x3 Extrem: Other: Able to move all 4 extremities spontaneously General: Yes no pedal edema Objective Data Active Medications Acetaminophen (Acetaminophen 325 Mg Tablet) 650 mg PO DAILY [facility] Last Admin: 07/24/21 07:31 Dose: 650 mg Documented by: RAYMUNDO Aspirin (Aspirin Enteric Coated 81 Mg Tablet.) 81 mg PO DAILY [facility] Last Admin: 07/24/21 07:31 Dose: 81 mg Documented by: RAYMUNDO Docusate Sodium (Docusate Sodium 100 Mg Capsule) 100 mg PO BID [facility] Last Admin: 07/24/21 07:31 Dose: 100 mg Documented by: RAYMUNDO Piperacillin Sod/Tazobactam (Sod 2.25 gm/ Sodium Chloride) 50 mls @ 100 mls/hr IV Q8H [facility] Last Infusion: 07/24/21 07:32 Dose: 0 mls/hr Documented by: RAYMUNDO Melatonin (Melatonin 3 Mg Tablet) 3 mg PO BEDTIME [facility] Last Admin: 07/23/21 22:40 Dose: Not Given Documented by: MARITZA Non-Admin Reason: Patient Refused Omeprazole (Omeprazole 20 Mg Curt.) 20 mg PO DAILY [facility] Last Admin: 07/24/21 07:32 Dose: 20 mg Documented by: RAYMUNDO Pharmacy Consult (Consult Rx Perform Med Rec) 1 each MISCELLANE ONCE PRN PRN Reason: Consult order Sodium Bicarbonate (Sodium Bicarbonate 650 Mg Tablet) 650 mg PO BID [facility] Last Admin: 07/24/21 07:32 Dose: 650 mg Documented by: RAYMUNDO Vitamin D (Cholecalciferol (Vitamin D3) 10 Mcg Tablet) 10 mcg PO DAILY [facility] Last Admin: 07/24/21 07:31 Dose: 10 mcg Documented by: RAYMUNDO Labs CBC & Chem 7: 07/24/21 05:44 07/24/21 05:44 Labs: Laboratory Results - last 24 hr 07/24/21 07/24/21 05:44 05:44 MCV 89.9 MCH 27.6 MCHC 30.7 L RDW 19.7 H Plt Count 147 L MPV 9.3 L Absolute Nucleated RBC 0.020 H Nucleated RBC % (auto) 0.3 H Anion Gap 13 Estim Creat Clear Calc 15.8 Estimated GFR 15 Random Glucose 85 Calcium 8.7 Magnesium 1.7 Iron 28 L TIBC 179 L % Saturation 16 Unsat Iron Binding 151 Microbiology Microbiology Results: Microbiology 07/23/21 06:55 Blood Culture - Preliminary Blood - Venous No growth after 24 hours. 07/23/21 06:55 Blood Culture - Preliminary Blood - Venous No growth after 24 hours. 07/20/21 15:44 Urine Culture - Preliminary Urine Catheterized - Kevin Catheter Klebsiella pneumoniae Enterobacter cloacae complex 07/20/21 15:18 Blood Culture - Preliminary Blood - Venous Enterobacter cloacae complex Assessment and Plan (1) Acute pyelonephritis: Status: Acute (2) Hydronephrosis: Status: Acute (3) Acute on chronic kidney failure: Status: Acute Plan This is an 85-year-old female with history of COPD, TIAGO on 2 L of nocturnal oxygen, hyperlipidemia, CHF, CKD, AAA status post aortoiliac endo graft, left carotid artery stenosis initially presented July 20 with complaints of dysuria, nausea, vomiting found to have urosepsis, obstructive uropathy with bilateral hydronephrosis, GAURANG and was admitted to the ICU. She had bilateral stent placement on July 21 and was downgraded to medical floor on July 22. 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 Baseline creatinine around 2.2 nephrology following Hypomagnesemia mag 1.7 after replacement Acute on chronic Normocytic anemia heme + stools no evidence of overt bleeding s/p transfusion of 1U rbc 07/22 with appropriate rise in H/H GI consult pending Thrombocytopenia follow cbc Hyperkalemia r/t GAURANG resolved Metabolic acidosis r/t AGURANG improved, bicarb 23 today will decrease frequency of sodium bicarb COPD no acute exacerbation resume home inhalers prn breathing treatments TIAGO continue 2L nocturnal oxygen HTN lisinopril on hold for GAURANG metoprolol on hold for now BP stable vertigo chronic meclizine on hold, can resume as renal function improves ?CHF no echo in system on lasix at home, being held for GAURANG monitor fluid status closely Morbid obesity BMI 41.7 dvt ppx - mechanical devices due to anemia/heme + stools Attending - dr. garcia Patient requires ongoing inpatient hospitalization due to UTI/bacteremia with po ssible resistant organism, GAURANG, anemia with possible GI bleed needing gastroenterology evaluation Quality Stroke Does the patient have a stroke diagnosis?: No VTE Prior VTE?: No VTE Risk Level:: Medical - moderate - high VTE Device Contraindication: N/A - Device Ordered VTE Drug Contraindication: N/A - Med Ordered
--- NOTE | 2021-07-24 13:12 | PM.EVENT ---
Event Note Date of Service: 07/24/21 Event Note: GI Consult-Full note dictated-Hx via patient, her RN, and the EMR. Imp: Anemia with Heme + stool. Patient known to me from a 05/2021 admission. She was unable to undergo any GI procedures due to her illness at that time. She was readmitted with renal failure and ureteral obstruction requiring bilateral stenting. Things seem to be improving in that regard. There has been no obvious signs of bleeding. Her stool is Heme +. She did have some drop from her baseline anemia and responded to 1 u PRBC on 07/22/2021. She has some anorexia and nausea. She denies any GERD, odynophagia, dysphagia, or significant abdominal pain. CT scan was negative for any acute GI process. Diff dx: I suspect the anemia is multifactorial in relation to her renal failure, other illnesses, and some GI blood loss. Obviously, GI neoplasm, AVM's, etc., are in the differential diagnosis. Rec: Supportive care, continue PPI, will add Zofran prn, follow Hgb. I would hold aspirin and all blood thinners unless absolutely needed. I don't think she is a good candidate to undergo a bowel prep nor GI procedures at this time. The patient agrees with that as well. I would check her ferritin level and if low start her on some Iron supplements given the somewhat low Iron saturation. Check B12/Folate if not done recently. Will recheck PT/INR to compare to 05/2021. D/W patient. Thanks
--- NOTE | 2021-07-24 13:54 | PC.NURSE ---
Slight pink tinged return in kevin noted, reported to PA following pt care, kevin had just been cleaned and manipulated. No plan, will cont to monitor.
--- NOTE | 2021-07-24 14:55 | CONS_ITS ---
DATE OF SERVICE: 07/24/2021 REASON FOR CONSULTATION: Anemia and heme-positive stool. HISTORY OF PRESENT ILLNESS: This has been obtained from the patient, her nurse, and the medical record. The patient is an 85-year-old female, known to me from a hospitalization in May when I saw her in consultation for anemia and heme-positive stool. At that time, she had fallen at home and came into the hospital with some hematomas as well as some rectal bleeding. She had a colonoscopy over 10 years ago by her description in [place]. When she came in the hospital, she did require a transfusion. A nuclear medicine bleeding scan was negative. Her hemoglobin dropped from her admission level of 8.8 to as low as 7.6, but after the transfusion remained stable in the range of 8.4 to 9.1. She never had any further bleeding in the hospital. Due to her overall condition at that time, including some renal insufficiency and overall being too weak to consider having a bowel prep, GI procedures were deferred. She also felt that she did not want to do them either at her age. In any event, she was transferred to rehab but had to come back here several days ago due to worsening renal function, nausea and vomiting, and hypotension. She did have a ureteral stent placed on the right side during the hospitalization in May and that had been removed about 3 days prior to this current admission. When she was admitted here, her workup revealed bilateral hydronephrosis and worsening renal function. She underwent replacement of the ureteral stents bilaterally by Dr. Sung earlier this week with some improvement in her renal function. At this time, she is still somewhat nauseated and anorectic. There has been no evidence of melena nor hematochezia. She denies any abdominal pain. There has been no vomiting. She denies any dysphagia nor odynophagia. Since admission here, she again has had heme-positive stool, but no gross evidence of bleeding. Her hemoglobin was 8.4 on admission and fell to 6.8 on July 22. She received a unit of blood and her hemoglobin on July 23 was 7.8 and today is 7.9. Her iron is 28 with an iron saturation of 16% today. The patient has been on omeprazole. She has also been on a low-dose aspirin. She is not on any other blood thinners. CURRENT MEDICATIONS: Include acetaminophen, aspirin 81 mg, vitamin D, Colace, magnesium, melatonin, omeprazole 20 mg daily, IV Zosyn, sodium bicarbonate, Incruse inhaler. PAST MEDICAL HISTORY: Renal insufficiency, kidney stones, hydronephrosis, status-post ureteral stent placement. Anemia as above with associated heme-positive stool. COPD. She wears oxygen at night at home. Abdominal aortic aneurysm, status post stent. She denies history of previous stroke nor diabetes. Cataract surgery. SOCIAL HISTORY: She has been living in a rehab facility since her admission in May and up until being transferred back here. She is a former smoker, but presently does not smoke nor use any alcohol. FAMILY HISTORY: Noncontributory. REVIEW OF SYSTEMS: CONSTITUTIONAL: Presently, she is feeling somewhat poorly with anorexia. CARDIAC: No chest pain. PULMONARY: No coughing or hemoptysis. GI: As above. PHYSICAL EXAM: Elderly alert female in no distress. SKIN: Warm and dry NECK: Supple, without lymphadenopathy CARDIAC: Normal S1,S2 Abdomen: Soft, Nondistended, +BS, Nontender, and no palpable mass LABORATORY DATA: As above. Sodium 140, potassium 3.8, BUN 62, creatinine 2.9 today. On July 21, BUN was 86 with creatinine 4.7. Iron 28, iron saturation 16%. Liver profile was normal on July 22 except for alkaline phosphatase of 154. Stool was heme- positive. Her CT of the abdomen and pelvis on July 20 was negative for any GI pathology. The main finding was that of bilateral hydronephrosis. IMPRESSION: Given the patient's clinical history, I suspect her anemia is multifactorial in relation to her renal failure and other chronic illnesses, as well as some GI blood loss in relation to the heme-positive stool and low dose aspirin. Obviously, without doing endoscopic procedures, we can't rule out anything more serious such as neoplasm. However, at this point, I think the most likely cause of the anemia is that of the aforementioned possibilities as well as some chronic blood loss in relation to aspirin. At this point, I would hold off on any type of endoscopic procedure given her overall condition. Both the patient and I do not think she is up to any type of bowel prep nor GI procedures at this time. I would recommend continuing her omeprazole but adding an antiemetic as needed. As far as I could see in the chart, she has not had a ferritin or B12 and folate level, and I have taken the liberty of ordering that as well. If the ferritin is low, she could start some iron supplements as well. At some point if her condition improves clinically, we could consider endoscopic workup for the anemia, but at this point I would definitely hold off on that. This has all been discussed with the patient in detail and she is comfortable with that plan. Thank you for this consultation. MD CARLEEN Freire/GABBY / [id number] MTDJosé
[2021-07-24 14:57] VITALS: BP 134/65; PULSE 80; RESP 18; TEMP 36.1; O2SAT 91
[2021-07-24 19:43] VITALS: BP 134/68; PULSE 97; RESP 18; TEMP 37.1; O2SAT 92
--- NOTE | 2021-07-24 20:30 | P.PNNP_ITS ---
Subjective Subjective Date of Service: 07/24/21 Interval history: seen and examined this morning follow up for urosepsis, GAURANG no overnight events reporting vertigo, says it is chronic and ongoing for over a year no nausea or vomiting Physical Exam Vital Signs: Vital Signs: Last Vital Signs Temp 98.8 F 07/24/21 19:43 Pulse 97 07/24/21 19:43 Resp 18 07/24/21 19:43 BP 134/68 07/24/21 19:43 Pulse Ox 92 07/24/21 19:43 Oxygen Flow Rate 2 07/21/21 14:06 BMI result Body Mass Index 41.7 Const: General: cooperative, comfortable and no acute distress Nahid entation/consciousness: patient oriented x3 Neck: Neck: Yes no JVD Resp: Auscultation: clear to auscultation bilaterally Cardio: Jugular venous distension: no JVD Rate: regular rate Rhythm: regular rhythm Heart sounds: S1 normal heart sound present and S2 normal heart sound present GI: Auscultation: normal bowel sounds Neuro: General: patient oriented x3 Extrem: General: Yes no joint enlargement Objective Data Labs CBC & Chem 7: 07/24/21 05:44 07/24/21 05:44 Labs: Laboratory Results - last 24 hr 07/24/21 07/24/21 05:44 05:44 WBC 6.6 RBC 2.86 L Hgb 7.9 L Hct 25.7 L MCV 89.9 MCH 27.6 MCHC 30.7 L RDW 19.7 H Plt Count 147 L MPV 9.3 L Absolute Nucleated RBC 0.020 H Nucleated RBC % (auto) 0.3 H Sodium 140 Potassium 3.8 Chloride 108 Carbon Dioxide 23 Anion Gap 13 BUN 62 H Creatinine 2.92 H Estim Creat Clear Calc 15.8 Estimated GFR 15 Random Glucose 85 Calcium 8.7 Magnesium 1.7 Iron 28 L TIBC 179 L % Saturation 16 Unsat Iron Binding 151 Microbiology Microbiology Results: Microbiology 07/23/21 06:55 Blood - Venous Blood Culture - Preliminary No growth after 24 hours. 07/23/21 06:55 Blood - Venous Blood Culture - Preliminary No growth after 24 hours. 07/20/21 15:44 Urine Catheterized - Pedro Catheter Urine Culture - Preliminary Klebsiella pneumoniae Enterobacter cloacae complex 07/20/21 15:18 Blood - Venous Blood Culture - Preliminary Enterobacter cloacae complex 07/20/21 15:18 Blood - Venous Blood Culture - Preliminary No growth after 48 hours. Procedures Date of Service Date of Service: 07/24/21 Assessment & Plan Assessment and plan (1) Acute on chronic kidney failure: Status: Acute Plan 85-year-old female patient with past medical history of CKD III (BL S-Cr ~ 2.2- 2.3 mg/dL), COPD on 2 L of oxygen at night, morbid obesity, restrictive lung disease, and history of AAA s/p endograft repair in July 2015 with history of type 2 endoleak who presented to [facility] from shelter for evaluation of hypotension, vomiting, diarrhea. Patient had recent right ureteric stent removal 3 days prior to ED presentation secondary to obstructive ureteric stone. CT abdomen and pelvis was performed which showed b/l hydronephrosis (new) with obstructing renal stone on right. She was subsequently seen by Urology and is now s/p cystoscopy, bilateral retrograde, bilateral stent placement. S-Cr has since been improving since that time. #) GAURANG, non-oliguric on CKD -S-Cr peaked at 5.97 but has been trending downward since 07/20. -No indication for [employer]ODUCTION at this time. -CKD - BL ~ 2.2 mg/dL. -Continue to hold nephrotoxic agents such as acei/arb, nsaids, IV contrast, and renal dose abx. -Monitor I/O's. Time Spent With Patient Time: Total time spent is greater than 50% in coordination of care (as documented) at patient's floor/unit and/or counseling patient: Progress Note: Quality Stroke Does the patient have a stroke diagnosis?: No
[2021-07-24 23:29] VITALS: BP 112/66; PULSE 90; RESP 18; TEMP 37; O2SAT 97
[2021-07-25 03:17] VITALS: BP 135/60; PULSE 89; RESP 20; TEMP 37; O2SAT 95
[2021-07-25] MEDS: Piperacillin Sodium/Tazobactam 2.25 GM in 0.9 % Sodium Chloride 50 ML IV (05:58)
[2021-07-25 06:00] VITALS: BMI 42.8
[2021-07-25 07:09] LABS: MANUAL DIFF FLAG NO
[2021-07-25 07:16] VITALS: BP 133/74; PULSE 85; RESP 20; TEMP 37.1; O2SAT 96
[2021-07-25 07:23] LABS: Basophils Percent Auto 0.6 % (0-2); Eosinophils Absolute Auto 0.3 X10*3/uL (0.0-0.4); Eosinophils Percent Auto 4.3 % (0-4); Hematocrit 27.6 % (37.0-47.0); Hemoglobin 8.5 g/dl (12.0-16.0); Imm Gran Abs Auto 0.09 X10*3/uL (0.00-0.03); Imm Gran Pct Auto 1.3 % (0.0-0.4); Mean Corpuscular HGB Conc 30.8 g/dl (31.0-35.0); Mean Corpuscular Volume 90.8 fL (80.0-98.0); Mean Platelet Volume 9.3 fL (9.4-12.3); Monocytes Absolute Auto 0.8 X10*3/uL (0.1-1.2); Monocytes Percent Auto 11.5 % (2-11); NRBC Pct Auto 0.3 /100WBC (0.0-0.2); Neutrophils Absolute Auto 2.8 x10*3/uL (2.0-8.3); Neutrophils Percent Auto 39.3 % (45-73); Platelet Count 152 X10*3/uL (160-400); Red Blood Count 3.04 X10*6/uL (4.20-5.50); Red Cell Distribution Width 19.7 % (11.0-16.0)
[2021-07-25 07:27] LABS: Anion Gap 13 (12-20); Blood Urea Nitrogen 48 mg/dL (9-16); Calcium 8.7 mg/dL (8.4-10.2); Carbon Dioxide 23 mmol/L (22-29); Chloride 110 mmol/L (96-108); Creatinine Clr Calc Pharmacy 20.2; Estimated Glomerular Filt Rate 20; Glucose Random 89 mg/dL (60-115); Sodium 142 mmol/L (135-145)
[2021-07-25 07:33] LABS: INTERNATIONAL NORM RATIO 1.1 (0.9-1.1); Prothrombin Time 12.4 SEC (9.9-13.0)
[2021-07-25 08:01] LABS: Ferritin 211 ng/mL (10-250)
[2021-07-25] MEDS: Sodium Bicarbonate 650 MG TABLET PO ×2 (10:33→20:27)
[2021-07-25] MEDS: Acetaminophen 325 MG TABLET 650 MG PO (10:33)
[2021-07-25] MEDS: Aspirin Enteric Coated 81 MG TABLET.DR PO (10:33)
[2021-07-25] MEDS: Omeprazole 20 MG CAPSULE.DR PO (10:34)
[2021-07-25] MEDS: Cholecalciferol (Vitamin D3) 10 MCG TABLET PO (10:34)
[2021-07-25 11:19] VITALS: BP 151/72; PULSE 89; RESP 20; TEMP 36.6; O2SAT 94
--- NOTE | 2021-07-25 14:50 | HO.PM.IMPN ---
Subjective Subjective Date of Service: 07/25/21 Interval History: Seen and examined this morning Follow-up for urosepsis and bacteremia Vertigo improving, patient feeling better overall although generally still feeling weak No abdominal pain, nausea, vomiting. No fever, chills Review of Systems Review of Systems: Yes all other systems are reviewed and are negative Constitutional Constitutional: Denies chills and Denies fever(s) Cardiovascular Cardiovascular: Denies chest pain, Denies palpitations and Denies dyspnea Respiratory Respiratory: Denies cough and Denies dyspnea Gastrointestinal Gastrointestinal: Denies abdominal pain, Denies diarrhea, Denies nausea and Denies vomiting Endocrine Endocrine: Denies palpitations Physical Exam Vital Signs: Vital Signs: Last Vital Signs Temp 97.9 F 07/25/21 11:19 Pulse 89 07/25/21 11:19 Resp 20 07/25/21 11:19 BP 151/72 H 07/25/21 11:19 Pulse Ox 94 07/25/21 11:19 Oxygen Flow Rate 2 07/21/21 14:06 BMI result Body Mass Index 42.8 Const: General: cooperative, no acute distress, alert and awake Nutritional Appearance: obese Orientation/consciousness: patient oriented x3 Resp: Effort & Inspection: normal respiratory effort, able to speak in complete sentences and decreased respiratory effort Auscultation: diminished lung sounds Cardio: Rate: regular rate Heart sounds: S1 normal heart sound present and S2 normal heart sound present GI: Inspection: No distended and Yes obesity Palpation (GI): Soft to palpation and nontender : Other: kevin draining clear yellow urine Neuro: General: patient oriented x3 Extrem: Other: Able to move all 4 extremities spontaneously General: Yes no pedal edema Objective Data Active Medications Acetaminophen (Acetaminophen 325 Mg Tablet) 650 mg PO DAILY [facility] Last Admin: 07/25/21 10:33 Dose: 650 mg Documented by: VIRA Albuterol/Ipratropium (Albuterol/Iprat 2.5/0.5mg 3 Ml Ampul.Neb) 3 ml INHALE RQ6H PRN PRN Reason: Shortness of Breath Aspirin (Aspirin Enteric Coated 81 Mg Tablet.) 81 mg PO DAILY [facility] Last Admin: 07/25/21 10:33 Dose: 81 mg Documented by: VIRA Docusate Sodium (Docusate Sodium 100 Mg Capsule) 100 mg PO BID [facility] Last Admin: 07/25/21 10:34 Dose: Not Given Documented by: VIRA Non-Admin Reason: loose stools Meropenem 1 gm/ Sodium (Chloride) 100 mls @ 200 mls/hr IV Q8H [facility] Melatonin (Melatonin 3 Mg Tablet) 3 mg PO BEDTIME [facility] Last Admin: 07/24/21 22:19 Dose: Not Given Documented by: MARITZA Non-Admin Reason: Patient Refused Omeprazole (Omeprazole 20 Mg Capsule.) 20 mg PO DAILY [facility] Last Admin: 07/25/21 10:34 Dose: 20 mg Documented by: VIRA Ondansetron HCl (Ondansetron Hcl 4 Mg/2 Ml Vial) 4 mg IVPUSH Q4H PRN PRN Reason: Nausea Pharmacy Consult (Consult Rx Perform Med Rec) 1 each MISCELLANE ONCE PRN PRN Reason: Consult order Sodium Bicarbonate (Sodium Bicarbonate 650 Mg Tablet) 650 mg PO BID [facility] Last Admin: 07/25/21 10:33 Dose: 650 mg Documented by: VIRA Tiotropium [place] (Tiotropium [place] 18 Mcg Cap.W.Dev) 1 puff INHALE RDAILY [facility] Last Admin: 07/25/21 07:35 Dose: Not Given Documented by: KEVIN Non-Admin Reason: Patient Refused Tiotropium [place] (Tiotropium [place] 18 Mcg Cap.W.Dev) 1 puff INHALE RDAILY [facility] Last Admin: 07/25/21 07:35 Dose: Not Given Documented by: KEVIN Non-Admin Reason: Patient Refused Vitamin D (Cholecalciferol (Vitamin D3) 10 Mcg Tablet) 10 mcg PO DAILY [facility] Last Admin: 07/25/21 10:34 Dose: 10 mcg Documented by: VIRA Labs CBC & Chem 7: 07/25/21 06:45 07/25/21 06:45 Labs: Laboratory Results - last 24 hr 07/25/21 07/25/21 07/25/21 06:45 06:45 06:45 MCV 90.8 MCH 28.0 MCHC 30.8 L RDW 19.7 H Plt Count 152 L MPV 9.3 L Immature Gran % (Auto) 1.3 H Neut % (Auto) 39.3 L Lymph % (Auto) 43.0 H [place] % (Auto) 11.5 H Eos % (Auto) 4.3 H Baso % (Auto) 0.6 Lymph # (Auto) 3.0 [place] # (Auto) 0.8 Eos # (Auto) 0.3 Baso # (Auto) 0.0 Abs Immat Gran (auto) 0.09 H Absolute Neuts (auto) 2.8 Absolute Nucleated RBC 0.020 H Nucleated RBC % (auto) 0.3 H PT 12.4 INR 1.1 Anion Gap 13 Estim Creat Clear Calc 20.2 Estimated GFR 20 Random Glucose 89 Calcium 8.7 Ferritin 07/25/21 06:45 MCV MCH MCHC RDW Plt Count MPV Immature Gran % (Auto) Neut % (Auto) Lymph % (Auto) [place] % (Auto) Eos % (Auto) Baso % (Auto) Lymph # (Auto) [place] # (Auto) Eos # (Auto) Baso # (Auto) Abs Immat Gran (auto) Absolute Neuts (auto) Absolute Nucleated RBC Nucleated RBC % (auto) PT INR Anion Gap Estim Creat Clear Calc Estimated GFR Random Glucose Calcium Ferritin 211 Microbiology Microbiology Results: Microbiology 07/23/21 06:55 Blood Culture - Preliminary Blood - Venous No growth after 48 hours. 07/23/21 06:55 Blood Culture - Preliminary Blood - Venous No growth after 48 hours. Assessment and Plan (1) Acute pyelonephritis: Status: Acute (2) Bacteremia: Status: Acute Plan This is an 85-year-old female with history of COPD, TIAGO on 2 L of nocturnal oxygen, hyperlipidemia, CHF, CKD, AAA status post aortoiliac endo graft, left carotid artery stenosis initially presented July 20 with complaints of dysuria, nausea, vomiting found to have urosepsis, obstructive uropathy with bilateral hydronephrosis, GAURANG and was admitted to the ICU. She had bilateral stent placement on July 21 and was downgraded to medical floor on July 22. Sepsis secondary to acute pyelonephritis s/p vasopressive support in the ICU urine culture growing klebsiella and enterobacter cloacae complex - concern for carbapenemase resistant enterobacteriacae - sensitivites sent to reference lab for suscptibility testing discussed with ID, rec to change to meropenem for now and await final sensitivities - If patient worsens, give Zerbaxa bacteremia secondary to urinary source Blood cultures growing enterobacter cloacae complex with concern for CRE as above ?CRE colonization per ID, duration of abx TBD order for midline placed Obstructive uropathy secondary to b/l nephrolithiasis s/p b/l ureteral stents placed 07/21 urology following GAURANG on CKD2 secondary to obstructive uropathy creatinine trending down from 5.97 to 3.51. Baseline creatinine around 2.2 nephrology following Hypomagnesemia mag 1.7 after replacement Acute on chronic Normocytic anemia heme + stools no evidence of overt bleeding s/p transfusion of 1U rbc 07/22 with appropriate rise in H/H aspirin d/c seen by GI - will hold off on further workup due to acute illness - can consider outpatient workup b12, folate pending H/H has remained stable Thrombocytopenia platelets stable follow cbc Hyperkalemia r/t GAURANG resolved Metabolic acidosis r/t GAURANG improved, bicarb 23 today will decrease frequency of sodium bicarb COPD no acute exacerbation resume home inhalers prn breathing treatments TIAGO continue 2L nocturnal oxygen HTN lisinopril on hold for GAURANG metoprolol on hold for now BP stable vertigo chronic meclizine on hold, can resume as renal function improves ?CHF no echo in system on lasix at home, being held for GAURANG monitor fluid status closely Morbid obesity BMI 41.7 dvt ppx - mechanical devices due to anemia/heme + stools Attending - dr. higuera Dispo: pt rec STR when medically stable Patient requires ongoing inpatient hospitalization due to UTI/bacteremia with possible resistant organism, GAURANG, anemia with possible GI bleed needing gastroenterology evaluation Quality Stroke Does the patient have a stroke diagnosis?: No VTE Prior VTE?: No VTE Risk Level:: Medical - moderate - high VTE Device Contraindication: N/A - Device Ordered VTE Drug Contraindication: N/A - Med Ordered
[2021-07-25 15:51] VITALS: BP 137/72; PULSE 94; RESP 19; TEMP 37.4; O2SAT 95
--- NOTE | 2021-07-25 18:39 | P.PNNP_ITS ---
Subjective Subjective Date of Service: 07/25/21 Interval history: CHart Reviewed. Events noted. Physical Exam Vital Signs: Vital Signs: Last Vital Signs Temp 99.4 F 07/25/21 15:51 Pulse 94 07/25/21 15:51 Resp 19 07/25/21 15:51 BP 137/72 07/25/21 15:51 Pulse Ox 95 07/25/21 15:51 Oxygen Flow Rate 2 07/21/21 14:06 BMI result Body Mass Index 42.8 Const: General: comfortable and no acute distress Orientation/consciousness: patient oriented x3 HEENT: Head: Yes normocephalic and Yes atraumatic Neck: Neck: Yes no JVD Resp: Auscultation: clear to auscultation bilaterally Cardio: Jugular venous distension: no JVD Rate: regular rate Rhythm: regular rhythm Heart sounds: S1 normal heart sound present and S2 normal heart sound present GI: Auscultation: normal bowel sounds Neuro: General: patient oriented x3 Extrem: General: Yes no joint enlargement and Yes no clubbing, cyanosis or edema Objective Data Labs CBC & Chem 7: 07/25/21 06:45 07/25/21 06:45 Labs: Laboratory Results - last 24 hr 07/25/21 07/25/21 07/25/21 06:45 06:45 06:45 WBC 7.0 RBC 3.04 L Hgb 8.5 L Hct 27.6 L MCV 90.8 MCH 28.0 MCHC 30.8 L RDW 19.7 H Plt Count 152 L MPV 9.3 L Immature Gran % (Auto) 1.3 H Neut % (Auto) 39.3 L Lymph % (Auto) 43.0 H [place] % (Auto) 11.5 H Eos % (Auto) 4.3 H Baso % (Auto) 0.6 Lymph # (Auto) 3.0 [place] # (Auto) 0.8 Eos # (Auto) 0.3 Baso # (Auto) 0.0 Abs Immat Gran (auto) 0.09 H Absolute Neuts (auto) 2.8 Absolute Nucleated RBC 0.020 H Nucleated RBC % (auto) 0.3 H PT 12.4 INR 1.1 Sodium 142 Potassium 4.0 Chloride 110 H Carbon Dioxide 23 Anion Gap 13 BUN 48 H Creatinine 2.32 H Estim Creat Clear Calc 20.2 Estimated GFR 20 Random Glucose 89 Calcium 8.7 Ferritin 07/25/21 06:45 WBC RBC Hgb Hct MCV MCH MCHC RDW Plt Count MPV Immature Gran % (Auto) Neut % (Auto) Lymph % (Auto) [place] % (Auto) Eos % (Auto) Baso % (Auto) Lymph # (Auto) [place] # (Auto) Eos # (Auto) Baso # (Auto) Abs Immat Gran (auto) Absolute Neuts (auto) Absolute Nucleated RBC Nucleated RBC % (auto) PT INR Sodium Potassium Chloride Carbon Dioxide Anion Gap BUN Creatinine Estim Creat Clear Calc Estimated GFR Random Glucose Calcium Ferritin 211 Microbiology Microbiology Results: Microbiology 07/20/21 15:18 Blood - Venous Blood Culture - Final No growth after 5 days. 07/23/21 06:55 Blood - Venous Blood Culture - Preliminary No growth after 48 hours. 07/23/21 06:55 Blood - Venous Blood Culture - Preliminary No growth after 48 hours. 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 Patient had recent right ureteric stent removal 3 days prior to ED presentation secondary to obstructive ureteric stone. CT abdomen and pelvis was performed which showed b/l hydronephrosis (new) with obstructing renal stone on right. She was subsequently seen by Urology and is now s/p cystoscopy, bilateral retrograde, bilateral stent placement. S-Cr has since been improving since that time. #) GAURANG, non-oliguric on CKD -S-Cr peaked at 5.97 but has been trending downward since 07/20. -No indication for LOGISTICS AND PLANNING MANAGER at this time. -CKD - BL ~ 2.2 mg/dL. She appears to be at her prior BL -Continue to hold nephrotoxic agents such as acei/arb, nsaids, IV contrast, and renal dose abx. -Monitor I/O's. Time Spent With Patient Time: Total time spent is greater than 50% in coordination of care (as documented) at patient's floor/unit and/or counseling patient: Progress Note: Quality Stroke Does the patient have a stroke diagnosis?: No
[2021-07-25 19:17] VITALS: BP 136/79; PULSE 86; RESP 18; TEMP 37.5; O2SAT 94
[2021-07-25] MEDS: ondansetron HCL 4 MG/2 ML VIAL IVPUSH (20:32)
[2021-07-25 23:10] VITALS: BP 128/62; PULSE 106; RESP 21; TEMP 36.1; O2SAT 90
[2021-07-26 03:22] VITALS: BP 134/66; PULSE 97; RESP 20; TEMP 36.7; O2SAT 97
[2021-07-26 05:33] VITALS: BMI 42.6
[2021-07-26 07:31] VITALS: BP 117/56; PULSE 91; RESP 18; TEMP 36.7; O2SAT 96
[2021-07-26 07:43] LABS: Anion Gap 14 (12-20); Blood Urea Nitrogen 38 mg/dL (9-16); Calcium 8.7 mg/dL (8.4-10.2); Carbon Dioxide 24 mmol/L (22-29); Chloride 109 mmol/L (96-108); Creatinine Clr Calc Pharmacy 23.5; Estimated Glomerular Filt Rate 24; Glucose Random 96 mg/dL (60-115); Potassium 3.7 mmol/L (3.3-5.1); Sodium 143 mmol/L (135-145)
[2021-07-26 09:39] VITALS: BP 117/56; PULSE 91; O2SAT 96
[2021-07-26] MEDS: Cholecalciferol (Vitamin D3) 10 MCG TABLET PO (09:54)
[2021-07-26] MEDS: Sodium Bicarbonate 650 MG TABLET PO ×2 (09:54→20:35)
[2021-07-26 09:59] LABS: Folate 2.6 ng/mL (> or = 4.0); Vitamin B12 708 pg/mL (200-900)
--- NOTE | 2021-07-26 10:59 | MHC.CM.PN ---
Per ROUNDS discussion, Patient is not yet medically cleared for dc (UTI/Bacteremia on IV Meropenem); PT recommends STR and CM will continue to follow.
--- NOTE | 2021-07-26 11:39 | PC.NURSE ---
Dizziness with PT jerod this am. Takes prn meclazine at home. This was discussed with DIRECTOR OF AUTOMATION who is overseeing care. Plan to order prn meclazine.
--- NOTE | 2021-07-26 11:56 | PM.PNNEP ---
Subjective Subjective Date of Service: 07/26/21 Interval history: CHart Reviewed. Events noted. Physical Exam Vital Signs: Vital Signs: Last Vital Signs Temp 98.1 F 07/26/21 07:31 Pulse 91 07/26/21 09:39 Resp 18 07/26/21 07:31 BP 117/56 L 07/26/21 09:39 Pulse Ox 96 07/26/21 09:39 Oxygen Flow Rate 2 07/21/21 14:06 BMI result Body Mass Index 42.6 Const: General: comfortable Neck: Neck: Yes no JVD Resp: Auscultation: rhonchi and diminished lung sounds Cardio: Palpation: no palpable S4 Heart sounds: no gallops and no rubs GI: Inspection: Yes normal to inspection Auscultation: normal bowel sounds Skin: General skin exam: no rashes or lesions noted Objective Data Labs CBC & Chem 7: 07/25/21 06:45 07/26/21 06:32 Labs: Laboratory Results - last 24 hr 07/25/21 07/26/21 06:45 06:32 Sodium 143 Potassium 3.7 Chloride 109 H Carbon Dioxide 24 Anion Gap 14 BUN 38 H Creatinine 2.00 H Estim Creat Clear Calc 23.5 Estimated GFR 24 Random Glucose 96 Calcium 8.7 Vitamin B12 708 Folate 2.6 L Microbiology Microbiology Results: Microbiology 07/20/21 15:18 Blood - Venous Blood Culture - Final No growth after 5 days. 07/23/21 06:55 Blood - Venous Blood Culture - Preliminary No growth after 48 hours. 07/23/21 06:55 Blood - Venous Blood Culture - Preliminary No growth after 48 hours. 07/20/21 15:44 Urine Catheterized - Pedro Catheter Urine Culture - Preliminary Klebsiella pneumoniae Enterobacter cloacae complex 07/20/21 15:18 Blood - Venous Blood Culture - Preliminary Enterobacter cloacae complex Procedures Date of Service Date of Service: 07/26/21 Assessment & Plan Assessment and plan (1) Acute on chronic kidney failure: Status: Acute Plan GAURANG, non-oliguric on CKD ?CT scan 07/20 bilateral hydroureteronephrosis.? 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 Right ureter has small stone at UVJ -S-Cr peaked at 5.97 but has been trending downward since 07/20. -No indication for [employer] PRESS HAND at this time. -CKD - BL ~ 2.0 mg/dL. She appears to be at her prior BL -Continue to hold nephrotoxic agents such as acei/arb, nsaids, IV contrast, and renal dose abx. -Monitor I/O's. Time Spent With Patient Time: Total time spent is greater than 50% in coordination of care (as documented) at patient's floor/unit and/or counseling patient: Progress Note: Quality Stroke Does the patient have a stroke diagnosis?: No
--- NOTE | 2021-07-26 12:14 | HO.MIDLINE_ITS ---
PICC Line Insertion MIDLINE INSERTION Diagnosis: BACTEREMIA, DIFFICULT IV ACCESS Indication: SUPERINTENDENT [employer]PERATIONS IV ANTIBIOTICS, NEEDS IV ACCESS Pertinent Labs: REVIEWED; DOMINANT R ARM INSERTION PER NEPHROLOGY REQUEST Technique: Using sterile technique including cap and mask, glove and drape, the RIGHT arm was prepped and draped in the usual sterile fashion of full barrier technique with CHG. Using ultrasound guidance, BASILIC vein access was obtained IN SINGLE ATTEMPT BY THIS RN. Over an 0.018 wire, a SINGLE LUMEN, NONPASV, (20G x10CM) MIDLINE was positioned. The procedure was performed in S-272. Ultrasound was used to document vein patency and for needle entry. A formal ultrasound picture was recorded. Vascular Family Law Specialist has released the line for use and it is currently dressed with a StatLock, Tegaderm, and CHG disc. Verification has been performed for blood return and line patency. Arm Circumference: 47 CM Equipment: [employer] POWERGLIDE ST Catheter Type: SINGLE LUMEN, NONPASV, (20G x 10CM) Lot #: [id number]
--- NOTE | 2021-07-26 13:30 | HO.PM.IMPN ---
Subjective Subjective Date of Service: 07/26/21 Review of Systems Follow-up for urosepsis and bacteremia Vertigo improving, patient feeling better overall although generally still feeling weak No abdominal pain, nausea, vomiting.? No fever, chills Physical Exam Vital Signs: Vital Signs: Last Vital Signs Temp 98.1 F 07/26/21 07:31 Pulse 91 07/26/21 09:39 Resp 18 07/26/21 07:31 BP 117/56 L 07/26/21 09:39 Pulse Ox 96 07/26/21 09:39 Oxygen Flow Rate 2 07/21/21 14:06 BMI result Body Mass Index 42.6 Appearing in no acute distress lung sounds are clear to auscultation heart regular rate rhythm, clear S1, S2 positive bowel sounds, abdomen is soft, nontender neuro patient is alert x3, no focal deficits Objective Data Active Medications Acetaminophen (Acetaminophen 325 Mg Tablet) 650 mg PO DAILY [facility] Last Admin: 07/26/21 09:53 Dose: Not Given Documented by: RISHI Non-Admin Reason: Patient Refused Albuterol/Ipratropium (Albuterol/Iprat 2.5/0.5mg 3 Ml Ampul.Neb) 3 ml INHALE RQ6H PRN PRN Reason: Shortness of Breath Docusate Sodium (Docusate Sodium 100 Mg Capsule) 100 mg PO BID [facility] Last Admin: 07/26/21 09:54 Dose: Not Given Documented by: RISHI Non-Admin Reason: Patient Refused Meropenem 500 mg/ Sodium (Chloride) 50 mls @ 100 mls/hr IV Q12H [facility] Last Infusion: 07/26/21 04:38 Dose: 0 mls/hr Documented by: GASTON Melatonin (Melatonin 3 Mg Tablet) 3 mg PO BEDTIME [facility] Last Admin: 07/25/21 20:28 Dose: Not Given Documented by: GASTON Non-Admin Reason: Patient Refused Omeprazole (Omeprazole 20 Mg Capsule.) 20 mg PO DAILY [facility] Last Admin: 07/26/21 09:54 Dose: Not Given Documented by: RISHI Non-Admin Reason: Patient Refused Ondansetron HCl (Ondansetron Hcl 4 Mg/2 Ml Vial) 4 mg IVPUSH Q4H PRN PRN Reason: Nausea Last Admin: 07/25/21 20:32 Dose: 4 mg Documented by: GASTON Pharmacy Consult (Consult Rx Perform Med Rec) 1 each MISCELLANE ONCE PRN PRN Reason: Consult order Sodium Bicarbonate (Sodium Bicarbonate 650 Mg Tablet) 650 mg PO BID [facility] Last Admin: 07/26/21 09:54 Dose: 650 mg Documented by: RISHI Tiotropium [place] (Tiotropium [place] 18 Mcg Cap.W.Dev) 1 puff INHALE RDAILY [facility] Last Admin: 07/26/21 07:51 Dose: Not Given Documented by: ALDEN Non-Admin Reason: Patient Refused Tiotropium [place] (Tiotropium [place] 18 Mcg Cap.W.Dev) 1 puff INHALE RDAILY [facility] Last Admin: 07/26/21 07:51 Dose: Not Given Documented by: ALDEN Non-Admin Reason: Duplicate Order Vitamin D (Cholecalciferol (Vitamin D3) 10 Mcg Tablet) 10 mcg PO DAILY [facility] Last Admin: 07/26/21 09:54 Dose: 10 mcg Documented by: RISHI Labs CBC & Chem 7: 07/25/21 06:45 07/26/21 06:32 Labs: Laboratory Results - last 24 hr 07/25/21 07/26/21 06:45 06:32 Anion Gap 14 Estim Creat Clear Calc 23.5 Estimated GFR 24 Random Glucose 96 Calcium 8.7 Vitamin B12 708 Folate 2.6 L Microbiology Microbiology Results: Microbiology 07/20/21 15:18 Blood Culture - Final Blood - Venous No growth after 5 days. Assessment and Plan (1) Acute pyelonephritis: Status: Acute (2) Bacteremia: Status: Acute Plan This is an 85-year-old female with history of COPD, TIAGO on 2 L of nocturnal oxygen, hyperlipidemia, CHF, CKD, AAA status post aortoiliac endo graft, left carotid artery stenosis initially presented July 20 with complaints of dysuria, nausea, vomiting found to have urosepsis, obstructive uropathy with bilateral hydronephrosis, GAURANG and was admitted to the ICU. She had bilateral stent placement on July 21 and was downgraded to medical floor on July 22. 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 Baseline creatinine around 2.0 nephrology following Hypomagnesemia mag 1.7 after replacement Acute on chronic Normocytic anemia heme + stools no evidence of overt bleeding s/p transfusion of 1U rbc 07/22 with appropriate rise in H/H aspirin d/c seen by GI - will hold off on further workup due to acute illness - can consider outpatient workup b12 708, folate 2.6 add folic acid H/H has remained stable Thrombocytopenia platelets stable follow cbc Hyperkalemia r/t GAURANG resolved Metabolic acidosis r/t GAURANG improved sodium bicarb BID COPD no acute exacerbation resume home inhalers prn breathing treatments TIAGO continue 2L nocturnal oxygen HTN lisinopril on hold for GAURANG metoprolol on hold for now BP stable Vertigo chronic meclizine on hold, can resume as renal function improves ?CHF no echo in system on lasix at home, being held for GAURANG monitor fluid status closely Morbid obesity BMI 42.6 discussed the importance of weight management as this may be contributing to worsening of other comorbidities dvt ppx - mechanical devices due to anemia/heme + stools Attending Dr. [place] Dispo: pt rec STR when medically stable Patient requires ongoing inpatient hospitalization due to UTI/bacteremia with possible resistant organism, GAURANG, anemia with possible GI bleed needing gastroenterology evaluation Quality Stroke Does the patient have a stroke diagnosis?: No VTE Prior VTE?: No VTE Risk Level:: Medical - moderate - high VTE Device Contraindication: N/A - Device Ordered VTE Drug Contraindication: N/A - Med Ordered
[2021-07-26 15:00] VITALS: BP 117/60; PULSE 88; RESP 17; TEMP 36.7; O2SAT 96
[2021-07-26 19:02] VITALS: BP 102/69; PULSE 108; RESP 17; TEMP 36.4; O2SAT 90
[2021-07-26 23:13] VITALS: BP 123/50; PULSE 100; RESP 20; TEMP 36.2; O2SAT 94
[2021-07-27 03:19] VITALS: BP 91/56; PULSE 84; RESP 20; TEMP 36.4; O2SAT 93
[2021-07-27 05:53] VITALS: BMI 42.4
[2021-07-27 06:22] LABS: Hematocrit 27.8 % (37.0-47.0); Hemoglobin 8.2 g/dl (12.0-16.0); Mean Corpuscular HGB Conc 29.5 g/dl (31.0-35.0); Mean Corpuscular Hemoglobin 27.7 pg (27.0-33.0); Mean Corpuscular Volume 93.9 fL (80.0-98.0); Mean Platelet Volume 9.7 fL (9.4-12.3); Platelet Count 161 X10*3/uL (160-400); Red Blood Count 2.96 X10*6/uL (4.20-5.50); Red Cell Distribution Width 19.8 % (11.0-16.0); White Blood Count 7.4 X10*3/uL (4.8-10.8)
[2021-07-27 06:42] LABS: Anion Gap 11 (12-20); Blood Urea Nitrogen 31 mg/dL (9-16); Calcium 8.7 mg/dL (8.4-10.2); Carbon Dioxide 25 mmol/L (22-29); Chloride 109 mmol/L (96-108); Creatinine Clr Calc Pharmacy 24.7; Estimated Glomerular Filt Rate 25; Glucose Random 97 mg/dL (60-115); Potassium 3.7 mmol/L (3.3-5.1); Sodium 141 mmol/L (135-145)
[2021-07-27 07:31] VITALS: BP 98/54; PULSE 90; RESP 20; TEMP 36.7; O2SAT 97
[2021-07-27] MEDS: Folic Acid 1 MG TABLET PO (09:07)
[2021-07-27] MEDS: Acetaminophen 325 MG TABLET 650 MG PO (09:07)
[2021-07-27] MEDS: Sodium Bicarbonate 650 MG TABLET PO (09:07)
[2021-07-27] MEDS: Cholecalciferol (Vitamin D3) 10 MCG TABLET PO (09:08)
[2021-07-27] MEDS: Omeprazole 20 MG CAPSULE.DR PO (09:08)
--- NOTE | 2021-07-27 09:28 | MHC.CDI.CONC ---
CDI Concurrent Query Documentation Clarification: PHYSICIAN'S DOCUMENTATION REQUEST Date of Query: 07/27/2129 Patient Name: Portia Appiah Admit Date: 07/20/21 Dear Doctor, A review of the medical record indicates additional documentation may be needed. Please review below and update the documentation accordingly. Clinical Indicators: The following clinical information was noted in the record: Clarity of specifics noted within the record: Risk Factors/Clinical Indicators/Treatments Nephrology note: 07/23 - CKD 3 PN: 07/24 - CKD II Nephrology note: 07/25 - CKD III PN: 07/26 - CKD II secondary to obstructive uropathy. Please clarify which of the following accurately represents the patient's renal status: GAURANG on CKD Stage II GAURANG on CKD Stage III Other (please specify) Unable to determine Criteria for GAURANG* Stages of Chronic Kidney Disease* 1. Increase in serum creatinine by ? 0.3 mg/dL Level Description GFR (?26.5 micromol/L) within 48 hours, or G1 Normal or High > 90 2. Increase in serum creatinine to ?1.5 times baseline, G2 Mildly decreased 60 ? 89 which is known or presumed to have occurred within 7 days, or G3a Mildly to moderately decreased 45 ? 59 3. Urine volume <0.5 mL/kg/hour for six hours G3b Moderately to severely decreased 30 - 44 G4 Severely decreased 15 ? 29 G5 Kidney failure < 15 *Source: Kidney Disease: Improving Global Outcomes (KDIGO) 2012 Use of terms such as suspected, likely, concern for, or probable (associated with a specific diagnosis that is being evaluated, monitored, or treated as if it exists) are acceptable and can be coded in the inpatient setting, when documented at the time of discharge. Thank you, Richelle Oliveira [facility], CDIS Extension: [phone] Please use your independent medical judgment in providing your response. THIS QUERY IS PART OF THE PERMANENT MEDICAL RECORD Provider Response: CKD Stage 4
[2021-07-27 10:16] VITALS: BP 98/54; PULSE 90; O2SAT 97
--- NOTE | 2021-07-27 10:45 | PM.PNNEP ---
Subjective Subjective Date of Service: 07/28/21 Interval history: CHart Reviewed. Events noted. Physical Exam Vital Signs: Vital Signs: Last Vital Signs Temp 98.1 F 07/27/21 07:31 Pulse 90 07/27/21 10:16 Resp 20 07/27/21 07:31 BP 98/54 L 07/27/21 10:16 Pulse Ox 97 07/27/21 10:16 Oxygen Flow Rate 2 07/21/21 14:06 BMI result Body Mass Index 42.4 Const: General: comfortable Neck: Neck: Yes no JVD Resp: Auscultation: rhonchi and diminished lung sounds Cardio: Palpation: no palpable S4 Heart sounds: no gallops and no rubs GI: Inspection: Yes normal to inspection Auscultation: normal bowel sounds Skin: General skin exam: no rashes or lesions noted Objective Data Labs CBC & Chem 7: 07/27/21 06:09 07/27/21 06:09 Labs: Laboratory Results - last 24 hr 07/27/21 07/27/21 06:09 06:09 WBC 7.4 RBC 2.96 L Hgb 8.2 L Hct 27.8 L MCV 93.9 MCH 27.7 MCHC 29.5 L RDW 19.8 H Plt Count 161 MPV 9.7 Absolute Nucleated RBC 0.000 Nucleated RBC % (auto) 0.0 Sodium 141 Potassium 3.7 Chloride 109 H Carbon Dioxide 25 Anion Gap 11 L BUN 31 H Creatinine 1.90 H Estim Creat Clear Calc 24.7 Estimated GFR 25 Random Glucose 97 Calcium 8.7 Microbiology Microbiology Results: Microbiology 07/20/21 15:18 Blood - Venous Blood Culture - Final No growth after 5 days. 07/23/21 06:55 Blood - Venous Blood Culture - Preliminary No growth after 48 hours. 07/23/21 06:55 Blood - Venous Blood Culture - Preliminary No growth after 48 hours. 07/20/21 15:44 Urine Catheterized - Pedro Catheter Urine Culture - Preliminary Klebsiella pneumoniae Enterobacter cloacae complex 07/20/21 15:18 Blood - Venous Blood Culture - Preliminary Enterobacter cloacae complex Procedures Date of Service Date of Service: 07/27/21 Assessment & Plan Assessment and plan (1) Acute on chronic kidney failure: Status: Acute Plan GAURANG, non-oliguric on CKD ?CT scan 07/20 bilateral hydroureteronephrosis.? 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 Right ureter has small stone at UVJ -S-Cr peaked at 5.97 but has been trending downward since 07/20. -No indication for [employer] at this time. -CKD - BL ~ 2.0 mg/dL. She appears to be at her prior BL -Continue to hold nephrotoxic agents such as acei/arb, nsaids, IV contrast, and renal dose abx. -Monitor I/O's. DC planning and shall arrange for out pt follow up Time Spent With Patient Time: Total time spent is greater than 50% in coordination of care (as documented) at patient's floor/unit and/or counseling patient: Progress Note: Quality Stroke Does the patient have a stroke diagnosis?: No
[2021-07-27 11:28] VITALS: BP 111/64; PULSE 90; RESP 20; TEMP 36.9; O2SAT 95
[2021-07-27] MEDS: Meclizine HCl 12.5 MG TABLET PO (12:25)
--- NOTE | 2021-07-27 13:18 | MHC.CM.PN ---
Patient has been medically cleared for dc to SNF/STR today. Patient will dc to [facility] today at 4PM, via [facility]. Patient completed a HCP with CM and CM addressed IMM with her (providing her with the original and placing a copy on the chart). Patient and her Son/Javi @ [phone] are aware of and in agreement with the dc plan.
--- NOTE | 2021-07-27 13:31 | PM.DS ---
DS: Providers Provider Date of Service: 07/27/21 Date of admission: 07/20/21 20:01 Primary care physician: Aguilar Moreno MD Consults: 07/20/21 19:40 Consult to Nephrology Stat Consulting Provider: Albert Bermeo Reason for consultation: Acute kidney failure Has provider been notified: Yes 07/23/21 09:04 Consult to Infectious Diseases Routine Consulting Provider: Daisy Guzman Reason for consultation: bacteremia, ? resistent enterobacter cloacae Has provider been notified: No 07/23/21 14:07 Consult to Gastroenterology Routine Consulting Provider: Davion Yuen Reason for consultation: anemia with heme +stools Has provider been notified: No Attending physician on discharge: Carl Milan Discharging clinician: Elvira Perez DS: Diagnosis Discharge Diagnosis (1) Acute on chronic kidney failure: Status: Acute DS: Summary Hospital Course Hospital Course: HP as per admitting provider Patient is an 85-year-old female with underlying history nephrolithiasis with multiple little 3 apices surgeries and stent placement, chronic kidney disease stage 3, COPD with a 100-120 pack-year history, quit heavy smoking at age 53, uses oxygen at home 2 L nasal cannula at night only, history of atherosclerotic disease and CAD without intervention. ?Patient presented to the emergency room on today with complaints of dysuria, nausea, vomiting and diarrhea for the last 3 days.? She was transported from a local long-term where she was noted to be hypotensive today, it is known the patient recently had a right ureteric stent removal about [address] Sung, stent which had been placed due to a obstructive uropathy and acute kidney injury. In the emergency room, the patient was noted to be hypotensive with the lowest blood pressure of 74/34, otherwise not tachycardic or febrile, not hypoxemic.? Her workup however revealed a white count of 18.7, H&H of 8.4 and 27.6, absolute neutrophilic count of 13.9, potassium 5.6, BUN of 96 and creatinine of 5.671 her baseline is (1.6-2.6), lactic acid was 1.8, troponin 144.? The patient was given 30 mL/kilos of IV fluids, started on Rocephin, given that her blood pressure was still low, right IJ central line had been placed and the patient was started on vasopressors.Nephrologywas consulted and recommended given this patient 3 amps bicarbonate and D5 which was started in the ER. CT abdomen and pelvis is pending.?Influenza and COVID test were negative. At this point, the patient states that she feels much better than when she came in, denies any abdominal pain, nausea, vomiting, headache, chest pain, shortness of breath, she has not had any more diarrhea.? She does admit having some hematuria earlier on . 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 Midline removed Obstructive uropathy secondary to b/l nephrolithiasis s/p b/l ureteral stents placed 07/21 urology following kevin cath removed GAURANG on CKD4 initial creat 5.97 to 1.90 secondary to obstructive uropathy evaluated by nephrology check BMP in 2 days Hypomagnesemia mag 1.7 after replacement Acute on chronic Normocytic anemia heme + stools no evidence of overt bleeding s/p transfusion of 1U rbc 07/22 with appropriate rise in H/H aspirin d/c seen by GI - will hold off on further workup due to acute illness - can consider outpatient workup b12 708, folate 2.6 added folic acid H/H has remained stable Thrombocytopenia platelets stable follow cbc Hyperkalemia r/t GAURANG resolved Metabolic acidosis r/t GAURANG improved sodium bicarb initially but stopped COPD no acute exacerbation resume home inhalers TIAGO continue 2L nocturnal oxygen HTN lisinopril on hold for GAURANG metoprolol can be restarted BP stable Vertigo chronic meclizine ?CHF no echo in system on lasix at home, being held for GAURANG but can now be restarted Morbid obesity BMI 42.6 discussed the importance of weight management as this may be contributing to worsening of other comorbidities Time Spent with Patient Time attestation: Total time spent providing and/or coordinating discharge services: Discharge coordination time: Greater than 30 minutes Quality: Safe Use of Opioids Does Pt have an Active Cancer Diagnosis on the Problem List?: No Quality: Stroke Does the patient have a stroke diagnosis?: No Physical Exam Vital Signs: Vital Signs: Last Vital Signs Temp 98.5 F 07/27/21 11:28 Pulse 90 07/27/21 11:28 Resp 20 07/27/21 11:28 BP 111/64 07/27/21 11:28 Pulse Ox 95 07/27/21 11:28 Oxygen Flow Rate 2 07/21/21 14:06 BMI result Body Mass Index 42.4 Appearing in no acute distress head is normocephalic atraumatic eyes pupils are PERRLA sclera is anicteric mouth throat mucous membranes are intact and moist neck is supple no lymphadenopathy, no JVD noted lung sounds are clear to auscultation heart regular rate rhythm, clear S1, S2 positive bowel sounds, abdomen is soft, nontender neuro patient is alert x3, no focal deficits DS: Data Data Completed and Pending Completed studies during hospitalization [Text1]: Procedures Dilation of Right Ureter with Intraluminal Device, Via Natural or Artificial Opening Endoscopic (06/07/21) Fluoroscopy of Right Kidney, Ureter and Bladder (06/07/21) Transfusion of Nonautologous Red Blood Cells into Peripheral Vein, Percutaneous Approach (06/07/21) Labs on day of discharge: Laboratory Results - last 24 hr 07/27/21 07/27/21 06:09 06:09 WBC 7.4 RBC 2.96 L Hgb 8.2 L Hct 27.8 L MCV 93.9 MCH 27.7 MCHC 29.5 L RDW 19.8 H Plt Count 161 MPV 9.7 Absolute Nucleated RBC 0.000 Nucleated RBC % (auto) 0.0 Sodium 141 Potassium 3.7 Chloride 109 H Carbon Dioxide 25 Anion Gap 11 L BUN 31 H Creatinine 1.90 H Estim Creat Clear Calc 24.7 Estimated GFR 25 Random Glucose 97 Calcium 8.7 Preliminary micro results at discharge 07/23/21 06:55 Blood Culture - Preliminary Blood - Venous No growth after 48 hours. 07/23/21 06:55 Blood Culture - Preliminary Blood - Venous No growth after 48 hours. 07/20/21 15:44 Urine Culture - Preliminary Urine Catheterized - Kevin Catheter Klebsiella pneumoniae Enterobacter cloacae complex 07/20/21 15:18 Blood Culture - Preliminary Blood - Venous Enterobacter cloacae complex Discharge Plan Discharge Anticipated Discharge Date/Time: 07/27/21 Patient Disposition: Xfer Inpatient Rehab Fac Discharge Diagnosis: Sepsis secondary to acute pyelonephritis Bacteremia Obstructive uropathy GAURANG on CKD stage 2 Referrals: [facility] [place] [Outside] - 1 Week Aguilar Moreno MD [Primary Care Provider] - 1 Week Discharge Medications: New folic acid 1 mg Tablet 1 mg PO DAILY Qty: 30 0RF levofloxacin 500 mg tablet 500 mg PO DAILY Qty: 10 0RF Continued metoprolol succinate 25 mg tablet extended release 24 hr 25 mg PO DAILY 90 Days Qty: 90 3RF Incruse Ellipta 62.5 mcg/actuation blister with device 1 inh PO DAILY Qty: 30 0RF Spiriva with HandiHaler 18 mcg Capsule, W/Inhalation Device 18 mcg inhalation RDAILY Qty: 60 0RF acetaminophen [Tylenol] 325 mg Tablet 650 mg PO DAILY 0RF meclizine 12.5 mg Tablet 12.5 mg PO TID PRN (Reason: Dizziness) 0RF melatonin 3 mg Tablet 3 mg PO BEDTIME 0RF guaifenesin 100 mg/5 mL Liquid 200 mg PO TID 0RF pantoprazole [Protonix] 40 mg Tablet,Delayed Release (Dr/Ec) 40 mg PO DAILY 0RF docusate sodium [Colace] 100 mg Capsule 100 mg PO BID 0RF polyethylene glycol 3350 [Miralax] 17 gram/dose Powder 17 g PO DAILY 0RF omeprazole 20 mg Tablet,Delayed Release (Dr/Ec) 20 mg PO DAILY 0RF atorvastatin 40 mg tablet 40 mg PO BEDTIME 0RF furosemide 20 mg tablet 20 mg PO DAILY 0RF cholecalciferol (vitamin D3) 10 mcg (400 unit) capsule 10 mcg PO DAILY 0RF aspirin [Adult Low Dose Aspirin] 81 mg tablet,delayed release (DR/EC) 81 mg PO DAILY 0RF Held lisinopril 20 mg tablet 20 mg PO DAILY 0RF Hold Instructions: Resume on 07/30/21. If renal function improved Discharge Orders: Discharge Order (Routine); Ordered 07/27/21 Ordered By: Elvira Perez Diet: advance to usual diet Activity on Discharge: As tolerated Stand Alone Forms: Patient Portal Discharge page Other Ambulatory Orders: Basic Metabolic Panel (Routine) Timeframe: [id number] Facility: [facility] - Location: Laboratory Ordered By: Elvira Perez Care Plan Goals: complete resolution of symptoms Health Concerns: Sepsis secondary to acute pyelonephritis Bacteremia Obstructive uropathy GAURANG on CKD stage 2 Plan of Treatment: follow up with primary care provider as needed take all medications as prescribed Check the BMP in 2 days Continue Levaquin for 10 days Assessment: See discharge summary
[2021-07-27 13:51] LABS: COVID-19 Test Negative (Negative); IDNOW Serial# 55D5AD1C
--- NOTE | 2021-07-27 14:32 | MHC.IC ---
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 Veenaect to Melisa SHORT to let her know and be sure this information is included in any transfer paperwork. CRE status added to Special Indicators.
[2021-07-27 15:25] VITALS: BP 108/59; PULSE 99; RESP 17; TEMP 37.3; O2SAT 92
== END 2021-07-27 17:22 | DRG 853 ==
LOC: HO.ED 18:45 → HO.EDOVER 20:13 → HO.ICU 21:20 → HO.IMC 07-22 16:34
PROVIDERS: Anesthesiology; Internal Medicine; Physician Assistant Medical; Urology; Admitting Provider Physician Assistant Medical; Emergency Provider Emergency Medicine; PCP Family Medicine; Visit Provider Nurse Practitioner Acute Care
PROC: 0T788DZ Dilation of Bilateral Ureters with Intraluminal Device, Via Natural or Artificial Opening Endoscopic (ICD-10-PCS; principal; 2021-07-21 10:00)
DX: A41.9 Sepsis, unspecified organism (principal); R65.21 Severe sepsis with septic shock; N17.9 Acute kidney failure, unspecified; N13.6 Pyonephrosis; I13.0 Hypertensive heart and chronic kidney disease with heart failure and stage 1 through stage 4 chronic kidney disease, or unspecified chronic kidney disease; Z68.41 Body mass index [BMI] 40.0-44.9, adult; E44.0 Moderate protein-calorie malnutrition; E87.2 Acidosis; K92.1 Melena; N18.4 Chronic kidney disease, stage 4 (severe); E87.5 Hyperkalemia; E86.0 Dehydration; N25.0 Renal osteodystrophy; I73.9 Peripheral vascular disease, unspecified; E86.1 Hypovolemia; D63.1 Anemia in chronic kidney disease; D69.6 Thrombocytopenia, unspecified; E83.42 Hypomagnesemia; G47.33 Obstructive sleep apnea (adult) (pediatric); I50.9 Heart failure, unspecified; B96.1 Klebsiella pneumoniae [K. pneumoniae] as the cause of diseases classified elsewhere; F17.210 Nicotine dependence, cigarettes, uncomplicated; Z71.6 Tobacco abuse counseling; E66.01 Morbid (severe) obesity due to excess calories; I25.10 Atherosclerotic heart disease of native coronary artery without angina pectoris; Z20.822 Contact with and (suspected) exposure to COVID-19; Z79.899 Other long term (current) drug therapy
CPT/HCPCS: 0241U; 36410; 36415; 71045; 73600; 74176; 76775; 80048; 80053; 80076; 81001; 82272; 82607; 82728; 82746; 83540; 83605; 83690; 83735; 83880; 84100; 84484; 85025; 85027; 85610; 86850; 86900; 86901; 86923; 87040; 87077; 87086; 87088; 87186; 87205; 87635; 93005; 96361; 96365; 96375; 97110; 97162; 97530; 99285; C1751; C1758; C1769; C2617; J0696; J1170; J2185; J2405; J2543; J3475; P9016; P9047; Q9967

== ENCOUNTER 2021-08-06 13:11 | Inpatient (IN) | payer MEDICARE, OTHER, SELFPAY ==
[2021-08-06] VITALS (11 sets, daily range): BP systolic 74–117; BP diastolic 37–85; PULSE 74–100; RESP 14–24; TEMP 36.6–37; O2SAT 91–98; BMI 41.0; BMI 40.7
--- NOTE | ~2021-08-06 | CT_ITS ---
EXAMINATION: CT ABDOMEN AND PELVIS WITHOUT CONTRAST CLINICAL INFORMATION: Acute kidney injury superimposed on chronic kidney disease. Rule out obstructive uropathy. COMPARISON: CT abdomen pelvis 07/20/2021 TECHNIQUE: Multidetector volumetric imaging was performed from the superior aspect of the liver through the pubic symphysis. Sagittal and coronal reformatted images were obtained on the technologist's workstation. This CT examination was performed using dose optimization techniques as appropriate, variously including the following: *Automated exposure control *Adjustment of mA and/or kV according to patient size (this includes techniques or standardized protocols for targeted exams where dose is matched to indication/reason for exam; i.e. extremities or head) *Use of iterative reconstruction technique DLP: 1027 mGy-cm FINDINGS: LUNG BASES: Mild bibasilar atelectasis or scarring. Aortic and mitral annular calcifications. Mildly dilated distal thoracic aorta measuring 4.3 cm in diameter LIVER, GALLBLADDER, AND BILIARY TREE: Small subcentimeter hypodense lesion in the inferior right liver lobe adjacent to gallbladder, unchanged, too small to characterize likely a small cyst. No other liver lesions. Normal hepatic attenuation. No biliary ductal dilation. The gallbladder is unremarkable with no evidence of radiopaque gallstones, gallbladder wall thickening, or obvious pericholecystic inflammatory changes. PANCREAS: Mild fatty atrophy. No pancreatic lesion or peripancreatic inflammatory change. SPLEEN: Normal size. Small calcified granuloma. No other splenic lesion. ADRENAL GLANDS: Unremarkable. KIDNEYS AND URETERS: Double-J ureteral stents are in place with proximal loops in the renal pelvis bilaterally. Distal loops are located in the posterior bladder as expected. There is severe right moderate left hydroureteronephrosis, increased since prior CT of 07/19/2020 prior to stent placement. Small 1.6 cm low-density cyst in the left midpole. Mild bilateral cortical thinning symmetric bilateral perirenal fascial stranding/edema. 4 mm nonobstructing left lower pole renal calculus. BLADDER: Prominently distended. No bladder wall thickening. GASTROINTESTINAL TRACT: Sigmoid diverticulosis. No evidence of acute diverticulitis. No dilated bowel loops. No bowel wall thickening. Normal appendix. No ascites or free air. ABDOMINAL WALL: Fat-containing umbilical hernia, larger than on prior. LYMPH NODES: No lymphadenopathy. VASCULAR: Status post aortobiiliac endovascular stent graft placement. Similar size of the large [place] aneurysm sac measuring approximately 7.1 x 7.3 cm in axial dimension. Extensive vascular calcifications. PELVIC VISCERA: Unremarkable. OSSEOUS STRUCTURES: No acute fracture or suspicious osseous lesion. Mild multilevel degenerative disc disease. CT/CT abdomen pelvis wo con IMPRESSION: 1. Markedly distended urinary bladder proximal main the level of the umbilicus. Correlate with bladder dysfunction or inability to urinate consider Pedro catheter decompression as indicated. 2. Severe right moderate left hydroureteronephrosis with double-J ureteral stents in appropriate position bilaterally. Findings may be on basis of vesicoureteral reflux versus stent dysfunction. 3. Multiple additional ancillary findings, as described.
--- NOTE | 2021-08-06 13:32 | ECG_ITS ---
Test Reason : chronic sob Blood Pressure : / mmHG Vent. Rate : 090 BPM Atrial Rate : 090 BPM P-R Int : 208 ms QRS Dur : 108 ms QT Int : 374 ms P-R-T Axes : 070 031 000 degrees QTc Int : 457 ms Sinus rhythm with Premature atrial complexes Low voltage QRS Inferior infarct (cited on or before 07-JUN-2021) Cannot rule out Anterior infarct (cited on or before 07-JUN-2021) Abnormal ECG When compared with ECG of 20-JUL-2021 15:00, Premature atrial complexes are now Present Referred By: Mely Choi Electronically Signed By:Clay Berrios
--- NOTE | 2021-08-06 13:34 | ED.GENADULT ---
HPI - General Adult General Chief complaint: Recheck/Abnormal Lab/Rx Stated complaint: ABN LABS FROM FACILITY PER EMS Time Seen by Provider: 08/06/21 13:21 Source: patient and EMS Mode of arrival: EMS History of Present Illness HPI narrative: 85-year-old female with a past medical history of nephrolithiasis s/p stent placement, CKD, COPD uses home O2 at night only, ACS, CAD, s/p admission to our facility for sepsis due to acute pyelonephritis/bacteremia and obstructive uropathy discharged on 07/27/2021 [facility]IB[facility] fron SNF for hypotension & elevated renal function. Patient also reports acute on chronic right-sided low back pain, urinary incontinence, and chronic SOB. Denies fever, chills, cough, abdominal pain, nausea/vomiting, diarrhea, dysuria/hematuria Onset (ago): unknown Related Data Home Medications Medication Instructions Recorded Confirmed cholecalciferol (vitamin D3) 10 10 mcg PO DAILY 04/16/20 08/06/21 mcg (400 unit) capsule furosemide 20 mg tablet 20 mg PO DAILY 04/16/20 08/06/21 aspirin 81 mg tablet,delayed 81 mg PO DAILY 04/21/20 08/06/21 release (Adult Low Dose Aspirin) acetaminophen 325 mg tablet 650 mg PO DAILY 07/20/21 08/06/21 (Tylenol) atorvastatin 40 mg tablet 40 mg PO BEDTIME 07/20/21 08/06/21 guaifenesin 100 mg/5 mL oral liquid 200 mg PO TID 07/20/21 08/06/21 meclizine 12.5 mg tablet 12.5 mg PO TID PRN Dizziness 07/20/21 08/06/21 omeprazole 20 mg tablet,delayed 20 mg PO DAILY 07/20/21 08/06/21 release pantoprazole 40 mg tablet,delayed 40 mg PO DAILY 07/20/21 08/06/21 release (Protonix) polyethylene glycol 3350 17 17 g PO DAILY 07/20/21 08/06/21 gram/dose oral powder (Miralax) albuterol 90 mcg/actuation aerosol 180 mcg inhalation Q4H PRN Wheezing 08/06/21 08/06/21 inhaler bisacodyl 10 mg rectal suppository 10 mg NV DAILY PRN Constipation 08/06/21 08/06/21 ondansetron 4 mg disintegrating 4 mg PO Q6H PRN Nausea 08/06/21 08/06/21 tablet sennosides 8.6 mg tablet (senna) 8.6 mg PO DAILY PRN Constipation 08/06/21 08/06/21 sodium phosphates 19 gram-7 118 ml NV DAILY PRN Constipation 08/06/21 08/06/21 gram/118 mL enema (Fleet Enema) Previous Rx's Medication Instructions Recorded metoprolol succinate 25 mg 25 mg PO DAILY 90 days #90 tabs 02/22/21 tablet,extended release 24 hr Incruse Ellipta 62.5 mcg/actuation 1 inh PO DAILY #30 ea 06/09/21 powder for inhalation (umeclidinium) tiotropium bromide 18 mcg capsule 18 mcg inhalation RDAILY #60 06/11/21 with inhalation device (Spiriva inhalations with HandiHaler) folic acid 1 mg tablet 1 mg PO DAILY #30 tabs 07/27/21 levofloxacin 500 mg tablet 500 mg PO DAILY #10 tabs 07/27/21 Allergies Allergy/AdvReac Type Severity Reaction Status Date / Time No Known Allergies Allergy Verified 05/17/21 10:30 [No Known Allergies*] Review of Systems Review of Systems: Constitutional: No Fever, No Chills, No Fatigue, No Malaise ENT/Mouth: No Ear Pain, No Nasal Congestion, No Sinus Pain, No Hoarseness, No sore throat, No Rhinorrhea, No Swallowing Difficulty Eyes: No Eye Pain, No Swelling, No Redness, No Vision Changes Cardiovascular: No Chest Pain, +chronic SOB, No Dyspnea on Exertion, No Orthopnea, No Edema, No Palpitations Respiratory: No Cough, No Sputum, No Dyspnea Gastrointestinal: No Nausea, No Vomiting, No Diarrhea, No Constipation, No Abdominal pain Genitourinary: No Dysuria, + Urinary Frequency, No Hematuria, +chronic Urinary Incontinence, No Urgency, + Flank Pain, No Urinary Flow Changes, No Hesitancy Musculoskeletal: No joint pain, No Myalgias, No Joint Swelling Skin: No Skin Lesions, No rash Neuro: No Weakness, No Numbness, No Dizziness, No Headache Yes all other systems are reviewed and are negative PMFSH Past Medical History Attestation statement: The following information was validated with the patient. Medical History Abdominal aortic aneurysm (AAA) without rupture Acute blood loss anemia CKD (chronic kidney disease) stage 3, GFR 30-59 ml/min COPD (chronic obstructive pulmonary disease) Kidney stone on right side Nocturnal hypoxemia Obesity Recurrent falls Skin tear of hand without complication Family History Family History Father No problems noted. Mother No problems noted. Social History Social History Household Members: None Housing: Other Housing Other:: SNF Alcohol intake: never Patient Tobacco Use Status: Never used Tobacco Tobacco use type: Cigarette Cigarettes Per Day: 1 Advance Directives: Yes Advance Directives on File: Yes Advance Directives Date on File: 07/21/21 service: No Current occupational status: retired Physical Exam ED Vital Signs: Vital Signs - 24 hr 08/06/21 13:22 08/06/21 14:00 08/06/21 16:00 Temperature 98.3 F 98.2 F 98.4 F Pulse Rate 90 74 85 Respiratory Rate 18 22 H 21 H Blood Pressure 74/52 L 82/46 L 92/47 L Pulse Oximetry 96 96 96 Oxygen Delivery Method Room Air Room Air Room Air 08/06/21 16:59 Temperature 98.2 F Pulse Rate 86 Respiratory Rate 18 Blood Pressure 90/48 L Pulse Oximetry 95 Oxygen Delivery Method Room Air BMI result Body Mass Index 41.0 Const General: cooperative and no acute distress Nutritional Appearance: obese Orientation/consciousness: patient oriented x3 Limitations: no limitations HENMT Head: Yes normal to inspection and Yes atraumatic Ears: hearing grossly normal bilaterally General nose exam: Normal external nose present Face and sinus: Yes normal facial exam Eyes General: appearance normal, both eyes and all related structures EOM: EOMs intact bilaterally Neck Neck: Yes normal visual inspection and Yes no meningeal signs Resp Effort & Inspection: normal respiratory effort and no respiratory distress Auscultation: clear to auscultation bilaterally, no rales, no rhonchi and no wheezes Cardio Rate: regular rate Heart sounds: S1 normal heart sound present and S2 normal heart sound present GI Inspection: Yes normal to inspection Palpation (GI): Soft to palpation, nontender, no guarding and not rigid General: Yes no CVA tenderness Back/Spine/Pelvis Back: no CVA tenderness Skin Rashes: no rashes Wounds: no wounds Neuro General: patient oriented x3, tone normal and no meningeal signs Gait exam (Neuro): Normal gait present Extrem General: Yes normal to inspection and Yes no pedal edema Course Course Course Narrative: 1509--bladder scan with >999cc >> will insert Pedro catheter -no leukocytosis, H&H stable, acute on chronic CKD with a BUN of 54, creatinine of 4.3 > likely obstructive due to retention on bladder scan CT abdomen pelvis wo con IMPRESSION: ? 1. Markedly distended urinary bladder proximal main the level of the umbilicus. Correlate with bladder dysfunction or inability to urinate consider Pedro catheter decompression as indicated. 2. Severe right moderate left hydroureteronephrosis with double-J ureteral stents in appropriate position bilaterally. Findings may be on basis of vesicoureteral reflux versus stent dysfunction. 3. Multiple additional ancillary findings, as described. ? >> will consult Urology Dr. Sung -Dr. Sung recommended Pedro placement for retention and gentle hydration with re-imaging in 48 hours with catheter in, if not improved may need to intervene on stents -UA infected >> empiric meropenem is given based on prior urine culture results > blood pressure improved to 90/48 > plan to admit for further management Medical Decision Making MDM Narrative Medical decision making narrative: 85-year-old female with a past medical history of nephrolithiasis s/p stent placement, CKD, COPD uses home O2 at night only, ACS, CAD, s/p admission to our facility for sepsis due to acute pyelonephritis/bacteremia and obstructive uropathy discharged on 07/27/2021 BIBA fron SNF for hypotension & elevated renal function. On exam hypotensive, nontoxic appearing, lungs CTA, abdomen soft/nontender. Concern for acute on chronic CKD/obstructive uropathy vs recurrent UTI vs metabolic/infectious etiologies. Lower concern for severe sepsis at this time Plan: EKG, labs, UA, CT abdomen/pelvis, IVF, anticipated admission Medical Records Medical records reviewed: Yes I reviewed the patient's medical records. Lab Data Lab results reviewed: Yes I reviewed the patient's lab results. Result diagrams: 08/06/21 15:42 08/06/21 15:41 Labs: Lab Results 08/06/21 08/06/21 08/06/21 Range/Units 14:25 15:41 15:41 WBC (4.8-10.8) X10*3/uL RBC (4.20-5.50) X10*6/uL Hgb (12.0-16.0) g/dl Hct (37.0-47.0) % MCV (80.0-98.0) fL MCH (27.0-33.0) pg MCHC (31.0-35.0) g/dl RDW (11.0-16.0) % Plt Count (160-400) X10*3/uL MPV (9.4-12.3) fL Immature Gran % (Auto) (0.0-0.4) % Neut % (Auto) (45-73) % Lymph % (Auto) (20-40) % [place] % (Auto) (2-11) % Eos % (Auto) (0-4) % Baso % (Auto) (0-2) % Lymph # (Auto) (1.2-4.9) X10*3/uL [place] # (Auto) (0.1-1.2) X10*3/uL Eos # (Auto) (0.0-0.4) X10*3/uL Baso # (Auto) (0.0-0.2) X10*3/uL Abs Immat Gran (auto) (0.00-0.03) X10*3/uL Absolute Neuts (auto) (2.0-8.3) x10*3/uL Absolute Nucleated RBC (0.0-0.012) X10*3/uL Nucleated RBC % (auto) (0.0-0.2) /100WBC PT (9.9-13.0) SEC INR (0.9-1.1) Sodium 135 (135-145) mmol/L Potassium 4.8 D (3.3-5.1) mmol/L Chloride 104 (96-108) mmol/L Carbon Dioxide 20 L (22-29) mmol/L Anion Gap 16 (12-20) BUN 54 H D (9-16) mg/dL Creatinine 4.30 H* (0.5-1.4) mg/dL Estim Creat Clear Calc 11.5 Estimated GFR 10 Random Glucose 93 (60-115) mg/dL Lactic Acid 2.0 (0.5-2.0) mmol/L Calcium 8.3 L (8.4-10.2) mg/dL Magnesium 1.5 L (1.6-2.6) mg/dL Total Bilirubin 0.7 (0.0-1.0) mg/dL Direct Bilirubin 0.3 (0.0-0.5) mg/dL AST 26 D (5-31) U/L ALT 11 (0-31) U/L Alkaline Phosphatase 175 H (39-117) U/L Total Protein 6.5 (6.5-8.0) g/dL Albumin 2.5 L (3.5-5.0) g/dL Lipase 42 (8-78) U/L Urine Color Urine Appearance Urine pH (5.0-8.0) Ur Specific Union (1.005-1.025) Urine Protein (NEG-TRACE) MG/DL Urine Glucose (UA) (NEG) MG/DL Urine Ketones (NEG) MG/DL Urine Blood (NEG) Urine Nitrite (NEG) Ur Leukocyte Esterase (NEG) Urine RBC (0) /HPF Urine WBC (0-4) /HPF Ur Squamous Epith Cells /LPF Urine Bacteria /LPF COVID-19 ([facility]) Negative (Negative) COVID-19 Clin Com See Note 08/06/21 08/06/21 08/06/21 Range/Units 15:42 15:42 17:03 WBC 8.1 (4.8-10.8) X10*3/uL RBC 2.92 L (4.20-5.50) X10*6/uL Hgb 8.3 L (12.0-16.0) g/dl Hct 26.5 L (37.0-47.0) % MCV 90.8 (80.0-98.0) fL MCH 28.4 (27.0-33.0) pg MCHC 31.3 (31.0-35.0) g/dl RDW 19.1 H (11.0-16.0) % Plt Count 220 D (160-400) X10*3/uL MPV 10.3 (9.4-12.3) fL Immature Gran % (Auto) 0.5 H (0.0-0.4) % Neut % (Auto) 48.9 (45-73) % Lymph % (Auto) 34.5 (20-40) % [place] % (Auto) 14.5 H (2-11) % Eos % (Auto) 1.0 (0-4) % Baso % (Auto) 0.6 (0-2) % Lymph # (Auto) 2.8 (1.2-4.9) X10*3/uL [place] # (Auto) 1.2 (0.1-1.2) X10*3/uL Eos # (Auto) 0.1 (0.0-0.4) X10*3/uL Baso # (Auto) 0.1 (0.0-0.2) X10*3/uL Abs Immat Gran (auto) 0.04 H (0.00-0.03) X10*3/uL Absolute Neuts (auto) 4.0 (2.0-8.3) x10*3/uL Absolute Nucleated RBC 0.000 (0.0-0.012) X10*3/uL Nucleated RBC % (auto) 0.0 (0.0-0.2) /100WBC PT 14.0 H (9.9-13.0) SEC INR 1.2 H (0.9-1.1) Sodium (135-145) mmol/L Potassium (3.3-5.1) mmol/L Chloride (96-108) mmol/L Carbon Dioxide (22-29) mmol/L Anion Gap (12-20) BUN (9-16) mg/dL Creatinine (0.5-1.4) mg/dL Estim Creat Clear Calc Estimated GFR Random Glucose (60-115) mg/dL Lactic Acid (0.5-2.0) mmol/L Calcium (8.4-10.2) mg/dL Magnesium (1.6-2.6) mg/dL Total Bilirubin (0.0-1.0) mg/dL Direct Bilirubin (0.0-0.5) mg/dL AST (5-31) U/L ALT (0-31) U/L Alkaline Phosphatase (39-117) U/L Total Protein (6.5-8.0) g/dL Albumin (3.5-5.0) g/dL Lipase (8-78) U/L Urine Color YELLOW Urine Appearance TURBID Urine pH 6.0 (5.0-8.0) Ur Specific Union 1.015 (1.005-1.025) Urine Protein 1+ H (NEG-TRACE) MG/DL Urine Glucose (UA) NEG (NEG) MG/DL Urine Ketones NEG (NEG) MG/DL Urine Blood 2+ H (NEG) Urine Nitrite NEG (NEG) Ur Leukocyte Esterase 3+ H (NEG) Urine RBC 15-29 H (0) /HPF Urine WBC TNTC H (0-4) /HPF Ur Squamous Epith Cells NONE /LPF Urine Bacteria 3+ /LPF COVID-19 ([facility]) (Negative) COVID-19 Clin Com Critical Care Time Critical Care Time Critical Care Time: Yes Total Critical Care Time: 45 Attestation: I have personally provided critical care time exclusive of time spent on separately billable procedures. Time includes review of lab data, radiology results, discussion with consultants, and monitoring for potential decompensation. Intervention performed as documented. Discharge Plan Discharge Clinical Impression: Acute urinary retention, Acute kidney injury superimposed on CKD, Acute dehydration, Acute UTI Patient Disposition: Admitted As Inpatient
--- NOTE | 2021-08-06 14:24 | PHA.MEDREC ---
Pharmacy Consult ? Medication Reconciliation Pharmacy has completed the medication reconciliation. Patient came with list from [facility]. Per previous admission, noted by Sajan TOLENTINO, she is on protonix and omeprazole.
[2021-08-06 14:46] LABS: COVID-19 Test Negative (Negative)
[2021-08-06] MEDS: 0.9 % Sodium Chloride 1,000 ML 999 ML IV ×2 (14:47→17:32)
--- NOTE | 2021-08-06 14:53 | PC.NURSE ---
SEVERAL ATTEMPTS FOR IV ACCESS, FINALLY ABLE TO ESTABLISH 22 IN RIGHT HAND. FLUIDS GIVE. CALLED [facility] TO OBTAIN LABS
[2021-08-06 15:50] LABS: MANUAL DIFF FLAG NO
[2021-08-06 16:00] LABS: INTERNATIONAL NORM RATIO 1.2 (0.9-1.1)
[2021-08-06 16:04] LABS: Basophils Absolute Auto 0.1 X10*3/uL (0.0-0.2); Basophils Percent Auto 0.6 % (0-2); Eosinophils Absolute Auto 0.1 X10*3/uL (0.0-0.4); Hematocrit 26.5 % (37.0-47.0); Hemoglobin 8.3 g/dl (12.0-16.0); Imm Gran Abs Auto 0.04 X10*3/uL (0.00-0.03); Imm Gran Pct Auto 0.5 % (0.0-0.4); Lymphocytes Absolute Auto 2.8 X10*3/uL (1.2-4.9); Lymphocytes Percent Auto 34.5 % (20-40); Mean Corpuscular HGB Conc 31.3 g/dl (31.0-35.0); Mean Corpuscular Hemoglobin 28.4 pg (27.0-33.0); Mean Corpuscular Volume 90.8 fL (80.0-98.0); Mean Platelet Volume 10.3 fL (9.4-12.3); Monocytes Absolute Auto 1.2 X10*3/uL (0.1-1.2); Monocytes Percent Auto 14.5 % (2-11); Neutrophils Percent Auto 48.9 % (45-73); Platelet Count 220 X10*3/uL (160-400); Red Blood Count 2.92 X10*6/uL (4.20-5.50); Red Cell Distribution Width 19.1 % (11.0-16.0); White Blood Count 8.1 X10*3/uL (4.8-10.8)
[2021-08-06 16:22] LABS: Alanine Aminotransferase 11 U/L (0-31); Albumin Level 2.5 g/dL (3.5-5.0); Alkaline Phosphatase 175 U/L (39-117); Anion Gap 16 (12-20); Aspartate Amino Transferase 26 U/L (5-31); Bilirubin Direct 0.3 mg/dL (0.0-0.5); Bilirubin Total 0.7 mg/dL (0.0-1.0); Blood Urea Nitrogen 54 mg/dL (9-16); Calcium 8.3 mg/dL (8.4-10.2); Carbon Dioxide 20 mmol/L (22-29); Chloride 104 mmol/L (96-108); Creatinine Clr Calc Pharmacy 11.5; Estimated Glomerular Filt Rate 10; Glucose Random 93 mg/dL (60-115); Lipase 42 U/L (8-78); Magnesium 1.5 mg/dL (1.6-2.6); Potassium 4.8 mmol/L (3.3-5.1); Sodium 135 mmol/L (135-145); Total Protein 6.5 g/dL (6.5-8.0)
[2021-08-06 17:17] LABS: Appearance Urine TURBID; Color Urine YELLOW; Glucose Urine UA NEG (NEG); Leukocyte Esterase Urine 3+ (NEG); Nitrite Urine NEG (NEG); Specific Gravity - Urine 1.015 (1.005-1.025); UACC Culture Trigger YES; Urine Blood 2+ (NEG); Urine Ketones NEG (NEG); Urine Protein 1+ MG/DL (NEG-TRACE)
[2021-08-06 17:36] LABS: WBC Urine TNTC /HPF (0-4)
[2021-08-06 17:37] LABS: Bacteria Urine 3+ /LPF
--- NOTE | 2021-08-06 18:40 | PM.IMHP ---
History of Present Illness Date of Service: 08/06/21 Attending physician on admission: Rei Diaz Chief Complaint: hypotension/ elevated creatinine 85-year-old female patient with past medical history of chronic kidney disease, COPD on home O2 at night, history of coronary artery disease, recently discharged from [facility] on July 27 after being treated for sepsis due to acute pyelonephritis/ bacteremia and obstructive uropathy status post stent placement by Urology sent back to [facility] since patient was noted to be hypotensive and had elevated renal function patient denies associated fever chills she has chronic lower back pain reports acute right lower back pain yesterday that she attributes to sitting on a chair, she complains of dry heaves otherwise denies nausea vomiting abdominal pain diarrhea no dysuria no hematuria, denies worsening chronic lightheadedness, in the emergency room workup showed a creatinine of 4.3 with baseline creatinine around 2 to 2.5, with a low magnesium of 1.5, stable hematocrit 26.5, hemoglobin 8.3, urinalysis positive for too numerous to count WBC 3 +bacteria positive leuko site Estrace and negative nitrate, recent urine culture positive for Klebsiella and Enterobacter cloacae, and blood culture also positive for enterobacter cloace patient currently on Levaquin, CT abdomen and pelvis showed markedly distended urinary bladder, severe right and moderate left hydro ureteral nephrosis with double-J ureteral stents in appropriate positions bilaterally, findings concerning for vesicoureteral reflux versus stent dysfunction, bladder scan can not positive for 999 CC, patient noted to be hypotensive, with initial blood pressure of 74/52 that improved with IV fluids to 90/48. patient treated in the emergency room with 1 dose of IV meropenem and 2 L of IV fluid, patient now being admitted to [facility] with acute on chronic kidney disease, and urinary retention Review of Systems Review of Systems: General no headache,no fever chills. CVS no chest pain, no palpitation. Respiratory no cough no sputum production no respiratory distress. Gastrointestinal no nausea ,no vomiting, no abdominal pain Yes all other systems are reviewed and are negative [facility] Medical History Abdominal aortic aneurysm (AAA) without rupture Acute blood loss anemia CKD (chronic kidney disease) stage 3, GFR 30-59 ml/min COPD (chronic obstructive pulmonary disease) Kidney stone on right side Nocturnal hypoxemia Obesity Recurrent falls Skin tear of hand without complication Family History Father No problems noted. Mother No problems noted. Social History Household Members: None Housing: Apartment Housing Other:: SNF Do you presently have visiting nurse or other home services: Yes (twice weekly) Alcohol intake: never Patient Tobacco Use Status: Never used Tobacco Tobacco use type: Cigarette Cigarettes Per Day: 1 Second Hand Smoke Exposure: No Use of substances other than those prescribed or required for medical reasons: No Currently Displaying Signs/Symptoms of Drug Intoxication Withdrawal: No Have you been hit, kicked, punched, or otherwise hurt by someone within the past year? If so, by whom?: No Do you feel safe in your current relationship?: No Current Relationship Is there a partner from a previous relationship who is making you feel unsafe now?: No Are you made to feel afraid or neglected: No Advance Directives: Yes Advance Directives Information Provided: Yes Advance Directives on File: Yes Advance Directives Date on File: 07/21/21 Do you have thoughts of harming others: None Do you have a plan to hurt others: No Plan Recently lost weight without trying: No Eating poorly because of decreased appetite: No Nutrition Risks: No Nutritional Risk Patient : No : No Poor oral hygiene: No service: No Current occupational status: retired [place] Allergies Allergy/AdvReac Type Severity Reaction Status Date / Time No Known Allergies Allergy Verified 05/17/21 10:30 [No Known Allergies*] Active Medications: Current Medications Acetaminophen (Acetaminophen 325 Mg Tablet) 650 mg PO Q6H PRN PRN Reason: Pain, Mild (Pain Scale 1-3) Atorvastatin Calcium (Atorvastatin Calcium 40 Mg Tablet) 40 mg PO BEDTIME IVORY Bisacodyl (Bisacodyl 10 Mg Supp.Rect) 10 mg CA DAILY PRN PRN Reason: Constipation Folic Acid (Folic Acid 1 Mg Tablet) 1 mg PO DAILY IVORY Meclizine HCl (Meclizine Hcl 12.5 Mg Tablet) 12.5 mg PO TID PRN PRN Reason: Dizziness Non-Formulary Medication (Umeclidinium [Incruse Ellipta]) 1 inhalation PO DAILY IVORY Omeprazole (Omeprazole 20 Mg Capsule.) 20 mg PO DAILY@0630 [facility] Ondansetron HCl (Ondansetron Hcl 4 Mg/2 Ml Vial) 4 mg IVPUSH Q8H PRN PRN Reason: Nausea and Vomiting Pharmacy Consult (Consult Rx Perform Med Rec) 1 each MISCELLANE ONCE PRN PRN Reason: Consult order Polyethylene Glycol (Polyethylene Glycol 3350 17 Gm Powd.Pack) 17 gm PO DAILY [facility] Senna (Sennosides 8.6 Mg Tablet) 8.6 mg PO DAILY PRN PRN Reason: Constipation Sodium Chloride (0.9 % Sodium Chloride Flush 3 Ml Syringe) 3 ml IVFLUSH QSHIFT [facility] Tiotropium [place] (Tiotropium [place] 18 Mcg Cap.W.Dev) 1 puff INHALE RDAILY [facility] Vitamin D (Cholecalciferol (Vitamin D3) 10 Mcg Tablet) 10 mcg PO DAILY [facility] Home Medications Medication Instructions Recorded Confirmed Last Taken Type cholecalciferol (vitamin D3) 10 10 mcg PO DAILY 04/16/20 08/06/21 08/05/21 History mcg (400 unit) capsule furosemide 20 mg tablet 20 mg PO DAILY 04/16/20 08/06/21 07/20/21 History aspirin 81 mg tablet,delayed 81 mg PO DAILY 04/21/20 08/06/21 08/06/21 History release (Adult Low Dose Aspirin) acetaminophen 325 mg tablet 650 mg PO DAILY 07/20/21 08/06/21 08/06/21 History (Tylenol) atorvastatin 40 mg tablet 40 mg PO BEDTIME 07/20/21 08/06/21 08/05/21 History guaifenesin 100 mg/5 mL oral liquid 200 mg PO TID 07/20/21 08/06/21 07/20/21 History meclizine 12.5 mg tablet 12.5 mg PO TID PRN Dizziness 07/20/21 08/06/21 08/06/21 History omeprazole 20 mg tablet,delayed 20 mg PO DAILY 07/20/21 08/06/21 07/20/21 History release pantoprazole 40 mg tablet,delayed 40 mg PO DAILY 07/20/21 08/06/21 08/06/21 History release (Protonix) polyethylene glycol 3350 17 17 g PO DAILY 07/20/21 08/06/21 08/06/21 History gram/dose oral powder (Miralax) albuterol 90 mcg/actuation aerosol 180 mcg inhalation Q4H PRN Wheezing 08/06/21 08/06/21 Unknown History inhaler bisacodyl 10 mg rectal suppository 10 mg CA DAILY PRN Constipation 08/06/21 08/06/21 Unknown History ondansetron 4 mg disintegrating 4 mg PO Q6H PRN Nausea 08/06/21 08/06/21 Unknown History tablet sennosides 8.6 mg tablet (senna) 8.6 mg PO DAILY PRN Constipation 08/06/21 08/06/21 Unknown History sodium phosphates 19 gram-7 118 ml CA DAILY PRN Constipation 08/06/21 08/06/21 Unknown History gram/118 mL enema (Fleet Enema) Physical Exam Vital Signs and Narrative: Vital Signs: Last Vital Signs Temp 98.2 F 08/06/21 16:59 Pulse 86 08/06/21 16:59 Resp 18 08/06/21 16:59 BP 90/48 L 08/06/21 16:59 Pulse Ox 95 08/06/21 16:59 O2 Del Method 08/06/21 16:59 BMI result Body Mass Index 41.0 Const: Other: General awake alert x3, in no acute distress. HEENT PERRLA,EOMI Neck supple, no JVD. CVS irregular rate rhythm, Respiratory lungs clear to auscultation, no respiratory distress, no wheeze, no rhonchi. Gastrointestinal abdomen soft, obese,nontender, bowel sounds audible, no guarding , no rigidity. Extremities no edema. Neuro nonfocal ,speech clear. Skin no rash psych appropriate affect Results Labs CBC and Chem 7: 08/06/21 15:42 08/07/21 08:29 Labs: Laboratory Results - last 24 hr 08/06/21 08/06/21 08/06/21 14:25 15:41 15:41 MCV MCH MCHC RDW Plt Count MPV Immature Gran % (Auto) Neut % (Auto) Lymph % (Auto) [place] % (Auto) Eos % (Auto) Baso % (Auto) Lymph # (Auto) [place] # (Auto) Eos # (Auto) Baso # (Auto) Abs Immat Gran (auto) Absolute Neuts (auto) Absolute Nucleated RBC Nucleated RBC % (auto) PT INR Anion Gap 16 Estim Creat Clear Calc 11.5 Estimated GFR 10 Random Glucose 93 Lactic Acid 2.0 Calcium 8.3 L Magnesium 1.5 L Total Bilirubin 0.7 Direct Bilirubin 0.3 AST 26 D ALT 11 Alkaline Phosphatase 175 H Total Protein 6.5 Albumin 2.5 L Lipase 42 Urine Color Urine Appearance Urine pH Ur Specific [place] Urine Protein Urine Glucose (UA) Urine Ketones Urine Blood Urine Nitrite Ur Leukocyte Esterase Urine RBC Urine WBC Ur Squamous Epith Cells Urine Bacteria COVID-19 (HEVER) Negative COVID-19 Clin Com See Note 08/06/21 08/06/21 08/06/21 15:42 15:42 17:03 MCV 90.8 MCH 28.4 MCHC 31.3 RDW 19.1 H Plt Count 220 D MPV 10.3 Immature Gran % (Auto) 0.5 H Neut % (Auto) 48.9 Lymph % (Auto) 34.5 [place] % (Auto) 14.5 H Eos % (Auto) 1.0 Baso % (Auto) 0.6 Lymph # (Auto) 2.8 [place] # (Auto) 1.2 Eos # (Auto) 0.1 Baso # (Auto) 0.1 Abs Immat Gran (auto) 0.04 H Absolute Neuts (auto) 4.0 Absolute Nucleated RBC 0.000 Nucleated RBC % (auto) 0.0 PT 14.0 H INR 1.2 H Anion Gap Estim Creat Clear Calc Estimated GFR Random Glucose Lactic Acid Calcium Magnesium Total Bilirubin Direct Bilirubin AST ALT Alkaline Phosphatase Total Protein Albumin Lipase Urine Color YELLOW Urine Appearance TURBID Urine pH 6.0 Ur Specific [place] 1.015 Urine Protein 1+ H Urine Glucose (UA) NEG Urine Ketones NEG Urine Blood 2+ H Urine Nitrite NEG Ur Leukocyte Esterase 3+ H Urine RBC 15-29 H Urine WBC TNTC H Ur Squamous Epith Cells NONE Urine Bacteria 3+ COVID-19 (HEVER) COVID-19 Clin Com Imaging Radiologist's Impressions: Impressions Abdomen/Pelvis CT 08/06/21 14:55 IMPRESSION: 1. Markedly distended urinary bladder proximal main the level of the umbilicus. Correlate with bladder dysfunction or inability to urinate consider Pedro catheter decompression as indicated. 2. Severe right moderate left hydroureteronephrosis with double-J ureteral stents in appropriate position bilaterally. Findings may be on basis of vesicoureteral reflux versus stent dysfunction. 3. Multiple additional ancillary findings, as described. Assessment and Plan (1) Acute urinary retention: Status: Acute (2) Acute kidney injury superimposed on CKD: Status: Acute Plan 85-year-old female with a past medical history CKD stage IV, COPD uses home O2 at night only, ACS, CAD, s/p admission to our facility for sepsis due to acute pyelonephritis/bacteremia and obstructive uropathy discharged on 07/27/2021 , returned to [facility] for hypotension & elevated renal function.?? acute on chronic kidney disease stage 4 likely obstructive uropathy since CT abdomen showed double-J ureteral stents in place, severe right and moderate left hydroureteronephrosis increased since prior CT scan of 07/19 , mild bilateral cortical thinning symmetric bilateral Maura renal facial stranding / edema 4 mm nonobstructing left lower pole renal calculus, markedly distended urinary bladder, findings likely related to vesicoureteral reflux versus stent Dysfunction Pedro catheter placed, follow BMP, gentle IV fluid Dr. Sung recommend to follow BMP if not better in 48 hours, then question stent dysfunction urinary tract infection with recent Enterobacter bacteremia, due to resistant bacteria/ stent will place on IV meropenem and obtain Infectious Disease consultation, was discharged on Levaquin 500 mg daily last dose 08/06 will follow repeat urine and blood cultures. hypotension blood pressure improved with IV fluids, will hold metoprolol, and Lasix, no evidence of sepsis follow blood pressure closely . hypomagnesemia will replace and follow chronic normocytic anemia stable hematocrit COPD no acute exacerbation, continue home inhalers Spiriva and Incruse Ellipta History of AAA repair, CT showed?aneurysmal distal abdominal aorta with a aortic graft/stent in place , similar size of large [place] aneurysm sac. obstructive sleep apnea continue 2 L nocturnal oxygen chronic vertigo continue as needed meclizine morbid obesity discussed importance of weight management since contributing to worsening of other comorbidities DVT prophylaxis with mechanical devices code status full code patient requires 2 night inpatient hospitalization due to acute on chronic kidney disease related to ongoing urinary tract infection and urinary retention will need further Renal and Urology workup. Quality Stroke Does the patient have a stroke diagnosis?: No VTE Prior VTE?: No VTE Risk Level:: Medical - moderate - high VTE Device Contraindication: N/A - Device Ordered VTE Drug Contraindication: Treatment Not Indicated
--- NOTE | 2021-08-06 20:33 | PC.NURSE ---
Gave report to [facility], Pt stable for transport to [facility].
[2021-08-06] MEDS: 0.9 % Sodium Chloride Flush 3 ML SYRINGE IVFLUSH (21:10)
[2021-08-06] MEDS: Magnesium Oxide 400 MG TABLET PO (21:10)
[2021-08-06] MEDS: Atorvastatin Calcium 40 MG TABLET PO (21:10)
[2021-08-07] VITALS (8 sets, daily range): BP systolic 69–119; BP diastolic 39–72; PULSE 82–96; RESP 18–20; TEMP 36.3–37.2; O2SAT 91–98
[2021-08-07] MEDS: Omeprazole 20 MG CAPSULE.DR PO (05:51)
[2021-08-07] MEDS: Acetaminophen 325 MG TABLET 650 MG PO (05:51)
--- NOTE | 2021-08-07 08:44 | MHC.CM.PN ---
CM met with Patient at bedside and addressed IMM with her, providing her with the original and placing a copy on the chart. Patient would like to return to [facility] at [facility] and CM has initiated and will follow for dc planning. Patient lives alone in an apartment and had [employer] for nighttime O2. Patient has received Moderna/Covid vax X2 and her PCP is DR. Aguilar Moreno.
[2021-08-07 08:51] LABS: Anion Gap 15 (12-20); Blood Urea Nitrogen 50 mg/dL (9-16); Calcium 8.1 mg/dL (8.4-10.2); Carbon Dioxide 17 mmol/L (22-29); Chloride 110 mmol/L (96-108); Creatinine Clr Calc Pharmacy 13.1; Estimated Glomerular Filt Rate 11; Glucose Random 79 mg/dL (60-115); Potassium 4.6 mmol/L (3.3-5.1); Sodium 137 mmol/L (135-145)
[2021-08-07] MEDS: 0.9 % Sodium Chloride Flush 3 ML SYRINGE IVFLUSH ×2 (08:55→15:25)
[2021-08-07] MEDS: Folic Acid 1 MG TABLET PO (08:55)
[2021-08-07] MEDS: Cholecalciferol (Vitamin D3) 10 MCG TABLET PO (10:22)
--- NOTE | 2021-08-07 12:25 | P.PNIM_ITS ---
Subjective Subjective Date of Service: 08/07/21 Interval History: Offers no acute complaints of lightheadedness, dizziness, resting comfortably no chest pain, no palpitation, tolerating diet, no nausea, no vomiting, no abdominal pain, Pedro catheter draining clear urine. Review of Systems Review of Systems: Yes all other systems are reviewed and are negative Physical Exam Vital Signs: Vital Signs: Last Vital Signs Temp 97.6 F 08/07/21 11:59 Pulse 86 08/07/21 11:17 Resp 18 08/07/21 11:17 BP 119/55 L 08/07/21 11:17 Pulse Ox 93 08/07/21 11:17 O2 Del Method 08/07/21 11:17 BMI result Body Mass Index 40.7 General? awake eden rt x3, in no acute distress. HEENT P ERRLA,EOMI Neck meng pple, no JVD. CVS? regular rate rhyt hm, Respiratory pauline ngs clear to auscu ltation, no respir atory distress, no wheeze, no rhonch i. Gastrointestina l abdomen soft,? o bese,nontender, madai wel sounds audible , no guarding , no rigidity. Extremi ties no? edema. Ne uro nonfocal ,spee ch clear. Skin no rash psych appropr iate affect Objective Data Active Medications Acetaminophen (Acetaminophen 325 Mg Tablet) 650 mg PO Q6H PRN PRN Reason: Pain, Mild (Pain Scale 1-3) Last Admin: 08/07/21 05:51 Dose: 650 mg Documented By: PANKAJ Atorvastatin Calcium (Atorvastatin Calcium 40 Mg Tablet) 40 mg PO BEDTIME [facility] Last Admin: 08/06/21 21:10 Dose: 40 mg Documented By: PANKAJ Bisacodyl (Bisacodyl 10 Mg Supp.Rect) 10 mg [place] DAILY PRN PRN Reason: Constipation Folic Acid (Folic Acid 1 Mg Tablet) 1 mg PO DAILY [facility] Last Admin: 08/07/21 08:55 Dose: 1 mg Documented By: NATALYA Meropenem 500 mg/ Sodium (Chloride) 50 mls @ 100 mls/hr IV Q12H [facility] Meclizine HCl (Meclizine Hcl 12.5 Mg Tablet) 12.5 mg PO TID PRN PRN Reason: Dizziness Non-Formulary Medication (Umeclidinium [Incruse Ellipta]) 1 inhalation PO DAILY [facility] Omeprazole (Omeprazole 20 Mg Capsule.Dr) 20 mg PO DAILY@0630 [facility] Last Admin: 08/07/21 05:51 Dose: 20 mg Documented By: PANKAJ Ondansetron HCl (Ondansetron Hcl 4 Mg/2 Ml Vial) 4 mg IVPUSH Q8H PRN PRN Reason: Nausea and Vomiting Pharmacy Consult (Consult Rx Perform Med Rec) 1 each MISCELLANE ONCE PRN PRN Reason: Consult order Polyethylene Glycol (Polyethylene Glycol 3350 17 Gm Powd.Pack) 17 gm PO DAILY [facility] Last Admin: 08/07/21 08:55 Dose: Not Given Documented By: NATALYA Non-Admin Reason: Patient Refused Senna (Sennosides 8.6 Mg Tablet) 8.6 mg PO DAILY PRN PRN Reason: Constipation Sodium Chloride (0.9 % Sodium Chloride Flush 3 Ml Syringe) 3 ml IVFLUSH QSHIFT [facility] Last Admin: 08/07/21 08:55 Dose: 3 ml Documented By: NATALYA Tiotropium Brock (Tiotropium Brock 18 Mcg Cap.W.Dev) 1 puff INHALE RDAILY [facility] Last Admin: 08/07/21 08:19 Dose: Not Given Documented By: ALDEN Non-Admin Reason: Med Not Available Vitamin D (Cholecalciferol (Vitamin D3) 10 Mcg Tablet) 10 mcg PO DAILY [facility] Last Admin: 08/07/21 10:22 Dose: 10 mcg Documented By: NATALYA Labs CBC & Chem 7: 08/06/21 15:42 08/07/21 08:29 Labs: Laboratory Results - last 24 hr 08/06/21 08/06/21 08/06/21 14:25 15:41 15:41 MCV MCH MCHC RDW Plt Count MPV Immature Gran % (Auto) Neut % (Auto) Lymph % (Auto) Mccone % (Auto) Eos % (Auto) Baso % (Auto) Lymph # (Auto) Mccone # (Auto) Eos # (Auto) Baso # (Auto) Abs Immat Gran (auto) Absolute Neuts (auto) Absolute Nucleated RBC Nucleated RBC % (auto) PT INR Anion Gap 16 Estim Creat Clear Calc 11.5 Estimated GFR 10 Random Glucose 93 Lactic Acid 2.0 Calcium 8.3 L Magnesium 1.5 L Total Bilirubin 0.7 Direct Bilirubin 0.3 AST 26 D ALT 11 Alkaline Phosphatase 175 H Total Protein 6.5 Albumin 2.5 L Lipase 42 Urine Color Urine Appearance Urine pH Ur Specific [place] Urine Protein Urine Glucose (UA) Urine Ketones Urine Blood Urine Nitrite Ur Leukocyte Esterase Urine RBC Urine WBC Ur Squamous Epith Cells Urine Bacteria COVID-19 ([facility]VER) Negative COVID-19 Clin Com See Note 08/06/21 08/06/21 08/06/21 15:42 15:42 17:03 MCV 90.8 MCH 28.4 MCHC 31.3 RDW 19.1 H Plt Count 220 D MPV 10.3 Immature Gran % (Auto) 0.5 H Neut % (Auto) 48.9 Lymph % (Auto) 34.5 Mccone % (Auto) 14.5 H Eos % (Auto) 1.0 Baso % (Auto) 0.6 Lymph # (Auto) 2.8 Mccone # (Auto) 1.2 Eos # (Auto) 0.1 Baso # (Auto) 0.1 Abs Immat Gran (auto) 0.04 H Absolute Neuts (auto) 4.0 Absolute Nucleated RBC 0.000 Nucleated RBC % (auto) 0.0 PT 14.0 H INR 1.2 H Anion Gap Estim Creat Clear Calc Estimated GFR Random Glucose Lactic Acid Calcium Magnesium Total Bilirubin Direct Bilirubin AST ALT Alkaline Phosphatase Total Protein Albumin Lipase Urine Color YELLOW Urine Appearance TURBID Urine pH 6.0 Ur Specific [place] 1.015 Urine Protein 1+ H Urine Glucose (UA) NEG Urine Ketones NEG Urine Blood 2+ H Urine Nitrite NEG Ur Leukocyte Esterase 3+ H Urine RBC 15-29 H Urine WBC TNTC H Ur Squamous Epith Cells NONE Urine Bacteria 3+ COVID-19 ([facility]) COVID-19 Clin Com 08/07/21 08:29 MCV MCH MCHC RDW Plt Count MPV Immature Gran % (Auto) Neut % (Auto) Lymph % (Auto) Mccone % (Auto) Eos % (Auto) Baso % (Auto) Lymph # (Auto) Mccone # (Auto) Eos # (Auto) Baso # (Auto) Abs Immat Gran (auto) Absolute Neuts (auto) Absolute Nucleated RBC Nucleated RBC % (auto) PT INR Anion Gap 15 Estim Creat Clear Calc 13.1 Estimated GFR 11 Random Glucose 79 Lactic Acid Calcium 8.1 L Magnesium Total Bilirubin Direct Bilirubin AST ALT Alkaline Phosphatase Total Protein Albumin Lipase Urine Color Urine Appearance Urine pH Ur Specific [place] Urine Protein Urine Glucose (UA) Urine Ketones Urine Blood Urine Nitrite Ur Leukocyte Esterase Urine RBC Urine WBC Ur Squamous Epith Cells Urine Bacteria COVID-19 ([facility]) COVID-19 Clin Com Assessment and Plan (1) Acute urinary retention: Status: Acute (2) Acute kidney injury superimposed on CKD: Status: Acute (3) Acute dehydration: Status: Acute (4) Acute UTI: Status: Acute Plan 85-year-old female with a past medical history CKD stage IV, COPD uses home O2 at night only, ACS, CAD, s/p admission to our facility for sepsis due to acute pyelonephritis/bacteremia and obstructive uropathy discharged on 07/27/2021 , returned to [facility]? from SNF for hypotension & elevated renal function.?? ?acute on chronic kidney disease stage 4 Creatinine remains elevated 3.76 improved from 4.3 on admission, Pedro draining clear yellow ? likely obstructive uropathy since CT abdomen showed double-J ureteral stents in place, severe right and moderate left hydroureteronephrosis increased since prior CT scan of 07/19 , mild bilateral? cortical thinning symmetric ? bilateral Maura renal facial stranding / edema 4 mm nonobstructing left lower pole renal calculus, markedly distended urinary bladder, findings likely related to vesicoureteral reflux versus stent Dysfunction ? follow BMP, continue gentle IV fluid ? Dr. Sung recommend to? follow BMP if not better in 48 hours, then question stent dysfunction await Uro and Nephro input ? ?urinary tract infection with recent Enterobacter? bacteremia, due to resistant bacteria/ stent on IV meropenem day 2, follow Infectious Disease consultation, was discharged on Levaquin? 500 mg daily last dose 08/06 ?follow repeat urine and blood cultures. ?hypotension? blood pressure remains soft, continue to hold metoprolol, and Lasix, no evidence of sepsis follow blood pressure closely , resume gentle IV fluid. ?hypomagnesemia? will replace and follow ?chronic normocytic anemia stable hematocrit ?COPD no acute exacerbation, continue home inhalers Spiriva and Incruse Ellipta ?History of AAA repair, CT showed?aneurysmal distal abdominal aorta with a aortic graft/stent in place? , similar size of large tetlin aneurysm sac. ?obstructive sleep apnea continue 2 L nocturnal oxygen ?chronic vertigo continue as needed meclizine ?morbid obesity discussed importance of weight management since contributing to worsening of other comorbidities ?DVT prophylaxis with mechanical devices ?code status full code ?patient requires continued inpatient hospitalization due to acute on chronic kidney disease related to ongoing urinary tract infection and urinary retention will need further Renal and Urology workup. Quality Stroke Does the patient have a stroke diagnosis?: No VTE Prior VTE?: No VTE Risk Level:: Medical - moderate - high VTE Device Contraindication: N/A - Device Ordered VTE Drug Contraindication: Treatment Not Indicated
[2021-08-07] MEDS: 0.9 % Sodium Chloride 1,000 ML 100 ML IVCONT (15:26)
[2021-08-07] MEDS: Atorvastatin Calcium 40 MG TABLET PO (21:15)
--- NOTE | 2021-08-07 23:32 | P.CNID_ITS ---
History of Present Illness Data of Consult Service Date: 08/07/21 Requesting physician: Rei Diaz Primary Care Provider: Aguilar Moreno MD HPI Reason for consult: urinary retention,infection She had left 07/27 on Levaquin for enterobacter cloacae bacteremia 07/20 and also present in urine. She has now abdominal distention stents ,999 ml in bladder She has no nausea or vomiting. Review of Systems Review of Systems: Yes all other systems are reviewed and are negative PMFSH Past Medical History Medical History Abdominal aortic aneurysm (AAA) without rupture Acute blood loss anemia CKD (chronic kidney disease) stage 3, GFR 30-59 ml/min COPD (chronic obstructive pulmonary disease) Kidney stone on right side Nocturnal hypoxemia Obesity Recurrent falls Skin tear of hand without complication Family History Family History Father No problems noted. Mother No problems noted. Family history: reviewed and not pertinent Social History Social History Household Members: None Housing: Apartment Housing Other:: SNF Do you presently have visiting nurse or other home services: Yes (twice weekly) Alcohol intake: never Patient Tobacco Use Status: Never used Tobacco Tobacco use type: Cigarette Cigarettes Per Day: 1 Second Hand Smoke Exposure: No Use of substances other than those prescribed or required for medical reasons: No Currently Displaying Signs/Symptoms of Drug Intoxication Withdrawal: No Have you been hit, kicked, punched, or otherwise hurt by someone within the past year? If so, by whom?: No Do you feel safe in your current relationship?: No Current Relationship Is there a partner from a previous relationship who is making you feel unsafe now?: No Are you made to feel afraid or neglected: No Advance Directives: Yes Advance Directives Information Provided: Yes Advance Directives on File: Yes Advance Directives Date on File: 07/21/21 Do you have thoughts of harming others: None Do you have a plan to hurt others: No Plan Recently lost weight without trying: No Eating poorly because of decreased appetite: No Nutrition Risks: No Nutritional Risk Patient : No : No Poor oral hygiene: No service: No Current occupational status: retired Meds Allergies Allergy/AdvReac Type Severity Reaction Status Date / Time No Known Allergies Allergy Verified 05/17/21 10:30 [No Known Allergies*] Active Medications: Current Medications Acetaminophen (Acetaminophen 325 Mg Tablet) 650 mg PO Q6H PRN PRN Reason: Pain, Mild (Pain Scale 1-3) Last Admin: 08/07/21 05:51 Dose: 650 mg Atorvastatin Calcium (Atorvastatin Calcium 40 Mg Tablet) 40 mg PO BEDTIME [facility] Last Admin: 08/07/21 21:15 Dose: 40 mg Bisacodyl (Bisacodyl 10 Mg Supp.Rect) 10 mg [place] DAILY PRN PRN Reason: Constipation Folic Acid (Folic Acid 1 Mg Tablet) 1 mg PO DAILY [facility] Last Admin: 08/07/21 08:55 Dose: 1 mg Meropenem 500 mg/ Sodium (Chloride) 50 mls @ 100 mls/hr IV Q12H [facility] Last Infusion: 08/07/21 16:46 Dose: Infused Meclizine HCl (Meclizine Hcl 12.5 Mg Tablet) 12.5 mg PO TID PRN PRN Reason: Dizziness Non-Formulary Medication (Umeclidinium [Incruse Ellipta]) 1 inhalation PO DAILY [facility] Omeprazole (Omeprazole 20 Mg Capsule.Dr) 20 mg PO DAILY@0630 [facility] Last Admin: 08/07/21 05:51 Dose: 20 mg Ondansetron HCl (Ondansetron Hcl 4 Mg/2 Ml Vial) 4 mg IVPUSH Q8H PRN PRN Reason: Nausea and Vomiting Pharmacy Consult (Consult Rx Perform Med Rec) 1 each MISCELLANE ONCE PRN PRN Reason: Consult order Polyethylene Glycol (Polyethylene Glycol 3350 17 Gm Powd.Pack) 17 gm PO DAILY [facility] Last Admin: 08/07/21 08:55 Dose: Not Given Senna (Sennosides 8.6 Mg Tablet) 8.6 mg PO DAILY PRN PRN Reason: Constipation Sodium Chloride (0.9 % Sodium Chloride Flush 3 Ml Syringe) 3 ml IVFLUSH QSHIFT [facility] Last Admin: 08/07/21 15:25 Dose: 3 ml Tiotropium Randolph (Tiotropium Randolph 18 Mcg Cap.W.Dev) 1 puff INHALE RDAILY [facility] Last Admin: 08/07/21 08:19 Dose: Not Given Vitamin D (Cholecalciferol (Vitamin D3) 10 Mcg Tablet) 10 mcg PO DAILY [facility] Last Admin: 08/07/21 10:22 Dose: 10 mcg Home Medications Medication Instructions Recorded Confirmed Last Taken Type cholecalciferol (vitamin D3) 10 10 mcg PO DAILY 04/16/20 08/06/21 08/05/21 History mcg (400 unit) capsule furosemide 20 mg tablet 20 mg PO DAILY 04/16/20 08/06/21 07/20/21 History aspirin 81 mg tablet,delayed 81 mg PO DAILY 04/21/20 08/06/21 08/06/21 History release (Adult Low Dose Aspirin) acetaminophen 325 mg tablet 650 mg PO DAILY 07/20/21 08/06/21 08/06/21 History (Tylenol) atorvastatin 40 mg tablet 40 mg PO BEDTIME 07/20/21 08/06/21 08/05/21 History guaifenesin 100 mg/5 mL oral liquid 200 mg PO TID 07/20/21 08/06/21 07/20/21 History meclizine 12.5 mg tablet 12.5 mg PO TID PRN Dizziness 07/20/21 08/06/21 08/06/21 History omeprazole 20 mg tablet,delayed 20 mg PO DAILY 07/20/21 08/06/21 07/20/21 History release pantoprazole 40 mg tablet,delayed 40 mg PO DAILY 07/20/21 08/06/21 08/06/21 History release (Protonix) polyethylene glycol 3350 17 17 g PO DAILY 07/20/21 08/06/21 08/06/21 History gram/dose oral powder (Miralax) albuterol 90 mcg/actuation aerosol 180 mcg inhalation Q4H PRN Wheezing 08/06/21 08/06/21 Unknown History inhaler bisacodyl 10 mg rectal suppository 10 mg [place] DAILY PRN Constipation 08/06/21 08/06/21 Unknown History ondansetron 4 mg disintegrating 4 mg PO Q6H PRN Nausea 08/06/21 08/06/21 Unknown History tablet sennosides 8.6 mg tablet (senna) 8.6 mg PO DAILY PRN Constipation 08/06/21 08/06/21 Unknown History sodium phosphates 19 gram-7 118 ml [place] DAILY PRN Constipation 08/06/21 08/06/21 Unknown History gram/118 mL enema (Fleet Enema) Physical Exam Vital Signs: Vital Signs: Last Vital Signs Temp 98.0 F 08/07/21 23:14 Pulse 83 08/07/21 23:14 Resp 18 08/07/21 23:14 BP 90/44 L 08/07/21 23:14 Pulse Ox 97 08/07/21 23:14 O2 Del Method 08/07/21 23:14 O2 Flow Rate 2 08/07/21 23:14 BMI result Body Mass Index 40.7 Const: General: cooperative Eyes: General: appearance normal, both eyes and all related structures Resp: Effort & Inspection: normal respiratory effort Cardio: Rate: regular rate Rhythm: regular rhythm GI: Palpation (GI): Soft to palpation and nontender Extrem: General: Yes normal to inspection Results Labs CBC & Chem 7: 08/06/21 15:42 08/07/21 08:29 Labs: BMP 08/07/21 08:29 Sodium 137 Potassium 4.6 Chloride 110 H Carbon Dioxide 17 L BUN 50 H Creatinine 3.76 H Calcium 8.1 L Microbiology Microbiology Results: Microbiology 08/06/21 15:41 Blood - Venous Blood Culture - Preliminary No growth after 24 hours. 08/06/21 15:42 Blood - Venous Blood Culture - Preliminary No growth after 24 hours. 08/06/21 Unknown Urine clean catch - Urine bhatia top Urine Culture - Preliminary Culture too young to evaluate. Assessment and Plan (1) Acute urinary retention: Status: Acute (2) Acute kidney injury superimposed on CKD: Status: Acute due to concern for infection in urine can give merem at this time await culture. Urology stent placement if needed.
[2021-08-08 03:11] VITALS: BP 90/54; PULSE 78; RESP 18; TEMP 37.1; O2SAT 97
[2021-08-08 03:39] VITALS: RESP 18
[2021-08-08] MEDS: Omeprazole 20 MG CAPSULE.DR PO (05:19)
[2021-08-08 08:00] VITALS: BP 104/50; PULSE 80; RESP 20; TEMP 37; O2SAT 96
--- NOTE | 2021-08-08 08:29 | PM.UROCN ---
History of Present Illness Consult details Consult date: 08/08/21 Narrative: Portia is a patient well known to Urology Admission to hospital 2 weeks ago with elevated creatinine At that point bilateral stents were placed and creatinine recovered to a low of 1.9 Admitted to hospital yesterday with creatinine at 4.3 and high BUN suggestive of dehydration Bladder ultrasound showed greater than 1 L Recommendation for Pedro catheter placement and tracking creatinine Since catheter placed creatinine has already dropped from 4.3 to 3.7 Continue with bladder drainage No evidence of stent obstruction Review of Systems Constitutional: Constitutional: Reports as per HPI and Reports no additional constitutional complaints Cardiovascular: Cardiovascular: Reports as per HPI and Reports no additional cardiovascular complaints Respiratory: Respiratory: Reports as per HPI and Reports no additional respiratory complaints Gastrointestinal: Gastrointestinal: Reports as per HPI and Reports no additional gastrointestinal complaints Genitourinary: Genitourinary: Reports as per HPI Musculoskeletal: Musculoskeletal: Reports no additional musculoskeletal complaints and Reports as per HPI Neurologic: Reports system reviewed and no additional complaints, except as documented and Reports as per HPI PMF Past Medical History Medical History Abdominal aortic aneurysm (AAA) without rupture Acute blood loss anemia CKD (chronic kidney disease) stage 3, GFR 30-59 ml/min COPD (chronic obstructive pulmonary disease) Kidney stone on right side Nocturnal hypoxemia Obesity Recurrent falls Skin tear of hand without complication Family History Family History Father No problems noted. Mother No problems noted. Family history: reviewed and not pertinent Social History Social History Household Members: None Housing: Apartment Housing Other:: SNF Do you presently have visiting nurse or other home services: Yes (twice weekly) Alcohol intake: never Patient Tobacco Use Status: Never used Tobacco Tobacco use type: Cigarette Cigarettes Per Day: 1 Second Hand Smoke Exposure: No Use of substances other than those prescribed or required for medical reasons: No Currently Displaying Signs/Symptoms of Drug Intoxication Withdrawal: No Have you been hit, kicked, punched, or otherwise hurt by someone within the past year? If so, by whom?: No Do you feel safe in your current relationship?: No Current Relationship Is there a partner from a previous relationship who is making you feel unsafe now?: No Are you made to feel afraid or neglected: No Advance Directives: Yes Advance Directives Information Provided: Yes Advance Directives on File: Yes Advance Directives Date on File: 07/21/21 Do you have thoughts of harming others: None Do you have a plan to hurt others: No Plan Recently lost weight without trying: No Eating poorly because of decreased appetite: No Nutrition Risks: No Nutritional Risk Patient : No : No Poor oral hygiene: No service: No Current occupational status: retired [employer] Allergies Allergy/AdvReac Type Severity Reaction Status Date / Time No Known Allergies Allergy Verified 05/17/21 10:30 [No Known Allergies*] Active Medications: Current Medications Acetaminophen (Acetaminophen 325 Mg Tablet) 650 mg PO Q6H PRN PRN Reason: Pain, Mild (Pain Scale 1-3) Last Admin: 08/07/21 05:51 Dose: 650 mg Atorvastatin Calcium (Atorvastatin Calcium 40 Mg Tablet) 40 mg PO BEDTIME [facility] Last Admin: 08/07/21 21:15 Dose: 40 mg Bisacodyl (Bisacodyl 10 Mg Supp.Rect) 10 mg DC DAILY PRN PRN Reason: Constipation Folic Acid (Folic Acid 1 Mg Tablet) 1 mg PO DAILY [facility] Last Admin: 08/07/21 08:55 Dose: 1 mg Meropenem 500 mg/ Sodium (Chloride) 50 mls @ 100 mls/hr IV Q12H [facility] Last Infusion: 08/08/21 06:25 Dose: Infused Meclizine HCl (Meclizine Hcl 12.5 Mg Tablet) 12.5 mg PO TID PRN PRN Reason: Dizziness Non-Formulary Medication (Umeclidinium [Incruse Ellipta]) 1 inhalation PO DAILY [facility] Omeprazole (Omeprazole 20 Mg Capsule.Dr) 20 mg PO DAILY@0630 [facility] Last Admin: 08/08/21 05:19 Dose: 20 mg Ondansetron HCl (Ondansetron Hcl 4 Mg/2 Ml Vial) 4 mg IVPUSH Q8H PRN PRN Reason: Nausea and Vomiting Pharmacy Consult (Consult Rx Perform Med Rec) 1 each MISCELLANE ONCE PRN PRN Reason: Consult order Polyethylene Glycol (Polyethylene Glycol 3350 17 Gm Powd.Pack) 17 gm PO DAILY [facility] Last Admin: 08/07/21 08:55 Dose: Not Given Senna (Sennosides 8.6 Mg Tablet) 8.6 mg PO DAILY PRN PRN Reason: Constipation Sodium Chloride (0.9 % Sodium Chloride Flush 3 Ml Syringe) 3 ml IVFLUSH QSHIFT [facility] Last Admin: 08/08/21 00:00 Dose: Not Given Tiotropium [place] (Tiotropium [place] 18 Mcg Cap.W.Dev) 1 puff INHALE RDAILY [facility] Last Admin: 08/08/21 08:24 Dose: Not Given Vitamin D (Cholecalciferol (Vitamin D3) 10 Mcg Tablet) 10 mcg PO DAILY [facility] Last Admin: 08/07/21 10:22 Dose: 10 mcg Home Medications Medication Instructions Recorded Confirmed Last Taken Type cholecalciferol (vitamin D3) 10 10 mcg PO DAILY 04/16/20 08/06/21 08/05/21 History mcg (400 unit) capsule furosemide 20 mg tablet 20 mg PO DAILY 04/16/20 08/06/21 07/20/21 History aspirin 81 mg tablet,delayed 81 mg PO DAILY 04/21/20 08/06/21 08/06/21 History release (Adult Low Dose Aspirin) acetaminophen 325 mg tablet 650 mg PO DAILY 07/20/21 08/06/21 08/06/21 History (Tylenol) atorvastatin 40 mg tablet 40 mg PO BEDTIME 07/20/21 08/06/21 08/05/21 History guaifenesin 100 mg/5 mL oral liquid 200 mg PO TID 07/20/21 08/06/21 07/20/21 History meclizine 12.5 mg tablet 12.5 mg PO TID PRN Dizziness 07/20/21 08/06/21 08/06/21 History omeprazole 20 mg tablet,delayed 20 mg PO DAILY 07/20/21 08/06/21 07/20/21 History release pantoprazole 40 mg tablet,delayed 40 mg PO DAILY 07/20/21 08/06/21 08/06/21 History release (Protonix) polyethylene glycol 3350 17 17 g PO DAILY 07/20/21 08/06/21 08/06/21 History gram/dose oral powder (Miralax) albuterol 90 mcg/actuation aerosol 180 mcg inhalation Q4H PRN Wheezing 08/06/21 08/06/21 Unknown History inhaler bisacodyl 10 mg rectal suppository 10 mg DC DAILY PRN Constipation 08/06/21 08/06/21 Unknown History ondansetron 4 mg disintegrating 4 mg PO Q6H PRN Nausea 08/06/21 08/06/21 Unknown History tablet sennosides 8.6 mg tablet (senna) 8.6 mg PO DAILY PRN Constipation 08/06/21 08/06/21 Unknown History sodium phosphates 19 gram-7 118 ml DC DAILY PRN Constipation 08/06/21 08/06/21 Unknown History gram/118 mL enema (Fleet Enema) Physical Exam Vital Signs: Vital Signs: Last Vital Signs Temp 98.7 F 08/08/21 03:11 Pulse 78 08/08/21 03:11 Resp 18 08/08/21 03:39 BP 90/54 L 08/08/21 03:11 Pulse Ox 97 08/08/21 03:11 O2 Del Method 08/08/21 03:11 O2 Flow Rate 2 08/08/21 03:11 BMI result Body Mass Index 40.7 Const: General: cooperative, healthy appearing, comfortable and no acute distress Orientation/consciousness: patient oriented x3 HEENT: Face and sinus: Yes normal facial exam Mouth: moist mucous membranes Neck: Neck: Yes normal visual inspection, Yes full ROM and Yes trachea midline Chest: Chest palpation & inspection: normal inspection of the chest Resp: Effort & Inspection: normal respiratory effort, able to speak in complete sentences and no respiratory distress GI: Inspection: Yes normal to inspection Back/Spine/Pelvis: Cervical Spine: normal cervical lordosis Thoracic/Lumbar Spine: thoracic and lumbar spine normal to inspection Skin: General skin exam: no rashes or lesions noted Neuro: General: patient oriented x3, tone normal and moves all extremities Extrem: General: Yes normal to inspection and Yes capillary refill normal Results Labs Result diagrams: 08/06/21 15:42 08/07/21 08:29 Labs: Abnormal lab results 08/07/21 Range/Units 08:29 Chloride 110 H (96-108) mmol/L Carbon Dioxide 17 L (22-29) mmol/L BUN 50 H (9-16) mg/dL Creatinine 3.76 H (0.5-1.4) mg/dL Calcium 8.1 L (8.4-10.2) mg/dL BMP 08/07/21 08:29 Sodium 137 Potassium 4.6 Chloride 110 H Carbon Dioxide 17 L BUN 50 H Creatinine 3.76 H Calcium 8.1 L Urine 08/06/21 Range/Units 17:03 Urine Color YELLOW Urine Appearance TURBID Urine pH 6.0 (5.0-8.0) Ur Specific [place] 1.015 (1.005-1.025) Urine Protein 1+ H (NEG-TRACE) MG/DL Urine Glucose (UA) NEG (NEG) MG/DL All other labs normal. Assessment and Plan (1) Acute kidney injury superimposed on CKD: Status: Acute (2) Acute urinary retention: Status: Acute Plan Continue with Pedro catheter Continue monitoring of electrolytes and replacement as necessary Procedures Date of Service Date of Service: 08/08/21
[2021-08-08 09:02] LABS: Anion Gap 12 (12-20); Blood Urea Nitrogen 43 mg/dL (9-16); Calcium 8.1 mg/dL (8.4-10.2); Carbon Dioxide 20 mmol/L (22-29); Chloride 110 mmol/L (96-108); Creatinine Clr Calc Pharmacy 15.6; Estimated Glomerular Filt Rate 14; Glucose Random 97 mg/dL (60-115); Magnesium 2.5 mg/dL (1.6-2.6); Potassium 4.3 mmol/L (3.3-5.1); Sodium 138 mmol/L (135-145)
[2021-08-08 11:28] VITALS: BP 107/52; PULSE 88; RESP 20; TEMP 36.6; O2SAT 98
--- NOTE | 2021-08-08 12:17 | PM.PNNEP ---
Subjective Subjective Date of Service: 08/08/21 Interval history: Offers no acute complaints of lightheadedness, dizziness, resting comfortably no chest pain, no palpitation, tolerating diet, no nausea, no vomiting, no abdominal pain, Kevin catheter draining clear urine. Physical Exam Vital Signs: Vital Signs: Last Vital Signs Temp 97.8 F 08/08/21 11:28 Pulse 88 08/08/21 11:28 Resp 20 08/08/21 11:28 BP 107/52 L 08/08/21 11:28 Pulse Ox 98 08/08/21 11:28 O2 Del Method 08/08/21 11:28 O2 Flow Rate 2 08/08/21 11:28 BMI result Body Mass Index 40.7 Const: General: cooperative Neck: Neck: Yes trachea midline Resp: Effort & Inspection: no respiratory distress Auscultation: clear to auscultation bilaterally Cardio: Rhythm: regular rhythm GI: Inspection: Yes normal to inspection Palpation (GI): Soft to palpation, nontender, no guarding and not rigid : General: Yes no CVA tenderness Back/Spine/Pelvis: Back: no CVA tenderness Skin: General skin exam: no rashes or lesions noted Neuro: General: tone normal and moves all extremities Gait exam (Neuro): Normal gait present Objective Data Labs CBC & Chem 7: 08/06/21 15:42 08/08/21 08:24 Labs: Laboratory Results - last 24 hr 08/08/21 08:24 Sodium 138 Potassium 4.3 Chloride 110 H Carbon Dioxide 20 L Anion Gap 12 BUN 43 H Creatinine 3.16 H Estim Creat Clear Calc 15.6 Estimated GFR 14 Random Glucose 97 Calcium 8.1 L Magnesium 2.5 Microbiology Microbiology Results: Microbiology 08/06/21 15:41 Blood - Venous Blood Culture - Preliminary No growth after 24 hours. 08/06/21 15:42 Blood - Venous Blood Culture - Preliminary No growth after 24 hours. 08/06/21 Unknown Urine clean catch - Urine bhatia top Urine Culture - Preliminary Culture too young to evaluate. 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
[2021-08-08] MEDS: Folic Acid 1 MG TABLET PO (12:21)
[2021-08-08] MEDS: Cholecalciferol (Vitamin D3) 10 MCG TABLET PO (12:21)
[2021-08-08] MEDS: 0.9 % Sodium Chloride Flush 3 ML SYRINGE IVFLUSH ×2 (12:25→21:53)
--- NOTE | 2021-08-08 13:00 | P.PNIM_ITS ---
Subjective Subjective Date of Service: 08/08/21 Interval History: feels much better; dry heaves resolved now on meropenem Review of Systems Review of Systems: Yes all other systems are reviewed and are negative Physical Exam Vital Signs: Vital Signs: Last Vital Signs Temp 97.8 F 08/08/21 11:28 Pulse 88 08/08/21 11:28 Resp 20 08/08/21 11:28 BP 107/52 L 08/08/21 11:28 Pulse Ox 98 08/08/21 11:28 O2 Del Method 08/08/21 11:28 O2 Flow Rate 2 08/08/21 11:28 BMI result Body Mass Index 40.7 Gen: in no acute distress HEENT: sclera anicteric, moist mucus membranes Neck: supple Lungs: clear to auscultation bilaterally Heart: regular rate and rhythm, no murmurs Abd: soft, non-tender, non-distended, obese : Pedro draining clear urine Ext: no edema Skin: warm/well-perfused Neuro: alert and oriented x3, no focal findings Psych: appropriate affect Objective Data Active Medications Acetaminophen (Acetaminophen 325 Mg Tablet) 650 mg PO Q6H PRN PRN Reason: Pain, Mild (Pain Scale 1-3) Last Admin: 08/07/21 05:51 Dose: 650 mg Documented By: ANTJUANITA Atorvastatin Calcium (Atorvastatin Calcium 40 Mg Tablet) 40 mg PO BEDTIME [facility] Last Admin: 08/07/21 21:15 Dose: 40 mg Documented By: GEOFFREY Bisacodyl (Bisacodyl 10 Mg Supp.Rect) 10 mg [place] DAILY PRN PRN Reason: Constipation Epoetin [place] (Epoetin [place] 10,000 Unit/Ml Vial) 10,000 unit SUBCUT ONCE ONE Stop: 08/09/21 08:01 Folic Acid (Folic Acid 1 Mg Tablet) 1 mg PO DAILY [facility] Last Admin: 08/08/21 12:21 Dose: 1 mg Documented By: MARICARMEN Meropenem 500 mg/ Sodium (Chloride) 50 mls @ 100 mls/hr IV Q12H [facility] Last Infusion: 08/08/21 06:25 Dose: 0 mls/hr Documented By: ELIZABETH Meclizine HCl (Meclizine Hcl 12.5 Mg Tablet) 12.5 mg PO TID PRN PRN Reason: Dizziness Omeprazole (Omeprazole 20 Mg Capsule.) 20 mg PO DAILY@0630 [facility] Last Admin: 08/08/21 05:19 Dose: 20 mg Documented By: ELIZABETH Ondansetron HCl (Ondansetron Hcl 4 Mg/2 Ml Vial) 4 mg IVPUSH Q8H PRN PRN Reason: Nausea and Vomiting Pharmacy Consult (Consult Rx Perform Med Rec) 1 each MISCELLANE ONCE PRN PRN Reason: Consult order Polyethylene Glycol (Polyethylene Glycol 3350 17 Gm Powd.Pack) 17 gm PO DAILY [facility] Last Admin: 08/08/21 12:21 Dose: Not Given Documented By: MARICARMEN Non-Admin Reason: Patient Refused Senna (Sennosides 8.6 Mg Tablet) 8.6 mg PO DAILY PRN PRN Reason: Constipation Sodium Bicarbonate (Sodium Bicarbonate 650 Mg Tablet) 650 mg PO BID [facility] Sodium Chloride (0.9 % Sodium Chloride Flush 3 Ml Syringe) 3 ml IVFLUSH QSHIFT [facility] Last Admin: 08/08/21 12:25 Dose: 3 ml Documented By: MARICARMEN Tiotropium [place] (Tiotropium [place] 18 Mcg Cap.W.Dev) 1 puff INHALE RDAILY [facility] Last Admin: 08/08/21 08:24 Dose: Not Given Documented By: JENNY Non-Admin Reason: Patient Refused Vitamin D (Cholecalciferol (Vitamin D3) 10 Mcg Tablet) 10 mcg PO DAILY [facility] Last Admin: 08/08/21 12:21 Dose: 10 mcg Documented By: MARICARMEN Labs CBC & Chem 7: 08/06/21 15:42 08/08/21 08:24 Labs: Laboratory Results - last 24 hr 08/08/21 08:24 Anion Gap 12 Estim Creat Clear Calc 15.6 Estimated GFR 14 Random Glucose 97 Calcium 8.1 L Magnesium 2.5 Microbiology Microbiology Results: Microbiology 08/06/21 Unknown Urine Culture - Preliminary Urine clean catch - Urine bhatia top Culture in progress. 08/06/21 15:41 Blood Culture - Preliminary Blood - Venous No growth after 24 hours. 08/06/21 15:42 Blood Culture - Preliminary Blood - Venous No growth after 24 hours. Assessment and Plan (1) Acute urinary retention: Status: Acute (2) Acute kidney injury superimposed on CKD: Status: Acute (3) Acute UTI: Status: Acute Plan hospital d#3 85yo F with CKD4, COPD on home O2 at night, CAD, recently admitted here for sepsis 07/20-07/27/21 due to acute pyelonephritis/bacteremia + obstructive uropathy, sent in from [facility] where she was for SNF due to hypotension + GAURANG/CKD4 # GAURANG/CKD4 - SCr improved from admission, Pedro draining urine - likely obstructive uropathy; CT showed double-J ureteral stents in place with severe right and moderate left hydroureteronephrosis increased since prior CT scan of 07/19 , mild bilateral?symmetric cortical thinning, bilateral louie-renal fascial stranding/edema, 4 mm nonobstructing L lower pole renal calculus, markedly distended urinary bladder -> findings likely related to VUR vs. stent dysfunction - recheck BMP in AM and if not improved to consider urologic intervention - Nephro following - continue oral biacrbonate # UTI with carapenem-resistant Enterobacter cloacae [also bacteremia] + ESBL Klebsiella pneumonia - ID consulted, on meropenem d#2 pending cultures of blood + urine # hypotension - held metoprolol + furosemide but not septic; given IV fluid hydration and improved # hypoMg - repleted # chronic normocytic anemia - Hb stable, likely anemia of CKD, Nephro starting epo # COPD without acute exacerbation - continue LAMA, prn ANTWON # hx AAA repair - CT showed?aneurysmal distal abdominal aorta with a aortic graft/stent in place, similar size of large [place] aneurysm sac. # TIAGO - continue 2L O2 at night # chronic vertigo - prn meclizine # morbid obesity - weight management since contributing to worsening of other comorbidities # VTE ppx - SCDs In my clinical judgment, the patient requires continued hospitalization for the following reasons: IV ABX, renal failure Quality Stroke Does the patient have a stroke diagnosis?: No VTE Prior VTE?: No VTE Risk Level:: Medical - moderate - high VTE Device Contraindication: N/A - Device Ordered VTE Drug Contraindication: Treatment Not Indicated
[2021-08-08 15:53] VITALS: BP 106/50; PULSE 83; RESP 19; TEMP 37; O2SAT 95
[2021-08-08 20:00] VITALS: BP 106/89; PULSE 68; RESP 18; TEMP 37; O2SAT 95
[2021-08-08] MEDS: Sodium Bicarbonate 650 MG TABLET PO (21:53)
[2021-08-08] MEDS: Atorvastatin Calcium 40 MG TABLET PO (21:53)
[2021-08-09] VITALS: BP 106/55; PULSE 90; RESP 18; TEMP 36.8; O2SAT 96
[2021-08-09] MEDS: Omeprazole 20 MG CAPSULE.DR PO (06:26)
[2021-08-09 07:26] LABS: Glucose, Whole Blood 83 mg/dL (60-115)
[2021-08-09 08:00] VITALS: BP 137/69; PULSE 89; RESP 17; TEMP 36.7; O2SAT 96
[2021-08-09 08:33] LABS: Anion Gap 13 (12-20); Blood Urea Nitrogen 38 mg/dL (9-16); C Reactive Protein 8.57 mg/dL (< or = 0.50); Calcium 8.1 mg/dL (8.4-10.2); Carbon Dioxide 16 mmol/L (22-29); Chloride 113 mmol/L (96-108); Creatinine Clr Calc Pharmacy 17.6; Estimated Glomerular Filt Rate 16; Glucose Random 93 mg/dL (60-115); Potassium 4.2 mmol/L (3.3-5.1); Sodium 138 mmol/L (135-145)
[2021-08-09] MEDS: 0.9 % Sodium Chloride Flush 3 ML SYRINGE IVFLUSH ×3 (09:16→19:51)
[2021-08-09] MEDS: Cholecalciferol (Vitamin D3) 10 MCG TABLET PO (09:16)
[2021-08-09] MEDS: Sodium Bicarbonate 650 MG TABLET PO ×3 (09:16→19:51)
[2021-08-09] MEDS: Folic Acid 1 MG TABLET PO (09:16)
--- NOTE | 2021-08-09 09:41 | P.PNNP_ITS ---
Subjective Subjective Date of Service: 08/09/21 Interval history: Events noted non oliguric Physical Exam Vital Signs: Vital Signs: Last Vital Signs Temp 98.1 F 08/09/21 08:00 Pulse 89 08/09/21 08:00 Resp 17 08/09/21 08:00 BP 137/69 08/09/21 08:00 Pulse Ox 96 08/09/21 08:00 O2 Del Method 08/09/21 08:00 O2 Flow Rate 2 08/09/21 08:00 BMI result Body Mass Index 40.7 Const: General: cooperative Neck: Neck: Yes trachea midline Resp: Effort & Inspection: no respiratory distress Auscultation: clear to auscultation bilaterally Cardio: Rhythm: regular rhythm GI: Inspection: Yes normal to inspection Palpation (GI): Soft to palpation, nontender, no guarding and not rigid : General: Yes no CVA tenderness Back/Spine/Pelvis: Back: no CVA tenderness Skin: General skin exam: no rashes or lesions noted Neuro: General: tone normal and moves all extremities Gait exam (Neuro): N ormal gait present Objective Data Labs CBC & Chem 7: 08/06/21 15:42 08/09/21 08:13 Labs: Laboratory Results - last 24 hr 08/09/21 08/09/21 07:22 08:13 Sodium 138 Potassium 4.2 Chloride 113 H Carbon Dioxide 16 L Anion Gap 13 BUN 38 H Creatinine 2.79 H Estim Creat Clear Calc 17.6 Estimated GFR 16 POC Glucose 83 Random Glucose 93 Calcium 8.1 L C-Reactive Protein 8.57 H Microbiology Microbiology Results: Microbiology 08/06/21 15:41 Blood - Venous Blood Culture - Preliminary No growth after 48 hours. 08/06/21 15:42 Blood - Venous Blood Culture - Preliminary No growth after 48 hours. 08/06/21 Unknown Urine clean catch - Urine bhatia top Urine Culture - Preliminary Culture in progress. 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
--- NOTE | 2021-08-09 11:21 | P.PNIM_ITS ---
Subjective Subjective Date of Service: 08/09/21 Interval History: no further dry heaving no flank pain no fever Review of Systems Review of Systems: Yes all other systems are reviewed and are negative Physical Exam Vital Signs: Vital Signs: Last Vital Signs Temp 98.1 F 08/09/21 08:00 Pulse 89 08/09/21 08:00 Resp 17 08/09/21 08:00 BP 137/69 08/09/21 08:00 Pulse Ox 96 08/09/21 08:00 O2 Del Method 08/09/21 08:00 O2 Flow Rate 2 08/09/21 08:00 BMI result Body Mass Index 40.7 Gen: in no acute distress HEENT: sclera anicteric, moist mucus membranes Neck: supple Lungs: clear to auscultation bilaterally Heart: regular rate and rhythm, no murmurs Abd: soft, non-tender, non-distended, obese : Pedro draining clear urine Ext: no edema Skin: warm/well-perfused Neuro: alert and oriented x3, no focal findings Psych: appropriate affect Objective Data Active Medications Acetaminophen (Acetaminophen 325 Mg Tablet) 650 mg PO Q6H PRN PRN Reason: Pain, Mild (Pain Scale 1-3) Last Admin: 08/07/21 05:51 Dose: 650 mg Documented By: PANKAJ Albuterol Sulfate (Albuterol Sulfate 90 Mcg 8 Gm Inhaler) 2 puff INHALE RQ4H PRN PRN Reason: Shortness of Breath/Wheezing Atorvastatin Calcium (Atorvastatin Calcium 40 Mg Tablet) 40 mg PO BEDTIME [facility] Last Admin: 08/08/21 21:53 Dose: 40 mg Documented By: ROYAL Bisacodyl (Bisacodyl 10 Mg Supp.Rect) 10 mg [place] DAILY PRN PRN Reason: Constipation Folic Acid (Folic Acid 1 Mg Tablet) 1 mg PO DAILY [facility] Last Admin: 08/09/21 09:16 Dose: 1 mg Documented By: RO Meropenem 500 mg/ Sodium (Chloride) 50 mls @ 100 mls/hr IV Q12H [facility] Last Infusion: 08/09/21 04:30 Dose: 0 mls/hr Documented By: ROYAL Meclizine HCl (Meclizine Hcl 12.5 Mg Tablet) 12.5 mg PO TID PRN PRN Reason: Dizziness Omeprazole (Omeprazole 20 Mg Capsule.Dr) 20 mg PO DAILY@0630 [facility] Last Admin: 08/09/21 06:26 Dose: 20 mg Documented By: ROYAL Ondansetron HCl (Ondansetron Hcl 4 Mg/2 Ml Vial) 4 mg IVPUSH Q8H PRN PRN Reason: Nausea and Vomiting Pharmacy Consult (Consult Rx Perform Med Rec) 1 each MISCELLANE ONCE PRN PRN Reason: Consult order Polyethylene Glycol (Polyethylene Glycol 3350 17 Gm Powd.Pack) 17 gm PO DAILY [facility] Last Admin: 08/09/21 09:16 Dose: Not Given Documented By: RO Non-Admin Reason: Patient Refused Senna (Sennosides 8.6 Mg Tablet) 8.6 mg PO DAILY PRN PRN Reason: Constipation Sodium Bicarbonate (Sodium Bicarbonate 650 Mg Tablet) 650 mg PO TID [facility] Sodium Chloride (0.9 % Sodium Chloride Flush 3 Ml Syringe) 3 ml IVFLUSH QSHIFT [facility] Last Admin: 08/09/21 09:16 Dose: 3 ml Documented By: RO Tiotropium Boyds (Tiotropium Boyds 18 Mcg Cap.W.Dev) 1 puff INHALE RDAILY [facility] Last Admin: 08/09/21 08:37 Dose: Not Given Documented By: HAO Non-Admin Reason: Med Not Available Vitamin D (Cholecalciferol (Vitamin D3) 10 Mcg Tablet) 10 mcg PO DAILY [facility] Last Admin: 08/09/21 09:16 Dose: 10 mcg Documented By: RO Labs CBC & Chem 7: 08/06/21 15:42 08/09/21 08:13 Labs: Laboratory Results - last 24 hr 08/09/21 08/09/21 07:22 08:13 Anion Gap 13 Estim Creat Clear Calc 17.6 Estimated GFR 16 POC Glucose 83 Random Glucose 93 Calcium 8.1 L C-Reactive Protein 8.57 H Microbiology Microbiology Results: Microbiology 08/06/21 Unknown Urine Culture - Preliminary Urine clean catch - Urine bhatia top Yeast Enterococcus/Streptococcus sp 08/09/21 03:55 Urine Culture - Final Urine Catheterized - Pedro Catheter 08/06/21 15:41 Blood Culture - Preliminary Blood - Venous No growth after 48 hours. 08/06/21 15:42 Blood Culture - Preliminary Blood - Venous No growth after 48 hours. Assessment and Plan (1) Acute urinary retention: Status: Acute (2) Acute kidney injury superimposed on CKD: Status: Acute (3) Acute UTI: Status: Acute Plan hospital d#4 85yo F with CKD4, COPD on home O2 at night, CAD, recently admitted here for sepsis 07/20-07/27/21 due to acute pyelonephritis/bacteremia + obstructive uropathy, sent in from [facility] where she was for SNF due to hypotension + GAURANG/CKD4 # GAURANG/CKD4 - SCr improved from admission, Pedro draining urine - likely obstructive uropathy from urinary retention; CT showed double-J ureteral stents in place with severe right and moderate left hydroureteronephrosis increased since prior CT scan of 07/19 , mild bilateral?symmetric cortical thinning, bilateral louie-renal fascial stranding/edema, 4 mm nonobstructing L lower pole renal calculus, markedly distended urinary bladder - BMP continues to improve - Urology + Nephrology consulted # metabolic acidosis - continue oral bicarbonate # UTI - prior UCx with carapenem-resistant Enterobacter cloacae [also bacteremia] + ESBL Klebsiella pneumonia. on meropenem d#3. current Cx growing yeast + Enterococcus, speciation pending. ID consulted- will discuss narrowing ABX # hypotension - held metoprolol + furosemide but not septic; given IV fluid hydration and improved # hypoMg - repleted # chronic normocytic anemia - Hb stable, likely anemia of CKD, Nephro started epo # COPD without acute exacerbation - continue LAMA, prn ANTWON # hx AAA repair - CT showed?aneurysmal distal abdominal aorta with a aortic graft/stent in place, similar size of large [place] aneurysm sac. # TIAGO - continue 2L O2 at night # chronic vertigo - prn meclizine # morbid obesity - weight management since contributing to worsening of other comorbidities # VTE ppx: SCDs # dispo: PT consult re: going back to [facility] for STR vs. home with VNA In my clinical judgment, the patient requires continued hospitalization for the following reasons: IV ABX, renal failure Quality Stroke Does the patient have a stroke diagnosis?: No VTE Prior VTE?: No VTE Risk Level:: Medical - moderate - high VTE Device Contraindication: N/A - Device Ordered VTE Drug Contraindication: Treatment Not Indicated
[2021-08-09 11:28] VITALS: BP 106/69; PULSE 81; RESP 18; TEMP 36.6; O2SAT 95
--- NOTE | 2021-08-09 12:36 | CONS_ITS ---
DATE OF SERVICE: 08/07/2021 REASON FOR CONSULTATION: I was called to see this patient to assist in management of acute kidney injury. HISTORY OF PRESENT ILLNESS: To summarize, Potria is well-known to us. She has advanced kidney disease. She has history of arteriopathy. She has bilateral stent placed. Her baseline creatinine is in the mid 2s. She is a resident of retirement. I got a call from the retirement yesterday stating that her creatinine has bumped up to 4.3 and she has had some dry heaves. She was asked to come to the hospital. Upon admission, she was found to have a markedly distended urinary bladder. A Pedro was inserted and currently she is nonoliguric. Serum creatinine is trending down. Ongoing medical problems include history of abdominal aortic aneurysm without rupture, anemia, chronic kidney disease stage 3B, COPD, obstructive uropathy, status post bilateral stent placement. FAMILY HISTORY: Noncontributory. SOCIAL HISTORY: Lives in a retirement. No smoking, alcohol at present. ALLERGIES: NO KNOWN DRUG ALLERGIES. MEDICATIONS: At time of admission include Lasix 20 mg, aspirin, Tylenol, meclizine, omeprazole, albuterol, sodium phosphate, and senna. REVIEW OF SYSTEMS: Positive for dry heaves, which has resolved. No shortness of breath. No chest pain. No nausea or vomiting. No abdominal pain. She had abdominal distention, which has resolved. No rash or fever. PHYSICAL EXAMINATION: GENERAL: Portia is an elderly woman. She is comfortable, alert, not in distress. NECK: Supple. No JVD. LUNGS: Air entry equal. Few scattered rhonchi. HEART: S1, S2 heard. No gallop. ABDOMEN: Soft, nontender. Pedro in place, draining clear urine. NEUROLOGIC: Alert and awake. No asterixis. VITAL SIGNS: Blood pressure was 119/55, pulse 86. LABORATORY DATA: Hemoglobin 8.3, platelets 220, WBC 8.1. Sodium 137, potassium 4.6. BUN 50, creatinine 3.76 this morning; on admission, creatinine was 4.3. IMPRESSION: An 85-year-old woman with a stage 3B chronic kidney disease, comes in with superimposed acute kidney injury due to urinary retention. After insertion of Pedro, she is nonoliguric and renal function is improving. From a renal standpoint, she has no signs and symptoms of uremia. I would keep the Pedro catheter in place. I agree with IV hydration for 24 hours and reassess the kidney function. Follow up with Urology. If serum bicarbonate drops further, I would add sodium bicarbonate tablets 650 mg p.o. t.i.d. for a few days. She has anemia due to underlying chronic kidney disease. If the hemoglobin continues to drop, I will check iron studies and start on Epogen if needed. We will follow along with the team. Albert Bermeo MD BPA/MODL / [id number]
--- NOTE | 2021-08-09 13:15 | PM.IDPN ---
Subjective Subjective Date of Service: 08/09/21 Critical Care Time (minutes): 15 Comment: she feels better ,but still has Pedro she says Objective Data Labs CBC & Chem 7: 08/06/21 15:42 08/09/21 08:13 Labs: Laboratory Results - last 24 hr 08/09/21 08/09/21 07:22 08:13 Sodium 138 Potassium 4.2 Chloride 113 H Carbon Dioxide 16 L Anion Gap 13 BUN 38 H Creatinine 2.79 H Estim Creat Clear Calc 17.6 Estimated GFR 16 POC Glucose 83 Random Glucose 93 Calcium 8.1 L C-Reactive Protein 8.57 H Microbiology Microbiology Results: Microbiology 08/06/21 Unknown Urine clean catch - Urine bhatia top Urine Culture - Preliminary Yeast Enterococcus/Streptococcus sp 08/09/21 03:55 Urine Catheterized - Pedro Catheter Urine Culture - Final 08/06/21 15:41 Blood - Venous Blood Culture - Preliminary No growth after 48 hours. 08/06/21 15:42 Blood - Venous Blood Culture - Preliminary No growth after 48 hours. Physical Exam Vital Signs: Vital Signs: Last Vital Signs Temp 97.8 F 08/09/21 11:28 Pulse 81 08/09/21 11:28 Resp 18 08/09/21 11:28 BP 106/69 08/09/21 11:28 Pulse Ox 95 08/09/21 11:28 O2 Del Method 08/09/21 11:28 O2 Flow Rate 2 08/09/21 11:28 BMI result Body Mass Index 40.7 Const: General: cooperative Resp: Effort & Inspection: normal respiratory effort Cardio: Rate: regular rate Rhythm: regular rhythm GI: Palpation (GI): Soft to palpation and nontender Assessment and Plan Assessment and plan (1) Acute urinary retention: Problem details: She has enterococcus and fungus,probably colonized Status: Acute Assessment and Plan: Would give po antibiotics,probably Amoxicillin? enterococcus senisitive and no antifungal. May stop IV antibiotics (2) Acute UTI: Status: Acute Time Spent With Patient Time: Total time spent is greater than 50% in coordination of care (as documented) at patient's floor/unit and/or counseling patient:
[2021-08-09 15:04] VITALS: BP 117/54; PULSE 88; RESP 18; TEMP 36.8; O2SAT 99
[2021-08-09 19:08] VITALS: BP 122/55; PULSE 81; RESP 18; TEMP 36.4; O2SAT 96
[2021-08-09] MEDS: Atorvastatin Calcium 40 MG TABLET PO (19:51)
[2021-08-09] MEDS: diphenhydrAMINE HCL 25 MG TABLET PO (20:55)
[2021-08-09] MEDS: Nystatin Powder 15 GM BOTTLE 1 APPL TOPICAL (22:06)
[2021-08-09 23:13] VITALS: BP 110/54; PULSE 88; RESP 18; TEMP 37; O2SAT 98
[2021-08-10 04:00] VITALS: BP 114/57; PULSE 85; RESP 20; TEMP 36.8; O2SAT 94
[2021-08-10] MEDS: Omeprazole 20 MG CAPSULE.DR PO (06:41)
[2021-08-10 07:16] LABS: Anion Gap 11 (12-20); Blood Urea Nitrogen 34 mg/dL (9-16); Calcium 8.4 mg/dL (8.4-10.2); Carbon Dioxide 23 mmol/L (22-29); Chloride 111 mmol/L (96-108); Creatinine Clr Calc Pharmacy 18.7; Estimated Glomerular Filt Rate 17; Glucose Random 105 mg/dL (60-115); Potassium 4.8 mmol/L (3.3-5.1); Sodium 140 mmol/L (135-145)
[2021-08-10 08:00] VITALS: BP 121/58; PULSE 89; RESP 20; TEMP 36.4; O2SAT 96
[2021-08-10] MEDS: Sodium Bicarbonate 650 MG TABLET PO (09:33)
[2021-08-10] MEDS: Nystatin Powder 15 GM BOTTLE 1 APPL TOPICAL (09:34)
[2021-08-10] MEDS: polyethylene glycoL 3350 17 GM POWD.PACK PO (09:34)
[2021-08-10] MEDS: Folic Acid 1 MG TABLET PO (09:34)
[2021-08-10] MEDS: Cholecalciferol (Vitamin D3) 10 MCG TABLET PO (09:34)
[2021-08-10] MEDS: 0.9 % Sodium Chloride Flush 3 ML SYRINGE IVFLUSH (09:34)
--- NOTE | 2021-08-10 09:37 | PM.PNNEP ---
Subjective Subjective Date of Service: 08/10/21 Interval history: no further dry heaving no flank pain no fever Physical Exam Vital Signs: Vital Signs: Last Vital Signs Temp 97.5 F 08/10/21 08:00 Pulse 89 08/10/21 08:00 Resp 20 08/10/21 08:00 BP 121/58 L 08/10/21 08:00 Pulse Ox 96 08/10/21 08:00 O2 Del Method 08/10/21 08:00 O2 Flow Rate 2 08/10/21 08:00 BMI result Body Mass Index 40.7 Const: General: cooperative Neck: Neck: Yes trachea midline Resp: Effort & Inspection: no respiratory distress Auscultation: clear to auscultation bilaterally Cardio: Rhythm: regular rhythm GI: Inspection: Yes normal to inspection Palpation (GI): Soft to palpation, nontender, no guarding and not rigid : General: Yes no CVA tenderness Back/Spine/Pelvis: Back: no CVA tenderness Skin: General skin exam: no rashes or lesions noted Neuro: General: tone normal and moves all extremities Gait exam (Neuro): Normal gait present Objective Data Labs CBC & Chem 7: 08/06/21 15:42 08/10/21 06:35 Labs: Laboratory Results - last 24 hr 08/10/21 06:35 Sodium 140 Potassium 4.8 Chloride 111 H Carbon Dioxide 23 Anion Gap 11 L BUN 34 H Creatinine 2.63 H Estim Creat Clear Calc 18.7 Estimated GFR 17 Random Glucose 105 Calcium 8.4 Microbiology Microbiology Results: Microbiology 08/06/21 Unknown Urine clean catch - Urine bhatia top Urine Culture - Final Quiana albicans Enterococcus faecium 08/09/21 03:55 Urine Catheterized - Kevin Catheter Urine Culture - Final 08/06/21 15:41 Blood - Venous Blood Culture - Preliminary No growth after 48 hours. 08/06/21 15:42 Blood - Venous Blood Culture - Preliminary No growth after 48 hours. 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
[2021-08-10] MEDS: diphenhydrAMINE HCL 25 MG TABLET PO (10:29)
--- NOTE | 2021-08-10 10:57 | P.CDIC_ITS ---
CDI Concurrent Query Documentation Clarification: PHYSICIAN'S DOCUMENTATION REQUEST Date of Query: 08/10/21 1058 Patient Name: Portia Appiah Admit Date: 08/06/21 Dear Doctor, A review of the medical record indicates additional documentation may be needed. Please review below and update the documentation accordingly. Clinical Indicators: The following clinical information was noted in the record: Risk Factors/Clinical Indicators/Treatments PN: 08/07 & 08/08 - CKD 4 H&P: 08/06 - PMH: CKD 3 Assessment/plan: CKD 4 Nephrology note 08/09 - Impression: CKD Stage 3B. Please clarify which of the following accurately represents the patient's renal status: Clarity and consistency of specifics: * Chronic kidney disease Stage 3 * Chronic kidney disease Stage 4 * Other (please specify) * Unable to determine Stages of Chronic Kidney Disease* 1. Increase in serum creatinine by ? 0.3 mg/dL Level Description GFR (?26.5 micromol/L) within 48 hours, or G1 Normal or High > 90 2. Increase in serum creatinine to ?1.5 times baseline, G2 Mildly decreased 60 ? 89 which is known or presumed to have occurred within 7 days, or G3a Mildly to moderately decreased 45 ? 59 3. Urine volume <0.5 mL/kg/hour for six hours G3b Moderately to severely decreased 30 - 44 G4 Severely decreased 15 ? 29 G5 Kidney failure < 15 *Source: Kidney Disease: Improving Global Outcomes (KDIGO) 2012 Use of terms such as suspected, likely, concern for, or probable (associated with a specific diagnosis that is being evaluated, monitored, or treated as if it exists) are acceptable and can be coded in the inpatient setting, when d ocumented at the time of discharge. Thank you, Richelle Oliveira [facility], CDIS Extension: [phone] Please use your independent medical judgment in providing your response. THIS QUERY IS PART OF THE PERMANENT MEDICAL RECORD Provider Response: CKD Stage 3
[2021-08-10 11:14] LABS: COVID-19 Test Negative (Negative); IDNOW Serial# 16C4AD1C
[2021-08-10] MEDS: Clotrimazole 1 % Vaginal Cream 45 GM TUBE 1 APPL VAGINAL (11:40)
--- NOTE | 2021-08-10 11:41 | MHC.CM.PN ---
pt to be dcd to cc today at 1 pts family shirin cat notifed of dc
[2021-08-10 12:00] VITALS: BP 121/58; PULSE 97; RESP 20; TEMP 36.4; O2SAT 98
--- NOTE | 2021-08-10 12:02 | PM.UROPN ---
Subjective Subjective Date of Service: 08/10/21 Interval history: Continued resolution of creatinine with Pedro catheter in place This is diagnostic of urinary retention as cause of elevated creatinine No functional evidence of urinary stent blockade Would DC home with Pedro catheter Physical Exam Vital Signs: Vital Signs: Last Vital Signs Temp 97.5 F 08/10/21 08:00 Pulse 89 08/10/21 08:00 Resp 20 08/10/21 08:00 BP 121/58 L 08/10/21 08:00 Pulse Ox 96 08/10/21 08:00 O2 Del Method 08/10/21 08:00 O2 Flow Rate 2 08/10/21 08:00 BMI result Body Mass Index 40.7 Const: General: cooperative, healthy appearing, comfortable and no acute distress Orientation/consciousness: patient oriented x3 HEENT: Face and sinus: Yes normal facial exam Mouth: moist mucous membranes Neck: Neck: Yes normal visual inspection, Yes full ROM and Yes trachea midline Chest: Chest palpation & inspection: normal inspection of the chest Resp: Effort & Inspection: normal respiratory effort, able to speak in complete sentences and no respiratory distress GI: Inspection: Yes normal to inspection Back/Spine/Pelvis: Cervical Spine: normal cervical lordosis Thoracic/Lumbar Spine: thoracic and lumbar spine normal to inspection Skin: General skin exam: no rashes or lesions noted Neuro: General: patient oriented x3, tone normal and moves all extremities Extrem: General: Yes normal to inspection and Yes capillary refill normal Urology Results Labs CBC & Chem 7: 08/06/21 15:42 08/10/21 06:35 Labs: Laboratory Results - last 24 hr 08/10/21 08/10/21 06:35 10:30 Sodium 140 Potassium 4.8 Chloride 111 H Carbon Dioxide 23 Anion Gap 11 L BUN 34 H Creatinine 2.63 H Estim Creat Clear Calc 18.7 Estimated GFR 17 Random Glucose 105 Calcium 8.4 COVID-19 ([facility]) Negative COVID-19 Clin Com See Note Progress Note: A&P Assessment and plan (1) Acute urinary retention: Status: Acute (2) Acute kidney injury superimposed on CKD: Status: Acute (3) Hydronephrosis concurrent with and due to calculi of kidney and ureter: Status: Acute Plan Stents in place Pedro catheter in place Time Spent With Patient Time: Total time spent is greater than 50% in coordination of care (as documented) at patient's floor/unit and/or counseling patient: Progress Note: Quality Stroke Does the patient have a stroke diagnosis?: No
--- NOTE | 2021-08-10 12:23 | PM.DS ---
DS: Providers Provider Date of Service: 08/10/21 Date of admission: 08/06/21 18:01 Date of discharge: 08/10/21 Primary care physician: Aguilar Moreno MD Consults: 08/06/21 16:43 Consult to Infectious Diseases Routine Consulting Provider: Daisy Guzman Reason for consultation: reistsant UTI/bacteremia 08/06/21 18:39 Consult to Infectious Diseases Routine Consulting Provider: Daisy Guzman Reason for consultation: enterobacter uti Has provider been notified: No 08/07/21 07:46 Consult to Urology Routine Consulting Provider: Mitchell Sung Reason for consultation: b/l hydro/s/p stent Has provider been notified: No 08/07/21 07:47 Consult to Nephrology Routine Consulting Provider: Albert Bermeo Reason for consultation: gaurang Has provider been notified: No 08/07/21 12:15 Consult to Infectious Diseases Routine Consulting Provider: Daisy Guzman Reason for consultation: uti Has provider been notified: No DS: Diagnosis Discharge Diagnosis (1) Acute urinary retention: Status: Acute (2) Acute kidney injury superimposed on CKD: Status: Acute (3) Hydronephrosis concurrent with and due to calculi of kidney and ureter: Status: Acute (4) Hypotension: Status: Acute DS: Summary Hospital Course Hospital Course: from admission H+P by hospitalist Rei Diaz MD, 08/06/21:' 85-year-old female patient with past medical history of chronic kidney disease, COPD on home O2 at night, history of coronary artery disease, recently discharged from [facility] on July 27 after being treated for sepsis due to acute pyelonephritis/ bacteremia and obstructive uropathy status post stent placement by Urology sent back to [facility] since patient was noted to be hypotensive and had elevated? renal function patient denies associated fever chills she has chronic lower back pain reports acute right lower back pain yesterday that she attributes to sitting on a chair, she complains of dry heaves otherwise denies nausea vomiting abdominal pain diarrhea no dysuria no hematuria, denies worsening chronic lightheadedness, in the emergency room workup showed a creatinine of 4.3 with baseline creatinine around 2 to 2.5, with a low magnesium of 1.5, stable hematocrit 26.5, hemoglobin 8.3, urinalysis positive for too numerous to count WBC 3 +bacteria positive leuko site Estrace and negative nitrate, recent urine culture positive for Klebsiella and Enterobacter cloacae, and blood culture also positive for enterobacter cloace patient currently on Levaquin, CT abdomen and pelvis showed markedly distended urinary bladder, severe right and moderate left hydro ureteral nephrosis with double-J ureteral stents in appropriate positions bilaterally, findings concerning for vesicoureteral reflux versus stent dysfunction, bladder scan can not positive for 999 CC, patient noted to be hypotensive, with initial blood pressure of 74/52 that improved with IV fluids to 90/48. patient treated in the emergency room with 1 dose of IV meropenem and 2 L of IV fluid, patient now being admitted to [facility] with acute on chronic kidney disease, and urinary retention This 85yo F with CKD3, COPD on home O2 2L at night, and CAD was recently admitted here for sepsis 07/20-07/27/21 due to acute pyelonephritis/bacteremia + obstructive uropathy. She was sent in from [facility] due to hypotension + GAURANG/CKD3. Hypotension resolved with discontinuing metoprolol and furosemide and giving IV fluids. She was ultimately not deemed to have sepsis. She was treated with meropenem for possible UTI but UCx grew yeast and Enterococcus faecium and per ID these were deemed likely colonizers, not infecters. Serum creatinine improved with Pedro placement, implicating urinary retention as the cause of her acute kidney injury rather than stent infection. She was followed by Nephrology and Urology and should follow up with them within 1-2 weeks, with repeat BMP in 1 week. She was discharged back to [facility] for STR. Time Spent with Patient Time attestation: Total time spent providing and/or coordinating discharge services: Discharge coordination time: Greater than 30 minutes Quality: Safe Use of Opioids Does Pt have an Active Cancer Diagnosis on the Problem List?: No Quality: Stroke Does the patient have a stroke diagnosis?: No Physical Exam Vital Signs: Vital Signs: Last Vital Signs Temp 97.5 F 08/10/21 08:00 Pulse 89 08/10/21 08:00 Resp 20 08/10/21 08:00 BP 121/58 L 08/10/21 08:00 Pulse Ox 96 08/10/21 08:00 O2 Del Method 08/10/21 08:00 O2 Flow Rate 2 08/10/21 08:00 BMI result Body Mass Index 40.7 Gen: in no acute distress HEENT: sclera anicteric, moist mucus membranes Neck: supple Lungs: clear to auscultation bilaterally Heart: regular rate and rhythm, no murmurs Abd: soft, non-tender, non-distended, obese : Pedro draining clear urine Ext: no edema Skin: warm/well-perfused Neuro: alert and oriented x3, no focal findings Psych: appropriate affect DS: Data Data Completed and Pending Completed studies during hospitalization [Text1]: Laboratory Results WBC 8.1 X10*3/uL (4.8-10.8) 08/06/21 15:42 RBC 2.92 X10*6/uL (4.20-5.50) L 08/06/21 15:42 Hgb 8.3 g/dl (12.0-16.0) L 08/06/21 15:42 Hct 26.5 % (37.0-47.0) L 08/06/21 15:42 MCV 90.8 fL (80.0-98.0) 08/06/21 15:42 MCH 28.4 pg (27.0-33.0) 08/06/21 15:42 MCHC 31.3 g/dl (31.0-35.0) 08/06/21 15:42 RDW 19.1 % (11.0-16.0) H 08/06/21 15:42 Plt Count 220 X10*3/uL (160-400) D 08/06/21 15:42 MPV 10.3 fL (9.4-12.3) 08/06/21 15:42 Immature Gran % (Auto) 0.5 % (0.0-0.4) H 08/06/21 15:42 Neut % (Auto) 48.9 % (45-73) 08/06/21 15:42 Lymph % (Auto) 34.5 % (20-40) 08/06/21 15:42 [place] % (Auto) 14.5 % (2-11) H 08/06/21 15:42 Eos % (Auto) 1.0 % (0-4) 08/06/21 15:42 Baso % (Auto) 0.6 % (0-2) 08/06/21 15:42 Lymph # (Auto) 2.8 X10*3/uL (1.2-4.9) 08/06/21 15:42 [place] # (Auto) 1.2 X10*3/uL (0.1-1.2) 08/06/21 15:42 Eos # (Auto) 0.1 X10*3/uL (0.0-0.4) 08/06/21 15:42 Baso # (Auto) 0.1 X10*3/uL (0.0-0.2) 08/06/21 15:42 Abs Immat Gran (auto) 0.04 X10*3/uL (0.00-0.03) H 08/06/21 15:42 Absolute Neuts (auto) 4.0 x10*3/uL (2.0-8.3) 08/06/21 15:42 Absolute Nucleated RBC 0.000 X10*3/uL (0.0-0.012) 08/06/21 15:42 Nucleated RBC % (auto) 0.0 /100WBC (0.0-0.2) 08/06/21 15:42 PT 14.0 SEC (9.9-13.0) H 08/06/21 15:42 INR 1.2 (0.9-1.1) H 08/06/21 15:42 Sodium 140 mmol/L (135-145) 08/10/21 06:35 Potassium 4.8 mmol/L (3.3-5.1) 08/10/21 06:35 Chloride 111 mmol/L (96-108) H 08/10/21 06:35 Carbon Dioxide 23 mmol/L (22-29) 08/10/21 06:35 Anion Gap 11 (12-20) L 08/10/21 06:35 BUN 34 mg/dL (9-16) H 08/10/21 06:35 Creatinine 2.63 mg/dL (0.5-1.4) H 08/10/21 06:35 Estim Creat Clear Calc 18.7 08/10/21 06:35 Estimated GFR 17 08/10/21 06:35 POC Glucose 83 mg/dL (60-115) 08/09/21 07:22 Random Glucose 105 mg/dL (60-115) 08/10/21 06:35 Lactic Acid 2.0 mmol/L (0.5-2.0) 08/06/21 15:41 Calcium 8.4 mg/dL (8.4-10.2) 08/10/21 06:35 Magnesium 2.5 mg/dL (1.6-2.6) 08/08/21 08:24 Total Bilirubin 0.7 mg/dL (0.0-1.0) 08/06/21 15:41 Direct Bilirubin 0.3 mg/dL (0.0-0.5) 08/06/21 15:41 AST 26 U/L (5-31) D 08/06/21 15:41 ALT 11 U/L (0-31) 08/06/21 15:41 Alkaline Phosphatase 175 U/L (39-117) H 08/06/21 15:41 C-Reactive Protein 8.57 mg/dL (< or = 0.50) H 08/09/21 08:13 Total Protein 6.5 g/dL (6.5-8.0) 08/06/21 15:41 Albumin 2.5 g/dL (3.5-5.0) L 08/06/21 15:41 Lipase 42 U/L (8-78) 08/06/21 15:41 Urine Color YELLOW 08/06/21 17:03 Urine Appearance TURBID 08/06/21 17:03 Urine pH 6.0 (5.0-8.0) 08/06/21 17:03 Ur Specific [place] 1.015 (1.005-1.025) 08/06/21 17:03 Urine Protein 1+ MG/DL (NEG-TRACE) H 08/06/21 17:03 Urine Glucose (UA) NEG MG/DL (NEG) 08/06/21 17:03 Urine Ketones NEG MG/DL (NEG) 08/06/21 17:03 Urine Blood 2+ (NEG) H 08/06/21 17:03 Urine Nitrite NEG (NEG) 08/06/21 17:03 Ur Leukocyte Esterase 3+ (NEG) H 08/06/21 17:03 Urine RBC 15-29 /HPF (0) H 08/06/21 17:03 Urine WBC TNTC /HPF (0-4) H 08/06/21 17:03 Ur Squamous Epith Cells NONE /LPF 08/06/21 17:03 Urine Bacteria 3+ /LPF 08/06/21 17:03 COVID-19 (HEVER) Negative (Negative) 08/10/21 10:30 COVID-19 Clin Com See Note 08/10/21 10:30 Impressions Abdomen/Pelvis CT 08/06/21 14:55 IMPRESSION: 1. Markedly distended urinary bladder proximal main the level of the umbilicus. Correlate with bladder dysfunction or inability to urinate consider Pedro catheter decompression as indicated. 2. Severe right moderate left hydroureteronephrosis with double-J ureteral stents in appropriate position bilaterally. Findings may be on basis of vesicoureteral reflux versus stent dysfunction. 3. Multiple additional ancillary findings, as described. Discharge Plan Discharge Patient Disposition: [facility] Discharge Diagnosis: GAURANG/CKD3 due to acute urinary retention hypotension Referrals: [facility] [Other] - 1 Week Mitchell Sung MD [Physician] - 1 Week Aguilar Moreno MD [Primary Care Provider] - 1 Week Albert Bermeo MD [Physician] - 1 Week Discharge Medications: New clotrimazole 1 % Cream 1 appl vaginal BEDTIME Qty: 45 0RF nystatin 100,000 unit/gram Powder 1 appl topical BID Qty: 60 0RF Protocol: Apply to: Apply to: groin Continued Incruse Ellipta 62.5 mcg/actuation blister with device 1 inh PO DAILY Qty: 30 0RF sennosides [senna] 8.6 mg Tablet 8.6 mg PO DAILY PRN (Reason: Constipation) bisacodyl 10 mg Suppository 10 mg MI DAILY PRN (Reason: Constipation) Fleet Enema 19-7 gram/118 mL Enema 118 ml MI DAILY PRN (Reason: Constipation) albuterol 90 mcg/actuation Aerosol 180 mcg INHALATION Q4H PRN (Reason: Wheezing) ondansetron 4 mg Tablet,Disintegrating 4 mg PO Q6H PRN (Reason: Nausea) acetaminophen [Tylenol] 325 mg Tablet 650 mg PO DAILY meclizine 12.5 mg Tablet 12.5 mg PO TID PRN (Reason: Dizziness) guaifenesin 100 mg/5 mL Liquid 200 mg PO TID pantoprazole [Protonix] 40 mg Tablet,Delayed Release (Dr/Ec) 40 mg PO DAILY polyethylene glycol 3350 [Miralax] 17 gram/dose Powder 17 g PO DAILY omeprazole 20 mg Tablet,Delayed Release (Dr/Ec) 20 mg PO DAILY atorvastatin 40 mg tablet 40 mg PO BEDTIME folic acid 1 mg Tablet 1 mg PO DAILY Qty: 30 0RF cholecalciferol (vitamin D3) 10 mcg (400 unit) capsule 10 mcg PO DAILY aspirin [Adult Low Dose Aspirin] 81 mg tablet,delayed release (DR/EC) 81 mg PO DAILY Discontinued metoprolol succinate 25 mg tablet extended release 24 hr 25 mg PO DAILY 90 Days Qty: 90 3RF Spiriva with HandiHaler 18 mcg Capsule, W/Inhalation Device 18 mcg inhalation RDAILY Qty: 60 0RF levofloxacin 500 mg tablet 500 mg PO DAILY Qty: 10 0RF furosemide 20 mg tablet 20 mg PO DAILY Discharge Orders: Discharge Order (Routine); Ordered 08/10/21 Ordered By: Urmila Ray Diet: advance to usual diet Activity on Discharge: As tolerated Stand Alone Forms: Patient Portal Discharge page Other Ambulatory Orders: Basic Metabolic Panel (Routine) Timeframe: 1 Week Facility: [facility] - Location: Laboratory Ordered By: Urmila Ray Care Plan Goals: kidney health Health Concerns: GAURANG/CKD3 due to acute urinary retention hypotension Plan of Treatment: GAURANG/CKD3 due to acute urinary retention: stop furosemide. Pedro in place; follow up with Urology [Dr Sung] in 2 weeks. recheck BMP in 1 week. hypotension: stop furosemide and metoprolol succinate Assessment: See Discharge Summary Patient Instructions: Acute Urinary Retention in Women (ED)
== END 2021-08-10 14:15 | disposition skilled nursing facility (03) | DRG 683 ==
LOC: HO.ED 17:42 → HO.EDOVER 18:30 → HO.IMC 18:46
PROVIDERS: Physician Assistant; Admitting Provider Hospitalist; Emergency Provider Emergency Medicine; PCP Family Medicine; Visit Provider Family Medicine
DX: N17.9 Acute kidney failure, unspecified (principal); Z68.41 Body mass index [BMI] 40.0-44.9, adult; N13.6 Pyonephrosis; R33.8 Other retention of urine; I25.10 Atherosclerotic heart disease of native coronary artery without angina pectoris; R42 Dizziness and giddiness; E66.01 Morbid (severe) obesity due to excess calories; E83.42 Hypomagnesemia; I95.9 Hypotension, unspecified; D63.1 Anemia in chronic kidney disease; N18.30 Chronic kidney disease, stage 3 unspecified; B95.2 Enterococcus as the cause of diseases classified elsewhere; E86.0 Dehydration; G47.33 Obstructive sleep apnea (adult) (pediatric); Z20.822 Contact with and (suspected) exposure to COVID-19; Z99.81 Dependence on supplemental oxygen; Z87.440 Personal history of urinary (tract) infections; Z87.442 Personal history of urinary calculi; Z79.82 Long term (current) use of aspirin; Z79.899 Other long term (current) drug therapy
CPT/HCPCS: 36415; 51798; 74176; 80048; 80076; 81001; 82947; 83605; 83690; 83735; 85025; 85610; 86140; 87040; 87086; 87088; 87186; 87635; 93005; 96361; 96365; 97116; 97162; 97530; 99284; 99285; C1758; J0885; J2185; Q0163

== ENCOUNTER 2021-09-09 00:36 | Inpatient (IN) | payer MEDICARE, OTHER, SELFPAY ==
[2021-09-09] VITALS (8 sets, daily range): BP systolic 92–139; BP diastolic 44–85; PULSE 75–101; RESP 13–25; TEMP 35.9–36.6; O2SAT 95–97; BMI 40.7; BMI 39.4
--- NOTE | ~2021-09-09 | CT_ITS ---
EXAMINATION: CT ABDOMEN AND PELVIS WITHOUT CONTRAST CLINICAL INFORMATION: Rule out colitis COMPARISON: 08/06/2021 TECHNIQUE: Multidetector volumetric imaging was performed from the superior aspect of the liver through the pubic symphysis. Sagittal and coronal reformatted images were obtained on the technologist's workstation. This CT examination was performed using dose optimization techniques as appropriate, variously including the following: *Automated exposure control *Adjustment of mA and/or kV according to patient size (this includes techniques or standardized protocols for targeted exams where dose is matched to indication/reason for exam; i.e. extremities or head) *Use of iterative reconstruction technique DLP: 1197 mGy-cm FINDINGS: LUNG BASES: Subsegmental bibasilar atelectasis. LIVER, GALLBLADDER, AND BILIARY TREE: The liver is normal in size, shape, and attenuation. Redemonstrated small hypodensity in the right hepatic lobe, suggestive of a cyst. No biliary ductal dilatation is present. There is subtle layering hyperdensity in the gallbladder. PANCREAS: Partial fatty atrophy. SPLEEN: Calcified granuloma noted in the spleen. ADRENAL GLANDS: Unremarkable. KIDNEYS AND URETERS: Bilateral ureteral stents are present. The left ureteral stent emanates in the renal pelvis. Right ureteral stent terminates in the region of lower pole calyces. There is interval decrease in dilation of the renal pelvises compared to prior, with mild to moderate residual right hydronephrosis and no left hydronephrosis. Redemonstrated left lower pole renal calculus. BLADDER: Decompressed with a Pedro catheter. Bilateral ureteral stents terminate in the bladder. GASTROINTESTINAL TRACT: No evidence of bowel obstruction. Assessment of much of the colon is suboptimal due to luminal collapse. Mild stranding is noted along the collapsed sigmoid colon, raising concern for a colitis. The appendix is unremarkable. No free fluid or free air is seen. ABDOMINAL WALL: Small fat-containing umbilical hernia. LYMPH NODES: Normal. VASCULAR: Redemonstrated abdominal aortic aneurysm with aortobiiliac stent graft in place. Graft patency is not adequately assessed without intravenous contrast. Aneurysm sac measures up to approximately 7.8 x 7.4 cm in the axial plane (previously 7.4 x 7.1). Moderate atherosclerotic calcifications are noted. PELVIC VISCERA: Unremarkable. OSSEOUS STRUCTURES: Degenerative changes are noted in the spine. CT/CT abdomen pelvis wo con IMPRESSION: 1. Although assessment of much of the colon is limited due to luminal collapse, there is stranding along the sigmoid colon concerning for a colitis in the proper clinical setting. 2. Bilateral ureteral stents. Mild to moderate residual right-sided hydronephrosis and no left hydronephrosis; appearance bilaterally has improved since 08/06/2021. 3. Redemonstrated abdominal aortic aneurysm with aortobiiliac stent graft in place. Aneurysm size may be slightly increased since 08/06/2021, though these differences in measurement may be due to differences in patient positioning. 4. Subtle layering hyperdensity in the gallbladder, which could reflect sludge or gallstones.
--- NOTE | 2021-09-09 00:49 | ECG_ITS ---
Test Reason : WEAKNESS Blood Pressure : / mmHG Vent. Rate : 091 BPM Atrial Rate : 091 BPM P-R Int : 212 ms QRS Dur : 106 ms QT Int : 368 ms P-R-T Axes : 064 058 -19 degrees QTc Int : 452 ms Sinus rhythm with 1st degree A-V block with Premature supraventricular complexes Low voltage QRS Inferior infarct (cited on or before 20-JUL-2021) Cannot rule out Anterior infarct (cited on or before 07-JUN-2021) Abnormal ECG When compared with ECG of 06-AUG-2021 13:31, Nonspecific T wave abnormality now evident in Lateral leads Referred By: Darline Pimentel Electronically Signed By:Clay Berrios
--- NOTE | 2021-09-09 00:59 | ED.NAVMDI ---
HPI - Nausea/Vomiting/Diarrhea General Chief complaint: Nausea/Vomiting/Diarrhea Stated complaint: diarrhea Time Seen by Provider: 09/09/21 00:47 Source: patient and EMS Mode of arrival: EMS Limitations: no limitations History of Present Illness HPI Narrative: Patient comes to the emergency room complaining of diarrhea that started 6 hours ago. Patient states [facility], from [place]. Patient states that she has no abdominal pain, complaining of mild nausea, no vomiting, no fever or chills. Patient took some [employer] [id number] medication for diarrhea with no effect. Related Data Home Medications Medication Instructions Recorded Confirmed cholecalciferol (vitamin D3) 10 10 mcg PO DAILY 04/16/20 08/06/21 mcg (400 unit) capsule aspirin 81 mg tablet,delayed 81 mg PO DAILY 04/21/20 08/06/21 release (Adult Low Dose Aspirin) acetaminophen 325 mg tablet 650 mg PO DAILY 07/20/21 08/06/21 (Tylenol) atorvastatin 40 mg tablet 40 mg PO BEDTIME 07/20/21 08/06/21 guaifenesin 100 mg/5 mL oral liquid 200 mg PO TID 07/20/21 08/06/21 meclizine 12.5 mg tablet 12.5 mg PO TID PRN Dizziness 07/20/21 08/06/21 omeprazole 20 mg tablet,delayed 20 mg PO DAILY 07/20/21 08/06/21 release pantoprazole 40 mg tablet,delayed 40 mg PO DAILY 07/20/21 08/06/21 release (Protonix) polyethylene glycol 3350 17 17 g PO DAILY 07/20/21 08/06/21 gram/dose oral powder (Miralax) albuterol 90 mcg/actuation aerosol 180 mcg inhalation Q4H PRN Wheezing 08/06/21 08/06/21 inhaler bisacodyl 10 mg rectal suppository 10 mg IN DAILY PRN Constipation 08/06/21 08/06/21 ondansetron 4 mg disintegrating 4 mg PO Q6H PRN Nausea 08/06/21 08/06/21 tablet sennosides 8.6 mg tablet (senna) 8.6 mg PO DAILY PRN Constipation 08/06/21 08/06/21 sodium phosphates 19 gram-7 118 ml IN DAILY PRN Constipation 08/06/21 08/06/21 gram/118 mL enema (Fleet Enema) Previous Rx's Medication Instructions Recorded Incruse Ellipta 62.5 mcg/actuation 1 inh PO DAILY #30 ea 06/09/21 powder for inhalation (umeclidinium) folic acid 1 mg tablet 1 mg PO DAILY #30 tabs 07/27/21 clotrimazole 1 % vaginal cream 1 appl vaginal BEDTIME #45 grams 08/10/21 nystatin 100,000 unit/gram topical 1 appl topical BID #60 grams 08/10/21 powder Allergies Allergy/AdvReac Type Severity Reaction Status Date / Time No Known Allergies Allergy Verified 05/17/21 10:30 [No Known Allergies*] Review of Systems Review of Systems: Constitutional : No Weight loss, No Fever, No Chills, No Night Sweats, No Fatigue, No Malaise ENT/Mouth : No Hearing loss, No Ear Pain, No Nasal Congestion, No Sinus Pain, No Hoarseness, No sore throat, No Rhinorrhea, No Swallowing Difficulty Eyes: No Eye Pain, No Swelling, No Redness, No Foreign Body, No Discharge, No Vision Changes Cardiovascular : No Chest Pain, No SOB, No Dyspnea on Exertion, No Orthopnea, No Edema, No Palpitations Respiratory : No Cough, No Sputum, No Wheezing, No Smoke Exposure, No Dyspnea Gastrointestinal : Complaining of Nausea, No Vomiting, complaining of copious explosive Diarrhea, No Constipation, No abdominal Pain, No Hematochezia, No Melena Genitourinary : no irregular bleeding, No Dysuria, No Urinary Frequency, No Hematuria, No Urinary Incontinence, No Urgency, No Flank Pain, No Urinary Flow Changes, No Hesitancy Musculoskeletal : No joint pain, No Myalgias, No Joint Swelling Skin : No Skin Lesions, No rash Neuro : No Weakness, No Numbness, No Paresthesias, No Loss of Consciousness, No Dizziness, No Headache Psych : No Anxiety/Panic, No Depression, No SI/HI/AH/VH, No Social Issues, Heme/Lymph: No Bruising, No Bleeding,No Lymphadenopathy Endocrine : No Polyuria, No Polydipsia, No Temperature Intolerance PMFSH Past Medical History Medical History Abdominal aortic aneurysm (AAA) without rupture Acute blood loss anemia Acute dehydration Acute kidney injury superimposed on CKD Acute UTI Atherosclerotic cardiovascular disease CKD (chronic kidney disease) stage 3, GFR 30-59 ml/min COPD (chronic obstructive pulmonary disease) Hydronephrosis concurrent with and due to calculi of kidney and ureter Kidney stone on right side Nocturnal hypoxemia Obesity Recurrent falls Restrictive lung disease Skin tear of hand without complication Smoker Family History Family History Father No problems noted. Mother No problems noted. Social History Social History Household Members: None Housing: Apartment Housing Other:: SNF Do you presently have visiting nurse or other home services: Yes (twice weekly) Alcohol intake: never Patient Tobacco Use Status: Never used Tobacco Tobacco use type: Cigarette Cigarettes Per Day: 1 Second Hand Smoke Exposure: No Advance Directives: Yes Advance Directives on File: Yes Advance Directives Date on File: 07/21/21 service: No Current occupational status: retired Physical Exam Vital Signs: Vital Signs: Last Vital Signs Temp 97.9 F 09/09/21 00:42 Pulse 79 09/09/21 05:25 Resp 16 09/09/21 05:25 BP 93/45 L 09/09/21 05:25 Pulse Ox 95 09/09/21 05:25 O2 Del Method 09/09/21 05:25 BMI result Body Mass Index 40.7 Const: Other: Appearance: Alert. Oriented X3. No acute distress. Eyes: Pupils equal, round and reactive to light. ENT: Pharynx normal. Neck: Normal inspection. Neck supple. No lymph nodes noted. No crepitus CVS: Normal heart rate and rhythm. Pulses normal. Normal S1 and S2 Respiratory: No respiratory distress. Breath sounds normal. No Wheezing. No rales Abdomen: Soft and nontender. No rigidity. No distention. : Patient has a chronic Pedro catheter, patient states that she believes the Pedro has been in place for a month. Today urine side of the back looks like applesauce Skin: Skin warm and dry. Normal skin color. Normal skin turgor. Extremities: No lower extremity edema. No Lacerations. No Rash Neuro: Oriented X 3. No motor deficit. No sensory deficit. Moving all extremities. No slurred speech. CN 2 through 12 grossly intact Psych: calm, cooperative, normal affect Course Course Course Narrative: Patient getting IV hydration, 4 mg of loperamide given p.o.. Labs pending. I discussed the labs with the patient. Lactic acid is fairly elevated, likely secondary to dehydration. However, patient does have a significant UTI. Which is ESBL. I discussed the patient with Dr. Yu, we will start 1 dose of meropenem. Also, Dr. Yu requests a CT scan of the abdomen to rule out any other infection given the patient's labs. CT scan shows possible colitis. Patient was already given IV antibiotics. MDM - Nausea/Vomiting/Diarrhea Lab Data Result diagrams: 09/09/21 01:59 09/09/21 01:59 Labs: Lab Results 09/09/21 09/09/21 09/09/21 Range/Units 01:37 01:37 01:59 WBC 12.4 H (4.8-10.8) X10*3/uL RBC 3.53 L D (4.20-5.50) X10*6/uL Hgb 10.2 L D (12.0-16.0) g/dl Hct 33.2 L D (37.0-47.0) % MCV 94.1 (80.0-98.0) fL MCH 28.9 (27.0-33.0) pg MCHC 30.7 L (31.0-35.0) g/dl RDW 16.4 H (11.0-16.0) % Plt Count 171 (160-400) X10*3/uL MPV 10.0 (9.4-12.3) fL Immature Gran % (Auto) 0.5 H (0.0-0.4) % Neut % (Auto) 76.4 H (45-73) % Lymph % (Auto) 17.3 L (20-40) % [place] % (Auto) 5.6 (2-11) % Eos % (Auto) 0.0 (0-4) % Baso % (Auto) 0.2 (0-2) % Lymph # (Auto) 2.2 (1.2-4.9) X10*3/uL [place] # (Auto) 0.7 (0.1-1.2) X10*3/uL Eos # (Auto) 0.0 (0.0-0.4) X10*3/uL Baso # (Auto) 0.0 (0.0-0.2) X10*3/uL Abs Immat Gran (auto) 0.06 H (0.00-0.03) X10*3/uL Absolute Neuts (auto) 9.5 H (2.0-8.3) x10*3/uL Absolute Nucleated RBC 0.000 (0.0-0.012) X10*3/uL Nucleated RBC % (auto) 0.0 (0.0-0.2) /100WBC Sodium (135-145) mmol/L Potassium (3.3-5.1) mmol/L Chloride (96-108) mmol/L Carbon Dioxide (22-29) mmol/L Anion Gap (12-20) BUN (9-16) mg/dL Creatinine (0.5-1.4) mg/dL Estim Creat Clear Calc Estimated GFR Random Glucose (60-115) mg/dL Lactic Acid (0.5-2.0) mmol/L Calcium (8.4-10.2) mg/dL Magnesium (1.6-2.6) mg/dL Total Bilirubin (0.0-1.0) mg/dL Direct Bilirubin (0.0-0.5) mg/dL AST (5-31) U/L ALT (0-31) U/L Alkaline Phosphatase (39-117) U/L Troponin I High Sens (<3.5-17.0) ng/L Total Protein (6.5-8.0) g/dL Albumin (3.5-5.0) g/dL Urine Color Urine Appearance Urine pH (5.0-8.0) Ur Specific [place] (1.005-1.025) Urine Protein (NEG-TRACE) MG/DL Urine Glucose (UA) (NEG) MG/DL Urine Ketones (NEG) MG/DL Urine Blood (NEG) Urine Nitrite (NEG) Ur Leukocyte Esterase (NEG) Urine RBC (0) /HPF Urine WBC (0-4) /HPF Ur Squamous Epith Cells /LPF Urine Bacteria /LPF Urine Mucus /LPF C. difficile Tox B Gene NEGATIVE (Negative) COVID-19 (HEVER) Negative (Negative) COVID-19 Clin Com See Note 07/21/22 07/21/22 07/21/22 Range/Units 01:59 01:59 01:59 WBC (4.8-10.8) X10*3/uL RBC (4.20-5.50) X10*6/uL Hgb (12.0-16.0) g/dl Hct (37.0-47.0) % MCV (80.0-98.0) fL MCH (27.0-33.0) pg MCHC (31.0-35.0) g/dl RDW (11.0-16.0) % Plt Count (160-400) X10*3/uL MPV (9.4-12.3) fL Immature Gran % (Auto) (0.0-0.4) % Neut % (Auto) (45-73) % Lymph % (Auto) (20-40) % [place] % (Auto) (2-11) % Eos % (Auto) (0-4) % Baso % (Auto) (0-2) % Lymph # (Auto) (1.2-4.9) X10*3/uL [place] # (Auto) (0.1-1.2) X10*3/uL Eos # (Auto) (0.0-0.4) X10*3/uL Baso # (Auto) (0.0-0.2) X10*3/uL Abs Immat Gran (auto) (0.00-0.03) X10*3/uL Absolute Neuts (auto) (2.0-8.3) x10*3/uL Absolute Nucleated RBC (0.0-0.012) X10*3/uL Nucleated RBC % (auto) (0.0-0.2) /100WBC Sodium 138 (135-145) mmol/L Potassium 4.5 (3.3-5.1) mmol/L Chloride 110 H (96-108) mmol/L Carbon Dioxide 14 L (22-29) mmol/L Anion Gap 19 (12-20) BUN 27 H (9-16) mg/dL Creatinine 2.79 H (0.5-1.4) mg/dL Estim Creat Clear Calc 16.3 Estimated GFR 16 Random Glucose 91 (60-115) mg/dL Lactic Acid 5.3 H* (0.5-2.0) mmol/L Calcium 9.5 D (8.4-10.2) mg/dL Magnesium 1.7 (1.6-2.6) mg/dL Total Bilirubin 0.4 (0.0-1.0) mg/dL Direct Bilirubin 0.2 (0.0-0.5) mg/dL AST 42 H D (5-31) U/L ALT 15 (0-31) U/L Alkaline Phosphatase 147 H (39-117) U/L Troponin I High Sens 124.7 H* (<3.5-17.0) ng/L Total Protein 7.2 (6.5-8.0) g/dL Albumin 2.9 L (3.5-5.0) g/dL Urine Color Urine Appearance Urine pH (5.0-8.0) Ur Specific [place]sey (1.005-1.025) Urine Protein (NEG-TRACE) MG/DL Urine Glucose (UA) (NEG) MG/DL Urine Ketones (NEG) MG/DL Urine Blood (NEG) Urine Nitrite (NEG) Ur Leukocyte Esterase (NEG) Urine RBC (0) /HPF Urine WBC (0-4) /HPF Ur Squamous Epith Cells /LPF Urine Bacteria /LPF Urine Mucus /LPF C. difficile Tox B Gene (Negative) COVID-19 ([facility]) (Negative) COVID-19 Clin Com 09/09/21 Range/Units 03:21 WBC (4.8-10.8) X10*3/uL RBC (4.20-5.50) X10*6/uL Hgb (12.0-16.0) g/dl Hct (37.0-47.0) % MCV (80.0-98.0) fL MCH (27.0-33.0) pg MCHC (31.0-35.0) g/dl RDW (11.0-16.0) % Plt Count (160-400) X10*3/uL MPV (9.4-12.3) fL Immature Gran % (Auto) (0.0-0.4) % Neut % (Auto) (45-73) % Lymph % (Auto) (20-40) % [place] % (Auto) (2-11) % Eos % (Auto) (0-4) % Baso % (Auto) (0-2) % Lymph # (Auto) (1.2-4.9) X10*3/uL [place] # (Auto) (0.1-1.2) X10*3/uL Eos # (Auto) (0.0-0.4) X10*3/uL Baso # (Auto) (0.0-0.2) X10*3/uL Abs Immat Gran (auto) (0.00-0.03) X10*3/uL Absolute Neuts (auto) (2.0-8.3) x10*3/uL Absolute Nucleated RBC (0.0-0.012) X10*3/uL Nucleated RBC % (auto) (0.0-0.2) /100WBC Sodium (135-145) mmol/L Potassium (3.3-5.1) mmol/L Chloride (96-108) mmol/L Carbon Dioxide (22-29) mmol/L Anion Gap (12-20) BUN (9-16) mg/dL Creatinine (0.5-1.4) mg/dL Estim Creat Clear Calc Estimated GFR Random Glucose (60-115) mg/dL Lactic Acid (0.5-2.0) mmol/L Calcium (8.4-10.2) mg/dL Magnesium (1.6-2.6) mg/dL Total Bilirubin (0.0-1.0) mg/dL Direct Bilirubin (0.0-0.5) mg/dL AST (5-31) U/L ALT (0-31) U/L Alkaline Phosphatase (39-117) U/L Troponin I High Sens (<3.5-17.0) ng/L Total Protein (6.5-8.0) g/dL Albumin (3.5-5.0) g/dL Urine Color YELLOW Urine Appearance TURBID Urine pH 6.0 (5.0-8.0) Ur Specific [place]sey 1.025 (1.005-1.025) Urine Protein 3+ H (NEG-TRACE) MG/DL Urine Glucose (UA) NEG (NEG) MG/DL Urine Ketones NEG (NEG) MG/DL Urine Blood 3+ H (NEG) Urine Nitrite NEG (NEG) Ur Leukocyte Esterase 2+ H (NEG) Urine RBC 10-14 H (0) /HPF Urine WBC TNTC H (0-4) /HPF Ur Squamous Epith Cells NONE /LPF Urine Bacteria 2+ /LPF Urine Mucus TRACE /LPF C. difficile Tox B Gene (Negative) COVID-19 ([facility]) (Negative) COVID-19 Clin Com Imaging Data CT scan - abdomen: Radiologist's impression: FINDINGS: LUNG BASES: Subsegmental bibasilar atelectasis.? LIVER, GALLBLADDER, AND BILIARY TREE: The liver is normal in size, shape, and attenuation. Redemonstrated small hypodensity in the right hepatic lobe, suggestive of a cyst. No biliary ductal dilatation is present. There is subtle layering hyperdensity in the gallbladder.? PANCREAS: Partial fatty atrophy.? SPLEEN: Calcified granuloma noted in the spleen.? ADRENAL GLANDS: Unremarkable.? KIDNEYS AND URETERS: Bilateral ureteral stents are present. The left ureteral stent emanates in the renal pelvis. Right ureteral stent terminates in the region of lower pole calyces. There is interval decrease in dilation of the renal pelvises compared to prior, with mild to moderate residual right hydronephrosis and no left hydronephrosis. Redemonstrated left lower pole renal calculus. BLADDER: Decompressed with a Pedro catheter. Bilateral ureteral stents terminate in the bladder.? GASTROINTESTINAL TRACT: No evidence of bowel obstruction. Assessment of much of the colon is suboptimal due to luminal collapse. Mild stranding is noted along the collapsed sigmoid colon, raising concern for a colitis. The appendix is unremarkable. No free fluid or free air is seen.? ABDOMINAL WALL: Small fat-containing umbilical hernia.? LYMPH NODES: Normal. VASCULAR: Redemonstrated abdominal aortic aneurysm with aortobiiliac stent graft in place. Graft patency is not adequately assessed without intravenous contrast. Aneurysm sac measures up to approximately 7.8 x 7.4 cm in the axial plane (previously 7.4 x 7.1). Moderate atherosclerotic calcifications are noted. PELVIC VISCERA: Unremarkable.? OSSEOUS STRUCTURES: Degenerative changes are noted in the spine.? CT/CT abdomen pelvis wo con IMPRESSION: 1.? Although assessment of much of the colon is limited due to luminal collapse, there is stranding along the sigmoid colon concerning for a colitis in the proper clinical setting. 2.? Bilateral ureteral stents. Mild to moderate residual right-sided hydronephrosis and no left hydronephrosis; appearance bilaterally has improved since 08/06/2021. 3.? Redemonstrated abdominal aortic aneurysm with aortobiiliac stent graft in place. Aneurysm size may be slightly increased since 08/06/2021, though these differences in measurement may be due to differences in patient positioning. 4.? Subtle layering hyperdensity in the gallbladder, which could reflect sludge or gallstones. Critical Care Time Critical Care Time Critical Care Time: Yes Total Critical Care Time: 35 Attestation: I have personally provided critical care time. Time includes review of lab data, radiology results, discussion with consultants, and monitoring for potential decompensation. Intervention performed as documented. Discharge Plan Discharge Clinical Impression: Diarrhea, Acute dehydration, Urinary tract infection due to ESBL Klebsiella Patient Disposition: Admitted As Inpatient
[2021-09-09] MEDS: 0.9 % Sodium Chloride 1,000 ML 999 ML IVCONT ×2 (01:25→02:13)
[2021-09-09] MEDS: Loperamide HCl 2 MG CAPSULE 4 MG PO (01:38)
[2021-09-09 02:00] LABS: COVID-19 Test Negative (Negative)
--- NOTE | 2021-09-09 02:05 | PC.NURSE ---
Pt arrived to our facility with kevin cath inserted connected to a leg bag that contained cloudy yellow urine. Old catheter removed and a new one reinserted. The initial flash of urine was very white and cloudy; urine has not yet collected in the kevin.
[2021-09-09 02:07] LABS: Basophils Percent Auto 0.2 % (0-2); Hematocrit 33.2 % (37.0-47.0); Hemoglobin 10.2 g/dl (12.0-16.0); Imm Gran Abs Auto 0.06 X10*3/uL (0.00-0.03); Imm Gran Pct Auto 0.5 % (0.0-0.4); Lymphocytes Absolute Auto 2.2 X10*3/uL (1.2-4.9); Lymphocytes Percent Auto 17.3 % (20-40); MANUAL DIFF FLAG NO; Mean Corpuscular HGB Conc 30.7 g/dl (31.0-35.0); Mean Corpuscular Hemoglobin 28.9 pg (27.0-33.0); Mean Corpuscular Volume 94.1 fL (80.0-98.0); Monocytes Absolute Auto 0.7 X10*3/uL (0.1-1.2); Monocytes Percent Auto 5.6 % (2-11); Neutrophils Absolute Auto 9.5 x10*3/uL (2.0-8.3); Neutrophils Percent Auto 76.4 % (45-73); Platelet Count 171 X10*3/uL (160-400); Red Blood Count 3.53 X10*6/uL (4.20-5.50); Red Cell Distribution Width 16.4 % (11.0-16.0); White Blood Count 12.4 X10*3/uL (4.8-10.8)
--- NOTE | 2021-09-09 02:13 | PC.NURSE ---
Pt is hypotensive. IV fluids infusing slowly into the IV in the left hand. Second IV inserted into right hand and second liter of fluid in now infusing.
[2021-09-09 02:21] LABS: Lactic Acid 5.3 mmol/L (0.5-2.0)
[2021-09-09 02:29] LABS: Troponin-I High Sensitivity 124.7 ng/L (<3.5-17.0)
[2021-09-09 02:31] LABS: CDiff Gene PCR NEGATIVE (Negative)
[2021-09-09 02:31] LABS: Alanine Aminotransferase 15 U/L (0-31); Albumin Level 2.9 g/dL (3.5-5.0); Alkaline Phosphatase 147 U/L (39-117); Anion Gap 19 (12-20); Aspartate Amino Transferase 42 U/L (5-31); Bilirubin Direct 0.2 mg/dL (0.0-0.5); Bilirubin Total 0.4 mg/dL (0.0-1.0); Blood Urea Nitrogen 27 mg/dL (9-16); Calcium 9.5 mg/dL (8.4-10.2); Carbon Dioxide 14 mmol/L (22-29); Chloride 110 mmol/L (96-108); Creatinine Clr Calc Pharmacy 16.3; Estimated Glomerular Filt Rate 16; Glucose Random 91 mg/dL (60-115); Magnesium 1.7 mg/dL (1.6-2.6); Potassium 4.5 mmol/L (3.3-5.1); Sodium 138 mmol/L (135-145); Total Protein 7.2 g/dL (6.5-8.0)
[2021-09-09 03:26] LABS: Appearance Urine TURBID; Color Urine YELLOW; Glucose Urine UA NEG (NEG); Leukocyte Esterase Urine 2+ (NEG); Nitrite Urine NEG (NEG); Specific Gravity - Urine 1.025 (1.005-1.025); UACC Culture Trigger YES; Urine Blood 3+ (NEG); Urine Ketones NEG (NEG); Urine Protein 3+ MG/DL (NEG-TRACE)
[2021-09-09 03:35] LABS: Bacteria Urine 2+ /LPF; Mucus Urine TRACE /LPF; WBC Urine TNTC /HPF (0-4)
[2021-09-09 04:06] LABS: Reflex Lactate? Lactic Acid Added
--- NOTE | 2021-09-09 06:15 | P.HPHOSP_ITS ---
History of Present Illness Date of Service: 09/09/21 Chief Complaint: Diarrhea 85-year-old female with a past medical history of CKD, COPD on home oxygen at night, CAD, obstructive uropathy-status post bilateral ureteral stents, has chronic Pedro catheter, recurrent UTI-growing ESBL Klebsiella, Enterococcus during the recent admission; abdominal aortic aneurysm status post repair, anemia, obesity, GI bleed presented to the hospital today with a chief complaint of diarrhea. Patient reports that she was recently discharged from the hospital to the rehab after being treated for GAURANG on CKD/UTI a. Patient was discharged from the rehab today and of she went home she had multiple episodes of loose watery stool, foul-smelling; denies any abdominal pain. Mentioned that she has not had much of fluids intake today. Denies any fevers and chills. Denies any abdominal pain. Patient denies any chest pain palpitations lightheadedness dizziness, falls or trauma. Review of all other systems is negative except mentioned above ER course: Per ER team patient on presentation noted to be dry, blood pressure on the soft side; given IV fluids; on labs noted to have elevated lactate at 5.3; Pedro catheter was replaced; urinalysis abnormal consistent UTI. Given meropenem. CT abdomen showed findings consistent with colitis. Also noted to have slightly increased in size of the abdominal aortic aneurysm. Admitted for further management. [facility] Medical History Abdominal aortic aneurysm (AAA) without rupture Acute blood loss anemia Acute dehydration Acute kidney injury superimposed on CKD Acute UTI Atherosclerotic cardiovascular disease CKD (chronic kidney disease) stage 3, GFR 30-59 ml/min COPD (chronic obstructive pulmonary disease) Hydronephrosis concurrent with and due to calculi of kidney and ureter Kidney stone on right side Nocturnal hypoxemia Obesity Recurrent falls Restrictive lung disease Skin tear of hand without complication Smoker Family History Father No problems noted. Mother No problems noted. Pertinent family history: Father had heart disease Social History Household Members: None Housing: Apartment Housing Other:: SNF Do you presently have visiting nurse or other home services: Yes (twice weekly) Alcohol intake: never Patient Tobacco Use Status: Never used Tobacco Tobacco use type: Cigarette Cigarettes Per Day: 1 Second Hand Smoke Exposure: No Advance Directives: Yes Advance Directives on File: Yes Advance Directives Date on File: 07/21/21 service: No Current occupational status: retired Meds Allergies Allergy/AdvReac Type Severity Reaction Status Date / Time No Known Allergies Allergy Verified 05/17/21 10:30 [No Known Allergies*] Home Medications Medication Instructions Recorded Confirmed Last Taken Type cholecalciferol (vitamin D3) 10 10 mcg PO DAILY 04/16/20 08/06/21 08/05/21 History mcg (400 unit) capsule aspirin 81 mg tablet,delayed 81 mg PO DAILY 04/21/20 08/06/21 08/06/21 History release (Adult Low Dose Aspirin) acetaminophen 325 mg tablet 650 mg PO DAILY 07/20/21 08/06/21 08/06/21 History (Tylenol) atorvastatin 40 mg tablet 40 mg PO BEDTIME 07/20/21 08/06/21 08/05/21 History guaifenesin 100 mg/5 mL oral liquid 200 mg PO TID 07/20/21 08/06/21 07/20/21 History meclizine 12.5 mg tablet 12.5 mg PO TID PRN Dizziness 07/20/21 08/06/21 08/06/21 History omeprazole 20 mg tablet,delayed 20 mg PO DAILY 07/20/21 08/06/21 07/20/21 History release pantoprazole 40 mg tablet,delayed 40 mg PO DAILY 07/20/21 08/06/21 08/06/21 History release (Protonix) polyethylene glycol 3350 17 17 g PO DAILY 07/20/21 08/06/21 08/06/21 History gram/dose oral powder (Miralax) albuterol 90 mcg/actuation aerosol 180 mcg inhalation Q4H PRN Wheezing 08/06/21 08/06/21 Unknown History inhaler bisacodyl 10 mg rectal suppository 10 mg SC DAILY PRN Constipation 08/06/21 08/06/21 Unknown History ondansetron 4 mg disintegrating 4 mg PO Q6H PRN Nausea 08/06/21 08/06/21 Unknown History tablet sennosides 8.6 mg tablet (senna) 8.6 mg PO DAILY PRN Constipation 08/06/21 08/06/21 Unknown History sodium phosphates 19 gram-7 118 ml SC DAILY PRN Constipation 08/06/21 08/06/21 Unknown History gram/118 mL enema (Fleet Enema) Physical Exam Vital Signs and Narrative: Vital Signs: Last Vital Signs Temp 97.9 F 09/09/21 00:42 Pulse 79 09/09/21 05:25 Resp 16 09/09/21 05:25 BP 93/45 L 09/09/21 05:25 Pulse Ox 95 09/09/21 05:25 O2 Del Method 09/09/21 05:25 BMI result Body Mass Index 40.7 Gen: Appears be in no acute distress HEENT: NCAT, dry mucosa. Pulmonary: Vesicular breath sounds, fair air entry CVS: Normal S1-S2 Abdomen: BS+, Soft, Nontender Extremities: Warm well perfused Neuro: Alert and awake. Results Labs CBC and Chem 7: 09/09/21 01:59 09/09/21 01:59 Labs: Laboratory Results - last 24 hr 09/09/21 09/09/21 09/09/21 01:37 01:37 01:59 MCV 94.1 MCH 28.9 MCHC 30.7 L RDW 16.4 H Plt Count 171 MPV 10.0 Immature Gran % (Auto) 0.5 H Neut % (Auto) 76.4 H Lymph % (Auto) 17.3 L [place] % (Auto) 5.6 Eos % (Auto) 0.0 Baso % (Auto) 0.2 Lymph # (Auto) 2.2 [place] # (Auto) 0.7 Eos # (Auto) 0.0 Baso # (Auto) 0.0 Abs Immat Gran (auto) 0.06 H Absolute Neuts (auto) 9.5 H Absolute Nucleated RBC 0.000 Nucleated RBC % (auto) 0.0 Anion Gap Estim Creat Clear Calc Estimated GFR Random Glucose Lactic Acid Calcium Magnesium Total Bilirubin Direct Bilirubin AST ALT Alkaline Phosphatase Troponin I High Sens Total Protein Albumin Urine Color Urine Appearance Urine pH Ur Specific [place] Urine Protein Urine Glucose (UA) Urine Ketones Urine Blood Urine Nitrite Ur Leukocyte Esterase Urine RBC Urine WBC Ur Squamous Epith Cells Urine Bacteria Urine Mucus C. difficile Tox B Gene NEGATIVE COVID-19 ([facility]) Negative COVID-19 Clin Com See Note 09/09/21 09/09/21 09/09/21 01:59 01:59 01:59 MCV MCH MCHC RDW Plt Count MPV Immature Gran % (Auto) Neut % (Auto) Lymph % (Auto) [place] % (Auto) Eos % (Auto) Baso % (Auto) Lymph # (Auto) [place] # (Auto) Eos # (Auto) Baso # (Auto) Abs Immat Gran (auto) Absolute Neuts (auto) Absolute Nucleated RBC Nucleated RBC % (auto) Anion Gap 19 Estim Creat Clear Calc 16.3 Estimated GFR 16 Random Glucose 91 Lactic Acid 5.3 H* Calcium 9.5 D Magnesium 1.7 Total Bilirubin 0.4 Direct Bilirubin 0.2 AST 42 H D ALT 15 Alkaline Phosphatase 147 H Troponin I High Sens 124.7 H* Total Protein 7.2 Albumin 2.9 L Urine Color Urine Appearance Urine pH Ur Specific [place] Urine Protein Urine Glucose (UA) Urine Ketones Urine Blood Urine Nitrite Ur Leukocyte Esterase Urine RBC Urine WBC Ur Squamous Epith Cells Urine Bacteria Urine Mucus C. difficile Tox B Gene COVID-19 ([facility]) COVID-19 [employer] 09/09/21 03:21 MCV MCH MCHC RDW Plt Count MPV Immature Gran % (Auto) Neut % (Auto) Lymph % (Auto) [place] % (Auto) Eos % (Auto) Baso % (Auto) Lymph # (Auto) [place] # (Auto) Eos # (Auto) Baso # (Auto) Abs Immat Gran (auto) Absolute Neuts (auto) Absolute Nucleated RBC Nucleated RBC % (auto) Anion Gap Estim Creat Clear Calc Estimated GFR Random Glucose Lactic Acid Calcium Magnesium Total Bilirubin Direct Bilirubin AST ALT Alkaline Phosphatase Troponin I High Sens Total Protein Albumin Urine Color YELLOW Urine Appearance TURBID Urine pH 6.0 Ur Specific [place] 1.025 Urine Protein 3+ H Urine Glucose (UA) NEG Urine Ketones NEG Urine Blood 3+ H Urine Nitrite NEG Ur Leukocyte Esterase 2+ H Urine RBC 10-14 H Urine WBC TNTC H Ur Squamous Epith Cells NONE Urine Bacteria 2+ Urine Mucus TRACE C. difficile Tox B Gene COVID-19 ([facility]) COVID-19 Clin Com Imaging Radiologist's Impressions: Impressions Abdomen/Pelvis CT 09/09/21 05:08 IMPRESSION: 1. Although assessment of much of the colon is limited due to luminal collapse, there is stranding along the sigmoid colon concerning for a colitis in the proper clinical setting. 2. Bilateral ureteral stents. Mild to moderate residual right-sided hydronephrosis and no left hydronephrosis; appearance bilaterally has improved since 08/06/2021. 3. Redemonstrated abdominal aortic aneurysm with aortobiiliac stent graft in place. Aneurysm size may be slightly increased since 08/06/2021, though these differences in measurement may be due to differences in patient positioning. 4. Subtle layering hyperdensity in the gallbladder, which could reflect sludge or gallstones. Assessment and Plan (1) Diarrhea: Status: Acute Plan 85-year-old female with a past medical history of CKD, COPD on home oxygen at night, CAD, obstructive uropathy-status post bilateral ureteral stents, has chronic Pedro catheter, recurrent UTI-growing ESBL Klebsiella, Enterococcus during the recent admission; abdominal aortic aneurysm status post repair, anemia, obesity, GI bleed presented to the hospital today with a chief complaint of diarrhea. Noted to have UTI and colitis on the CT abdomen. Admitted for further management. Colitis: Patient was empirically given meropenem Gentle IV fluids NPO for now Will obtain stool studies including C diff. UTI: Patient has recurrent UTI. Patient has chronic Pedro. Patient recent admission for UTI grew ESBL Klebsiella/Enterococcus. Patient empirically given meropenem in the ER. Will continue for now. Id consult for further recommendations. Obstructive uropathy: Patient has bilateral stents. Urology follow-up as scheduled. Lactic acidosis: Gentle IV fluids. Abdominal aortic aneurysm: CT scan showed slightly increase in size of abdominal aortic aneurysm. Patient denies any pain. Blood pressure under the goal. Vascular surgery consult. Elevated troponins: Patient has chronically elevated troponins-current value similar to prior values.. Likely reduced clearance. Denies any chest pain. Anemia: Hemoglobin stable at her baseline. Patient currently denies any signs of bleeding Chronic kidney disease: Patient baseline creatinine around 2.7. Metabolic acidosis: In the setting of CKD/hyperkalemia. Will continue to monitor. DVT prophylaxis: Subcu heparin Code status: Full code Quality Stroke Does the patient have a stroke diagnosis?: No VTE Prior VTE?: No VTE Risk Level:: Medical - moderate - high VTE Device Contraindication: N/A - Device Ordered VTE Drug Contraindication: Treatment Not Indicated
[2021-09-09 07:22] LABS: ~Lactic Acid-LAB USE ONLY 2.2 mmol/L (0.5-2.0)
[2021-09-09] MEDS: Dextrose 5 % and 0.9 % NaCl 1,000 ML 75 ML IVCONT ×2 (07:26→20:28)
[2021-09-09] MEDS: 0.9 % Sodium Chloride Flush 3 ML SYRINGE IVFLUSH (07:26)
[2021-09-09] MEDS: Heparin Sodium,Porcine 5,000 UNIT/ML VIAL 5000 UNIT SUBCUT ×3 (07:36→21:56)
[2021-09-09 08:56] LABS: Reflex Lactate? 2 Y
--- NOTE | 2021-09-09 09:02 | PHA.MEDREC ---
Pharmacy Consult ? Medication Reconciliation Pharmacy has completed the medication reconciliation. Patient was recently discharged from [facility] on [address] yesterday. She states when she went home, she took the atorvastatin and metoprolol. Per patient, she takes lisinopril, furosemide, atorvastatin, metoprolol, vitamin d, incruse, aspirin, meclizine, and albuterol, but noted she was getting other meds while in rehab. I looked at her last note and it looks like the furosemide was discontinued as well as the lisinopril due to worsening kidney function. She has not gotten these two meds at rehab either
[2021-09-09 09:56] LABS: ~Lactic Acid-LAB USE ONLY 1.7 mmol/L (0.5-2.0)
--- NOTE | 2021-09-09 13:13 | P.CONGS_ITS ---
History of Present Illness Consult details Consult date: 09/09/21 Reason for consult: other (AAA) Narrative: Very pleasant 85-year-old female well known to me for prior history endovascular abdominal aortic aneurysm repair. She was admitted to the emergency room y esterday with complaints of diarrhea. She had become weak and lethargic did secondary to acute dehydration. She also has a history recurrent urinary tract infections due to her chronic in doubt welling catheter she underwent a CT scan and is now for vascular follow-up. Review of Systems Review of Systems: Yes all other systems are reviewed and are negative Constitutional: Constitutional: Reports lethargy, Reports malaise and Reports weakness ENT: Reports Normal hearing present Cardiovascular: Cardiovascular: Denies chest pain, Denies chest pain at rest, Denies chest pain with activity and Denies pedal edema Respiratory: Respiratory: Denies cough Gastrointestinal: Gastrointestinal: Denies abdominal pain Musculoskeletal: Musculoskeletal: Denies abnormal gait, Denies muscle cramps and Denies radiating pain into limb Integumentary/Breasts: Skin/Breast: Denies skin ulcer and Denies wounds Neurologic: Reports Normal hearing present, Denies abnormal gait and Reports weakness Psychiatric: Psychiatric: Reports no additional psychiatric complaints [facility] Past Medical History Medical History Abdominal aortic aneurysm (AAA) without rupture Acute blood loss anemia Acute dehydration Acute kidney injury superimposed on CKD Acute UTI Atherosclerotic cardiovascular disease CKD (chronic kidney disease) stage 3, GFR 30-59 ml/min COPD (chronic obstructive pulmonary disease) Hydronephrosis concurrent with and due to calculi of kidney and ureter Kidney stone on right side Nocturnal hypoxemia Obesity Recurrent falls Restrictive lung disease Skin tear of hand without complication Smoker Family History Family History Father No problems noted. Mother No problems noted. Social History Social History Household Members: None Housing: Apartment Housing Other:: SNF Do you presently have visiting nurse or other home services: Yes (twice weekly) Alcohol intake: never Patient Tobacco Use Status: Never used Tobacco Tobacco use type: Cigarette Cigarettes Per Day: 1 Second Hand Smoke Exposure: No Advance Directives: Yes Advance Directives on File: Yes Advance Directives Date on File: 07/21/21 service: No Current occupational status: retired Meds Allergies Allergy/AdvReac Type Severity Reaction Status Date / Time No Known Allergies Allergy Verified 05/17/21 10:30 [No Known Allergies*] Active Medications: Current Medications Acetaminophen (Acetaminophen 325 Mg Tablet) 650 mg PO Q6H PRN PRN Reason: Pain, Mild (Pain Scale 1-3) Heparin Sodium (Porcine) (Heparin Sodium,Porcine 5,000 Unit/Ml Vial) 5,000 unit SUBCUT Q8H [facility] Last Admin: 09/09/21 07:36 Dose: 5,000 unit Dextrose/Sodium Chloride (D5ns) 1,000 mls @ 75 mls/hr IVCONT .[id number] [facility] Last Admin: 09/09/21 07:26 Dose: 75 mls/hr Meropenem 500 mg/ Sodium (Chloride) 50 mls @ 100 mls/hr IV Q12H [facility] Melatonin (Melatonin 3 Mg Tablet) 6 mg PO BEDTIME PRN PRN Reason: Insomnia Senna (Sennosides 8.6 Mg Tablet) 17.2 mg PO BEDTIME PRN PRN Reason: Constipation Sodium Chloride (0.9 % Sodium Chloride Flush 3 Ml Syringe) 3 ml IVFLUSH QSHIFT [facility] Last Admin: 09/09/21 07:26 Dose: 3 ml Home Medications Medication Instructions Recorded Confirmed Last Taken Type cholecalciferol (vitamin D3) 10 10 mcg PO DAILY 04/16/20 09/09/21 09/08/21 History mcg (400 unit) capsule aspirin 81 mg tablet,delayed 81 mg PO DAILY 04/21/20 09/09/21 09/08/21 History release (Adult Low Dose Aspirin) acetaminophen 325 mg tablet 650 mg PO DAILY 07/20/21 09/09/21 09/08/21 History (Tylenol) atorvastatin 40 mg tablet 40 mg PO BEDTIME 07/20/21 09/09/21 09/08/21 History meclizine 12.5 mg tablet 12.5 mg PO TID PRN Dizziness 07/20/21 09/09/21 08/06/21 History pantoprazole 40 mg tablet,delayed 40 mg PO DAILY 07/20/21 09/09/21 09/08/21 History release (Protonix) polyethylene glycol 3350 17 17 g PO DAILY 07/20/21 09/09/21 09/08/21 History gram/dose oral powder (Miralax) albuterol 90 mcg/actuation aerosol 180 mcg inhalation Q4H PRN Wheezing 08/06/21 09/09/21 Unknown History inhaler ondansetron 4 mg disintegrating 4 mg PO Q6H PRN Nausea 08/06/21 09/09/21 08/16/21 History tablet metoprolol succinate 25 mg 1 tab PO BEDTIME 09/09/21 09/09/21 09/08/21 History tablet,extended release 24 hr Physical Exam Vital Signs: Vital Signs: Last Vital Signs Temp 97.7 F 09/09/21 07:32 Pulse 92 09/09/21 07:32 Resp 20 09/09/21 07:32 BP 139/70 09/09/21 07:32 Pulse Ox 96 09/09/21 07:32 O2 Del Method 09/09/21 07:32 BMI result Body Mass Index 40.7 Const: General: cooperative, healthy appearing and comfortable Orientation/consciousness: oriented to person, oriented to place and oriented to time HEENT: Head: Yes normal to inspection Neck: Neck: Yes normal visual inspection Carotids: no bruits Chest: Chest palpation & inspection: normal inspection of the chest Resp: Effort & Inspection: normal respiratory effort and able to speak in complete sentences Auscultation: clear to auscultation bilaterally, no crackles, no rales, no rhonchi and no wheezes Cardio: Rate: regular rate Rhythm: regular rhythm Heart sounds: S1 normal heart sound present and S2 normal heart sound present Bruits: no carotid bruits Peripheral pulses: Peripheral pulses 2+ throughout GI: Other: Abdomen soft nontender nondistended no rebound Inspection: Yes normal to inspection Skin: Wounds: no wounds Hair: normal Neuro: General: oriented to person, oriented to place and oriented to time Cranial nerves: Yes CN's II-XII intact bilaterally and Yes Normal hearing present Cognition (Neuro): normal cognition Motor exam (neuro): 5/5 motor strength present throughout Extrem: Other: venous exam: No significant superficial varicosities or spider telangiectasias , minimal edema General: No clubbing, No cyanosis and No edema Psych: Appearance: grossly normal Mental Status: mental status grossly normal Speech and movement: Normal speech and movement present Results Labs Result diagrams: 09/09/21 01:59 09/09/21 01:59 Labs: Abnormal lab results 09/09/21 09/09/21 09/09/21 Range/Units 01:59 01:59 01:59 WBC 12.4 H (4.8-10.8) X10*3/uL RBC 3.53 L D (4.20-5.50) X10*6/uL Hgb 10.2 L D (12.0-16.0) g/dl Hct 33.2 L D (37.0-47.0) % MCHC 30.7 L (31.0-35.0) g/dl RDW 16.4 H (11.0-16.0) % Immature Gran % (Auto) 0.5 H (0.0-0.4) % Neut % (Auto) 76.4 H (45-73) % Lymph % (Auto) 17.3 L (20-40) % Abs Immat Gran (auto) 0.06 H (0.00-0.03) X10*3/uL Absolute Neuts (auto) 9.5 H (2.0-8.3) x10*3/uL Chloride 110 H (96-108) mmol/L Carbon Dioxide 14 L (22-29) mmol/L BUN 27 H (9-16) mg/dL Creatinine 2.79 H (0.5-1.4) mg/dL Lactic Acid 5.3 H* (0.5-2.0) mmol/L Lactic Acid F/U @ 2Hr (0.5-2.0) mmol/L AST 42 H D (5-31) U/L Alkaline Phosphatase 147 H (39-117) U/L Troponin I High Sens (<3.5-17.0) ng/L Albumin 2.9 L (3.5-5.0) g/dL Urine Protein (NEG-TRACE) MG/DL Urine Blood (NEG) Ur Leukocyte Esterase (NEG) Urine RBC (0) /HPF Urine WBC (0-4) /HPF 09/09/21 09/09/21 09/09/21 Range/Units 01:59 03:21 06:52 WBC (4.8-10.8) X10*3/uL RBC (4.20-5.50) X10*6/uL Hgb (12.0-16.0) g/dl Hct (37.0-47.0) % MCHC (31.0-35.0) g/dl RDW (11.0-16.0) % Immature Gran % (Auto) (0.0-0.4) % Neut % (Auto) (45-73) % Lymph % (Auto) (20-40) % Abs Immat Gran (auto) (0.00-0.03) X10*3/uL Absolute Neuts (auto) (2.0-8.3) x10*3/uL Chloride (96-108) mmol/L Carbon Dioxide (22-29) mmol/L BUN (9-16) mg/dL Creatinine (0.5-1.4) mg/dL Lactic Acid (0.5-2.0) mmol/L Lactic Acid F/U @ 2Hr 2.2 H* (0.5-2.0) mmol/L AST (5-31) U/L Alkaline Phosphatase (39-117) U/L Troponin I High Sens 124.7 H* (<3.5-17.0) ng/L Albumin (3.5-5.0) g/dL Urine Protein 3+ H (NEG-TRACE) MG/DL Urine Blood 3+ H (NEG) Ur Leukocyte Esterase 2+ H (NEG) Urine RBC 10-14 H (0) /HPF Urine WBC TNTC H (0-4) /HPF Short CBC 09/09/21 Range/Units 01:59 WBC 12.4 H (4.8-10.8) X10*3/uL Hgb 10.2 L D (12.0-16.0) g/dl Hct 33.2 L D (37.0-47.0) % Plt Count 171 (160-400) X10*3/uL BMP 09/09/21 01:59 Sodium 138 Potassium 4.5 Chloride 110 H Carbon Dioxide 14 L BUN 27 H Creatinine 2.79 H Calcium 9.5 D Liver Function 09/09/21 Range/Units 01:59 Total Bilirubin 0.4 (0.0-1.0) mg/dL Direct Bilirubin 0.2 (0.0-0.5) mg/dL AST 42 H D (5-31) U/L ALT 15 (0-31) U/L Alkaline Phosphatase 147 H (39-117) U/L Albumin 2.9 L (3.5-5.0) g/dL Urine 09/09/21 Range/Units 03:21 Urine Color YELLOW Urine Appearance TURBID Urine pH 6.0 (5.0-8.0) Ur Specific [place] 1.025 (1.005-1.025) Urine Protein 3+ H (NEG-TRACE) MG/DL Urine Glucose (UA) NEG (NEG) MG/DL All other labs normal. Assessment and Plan (1) Abdominal aortic aneurysm (AAA) without rupture: Status: Acute Plan In short the patient has undergone endovascular aneurysm repair in July of 2015 with a [employer] endurant IIS aortic endograft. I reviewed the CT scan. I do not believe there is an actual change in sac size. The graft appears to be appropriately placed. Do not believe that that is the source of her current issues. She is stable from my perspective. Did discuss with this with the patient [facility] We will follow up with her on an as-needed basis. Thank you for allowing us to participate in her care. If there are any questions or concerns please do not hesitate to contact us. Procedures Date of Service Date of Service: 09/09/21
--- NOTE | 2021-09-09 15:10 | PC.NURSE ---
pt medicated per order
--- NOTE | 2021-09-09 15:57 | PM.EVENT ---
Event Note Date of Service: 09/10/21 Event Note: Patient seen and examined, record reviewed low MAP noted of am of 09/09 and resolved without specicific intervention...NOT due to sepsis rather from volume depletion of diarrhea that the patient was having.
[2021-09-09 16:14] LABS: Leukocytes Stool Qualitative FEW: < 2/OIF (NEGATIVE)
--- NOTE | 2021-09-09 16:20 | PC.NURSE ---
IV fluids patient has both D5 NS running and another order for NS, contacted provider who placed the order asking for clarification and to dc the fluids they did not want- no changes of orders have been performed as of yet. will leave the d5 ns running as is until clarification has been determined.
--- NOTE | 2021-09-09 18:11 | PC.NURSE ---
spoke with pharmacy about ivfs orders, they are also trying to contact dr garcia to clarify some other orders and will speak with him about the ivf if they are able to get ahold of him.
[2021-09-09] MEDS: Atorvastatin Calcium 40 MG TABLET PO (21:56)
[2021-09-10 03:05] VITALS: BP 104/49; PULSE 77; RESP 18; TEMP 36; O2SAT 95
[2021-09-10 05:49] LABS: MANUAL DIFF FLAG NO
[2021-09-10] MEDS: Heparin Sodium,Porcine 5,000 UNIT/ML VIAL 5000 UNIT SUBCUT ×2 (05:50→15:22)
[2021-09-10] MEDS: Omeprazole 20 MG CAPSULE.DR PO (05:50)
[2021-09-10 05:55] LABS: Basophils Percent Auto 0.6 % (0-2); Eosinophils Absolute Auto 0.1 X10*3/uL (0.0-0.4); Eosinophils Percent Auto 1.4 % (0-4); Hematocrit 25.5 % (37.0-47.0); Hemoglobin 7.9 g/dl (12.0-16.0); Imm Gran Abs Auto 0.03 X10*3/uL (0.00-0.03); Imm Gran Pct Auto 0.4 % (0.0-0.4); Lymphocytes Absolute Auto 2.6 X10*3/uL (1.2-4.9); Mean Corpuscular Hemoglobin 28.7 pg (27.0-33.0); Mean Corpuscular Volume 92.7 fL (80.0-98.0); Mean Platelet Volume 9.8 fL (9.4-12.3); Monocytes Absolute Auto 0.6 X10*3/uL (0.1-1.2); Neutrophils Absolute Auto 3.9 x10*3/uL (2.0-8.3); Neutrophils Percent Auto 53.6 % (45-73); Platelet Count 130 X10*3/uL (160-400); Red Blood Count 2.75 X10*6/uL (4.20-5.50); Red Cell Distribution Width 16.7 % (11.0-16.0); White Blood Count 7.2 X10*3/uL (4.8-10.8)
[2021-09-10 06:08] LABS: Anion Gap 9 (12-20); Blood Urea Nitrogen 25 mg/dL (9-16); Calcium 8.4 mg/dL (8.4-10.2); Carbon Dioxide 17 mmol/L (22-29); Chloride 117 mmol/L (96-108); Creatinine Clr Calc Pharmacy 20.8; Estimated Glomerular Filt Rate 22; Glucose Random 89 mg/dL (60-115); Potassium 3.7 mmol/L (3.3-5.1); Sodium 139 mmol/L (135-145)
[2021-09-10 07:25] VITALS: BP 102/53; PULSE 82; RESP 13; TEMP 36.1; O2SAT 94
--- NOTE | 2021-09-10 08:23 | MHC.CM.PN ---
CM met with Patient at bedside and addressed IMM with her, providing her with the original and placing a copy on the chart. Patient lives alone in an apartment and uses a walker to assist with mobility. Patient hopes to return home with a new referral to [facility] for [facility] home O2 and [facility] 2[facility]; should STR be recommended, Patient would like to return to [facility]. CM has initiated and will follow for dc planning. PCP is Dr. Aguilar Moreno and Patient has received Covid/Moderna vax X2.Patient's Son/Javi is the HCP.
[2021-09-10] MEDS: Dextrose 5 % and 0.9 % NaCl 1,000 ML 75 ML IVCONT (08:25)
[2021-09-10] MEDS: Folic Acid 1 MG TABLET PO (08:28)
[2021-09-10] MEDS: Cholecalciferol (Vitamin D3) 10 MCG TABLET PO (08:28)
[2021-09-10] MEDS: Aspirin Enteric Coated 81 MG TABLET.DR PO (08:28)
--- NOTE | 2021-09-10 09:23 | P.PNIM_ITS ---
Subjective Subjective Date of Service: 09/11/21 Interval History: f/u on recurrent uti, colitis, diarrhea interval history: feels well no more diarrhea Review of Systems no fever no abdominal pain Physical Exam Vital Signs: Vital Signs: Last Vital Signs Temp 96.9 F 09/10/21 07:25 Pulse 82 09/10/21 07:25 Resp 13 09/10/21 07:25 BP 102/53 L 09/10/21 07:25 Pulse Ox 94 09/10/21 07:25 O2 Del Method 09/10/21 07:25 O2 Flow Rate 2 09/10/21 03:05 BMI result Body Mass Index 39.4 Const: Other: General: AO X 3, no acute distress Resp: CTA bilateral CVS: S1,S2,RRR GI: +BS, NT, no distention Skin: No rash Neuro: motor grossly intact Psych: appropriate affect Objective Data Active Medications Acetaminophen (Acetaminophen 325 Mg Tablet) 650 mg PO Q6H PRN PRN Reason: Pain, Mild (Pain Scale 1-3) Albuterol Sulfate (Albuterol Sulfate 90 Mcg 8 Gm Inhaler) 2 puff INHALE Q4H PRN PRN Reason: Wheezing Aspirin (Aspirin Enteric Coated 81 Mg Tablet.) 81 mg PO DAILY [facility] Last Admin: 09/10/21 08:28 Dose: 81 mg Documented By: TREY Atorvastatin Calcium (Atorvastatin Calcium 40 Mg Tablet) 40 mg PO BEDTIME [facility] Last Admin: 09/09/21 21:56 Dose: 40 mg Documented By: GULSHAN Folic Acid (Folic Acid 1 Mg Tablet) 1 mg PO DAILY [facility] Last Admin: 09/10/21 08:28 Dose: 1 mg Documented By: TREY Heparin Sodium (Porcine) (Heparin Sodium,Porcine 5,000 Unit/Ml Vial) 5,000 unit SUBCUT Q8H [facility] Last Admin: 09/10/21 05:50 Dose: 5,000 unit Documented By: GULSHAN Dextrose/Sodium Chloride (D5ns) 1,000 mls @ 75 mls/hr IVCONT .[id number] [facility] Last Admin: 09/10/21 08:25 Dose: 75 mls/hr Documented By: TREY Meropenem 500 mg/ Sodium (Chloride) 50 mls @ 100 mls/hr IV Q12H [facility] Last Infusion: 09/10/21 06:36 Dose: 0 mls/hr Documented By: GULSHAN Sodium Chloride (Ns) 1,000 mls @ 125 mls/hr IVCONT .Q8H [facility] Last Admin: 09/10/21 08:28 Dose: Not Given Documented By: TREY Non-Admin Reason: diffrent order Meclizine HCl (Meclizine Hcl 12.5 Mg Tablet) 12.5 mg PO TID PRN PRN Reason: Dizziness Melatonin (Melatonin 3 Mg Tablet) 6 mg PO BEDTIME PRN PRN Reason: Insomnia Omeprazole (Omeprazole 20 Mg Capsule.Dr) 20 mg PO DAILY@0630 [facility] Last Admin: 09/10/21 05:50 Dose: 20 mg Documented By: GULSHAN Polyethylene Glycol (Polyethylene Glycol 3350 17 Gm Powd.Pack) 17 gm PO DAILY [facility] Last Admin: 09/10/21 08:28 Dose: Not Given Documented By: TREY Non-Admin Reason: loose stools yesterday Senna (Sennosides 8.6 Mg Tablet) 17.2 mg PO BEDTIME PRN PRN Reason: Constipation Sodium Chloride (0.9 % Sodium Chloride Flush 3 Ml Syringe) 3 ml IVFLUSH QSHIFT [facility] Last Admin: 09/10/21 08:27 Dose: Not Given Documented By: TREY Non-Admin Reason: IV Running Tiotropium [place] (Tiotropium [place] 18 Mcg Cap.W.Dev) 1 puff INHALE RDAILY [facility] Vitamin D (Cholecalciferol (Vitamin D3) 10 Mcg Tablet) 10 mcg PO DAILY [facility] Last Admin: 09/10/21 08:28 Dose: 10 mcg Documented By: TREY Labs CBC & Chem 7: 09/10/21 05:36 09/10/21 05:36 Labs: Laboratory Results - last 24 hr 09/09/21 09/09/21 09/10/21 01:37 09:35 05:36 MCV 92.7 MCH 28.7 MCHC 31.0 RDW 16.7 H Plt Count 130 L MPV 9.8 Immature Gran % (Auto) 0.4 Neut % (Auto) 53.6 Lymph % (Auto) 36.0 [place] % (Auto) 8.0 Eos % (Auto) 1.4 Baso % (Auto) 0.6 Lymph # (Auto) 2.6 [place] # (Auto) 0.6 Eos # (Auto) 0.1 Baso # (Auto) 0.0 Abs Immat Gran (auto) 0.03 Absolute Neuts (auto) 3.9 Absolute Nucleated RBC 0.000 Nucleated RBC % (auto) 0.0 Anion Gap Estim Creat Clear Calc Estimated GFR Random Glucose Lactic Acid F/U @ 4Hr 1.7 Calcium Stool Leukocytes, Qual FEW: < 2/OIF 09/10/21 05:36 MCV MCH MCHC RDW Plt Count MPV Immature Gran % (Auto) Neut % (Auto) Lymph % (Auto) [place] % (Auto) Eos % (Auto) Baso % (Auto) Lymph # (Auto) [place] # (Auto) Eos # (Auto) Baso # (Auto) Abs Immat Gran (auto) Absolute Neuts (auto) Absolute Nucleated RBC Nucleated RBC % (auto) Anion Gap 9 L Estim Creat Clear Calc 20.8 Estimated GFR 22 Random Glucose 89 Lactic Acid F/U @ 4Hr Calcium 8.4 D Stool Leukocytes, Qual Microbiology Microbiology Results: Microbiology 09/09/21 01:59 Blood Culture - Preliminary Blood - Venous No growth after 24 hours. 09/09/21 01:59 Blood Culture - Preliminary Blood - Venous No growth after 24 hours. Assessment and Plan (1) Chronic bacteriuria: Status: Acute (2) Abdominal aortic aneurysm (AAA) without rupture: Status: Acute (3) Diarrhea: Status: Acute Plan 85-year-old female with a past medical history of CKD, COPD on home oxygen at night, CAD, obstructive uropathy-status post bilateral ureteral stents, has chronic Pedro catheter, recurrent UTI-growing ESBL Klebsiella, Enterococcus during the recent admission; abdominal aortic aneurysm status post repair, anemia, obesity, GI bleed presented to the hospital today with a chief complaint of diarrhea.? Noted to have UTI and colitis on the CT abdomen.? Admitted for further management.? Colitis:clinically improved. Change Meropenem PO Ceftin and PO Flagyl C dif negative Advance diet UTI: recrrent UTI--culture negativ Oral Ceftin Lactic acidosis: no indication to repat Abdominal aortic aneurysm:? Seen by CT surgery routine follow up Elevated troponins:? type 2, no chest pain Anemia of chronic disrase? H/H within her baseline Chronic kidney disease:? stable Metabolic acidosis: In the setting of CKD/hyperkalemia.? Will continue to monitor. DVT prophylaxis:? Subcu heparin Code status:? Full code Inpatient need: IV Abx for colitis and UTI PT to reassess so she came to hospital just a day after dc from rehab, at this time she is unclear whether she wants to go home or not Quality Stroke Does the patient have a stroke diagnosis?: No VTE Prior VTE?: No VTE Risk Level:: Medical - moderate - high VTE Device Contraindication: N/A - Device Ordered VTE Drug Contraindication: Treatment Not Indicated
[2021-09-10 10:24] VITALS: BP 102/53; PULSE 82; O2SAT 94
--- NOTE | 2021-09-10 11:33 | W.PM.IDCN ---
History of Present Illness Data of Consult Service Date: 09/10/21 [facility] Provider: Unknown Physician HPI Reason for consult: diarrhea She presents with loose watery stools for last three days. She has some hypotension on admission,SBP 70s I had seen her last admission,chronic Pedro with enterococcus probably colonized 08/06 and given Amoxicillin. She has been at rehab and then home and had diarrhea. Review of Systems Review of Systems: Yes all other systems are reviewed and are negative [facility] Past Medical History Medical History Abdominal aortic aneurysm (AAA) without rupture Acute blood loss anemia Acute dehydration Acute kidney injury superimposed on CKD Acute UTI Atherosclerotic cardiovascular disease Chronic bacteriuria CKD (chronic kidney disease) stage 3, GFR 30-59 ml/min COPD (chronic obstructive pulmonary disease) Hydronephrosis concurrent with and due to calculi of kidney and ureter Kidney stone on right side Nocturnal hypoxemia Obesity Recurrent falls Restrictive lung disease Skin tear of hand without complication Smoker Family History Family History Father No problems noted. Mother No problems noted. Family history: reviewed and not pertinent Social History Social History Household Members: Caregiver Housing: Apartment Housing Other:: SNF Do you presently have visiting nurse or other home services: Yes Alcohol intake: never Patient Tobacco Use Status: Former Tobacco user Tobacco use type: Cigarette Cigarettes Per Day: 1 Second Hand Smoke Exposure: No Advance Directives Date on File: 07/21/21 service: No Current occupational status: retired Meds Allergies Allergy/AdvReac Type Severity Reaction Status Date / Time No Known Allergies Allergy Verified 05/17/21 10:30 [No Known Allergies*] Active Medications: Current Medications Acetaminophen (Acetaminophen 325 Mg Tablet) 650 mg PO Q6H PRN PRN Reason: Pain, Mild (Pain Scale 1-3) Albuterol Sulfate (Albuterol Sulfate 90 Mcg 8 Gm Inhaler) 2 puff INHALE Q4H PRN PRN Reason: Wheezing Aspirin (Aspirin Enteric Coated 81 Mg Tablet.) 81 mg PO DAILY [facility] Last Admin: 09/10/21 08:28 Dose: 81 mg Atorvastatin Calcium (Atorvastatin Calcium 40 Mg Tablet) 40 mg PO BEDTIME [facility] Last Admin: 09/09/21 21:56 Dose: 40 mg Folic Acid (Folic Acid 1 Mg Tablet) 1 mg PO DAILY [facility] Last Admin: 09/10/21 08:28 Dose: 1 mg Heparin Sodium (Porcine) (Heparin Sodium,Porcine 5,000 Unit/Ml Vial) 5,000 unit SUBCUT Q8H [facility] Last Admin: 09/10/21 05:50 Dose: 5,000 unit Dextrose/Sodium Chloride (D5ns) 1,000 mls @ 75 mls/hr IVCONT .[id number] [facility] Last Admin: 09/10/21 08:25 Dose: 75 mls/hr Meropenem 500 mg/ Sodium (Chloride) 50 mls @ 100 mls/hr IV Q12H [facility] Last Infusion: 09/10/21 06:36 Dose: Infused Sodium Chloride (Ns) 1,000 mls @ 125 mls/hr IVCONT .Q8H [facility] Last Admin: 09/10/21 08:28 Dose: Not Given Meclizine HCl (Meclizine Hcl 12.5 Mg Tablet) 12.5 mg PO TID PRN PRN Reason: Dizziness Melatonin (Melatonin 3 Mg Tablet) 6 mg PO BEDTIME PRN PRN Reason: Insomnia Omeprazole (Omeprazole 20 Mg Capsule.Dr) 20 mg PO DAILY@0630 [facility] Last Admin: 09/10/21 05:50 Dose: 20 mg Polyethylene Glycol (Polyethylene Glycol 3350 17 Gm Powd.Pack) 17 gm PO DAILY [facility] Last Admin: 09/10/21 08:28 Dose: Not Given Senna (Sennosides 8.6 Mg Tablet) 17.2 mg PO BEDTIME PRN PRN Reason: Constipation Sodium Chloride (0.9 % Sodium Chloride Flush 3 Ml Syringe) 3 ml IVFLUSH QSHIFT [facility] Last Admin: 09/10/21 08:27 Dose: Not Given Tiotropium [place] (Tiotropium [place] 18 Mcg Cap.W.Dev) 1 puff INHALE RDAILY [facility] Vitamin D (Cholecalciferol (Vitamin D3) 10 Mcg Tablet) 10 mcg PO DAILY [facility] Last Admin: 09/10/21 08:28 Dose: 10 mcg Home Medications Medication Instructions Recorded Confirmed Last Taken Type cholecalciferol (vitamin D3) 10 10 mcg PO DAILY 04/16/20 09/09/21 09/08/21 History mcg (400 unit) capsule aspirin 81 mg tablet,delayed 81 mg PO DAILY 04/21/20 09/09/21 09/08/21 History release (Adult Low Dose Aspirin) acetaminophen 325 mg tablet 650 mg PO DAILY 07/20/21 09/09/21 09/08/21 History (Tylenol) atorvastatin 40 mg tablet 40 mg PO BEDTIME 07/20/21 09/09/21 09/08/21 History meclizine 12.5 mg tablet 12.5 mg PO TID PRN Dizziness 07/20/21 09/09/21 08/06/21 History pantoprazole 40 mg tablet,delayed 40 mg PO DAILY 07/20/21 09/09/21 09/08/21 History release (Protonix) polyethylene glycol 3350 17 17 g PO DAILY 07/20/21 09/09/21 09/08/21 History gram/dose oral powder (Miralax) albuterol 90 mcg/actuation aerosol 180 mcg inhalation Q4H PRN Wheezing 08/06/21 09/09/21 Unknown History inhaler ondansetron 4 mg disintegrating 4 mg PO Q6H PRN Nausea 08/06/21 09/09/21 08/16/21 History tablet metoprolol succinate 25 mg 1 tab PO BEDTIME 09/09/21 09/09/21 09/08/21 History tablet,extended release 24 hr Physical Exam Vital Signs: Vital Signs: Last Vital Signs Temp 96.9 F 09/10/21 07:25 Pulse 82 09/10/21 10:24 Resp 13 09/10/21 07:25 BP 102/53 L 09/10/21 10:24 Pulse Ox 94 09/10/21 10:24 O2 Del Method 09/10/21 07:25 O2 Flow Rate 2 09/10/21 03:05 BMI result Body Mass Index 39.4 Const: General: cooperative HEENT: Head: Yes normal to inspection Face and sinus: Yes normal facial exam Mouth: Normal oral and palatal mucosa present Teeth and gingiva: dentition normal Eyes: General: appearance normal, both eyes and all related structures Pupils: Equal, round and reactive pupils present Resp: Effort & Inspection: normal respiratory effort Cardio: Rate: regular rate Rhythm: regular rhythm GI: Palpation (GI): Soft to palpation and nontender : General: Yes no CVA tenderness Back/Spine/Pelvis: Back: no CVA tenderness Skin: General skin exam: no rashes or lesions noted Neuro: General: moves all extremities Cranial nerves: Yes Equal, round and reactive pupils present Extrem: General: Yes normal to inspection Psych: Appearance: grossly normal Results Labs CBC & Chem 7: 09/10/21 05:36 09/10/21 05:36 Labs: Short CBC 09/10/21 Range/Units 05:36 WBC 7.2 (4.8-10.8) X10*3/uL Hgb 7.9 L D (12.0-16.0) g/dl Hct 25.5 L D (37.0-47.0) % Plt Count 130 L (160-400) X10*3/uL BMP 09/10/21 05:36 Sodium 139 Potassium 3.7 Chloride 117 H Carbon Dioxide 17 L BUN 25 H Creatinine 2.15 H Calcium 8.4 D Microbiology Microbiology Results: Microbiology 09/09/21 01:59 Blood - Venous Blood Culture - Preliminary No growth after 24 hours. 09/09/21 01:59 Blood - Venous Blood Culture - Preliminary No growth after 24 hours. 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 Assess stool for bacterial infection Possible probiotics,symptomatic treatment.
[2021-09-10 11:37] VITALS: BP 111/56; PULSE 71; RESP 18; TEMP 37; O2SAT 97
[2021-09-10 13:31] VITALS: BMI 39.4
[2021-09-10 16:00] VITALS: BP 139/72; PULSE 70; RESP 18; TEMP 36.6; O2SAT 96
[2021-09-10 20:00] VITALS: BP 125/75; PULSE 76; RESP 18; TEMP 36.8; O2SAT 99
[2021-09-10] MEDS: metroNIDAZOLE 500 MG TABLET PO (20:20)
[2021-09-10] MEDS: Atorvastatin Calcium 40 MG TABLET PO (20:20)
[2021-09-11] VITALS: BP 108/53; PULSE 70; RESP 18; TEMP 36.6; O2SAT 96
[2021-09-11] MEDS: Heparin Sodium,Porcine 5,000 UNIT/ML VIAL 5000 UNIT SUBCUT ×3 (00:13→14:11)
[2021-09-11] MEDS: Dextrose 5 % and 0.9 % NaCl 1,000 ML 75 ML IVCONT (00:14)
[2021-09-11 03:35] VITALS: BP 109/53; PULSE 78; RESP 18; TEMP 36.9; O2SAT 96
[2021-09-11] MEDS: Omeprazole 20 MG CAPSULE.DR PO (05:43)
[2021-09-11 08:35] VITALS: BP 146/61; PULSE 55; RESP 12; TEMP 35.8; O2SAT 95
--- NOTE | 2021-09-11 08:59 | HO.PM.IMPN ---
Subjective Subjective Date of Service: 09/11/21 Interval History: f/u on recurrent uti, colitis, diarrhea interval history: feels well, eating well and she feels that he is ready to leave the hospital Review of Systems no fever no abdominal pain Physical Exam Vital Signs: Vital Signs: Last Vital Signs Temp 96.5 F L 09/11/21 08:35 Pulse 55 09/11/21 08:35 Resp 12 09/11/21 08:35 BP 146/61 H 09/11/21 08:35 Pulse Ox 95 09/11/21 08:35 O2 Del Method 09/11/21 08:35 O2 Flow Rate 2 09/11/21 03:35 BMI result Body Mass Index 39.4 Const: Other: General: AO X 3, no acute distress Resp: CTA bilateral CVS: S1,S2,RRR GI: +BS, NT, no distention Skin: No rash Neuro: motor grossly intact Psych: appropriate affect Objective Data Active Medications Acetaminophen (Acetaminophen 325 Mg Tablet) 650 mg PO Q6H PRN PRN Reason: Pain, Mild (Pain Scale 1-3) Albuterol Sulfate (Albuterol Sulfate 90 Mcg 8 Gm Inhaler) 2 puff INHALE Q4H PRN PRN Reason: Wheezing Aspirin (Aspirin Enteric Coated 81 Mg Tablet.Dr) 81 mg PO DAILY [facility] Last Admin: 09/10/21 08:28 Dose: 81 mg Documented By: TREY Atorvastatin Calcium (Atorvastatin Calcium 40 Mg Tablet) 40 mg PO BEDTIME [facility] Last Admin: 09/10/21 20:20 Dose: 40 mg Documented By: TAD Cefuroxime Axetil (Cefuroxime Axetil 250 Mg Tablet) 250 mg PO BID [facility] Last Admin: 09/10/21 20:20 Dose: 250 mg Documented By: TAD Folic Acid (Folic Acid 1 Mg Tablet) 1 mg PO DAILY [facility] Last Admin: 09/10/21 08:28 Dose: 1 mg Documented By: TREY Heparin Sodium (Porcine) (Heparin Sodium,Porcine 5,000 Unit/Ml Vial) 5,000 unit SUBCUT Q8H [facility] Last Admin: 09/11/21 05:43 Dose: 5,000 unit Documented By: TAD Sodium Chloride (Ns) 1,000 mls @ 125 mls/hr IVCONT .Q8H [facility] Last Admin: 09/11/21 00:16 Dose: Not Given Documented By: TAD Non-Admin Reason: IV Running Meclizine HCl (Meclizine Hcl 12.5 Mg Tablet) 12.5 mg PO TID PRN PRN Reason: Dizziness Melatonin (Melatonin 3 Mg Tablet) 6 mg PO BEDTIME PRN PRN Reason: Insomnia Metronidazole (Metronidazole 500 Mg Tablet) 500 mg PO TID [facility] Last Admin: 09/10/21 20:20 Dose: 500 mg Documented By: TAD Omeprazole (Omeprazole 20 Mg Capsule.Dr) 20 mg PO DAILY@0630 [facility] Last Admin: 09/11/21 05:43 Dose: 20 mg Documented By: TAD Polyethylene Glycol (Polyethylene Glycol 3350 17 Gm Powd.Pack) 17 gm PO DAILY [facility] Last Admin: 09/10/21 08:28 Dose: Not Given Documented By: TREY Non-Admin Reason: loose stools yesterday Senna (Sennosides 8.6 Mg Tablet) 17.2 mg PO BEDTIME PRN PRN Reason: Constipation Sodium Chloride (0.9 % Sodium Chloride Flush 3 Ml Syringe) 3 ml IVFLUSH QSHIFT [facility] Last Admin: 09/11/21 00:32 Dose: Not Given Documented By: TAD Non-Admin Reason: IV Running Tiotropium [place] (Tiotropium [place] 18 Mcg Cap.W.Dev) 1 puff INHALE RDAILY [facility] Vitamin D (Cholecalciferol (Vitamin D3) 10 Mcg Tablet) 10 mcg PO DAILY [facility] Last Admin: 09/10/21 08:28 Dose: 10 mcg Documented By: TREY Labs CBC & Chem 7: 09/10/21 05:36 09/10/21 05:36 Microbiology Microbiology Results: Microbiology 09/09/21 01:59 Blood Culture - Preliminary Blood - Venous No growth after 48 hours. 09/09/21 01:59 Blood Culture - Preliminary Blood - Venous No growth after 48 hours. 09/09/21 Unknown Urine Culture - Preliminary Urine Catheterized - Pedro Catheter Culture in progress. Assessment and Plan (1) Chronic bacteriuria: Status: Acute (2) Abdominal aortic aneurysm (AAA) without rupture: Status: Acute (3) Diarrhea: Status: Acute Plan 85-year-old female with a past medical history of CKD, COPD on home oxygen at night, CAD, obstructive uropathy-status post bilateral ureteral stents, has chronic Pedro catheter, recurrent UTI-growing ESBL Klebsiella, Enterococcus during the recent admission; abdominal aortic aneurysm status post repair, anemia, obesity, GI bleed presented to the hospital today with a chief complaint of diarrhea.? Noted to have UTI and colitis on the CT abdomen.? Admitted for further management.? Colitis:clinically improved. Change Meropenem PO Ceftin and PO Flagyl fop 5 more days C dif negative regular diet UTI: recrrent UTI--culture negative Oral Ceftin for 5 days Lactic acidosis: due to diarrhea Abdominal aortic aneurysm:? Seen by CT surgery routine follow up Elevated troponins:? type 2, no chest pain Anemia of chronic disrase? H/H within her baseline Chronic kidney disease:? stable Metabolic acidosis: In the setting of CKD/hyperkalemia.? Will continue to monitor. DVT prophylaxis:? Subcu heparin Code status:? Full code Inpatient need: IV Abx for colitis and UTI PT to reassess so she came to hospital just a day after dc from rehab, she is thinking about going home rather than rehab Quality Stroke Does the patient have a stroke diagnosis?: No VTE Prior VTE?: No VTE Risk Level:: Medical - moderate - high VTE Device Contraindication: N/A - Device Ordered VTE Drug Contraindication: Treatment Not Indicated
[2021-09-11] MEDS: Cholecalciferol (Vitamin D3) 10 MCG TABLET PO (09:24)
[2021-09-11] MEDS: Aspirin Enteric Coated 81 MG TABLET.DR PO (09:24)
[2021-09-11] MEDS: metroNIDAZOLE 500 MG TABLET PO ×3 (09:24→18:41)
[2021-09-11] MEDS: Folic Acid 1 MG TABLET PO (09:24)
--- NOTE | 2021-09-11 11:19 | MHC.CM.PN ---
PATIENT PREFERS TO RETURN HOME WITH NEW [facility] REFERRAL FOR RN SKILLS AND HOME P.T[facility] TO BE ARRANGED FOR A 1400 REQUEST RN AWARE OF PLAN. NICOLE (IN ROOM) FLORENCIA ALSO AWARE
[2021-09-11 11:51] VITALS: BP 153/69; PULSE 70; RESP 14; TEMP 35.9; O2SAT 98
--- NOTE | 2021-09-11 11:53 | P.DS_ITS ---
DS: Providers Provider Date of Service: 09/11/21 Date of admission: 09/09/21 06:10 Primary care physician: Unknown Physician Consults: 09/09/21 06:10 Consult to Infectious Diseases Routine Consulting Provider: Daisy Guzman Reason for consultation: UTI-> chronic kevin; Colitis; Consult to Vascular Surgery Routine Consulting Provider: Jian Castillo Reason for consultation: Abd Aortic aneurysm-> increased in Size. 09/09/21 06:15 Consult to Infectious Diseases Routine Consulting Provider: Daisy Guzman Reason for consultation: colitis/uti DS: Diagnosis Discharge Diagnosis (1) Chronic bacteriuria: Status: Acute (2) Abdominal aortic aneurysm (AAA) without rupture: Status: Acute (3) Diarrhea: Status: Acute DS: Summary Hospital Course Hospital Course: Chief Complaint: Diarrhea 85-year-old female with a past medical history of CKD, COPD on home oxygen at night, CAD, obstructive uropathy-status post bilateral ureteral stents, has chronic Kevin catheter, recurrent UTI-growing ESBL Klebsiella, Enterococcus during the recent admission; abdominal aortic aneurysm status post repair, anemia, obesity, GI bleed presented to the hospital today with a chief complaint of diarrhea.? Patient reports that she was recently discharged from the hospital to the rehab after being treated for GAURANG on CKD/UTI a.? Patient was discharged from the rehab today and of she went home she had multiple episodes of loose watery stool, foul-smelling; denies any abdominal pain.? Mentioned that she has not had much of fluids intake today.? Denies any fevers and chills.? Denies any abdominal pain.? Patient denies any chest pain palpitations lightheadedness dizziness, falls or trauma.? Review of all other systems is negative except mentioned above ER course: Per ER team patient on presentation noted to be dry, blood pressure on the soft side; given IV fluids; on labs noted to have elevated lactate at 5.3; Kevin catheter was replaced; urinalysis abnormal consistent UTI.? Given meropenem.? CT abdomen showed findings consistent with colitis.? Also noted to have slightly increased in size of the abdominal aortic aneurysm.? Admitted for further management. Hospital course: 85-year-old female with a past medical history of CKD, COPD on home oxygen at night, CAD, obstructive uropathy-status post bilateral ureteral stents, has chronic Kevin catheter, recurrent UTI-growing ESBL Klebsiella, Enterococcus during the recent admission; abdominal aortic aneurysm status post repair, anemia, obesity, GI bleed presented to the hospital today with a chief complaint of diarrhea.? Noted to have UTI and colitis on the CT abdomen.? Admitted for further management.? Colitis as seen on CT with asociated diarrhea, Cdif negative, negative stook leukocytosis. Initially was treated with IV Meropenem and changed to the following day to Ceftin and Flagyl. Diarrhea has resolved, and she is tolerating diet and feels well. UTI: She has recurrent UTI (ESBL Klebsiela) due to Chronic kevin catheter, Urine culture this time is negative and will treat empirically with renally adjusted Ceftin 250 bid for 5 more days Lactic acidosis: likely related to hypotension initially and sepsis, she has clincally recovered Abdominal aortic aneurysm:?? She was seen by Dr. Castillo with the following assessment and recommendation: In short the patient has undergone endovascular aneurysm repair in July of 2015 with a [employer] endurant IIS aortic endograft.? I reviewed the CT scan.? I do not believe there is an actual change in sac size.? The graft appears to be appropriately placed.? Do not believe that that is the source of her current issues.? She is stable from my perspective.? Did discuss with this with the patient as she was being transferred to ER overflow.? We will follow up with her on an as-needed basis.? Elevated troponins:?? type 2, no chest pain and no further testing was warranted Anemia of chronic disrase?? H/H within her baseline Chronic kidney disease:?? stable Metabolic acidosis: In the setting of CKD/hyperkalemia.? Will continue to monitor. For chronic Kevin: May flush Kevin Catheter with 60 cc of sterile water with increase sediment or blockage as needed. May replace size as needed if it becomes inadvertently deslodged and routine every 4 weeks. Patient just got out of rehab the day before coming to the hospital. PT saw her and recommended to go back to rehab but she has declined this in favor of going home with [facility] and [facility] Time Spent with Patient Time attestation: Total time spent providing and/or coordinating discharge services: Discharge coordination time: Greater than 30 minutes Quality: Safe Use of Opioids Does Pt have an Active Cancer Diagnosis on the Problem List?: No Quality: Stroke Does the patient have a stroke diagnosis?: No Physical Exam Vital Signs: Vital Signs: Last Vital Signs Temp 96.5 F L 09/11/21 08:35 Pulse 55 09/11/21 08:35 Resp 12 09/11/21 08:35 BP 146/61 H 09/11/21 08:35 Pulse Ox 95 09/11/21 08:35 O2 Del Method 09/11/21 08:35 O2 Flow Rate 2 09/11/21 03:35 BMI result Body Mass Index 39.4 DS: Data Data Completed and Pending Completed studies during hospitalization [Text1]: Procedures Labs on day of discharge: Preliminary micro results at discharge 09/09/21 01:59 Blood Culture - Preliminary Blood - Venous No growth after 48 hours. 09/09/21 01:59 Blood Culture - Preliminary Blood - Venous No growth after 48 hours. 09/09/21 Unknown Urine Culture - Preliminary Urine Catheterized - Kevin Catheter Culture in progress. Discharge Plan Discharge Anticipated Discharge Date/Time: 09/11/21 11:56 Patient Disposition: Home Health Service Discharge Diagnosis: colitis, UTI Referrals: Mirtha JONES [Outside] - 1 Week Physician,Giuliano J [Physician] - 1 Week Discharge Medications: New sodium bicarbonate 650 mg tablet 650 mg PO BID Qty: 7 0RF Continued Incruse Ellipta 62.5 mcg/actuation blister with device 1 inh PO DAILY Qty: 30 0RF albuterol 90 mcg/actuation Aerosol 180 mcg INHALATION Q4H PRN (Reason: Wheezing) ondansetron 4 mg Tablet,Disintegrating 4 mg PO Q6H PRN (Reason: Nausea) acetaminophen [Tylenol] 325 mg Tablet 650 mg PO DAILY meclizine 12.5 mg Tablet 12.5 mg PO TID PRN (Reason: Dizziness) pantoprazole [Protonix] 40 mg Tablet,Delayed Release (Dr/Ec) 40 mg PO DAILY polyethylene glycol 3350 [Miralax] 17 gram/dose Powder 17 g PO DAILY atorvastatin 40 mg tablet 40 mg PO BEDTIME folic acid 1 mg Tablet 1 mg PO DAILY Qty: 30 0RF metoprolol succinate 25 mg tablet extended release 24 hr 1 tab PO BEDTIME Rx Instructions: hold sbp <110 cholecalciferol (vitamin D3) 10 mcg (400 unit) capsule 10 mcg PO DAILY aspirin [Adult Low Dose Aspirin] 81 mg tablet,delayed release (DR/EC) 81 mg PO DAILY No Action Cepacol Sore Throat-Cough 5-7.5 mg lozenge 1 nilo PO Q4H PRN (Reason: sore throat) Qty: 16 0RF Discharge Orders: Discharge Order (Routine); Ordered 09/11/21 Ordered By: Obi Truong Diet: Advance to usual diet Activity on Discharge: As tolerated Stand Alone Forms: Patient Portal Discharge page Care Plan Goals: full recovery from hospitalization Health Concerns: colitis, uti Plan of Treatment: take Ceftin and Flagyl (metronidazole) as directed, follow up with your Doctor in a week You will have visiting nurses at the house May flush Kevin Catheter with 60 cc of sterile water with increase sediment or blockage as needed. May replace size as needed if it becomes inadvertently deslodged and routine every 4 weeks. Assessment: as above Discharge Date/Time: 09/11/21 19:13
[2021-09-11 12:00] VITALS: RESP 18
--- NOTE | 2021-09-11 12:14 | P.F2F_ITS ---
Service Date Service Date: 09/11/21 Encounter Date of encounter: 09/11/21 Reasons for Services Signs and symptoms assessed: chronic urinary retention with kevin, hospitalization for recurrent uti, and new colitis Reason for intermediate: teach disease management and GI/ assessment Homebound: Leaving the home is medically contraindicated at this time without the asist of a device and/or another person due th the listed conditions above and below. Reason homebound: leg weakness and other (deconditioning, weakness from hospitalization) Certification: Based on the above findings, I certify that this patient is confined to the home and needs intermittent intermediate care, physical therapy and/or speech therapy, or continues to need occupational therapy. The patient is under my care, and I have initiated the establishment of the plan of care. The patient will be followed by a physician who will periodically review the plan of care.
[2021-09-11 13:19] LABS: Lactic Acid 1.7 mmol/L (0.5-2.0)
[2021-09-11 13:57] LABS: Anion Gap 11 (12-20); Blood Urea Nitrogen 18 mg/dL (9-16); Calcium 8.6 mg/dL (8.4-10.2); Carbon Dioxide 15 mmol/L (22-29); Chloride 118 mmol/L (96-108); Creatinine Clr Calc Pharmacy 25.5; Estimated Glomerular Filt Rate 27; Glucose Random 95 mg/dL (60-115); Potassium 3.9 mmol/L (3.3-5.1); Sodium 140 mmol/L (135-145)
[2021-09-11] MEDS: Sodium Bicarbonate 650 MG TABLET PO (15:04)
[2021-09-11 15:27] VITALS: PULSE 72; RESP 18; TEMP 36.7
--- NOTE | 2021-09-13 12:24 | P.CDIR_ITS ---
Documented by User: Richelle Oliveira CCS, CDIS 09/13/21 12:30 Retrospective Query PHYSICIAN'S DOCUMENTATION REQUEST Date of Query: 09/13/21 1224 Patient Name: Portia Appiah Admit Date: 09/09/21 Dear Doctor, A review of the medical record indicates additional documentation may be indicated. Please review below and update the documentation accordingly. Clinical Indicators: Current documentation includes a diagnosis of UTI. Additional clinical indicators in the record include: Risk Factors/Clinical Indicators/Treatments D/S: 09/11 - UTI in the setting of chronic kevin catheter. Recurrent UTI, ESBL/Klebsiela. Kevin was replaced, UA consistent with UTI. Ceftin Please provide further specificity regarding the site, etiology, acuity, and known or suspected organism: * UTI * UTI (ESBL Klebsiela) due to/associated with Chronic kevin catheter * Other (please specify) * Unable to determine site * Indicate known or suspected organism * E-coli * Klebsiella * Quiana * Other (please specify) * Indicate if associated with a device, specify if Kevin cath, suprapubic cath, etc. Use of terms such as suspected, likely, concern for, or probable (associated with a specific diagnosis that is being evaluated, monitored, or treated as if it exists) are acceptable and can be coded in the inpatient setting, when documented at the time of discharge. Thank you, Richelle Oliveira CCS, CDIS Extension: [phone] Please use your independent medical judgment in providing your response. THIS QUERY IS PART OF THE PERMANENT MEDICAL RECORD Documented by User: Obi Truong MD 10/19/21 11:24 Retrospective Query Provider Response: Other
== END 2021-09-11 19:13 | disposition home health service (06) | DRG 699 ==
LOC: HO.ED 04:05 → HO.EDOVER 06:19 → HO.S3 18:07
PROVIDERS: Admitting Provider Hospitalist; Emergency Provider Emergency Medicine; PCP Family Medicine; Visit Provider Internal Medicine
DX: T83.511A Infection and inflammatory reaction due to indwelling urethral catheter, initial encounter (principal); E87.2 Acidosis; Z16.12 Extended spectrum beta lactamase (ESBL) resistance; N39.0 Urinary tract infection, site not specified; D63.1 Anemia in chronic kidney disease; B96.1 Klebsiella pneumoniae [K. pneumoniae] as the cause of diseases classified elsewhere; I25.10 Atherosclerotic heart disease of native coronary artery without angina pectoris; E86.0 Dehydration; I71.4 Abdominal aortic aneurysm, without rupture; E87.5 Hyperkalemia; Z20.822 Contact with and (suspected) exposure to COVID-19; Z87.440 Personal history of urinary (tract) infections; Z79.82 Long term (current) use of aspirin; Z79.899 Other long term (current) drug therapy
CPT/HCPCS: 36415; 74176; 80048; 80076; 81001; 83605; 83735; 84484; 85025; 87040; 87086; 87493; 87635; 89055; 93005; 97162; 99285; J2185

== ENCOUNTER 2021-09-13 09:00 | Inpatient (IN) | payer MEDICARE, OTHER, SELFPAY ==
[2021-09-13] VITALS (14 sets, daily range): BP systolic 68–118; BP diastolic 26–61; PULSE 58–77; RESP 14–19; TEMP 36.6–36.9; O2SAT 94–98; BMI 38.4
--- NOTE | ~2021-09-13 | CT_ITS ---
EXAMINATION: CT CHEST WITHOUT CONTRAST CLINICAL INFORMATION: Pneumonia versus atelectasis COMPARISON: Chest radiograph performed earlier today and CT abdomen pelvis 09/09/2021 TECHNIQUE: Multidetector volumetric CT imaging of the chest was done. Axial MIP volume rendering provided. Sagittal and coronal reformatted images were obtained. This CT examination was performed using dose optimization techniques as appropriate, variously including the following: *Automated exposure control *Adjustment of mA and/or kV according to patient size (this includes techniques or standardized protocols for targeted exams where dose is matched to indication/reason for exam; i.e. extremities or head) *Use of iterative reconstruction technique DLP: 523 mGy-cm FINDINGS: LUNGS AND PLEURA: Since the prior exam, some trace to tiny pleural effusions have developed. Again noted is a minimally dependent atelectasis. No consolidations are seen. No suspicious lung masses are present. Some scattered calcified granulomas are present. MEDIASTINUM: Heart size normal. Extensive coronary calcifications are seen. No mediastinal or hilar lymphadenopathy. No pericardial effusion the descending thoracic aorta is ectatic and dilated with a maximum dimension of approximately 5 cm. AXILLA: No lymphadenopathy. UPPER ABDOMEN: There is partial visualization of an aortic stent graft. OSSEOUS STRUCTURES: Degenerative changes are noted throughout the spine. CT/CT chest wo con IMPRESSION: There is no pneumonia. There is minimal bibasilar atelectasis along with trace to tiny new pleural effusions. Aneurysmal dilatation of the descending thoracic aorta stable at about 5 cm Fleischner guidelines were followed.
--- NOTE | ~2021-09-13 | CT_ITS ---
EXAMINATION: CT ABDOMEN AND PELVIS WITHOUT CONTRAST CLINICAL INFORMATION: Profuse diarrhea COMPARISON: 09/09/2021 TECHNIQUE: Multidetector volumetric imaging was performed from the superior aspect of the liver through the pubic symphysis. Sagittal and coronal reformatted images were obtained on the technologist's workstation. This CT examination was performed using dose optimization techniques as appropriate, variously including the following: *Automated exposure control *Adjustment of mA and/or kV according to patient size (this includes techniques or standardized protocols for targeted exams where dose is matched to indication/reason for exam; i.e. extremities or head) *Use of iterative reconstruction technique DLP: 1313 mGy-cm FINDINGS: LUNG BASES: Increased opacity at both lung bases, favoring atelectasis. Tortuous thoracic aorta. Borderline prominent heart. LIVER, GALLBLADDER, AND BILIARY TREE: Normal size and attenuation of the liver with subtle nodularity to the hepatic contour. No biliary ductal dilatation. Subcentimeter subtle hypoattenuating focus in segment 5 of the liver is unchanged from prior and too small to further characterize. The gallbladder is unremarkable with no evidence of radiopaque gallstones, gallbladder wall thickening, or obvious pericholecystic inflammatory changes. PANCREAS: Atrophic appearance of the pancreatic parenchyma with no focal abnormality seen. SPLEEN: Unremarkable. ADRENAL GLANDS: Unremarkable. KIDNEYS AND URETERS: Bilateral ureteral stents remain in place, in appropriate positioning. Symmetric perinephric stranding. Mild fullness of the right collecting system remains, similar to prior. No left hydronephrosis. Left lower pole 0.3 cm calculus is again noted, 12 cm from the posterior axillary line. BLADDER: Decompressed with a Pedro catheter in place. GASTROINTESTINAL TRACT: The stomach is unremarkable. Normal caliber small bowel. No obstruction. Normal appendix. There is colonic diverticulosis present. Resolution of the previous inflammation along the sigmoid colon. No colonic wall thickening or inflammatory changes are seen at this time. No free air or free fluid. ABDOMINAL WALL: Small fat-containing umbilical hernia. LYMPH NODES: Normal. VASCULAR: Aortobiiliac stent graft involving an infrarenal abdominal aortic aneurysm, unchanged from recent prior. PELVIC VISCERA: The uterus and adnexa are unremarkable. OSSEOUS STRUCTURES: No acute or suspicious osseous abnormality. Mild degenerative changes throughout the spine. Moderate degenerative change of the right hip with mild degenerative change of the left hip. CT/CT abdomen pelvis wo con IMPRESSION: Colonic diverticulosis. Improvement of prior inflammatory changes along the sigmoid colon. No current bowel wall thickening or inflammation. Increased bilateral lung basilar opacities favoring atelectasis. Bilateral ureteral stents remain in place. Mild right-sided hydronephrosis again noted. Fleischner guidelines were followed.
--- NOTE | ~2021-09-13 | XR_ITS ---
EXAMINATION: XR CHEST CLINICAL INFORMATION: Hypotension. COMPARISON: Chest radiograph 07/20/2021. TECHNIQUE: Frontal view of the chest was obtained. FINDINGS: Stable appearance of the cardiomediastinal silhouette with tortuosity of the thoracic aorta. Mild patchy airspace opacities in the retrocardiac region and left lower lobe with trace amount of left-sided pleural fluid. No pneumothorax. The right lung is clear. No acute osseous abnormalities. EKG wires overlie the chest. XR/XR chest 1V IMPRESSION: Subtle patchy airspace opacities in the left lower lobe, nonspecific could be associated with atelectasis, aspiration or pneumonia. Trace amount of left-sided pleural fluid.
--- NOTE | ~2021-09-13 | XR_ITS ---
EXAMINATION: XR CHEST CLINICAL INFORMATION: Cough. COMPARISON: 09/13/[address] chest CT scan. TECHNIQUE: Frontal view of the chest was obtained. FINDINGS: Mild opacification is seen at the left lung base with blunting of the left costophrenic angle with mild bibasilar linear markings. The left upper lung field and right lung are clear. The heart and mediastinal structures are unremarkable. XR/XR chest 1V IMPRESSION: Small left pleural effusion with probable mild superjacent atelectasis represents interval worsening from the previous study.
--- NOTE | 2021-09-13 09:18 | ECG_ITS ---
Test Reason : hypotension Blood Pressure : / mmHG Vent. Rate : 055 BPM Atrial Rate : 055 BPM P-R Int : 208 ms QRS Dur : 112 ms QT Int : 440 ms P-R-T Axes : 074 062 -06 degrees QTc Int : 420 ms Sinus bradycardia with marked sinus arrhythmia /PAC Low voltage QRS Cannot rule out Inferior infarct (cited on or before 20-JUL-2021) Cannot rule out Anterior infarct (cited on or before 07-JUN-2021) Abnormal ECG When compared with ECG of 09-SEP-2021 01:30, Vent. rate has decreased BY 36 BPM Referred By: Generic ED Physician Electronically Signed By:BRYANT ASHRAF
[2021-09-13] MEDS: 0.9 % Sodium Chloride 1,000 ML 999 ML IV (09:30)
--- NOTE | 2021-09-13 10:01 | ED_ITS ---
HPI - General Adult General Chief complaint: General Medical Stated complaint: diarrhea, abdom pain, nausea Time Seen by Provider: 09/13/21 09:10 Source: patient and EMS Mode of arrival: EMS History of Present Illness HPI narrative: 85-year-old female with a past medical history of AAA, anemia, GAURANG on CKD, chronic bacteriuria with chronic Pedro catheter, COPD on home O2 at night, CAD, obstructive uropathy s/p bilateral ureteral stent placement, discharge from our facility on 09/11 for chronic bacteriuria/diarrhea/colitis presenting back to ED via EMS for recurrent loose stool, nausea, presyncope/lightheadedness and hypotension since this AM. Denies bloody BM/black BM, chest pain, new SOB, new cough, abdominal pain, dysuria /hematuria Onset (ago): hour(s) Related Data Home Medications Medication Instructions Recorded Confirmed cholecalciferol (vitamin D3) 10 10 mcg PO DAILY 04/16/20 09/13/21 mcg (400 unit) capsule aspirin 81 mg tablet,delayed 81 mg PO DAILY 04/21/20 09/13/21 release (Adult Low Dose Aspirin) acetaminophen 325 mg tablet 650 mg PO DAILY 07/20/21 09/13/21 (Tylenol) atorvastatin 40 mg tablet 40 mg PO BEDTIME 07/20/21 09/13/21 meclizine 12.5 mg tablet 12.5 mg PO TID PRN Dizziness 07/20/21 09/13/21 pantoprazole 40 mg tablet,delayed 40 mg PO DAILY 07/20/21 09/13/21 release (Protonix) polyethylene glycol 3350 17 17 g PO DAILY 07/20/21 09/13/21 gram/dose oral powder (Miralax) albuterol 90 mcg/actuation aerosol 180 mcg inhalation Q4H PRN Wheezing 08/06/21 09/13/21 inhaler ondansetron 4 mg disintegrating 4 mg PO Q6H PRN Nausea 08/06/21 09/13/21 tablet metoprolol succinate 25 mg 1 tab PO BEDTIME 09/09/21 09/13/21 tablet,extended release 24 hr Previous Rx's Medication Instructions Recorded Incruse Ellipta 62.5 mcg/actuation 1 inh PO DAILY #30 ea 06/09/21 powder for inhalation (umeclidinium) folic acid 1 mg tablet 1 mg PO DAILY #30 tabs 07/27/21 cefuroxime axetil 250 mg tablet 250 mg PO BID #8 tabs 09/11/21 metronidazole 500 mg tablet 500 mg PO TID #15 tabs 09/11/21 sodium bicarbonate 650 mg tablet 650 mg PO BID #7 tabs 09/11/21 Allergies Allergy/AdvReac Type Severity Reaction Status Date / Time No Known Allergies Allergy Verified 05/17/21 10:30 [No Known Allergies*] Review of Systems Review of Systems: Constitutional: No Fever, No Chills, No Night Sweats, + Fatigue, No Malaise ENT/Mouth: No Ear Pain, No Nasal Congestion, No Sinus Pain, No sore throat, No Rhinorrhea, No Swallowing Difficulty Eyes: No Eye Pain, No Swelling, No Redness, No Vision Changes Cardiovascular: No Chest Pain, Chronic SOB, No Dyspnea on Exertion, No Orthopnea, No Edema, No Palpitations Respiratory: +Chronic Cough, No Sputum, No Dyspnea Gastrointestinal: No Nausea, No Vomiting, + Diarrhea, No Constipation, No Abdominal pain, No Hematochezia, No Melena Genitourinary: No irregular bleeding, No Dysuria, No Urinary Frequency, No Hematuria, No Urinary Incontinence/retention, No Urgency, No Flank Pain, No Urinary Flow Changes Musculoskeletal: No joint pain, No Myalgias, No Joint Swelling Skin: No Skin Lesions, No rash Neuro: No Weakness, No Loss of Consciousness, + lightheadedness, No Headache Yes all other systems are reviewed and are negative Constitutional: Constitutional: Reports as per [facility] Past Medical History Attestation statement: The following information was validated with the patient. Medical History Abdominal aortic aneurysm (AAA) without rupture Acute blood loss anemia Acute dehydration Acute kidney injury superimposed on CKD Acute UTI Atherosclerotic cardiovascular disease Chronic bacteriuria CKD (chronic kidney disease) stage 3, GFR 30-59 ml/min COPD (chronic obstructive pulmonary disease) Hydronephrosis concurrent with and due to calculi of kidney and ureter Kidney stone on right side Nocturnal hypoxemia Obesity Recurrent falls Restrictive lung disease Skin tear of hand without complication Smoker Family History Family History Father No problems noted. Mother No problems noted. Social History Social History Household Members: Caregiver Housing: Apartment Housing Other:: SNF Do you presently have visiting nurse or other home services: Yes Alcohol intake: never Patient Tobacco Use Status: Former Tobacco user Tobacco use type: Cigarette Cigarettes Per Day: 1 Second Hand Smoke Exposure: No Advance Directives: No Advance Directives Information Provided: Yes Advance Directives Date on File: 07/21/21 service: No Current occupational status: retired Physical Exam ED Vital Signs: Vital Signs - 24 hr 09/13/21 09:03 09/13/21 09:11 09/13/21 10:39 Temperature 98 F 97.9 F Pulse Rate 63 61 62 Respiratory Rate 19 18 14 Blood Pressure 68/28 L 68/26 L 88/46 L Pulse Oximetry 96 98 Oxygen Delivery Method Room Air Nasal Cannula Oxygen Flow Rate 2 09/13/21 10:49 09/13/21 10:00 09/13/21 11:53 Temperature Pulse Rate 64 60 76 Respiratory Rate 19 18 18 Blood Pressure 100/47 L 88/46 L 99/61 Pulse Oximetry 97 97 98 Oxygen Delivery Method Room Air Room Air Nasal Cannula Oxygen Flow Rate 2 09/13/21 12:57 Temperature Pulse Rate 68 Respiratory Rate 18 Blood Pressure 102/45 L Pulse Oximetry 98 Oxygen Delivery Method Oxygen Flow Rate BMI result Body Mass Index 38.4 Const General: cooperative and no acute distress Orientation/consciousness: patient oriented x3 Limitations: no limitations HENMT Head: Yes normal to inspection and Yes atraumatic Ears: hearing grossly normal bilaterally General nose exam: Normal external nose present Face and sinus: Yes normal facial exam Eyes General: appearance normal, both eyes and all related structures EOM: EOMs intact bilaterally Neck Neck: Yes normal visual inspection and Yes no meningeal signs Resp Effort & Inspection: normal respiratory effort and no respiratory distress Auscultation: clear to auscultation bilaterally, no rales, no rhonchi, no wheezes and diminished lung sounds bilateral (mildly) in the lower lung mcneal Cardio Rate: regular rate Heart sounds: S1 normal heart sound present and S2 normal heart sound present GI Inspection: Yes normal to inspection Palpation (GI): Soft to palpation, nontender, no guarding and not rigid General: Yes no CVA tenderness Back/Spine/Pelvis Back: no CVA tenderness Skin Rashes: no rashes Wounds: no wounds Neuro General: patient oriented x3, tone normal and no meningeal signs Gait exam (Neuro): Normal gait present Extrem General: Yes normal to inspection Course Course Course Narrative: 1108--XR chest 1V IMPRESSION: Subtle patchy airspace opacities in the left lower lobe, nonspecific could be associated with atelectasis, aspiration or pneumonia. ? Trace amount of left-sided pleural fluid. >> will obtain dry CT chest for further evaluation prior to initiation of new antibiotics as patient has been on multiple antibiotics recently and denies new respiratory symptoms. -1112-- No leukocytosis. H&H at patient's baseline. UA chronically infected >pt currently on Ceftin 250 bid. urine culture from 09/09 with your general contamination. Will hold on changing antibiotics for repeat culture -1130-- acute on chronic CKD. Lactic acid elevated to 2.7 > likely from dehydration > low suspicion for severe sepsis at this time. BNP 332. Troponin chronically elevated - BP improving after IVF now 100's over 40-50's -1355--CT chest wo con IMPRESSION: There is no pneumonia. There is minimal bibasilar atelectasis along with trace to tiny new pleural effusions.? Aneurysmal dilatation of the descending thoracic aorta stable at about 5 cm ? Fleischner guidelines were followed. > Plan to admit for further managment -1418-- repeat lactic acid improved to 1.4 Medical Decision Making MDM Narrative Medical decision making narrative: 85-year-old female with a past medical history of AAA, anemia, GAURANG on CKD, chronic bacteriuria with chronic Pedro catheter, COPD on home O2 at night, CAD, obstructive uropathy s/p bilateral ureteral stent placement, discharge from our facility on 09/11 for chronic bacteriuria/diarrhea/colitis presenting back to ED via EMS for recurrent loose stool, nausea, presyncope/lightheadedness and hypotension since this AM. On exam hypotensive, currently on her home O2 in no respiratory distress, diminished lung sounds bibasilarly, abdomen soft and nontender. Concern for continued colitis vs C diff and dehydration/metabolic abnormalities. lower concern for ACS low concern for severe sepsis at this time, hypotension likely from volume status plan: EKG, labs, UA, IVF, anticipated admission Medical Records Medical records reviewed: Yes I reviewed the patient's medical records. Lab Data Lab results reviewed: Yes I reviewed the patient's lab results. Result diagrams: 09/13/21 10:57 09/13/21 10:57 Labs: Lab Results 09/13/21 09/13/21 09/13/21 Range/Units 10:16 10:16 10:57 WBC 5.7 (4.8-10.8) X10*3/uL RBC 3.11 L (4.20-5.50) X10*6/uL Hgb 8.9 L (12.0-16.0) g/dl Hct 30.3 L (37.0-47.0) % MCV 97.4 (80.0-98.0) fL MCH 28.6 (27.0-33.0) pg MCHC 29.4 L (31.0-35.0) g/dl RDW 17.0 H (11.0-16.0) % Plt Count 159 L (160-400) X10*3/uL MPV 9.6 (9.4-12.3) fL Immature Gran % (Auto) 0.4 (0.0-0.4) % Neut % (Auto) 57.2 (45-73) % Lymph % (Auto) 32.2 (20-40) % Foster % (Auto) 8.5 (2-11) % Eos % (Auto) 1.2 (0-4) % Baso % (Auto) 0.5 (0-2) % Lymph # (Auto) 1.8 (1.2-4.9) X10*3/uL Foster # (Auto) 0.5 (0.1-1.2) X10*3/uL Eos # (Auto) 0.1 (0.0-0.4) X10*3/uL Baso # (Auto) 0.0 (0.0-0.2) X10*3/uL Abs Immat Gran (auto) 0.02 (0.00-0.03) X10*3/uL Absolute Neuts (auto) 3.2 (2.0-8.3) x10*3/uL Absolute Nucleated RBC 0.000 (0.0-0.012) X10*3/uL Nucleated RBC % (auto) 0.0 (0.0-0.2) /100WBC Sodium (135-145) mmol/L Potassium (3.3-5.1) mmol/L Chloride (96-108) mmol/L Carbon Dioxide (22-29) mmol/L Anion Gap (12-20) BUN (9-16) mg/dL Creatinine (0.5-1.4) mg/dL Estim Creat Clear Calc Estimated GFR Random Glucose (60-115) mg/dL Lactic Acid (0.5-2.0) mmol/L Lactic Acid F/U @ 2Hr (0.5-2.0) mmol/L Calcium (8.4-10.2) mg/dL Magnesium (1.6-2.6) mg/dL Total Bilirubin (0.0-1.0) mg/dL Direct Bilirubin (0.0-0.5) mg/dL AST (5-31) U/L ALT (0-31) U/L Alkaline Phosphatase (39-117) U/L Troponin I High Sens (<3.5-17.0) ng/L B-Natriuretic Peptide (<100) pg/mL Total Protein (6.5-8.0) g/dL Albumin (3.5-5.0) g/dL Lipase (8-78) U/L Urine Color YELLOW Urine Appearance CLOUDY Urine pH 6.0 (5.0-8.0) Ur Specific [place] 1.020 (1.005-1.025) Urine Protein 2+ H (NEG-TRACE) MG/DL Urine Glucose (UA) NEG (NEG) MG/DL Urine Ketones NEG (NEG) MG/DL Urine Blood 3+ H (NEG) Urine Nitrite NEG (NEG) Ur Leukocyte Esterase 3+ H (NEG) Urine RBC 15-29 H (0) /HPF Urine WBC TNTC H (0-4) /HPF Ur Squamous Epith Cells TRACE /LPF Urine Bacteria 1+ /LPF Urine Yeast 2+ /HPF COVID-19 (HEVER) Negative (Negative) COVID-19 Clin Com See Note 09/13/21 09/13/21 09/13/21 Range/Units 10:57 10:57 10:57 WBC (4.8-10.8) X10*3/uL RBC (4.20-5.50) X10*6/uL Hgb (12.0-16.0) g/dl Hct (37.0-47.0) % MCV (80.0-98.0) fL MCH (27.0-33.0) pg MCHC (31.0-35.0) g/dl RDW (11.0-16.0) % Plt Count (160-400) X10*3/uL MPV (9.4-12.3) fL Immature Gran % (Auto) (0.0-0.4) % Neut % (Auto) (45-73) % Lymph % (Auto) (20-40) % Foster % (Auto) (2-11) % Eos % (Auto) (0-4) % Baso % (Auto) (0-2) % Lymph # (Auto) (1.2-4.9) X10*3/uL Foster # (Auto) (0.1-1.2) X10*3/uL Eos # (Auto) (0.0-0.4) X10*3/uL Baso # (Auto) (0.0-0.2) X10*3/uL Abs Immat Gran (auto) (0.00-0.03) X10*3/uL Absolute Neuts (auto) (2.0-8.3) x10*3/uL Absolute Nucleated RBC (0.0-0.012) X10*3/uL Nucleated RBC % (auto) (0.0-0.2) /100WBC Sodium 140 (135-145) mmol/L Potassium 3.8 (3.3-5.1) mmol/L Chloride 117 H (96-108) mmol/L Carbon Dioxide 13 L (22-29) mmol/L Anion Gap 14 (12-20) BUN 17 H (9-16) mg/dL Creatinine 1.95 H (0.5-1.4) mg/dL Estim Creat Clear Calc 22.7 Estimated GFR 24 Random Glucose 80 (60-115) mg/dL Lactic Acid 2.7 H* (0.5-2.0) mmol/L Lactic Acid F/U @ 2Hr (0.5-2.0) mmol/L Calcium 8.9 (8.4-10.2) mg/dL Magnesium 1.6 (1.6-2.6) mg/dL Total Bilirubin 0.4 (0.0-1.0) mg/dL Direct Bilirubin 0.2 (0.0-0.5) mg/dL AST 23 D (5-31) U/L ALT 14 (0-31) U/L Alkaline Phosphatase 111 D (39-117) U/L Troponin I High Sens 115.4 H* (<3.5-17.0) ng/L B-Natriuretic Peptide 332 H (<100) pg/mL Total Protein 6.4 L (6.5-8.0) g/dL Albumin 2.7 L (3.5-5.0) g/dL Lipase 33 (8-78) U/L Urine Color Urine Appearance Urine pH (5.0-8.0) Ur Specific [place] (1.005-1.025) Urine Protein (NEG-TRACE) MG/DL Urine Glucose (UA) (NEG) MG/DL Urine Ketones (NEG) MG/DL Urine Blood (NEG) Urine Nitrite (NEG) Ur Leukocyte Esterase (NEG) Urine RBC (0) /HPF Urine WBC (0-4) /HPF Ur Squamous Epith Cells /LPF Urine Bacteria /LPF Urine Yeast /HPF COVID-19 (HEVER) (Negative) COVID-19 Clin Com 09/13/21 Range/Units 13:51 WBC (4.8-10.8) X10*3/uL RBC (4.20-5.50) X10*6/uL Hgb (12.0-16.0) g/dl Hct (37.0-47.0) % MCV (80.0-98.0) fL MCH (27.0-33.0) pg MCHC (31.0-35.0) g/dl RDW (11.0-16.0) % Plt Count (160-400) X10*3/uL MPV (9.4-12.3) fL Immature Gran % (Auto) (0.0-0.4) % Neut % (Auto) (45-73) % Lymph % (Auto) (20-40) % Foster % (Auto) (2-11) % Eos % (Auto) (0-4) % Baso % (Auto) (0-2) % Lymph # (Auto) (1.2-4.9) X10*3/uL Foster # (Auto) (0.1-1.2) X10*3/uL Eos # (Auto) (0.0-0.4) X10*3/uL Baso # (Auto) (0.0-0.2) X10*3/uL Abs Immat Gran (auto) (0.00-0.03) X10*3/uL Absolute Neuts (auto) (2.0-8.3) x10*3/uL Absolute Nucleated RBC (0.0-0.012) X10*3/uL Nucleated RBC % (auto) (0.0-0.2) /100WBC Sodium (135-145) mmol/L Potassium (3.3-5.1) mmol/L Chloride (96-108) mmol/L Carbon Dioxide (22-29) mmol/L Anion Gap (12-20) BUN (9-16) mg/dL Creatinine (0.5-1.4) mg/dL Estim Creat Clear Calc Estimated GFR Random Glucose (60-115) mg/dL Lactic Acid (0.5-2.0) mmol/L Lactic Acid F/U @ 2Hr 1.4 (0.5-2.0) mmol/L Calcium (8.4-10.2) mg/dL Magnesium (1.6-2.6) mg/dL Total Bilirubin (0.0-1.0) mg/dL Direct Bilirubin (0.0-0.5) mg/dL AST (5-31) U/L ALT (0-31) U/L Alkaline Phosphatase (39-117) U/L Troponin I High Sens (<3.5-17.0) ng/L B-Natriuretic Peptide (<100) pg/mL Total Protein (6.5-8.0) g/dL Albumin (3.5-5.0) g/dL Lipase (8-78) U/L Urine Color Urine Appearance Urine pH (5.0-8.0) Ur Specific [place] (1.005-1.025) Urine Protein (NEG-TRACE) MG/DL Urine Glucose (UA) (NEG) MG/DL Urine Ketones (NEG) MG/DL Urine Blood (NEG) Urine Nitrite (NEG) Ur Leukocyte Esterase (NEG) Urine RBC (0) /HPF Urine WBC (0-4) /HPF Ur Squamous Epith Cells /LPF Urine Bacteria /LPF Urine Yeast /HPF COVID-19 (HEVER) (Negative) COVID-19 Clin Com ECG Data Attestation: I personally reviewed and interpreted this ECG as follows: Prior ECG tracings: available for review Interpretation: EKG sinus bradycardia with marked sinus arrhythmia at a rate of 55. Premature supraventricular complexes no longer present when compared to prior EKG. Low- voltage QRS Critical Care Time Critical Care Time Critical Care Time: Yes Total Critical Care Time: 40 Attestation: I have personally provided critical care time exclusive of time spent on separately billable procedures. Time includes review of lab data, radiology results, discussion with consultants, and monitoring for potential decompensati on. Intervention performed as documented. Discharge Plan Discharge Clinical Impression: Acute hypotension, Diarrhea, Chronic bacteriuria Patient Disposition: Admitted As Inpatient
[2021-09-13 10:27] LABS: Appearance Urine CLOUDY; Color Urine YELLOW; Glucose Urine UA NEG (NEG); Leukocyte Esterase Urine 3+ (NEG); Nitrite Urine NEG (NEG); UACC Culture Trigger YES; Urine Blood 3+ (NEG); Urine Ketones NEG (NEG); Urine Protein 2+ MG/DL (NEG-TRACE)
[2021-09-13 10:48] LABS: COVID-19 Test Negative (Negative)
[2021-09-13 10:49] LABS: Squamous Epithelial Cell Urine TRACE /LPF; WBC Urine TNTC /HPF (0-4)
[2021-09-13 10:50] LABS: Bacteria Urine 1+ /LPF
[2021-09-13 11:05] LABS: MANUAL DIFF FLAG NO
[2021-09-13 11:08] LABS: Basophils Percent Auto 0.5 % (0-2); Eosinophils Absolute Auto 0.1 X10*3/uL (0.0-0.4); Eosinophils Percent Auto 1.2 % (0-4); Hematocrit 30.3 % (37.0-47.0); Hemoglobin 8.9 g/dl (12.0-16.0); Imm Gran Abs Auto 0.02 X10*3/uL (0.00-0.03); Imm Gran Pct Auto 0.4 % (0.0-0.4); Lymphocytes Absolute Auto 1.8 X10*3/uL (1.2-4.9); Lymphocytes Percent Auto 32.2 % (20-40); Mean Corpuscular HGB Conc 29.4 g/dl (31.0-35.0); Mean Corpuscular Hemoglobin 28.6 pg (27.0-33.0); Mean Corpuscular Volume 97.4 fL (80.0-98.0); Mean Platelet Volume 9.6 fL (9.4-12.3); Monocytes Absolute Auto 0.5 X10*3/uL (0.1-1.2); Monocytes Percent Auto 8.5 % (2-11); Neutrophils Absolute Auto 3.2 x10*3/uL (2.0-8.3); Neutrophils Percent Auto 57.2 % (45-73); Platelet Count 159 X10*3/uL (160-400); Red Blood Count 3.11 X10*6/uL (4.20-5.50); White Blood Count 5.7 X10*3/uL (4.8-10.8)
[2021-09-13 11:28] LABS: Alanine Aminotransferase 14 U/L (0-31); Albumin Level 2.7 g/dL (3.5-5.0); Alkaline Phosphatase 111 U/L (39-117); Aspartate Amino Transferase 23 U/L (5-31); B Type Natriuretic Peptide 332 pg/mL (<100); Blood Urea Nitrogen 17 mg/dL (9-16); Calcium 8.9 mg/dL (8.4-10.2); Creatinine Clr Calc Pharmacy 22.7; Estimated Glomerular Filt Rate 24; Glucose Random 80 mg/dL (60-115); Lipase 33 U/L (8-78); Magnesium 1.6 mg/dL (1.6-2.6); Total Protein 6.4 g/dL (6.5-8.0)
[2021-09-13 11:32] LABS: Troponin-I High Sensitivity 115.4 ng/L (<3.5-17.0)
[2021-09-13 11:40] LABS: Anion Gap 14 (12-20); Bilirubin Direct 0.2 mg/dL (0.0-0.5); Bilirubin Total 0.4 mg/dL (0.0-1.0); Carbon Dioxide 13 mmol/L (22-29); Chloride 117 mmol/L (96-108); Potassium 3.8 mmol/L (3.3-5.1); Sodium 140 mmol/L (135-145)
--- NOTE | 2021-09-13 11:50 | PC.NURSE ---
[phone] Lo palomo a call to [facility] transfer line. I placed the call and spoke to Isabel and she asked to speak to provider, and Dr Blanchard picked up right away.
--- NOTE | 2021-09-13 11:56 | PC.NURSE ---
nad, denies pain or dizziness, so much better , alert, skin wpd
[2021-09-13 12:27] LABS: Lactic Acid 2.7 mmol/L (0.5-2.0)
[2021-09-13 13:03] LABS: Reflex Lactate? Lactic Acid Added
[2021-09-13 14:16] LABS: ~Lactic Acid-LAB USE ONLY 1.4 mmol/L (0.5-2.0)
--- NOTE | 2021-09-13 14:35 | PM.IMHP ---
History of Present Illness Date of Service: 09/13/21 Chief Complaint: Diarrhea 85-year-old female with a past medical history of CKD, COPD on home oxygen at night, CAD, obstructive uropathy-status post bilateral ureteral stents, has chronic Kevin catheter, recurrent UTI-growing ESBL Klebsiella, Enterococcus, abdominal aortic aneurysm status post repair, anemia, obesity, GI bleed presented to the hospital today with a chief complaint of diarrhea.? She admitted to the hospital August 06 to August 10 with GAURANG, dehydration, and UTI, coand was deconditioned and following that was discharged to rehab until September 08 when she was discharged to home, only to return to the hospital the following day on September 09 with darrhea/colitis, UTI and GAURANG and at that time CD dif was negative--was discharged home with Ceftin and Flgyl, Gaurang resolved and diarrhea resolved and she was feeling well. PT reassessed her and recommended returning to rehab but she declined in favor of going home. She went home on 09/12 and felt great all day and the next September 13 also she felt well. [facility] didn't get to see her. She woke up this morning with diffuse diarrhea, feeling week, no fever or chills and no abdominal pain and blood in the stool. She was noted to be hypOtensive, lactive acid of 2.7, UA is positive due to chronic kevin. Creatine is 1.9 (baseline about 2.5) Review of Systems Review of Systems: Gen: no fever Resp: no sob, no cough CV: no chest, no DOWNEY, no leg edema GI: No n/v, no abd pain Neuro: No confusion Yes all other systems are reviewed and are negative [facility] Medical History Abdominal aortic aneurysm (AAA) without rupture Acute blood loss anemia Acute dehydration Acute kidney injury superimposed on CKD Acute UTI Atherosclerotic cardiovascular disease Chronic bacteriuria CKD (chronic kidney disease) stage 3, GFR 30-59 ml/min COPD (chronic obstructive pulmonary disease) Hydronephrosis concurrent with and due to calculi of kidney and ureter Kidney stone on right side Nocturnal hypoxemia Obesity Recurrent falls Restrictive lung disease Skin tear of hand without complication Smoker Urinary tract infection due to ESBL Klebsiella Family History Father No problems noted. Mother No problems noted. Social History Household Members: None Housing: House Housing Other:: SNF Do you presently have visiting nurse or other home services: Yes Alcohol intake: never Patient Tobacco Use Status: Current everyday Tobacco user Tobacco use type: Cigarette Cigarettes Per Day: 1 Second Hand Smoke Exposure: No Advance Directives: Yes Advance Directives on File: Yes Advance Directives Date on File: 07/21/21 service: No Current occupational status: retired [email or web address] Allergies Allergy/AdvReac Type Severity Reaction Status Date / Time No Known Allergies Allergy Verified 05/17/21 10:30 [No Known Allergies*] Home Medications Medication Instructions Recorded Confirmed Last Taken Type cholecalciferol (vitamin D3) 10 10 mcg PO DAILY 04/16/20 09/13/21 09/12/21 History mcg (400 unit) capsule aspirin 81 mg tablet,delayed 81 mg PO DAILY 04/21/20 09/13/21 09/12/21 History release (Adult Low Dose Aspirin) acetaminophen 325 mg tablet 650 mg PO DAILY 07/20/21 09/13/21 09/08/21 History (Tylenol) atorvastatin 40 mg tablet 40 mg PO BEDTIME 07/20/21 09/13/21 09/12/21 History meclizine 12.5 mg tablet 12.5 mg PO TID PRN Dizziness 07/20/21 09/13/21 08/06/21 History pantoprazole 40 mg tablet,delayed 40 mg PO DAILY 07/20/21 09/13/21 09/12/21 History release (Protonix) polyethylene glycol 3350 17 17 g PO DAILY 07/20/21 09/13/21 09/08/21 History gram/dose oral powder (Miralax) albuterol 90 mcg/actuation aerosol 180 mcg inhalation Q4H PRN Wheezing 08/06/21 09/13/21 Unknown History inhaler ondansetron 4 mg disintegrating 4 mg PO Q6H PRN Nausea 08/06/21 09/13/21 08/16/21 History tablet metoprolol succinate 25 mg 1 tab PO BEDTIME 09/09/21 09/13/21 09/12/21 History tablet,extended release 24 hr Physical Exam Vital Signs and Narrative: Vital Signs: Last Vital Signs Temp 97.9 F 09/13/21 09:11 Pulse 77 09/13/21 14:18 Resp 14 09/13/21 14:18 BP 110/47 L 09/13/21 14:18 Pulse Ox 98 09/13/21 14:18 O2 Del Method 09/13/21 14:18 O2 Flow Rate 2 09/13/21 14:18 BMI result Body Mass Index 38.4 Const: Other: Constitutional: Alert, in no distress, Mental Status: Oriented to person, place and time. Eyes: Pupils are equal, round and reactive to light. Ear, Nose and Throat: Oropharynx clear, mucous membranes moist Respiratory: Clear to auscultation. No wheezing, rales or rhonchi. Cardiovascular: S1 S2 regular. No murmurs, rubs or gallops. Gastrointestinal: Abdomen soft, non-tender, non-distended. Normal bowel sounds.? Neurologic: Cranial nerves II-XII grossly intact. No focal neurological deficits. Moves all extremities spontaneously.? Skin: No rashes or lesions.? Musculoskeletal: No cyanosis or clubbing. Psychiatric: Normal mood and affect? Results Labs CBC and Chem 7: 09/15/21 05:23 09/15/21 05:23 Labs: Laboratory Results - last 24 hr 09/13/21 09/13/21 09/13/21 10:16 10:16 10:57 MCV 97.4 MCH 28.6 MCHC 29.4 L RDW 17.0 H Plt Count 159 L MPV 9.6 Immature Gran % (Auto) 0.4 Neut % (Auto) 57.2 Lymph % (Auto) 32.2 [place] % (Auto) 8.5 Eos % (Auto) 1.2 Baso % (Auto) 0.5 Lymph # (Auto) 1.8 [place] # (Auto) 0.5 Eos # (Auto) 0.1 Baso # (Auto) 0.0 Abs Immat Gran (auto) 0.02 Absolute Neuts (auto) 3.2 Absolute Nucleated RBC 0.000 Nucleated RBC % (auto) 0.0 Anion Gap Estim Creat Clear Calc Estimated GFR Random Glucose Lactic Acid Lactic Acid F/U @ 2Hr Calcium Magnesium Total Bilirubin Direct Bilirubin AST ALT Alkaline Phosphatase Troponin I High Sens B-Natriuretic Peptide Total Protein Albumin Lipase Urine Color YELLOW Urine Appearance CLOUDY Urine pH 6.0 Ur Specific [place] 1.020 Urine Protein 2+ H Urine Glucose (UA) NEG Urine Ketones NEG Urine Blood 3+ H Urine Nitrite NEG Ur Leukocyte Esterase 3+ H Urine RBC 15-29 H Urine WBC TNTC H Ur Squamous Epith Cells TRACE Urine Bacteria 1+ Urine Yeast 2+ COVID-19 (HEVER) Negative COVID-19 Clin Com See Note 09/13/21 09/13/21 09/13/21 10:57 10:57 10:57 MCV MCH MCHC RDW Plt Count MPV Immature Gran % (Auto) Neut % (Auto) Lymph % (Auto) [place] % (Auto) Eos % (Auto) Baso % (Auto) Lymph # (Auto) [place] # (Auto) Eos # (Auto) Baso # (Auto) Abs Immat Gran (auto) Absolute Neuts (auto) Absolute Nucleated RBC Nucleated RBC % (auto) Anion Gap 14 Estim Creat Clear Calc 22.7 Estimated GFR 24 Random Glucose 80 Lactic Acid 2.7 H* Lactic Acid F/U @ 2Hr Calcium 8.9 Magnesium 1.6 Total Bilirubin 0.4 Direct Bilirubin 0.2 AST 23 D ALT 14 Alkaline Phosphatase 111 D Troponin I High Sens 115.4 H* B-Natriuretic Peptide 332 H Total Protein 6.4 L Albumin 2.7 L Lipase 33 Urine Color Urine Appearance Urine pH Ur Specific [place] Urine Protein Urine Glucose (UA) Urine Ketones Urine Blood Urine Nitrite Ur Leukocyte Esterase Urine RBC Urine WBC Ur Squamous Epith Cells Urine Bacteria Urine Yeast COVID-19 (HEVER) COVID-19 Clin Com 09/13/21 13:51 MCV MCH MCHC RDW Plt Count MPV Immature Gran % (Auto) Neut % (Auto) Lymph % (Auto) [place] % (Auto) Eos % (Auto) Baso % (Auto) Lymph # (Auto) [place] # (Auto) Eos # (Auto) Baso # (Auto) Abs Immat Gran (auto) Absolute Neuts (auto) Absolute Nucleated RBC Nucleated RBC % (auto) Anion Gap Estim Creat Clear Calc Estimated GFR Random Glucose Lactic Acid Lactic Acid F/U @ 2Hr 1.4 Calcium Magnesium Total Bilirubin Direct Bilirubin AST ALT Alkaline Phosphatase Troponin I High Sens B-Natriuretic Peptide Total Protein Albumin Lipase Urine Color Urine Appearance Urine pH Ur Specific [place] Urine Protein Urine Glucose (UA) Urine Ketones Urine Blood Urine Nitrite Ur Leukocyte Esterase Urine RBC Urine WBC Ur Squamous Epith Cells Urine Bacteria Urine Yeast COVID-19 (HEVER) COVID-19 Clin Com Imaging Radiologist's Impressions: Impressions Chest X-Ray 09/13/21 10:24 IMPRESSION: Subtle patchy airspace opacities in the left lower lobe, nonspecific could be associated with atelectasis, aspiration or pneumonia. Trace amount of left-sided pleural fluid. Chest CT 09/13/21 13:00 IMPRESSION: There is no pneumonia. There is minimal bibasilar atelectasis along with trace to tiny new pleural effusions. Aneurysmal dilatation of the descending thoracic aorta stable at about 5 cm Fleischner guidelines were followed. Assessment and Plan (1) Diarrhea: Status: Acute Plan 85-year-old female with a past medical history of CKD, COPD on home oxygen at night, CAD, obstructive uropathy-status post bilateral ureteral stents, has chronic Kevin catheter, recurrent UTI-growing ESBL Klebsiella in past , Enterococcus during the recent admission; abdominal aortic aneurysm status post repair, anemia, obesity, recent hospitalization for colitis and now coming back with diarrhea leading to hypotension. #Diarrhea --recent C dif has been negative, but will repeat carmina, check Gi panel. IV fluid. Repeat CT of abdomen and consider GI eval givenr recurance #UTI: recrrent UTI--was recently treated for UTI again, culture was negative, she chronic bacteruria from chronic Kevin.. Change kevin if not done recently #Lactic acidosis:? due to diarrhea and chronic renal failure, this is not due to sepsis #Hyptension--NOT due to sepsis, rather due to volume loss/dehydration from diarrhea - IV fluid #Abdominal aortic aneurysm: Was evaluated by Dr. Castillo during last hospitalization and does not need intervention? #Elevated troponins:?? type 2, no chest pain, chronic elevated due to CKD and is stable. #Anemia of chronic disrase?? H/H within her baseline #Chronic kidney disease:?? stable #Metabolic acidosis: In the setting of CKD.. Bicab replacement DVT prophylaxis:? Subcu heparin Code status:? Full code Admission span at least 2 midnights for management of profuse diarrhea, leading to hypotension Quality Stroke Does the patient have a stroke diagnosis?: No VTE Prior VTE?: No VTE Risk Level:: Medical - moderate - high VTE Device Contraindication: Treatment Not Tolerated VTE Drug Contraindication: N/A - Med Ordered
--- NOTE | 2021-09-13 14:38 | PHA.MEDREC ---
Pharmacy Consult ? Medication Reconciliation Pharmacy has completed the medication reconciliation.
[2021-09-13 15:44] LABS: Troponin-I High Sensitivity 111.1 ng/L (<3.5-17.0)
--- NOTE | 2021-09-13 15:50 | PC.NURSE ---
spoke to MD Boone about d/c abx. Mely states she d/c abx d/t pt being on abx from home and plan to continue that treatment once admitted
--- NOTE | 2021-09-13 16:51 | MHC.CM.ED ---
CM received call from Dahiana at Dr. Moreno's office regarding this patient. Niece has been primary caregiver, but is not the HCP. Concern that patient may need STR and possible LTC. Pt being admitted. CM will follow for d/c needs.
[2021-09-13] MEDS: Heparin Sodium,Porcine 5,000 UNIT/ML VIAL 5000 UNIT SUBCUT (17:53)
[2021-09-13] MEDS: Sodium Bicarbonate 8.4% 150 MEQ in Dextrose 5 % 850 ML 125 MEQ IV (17:53)
[2021-09-13] MEDS: 0.9 % Sodium Chloride Flush 3 ML SYRINGE IVFLUSH (18:08)
--- NOTE | 2021-09-13 18:15 | MHC.CM.PN ---
Addendum entered by Emma Cullen 09/13/21 20:46: Referral to follow made via [facility] with [facility]. No STR referrals made pending PT recommendations. Pt wants to go home. Son concerned about pt at home and feels she needs STR. Original Note: IMM 09/13. CM met with admitted patient with bed assignment pending. A&Ox4. Very pleasant pt. Lives alone in elderly housing with her cat. HCP/son Keshawn Appiah ([phone]) and HCP #2/niece Meri Contreras ([phone]). Keshawn is adamant that he be called, as he is the patients son and #1 HCP. Per pt, Meri helps her at home when needed, as her son works as a contractor. Pt uses a walker and O2 @2L at night. Has had [employer] [employer] services twice a week from [facility]. Pt was recently D/C from [facility] on 09/11 and had [facility] services, but they have not yet seen the patient. Referral placed in Care Port to follow pending d/c. Pt uses [employer] for her oxygen needs. Moderna x2 (04/06/20 & 05/12/20). Pt refuses a booster and refuses to speak about it. Pt D/C plan is home with services, however, son and this principal technical writer concerned that patient may need STR due to deconditioning (it was recommended on last admission). Pt concerned about her cat. Son assures CM that the cat is being cared for. Son, Keshawn given contact information for CM. Aware that [facility] has financial services that can help with MH application if he feels his mother needs LTC in the future. D/C plan pending PT recommendations and pt agreeing. Family to provide transport. CM to follow for d/c needs.
--- NOTE | 2021-09-13 19:00 | PC.NURSE ---
Report to HAN Dhillon. Pt has chronic indwelling kevin pending admit and stool sample. Pt aox4 VS WNL.
[2021-09-13] MEDS: Sodium Bicarbonate 650 MG TABLET PO (22:20)
[2021-09-13] MEDS: Atorvastatin Calcium 40 MG TABLET PO (22:20)
--- NOTE | 2021-09-13 22:27 | PC.NURSE ---
I assumed nursing care of Portia at 1900. Since that time she has been resting in bed, alert and oriented x 3. She has no complaints - she denies any pain, denies diff. breathing, denies nausea. Shortly after assuming care the pt was transported to and from CT without incident. Upon return from CT her repeat BPs were showing 70-80's/40-50's. These were re-checked on both arms, and then rechecked manually. The manual BP I obtained was 80/40. lenny east MD was present in the ED at this time and she came to the bedside and requested the pt be given 1L LR wide open and then recheck BP. We will hold pt in ED until recheck/improvement of BP (she currently has a bed ready). Portia is alert, oriented x 3. We will continue to monitor Portia,.
[2021-09-13] MEDS: Lactated Ringers 1,000 ML 999 ML IV (22:47)
[2021-09-14] VITALS (8 sets, daily range): BP systolic 97–128; BP diastolic 48–56; PULSE 66–77; RESP 18–20; TEMP 36–36.6; O2SAT 94–100; BMI 41.5
--- NOTE | 2021-09-14 00:14 | PC.NURSE ---
BP HAS IMPROVED TO 107/40'S. PT IS EN ROUTE TO INPATIENT BED ASSIGNMENT.
[2021-09-14] MEDS: Heparin Sodium,Porcine 5,000 UNIT/ML VIAL 5000 UNIT SUBCUT ×2 (03:45→16:49)
[2021-09-14] MEDS: Omeprazole 20 MG CAPSULE.DR PO (05:43)
[2021-09-14] MEDS: Sodium Bicarbonate 8.4% 150 MEQ in Dextrose 5 % 850 ML 125 MEQ IV (06:13)
[2021-09-14 06:51] LABS: Hematocrit 25.4 % (37.0-47.0); Mean Corpuscular HGB Conc 31.5 g/dl (31.0-35.0); Mean Corpuscular Hemoglobin 29.4 pg (27.0-33.0); Mean Corpuscular Volume 93.4 fL (80.0-98.0); Red Blood Count 2.72 X10*6/uL (4.20-5.50); Red Cell Distribution Width 17.1 % (11.0-16.0); White Blood Count 4.9 X10*3/uL (4.8-10.8)
[2021-09-14] MEDS: Sodium Bicarbonate 650 MG TABLET PO ×2 (07:36→19:50)
[2021-09-14] MEDS: Acetaminophen 325 MG TABLET 650 MG PO ×2 (07:36→16:59)
[2021-09-14] MEDS: Aspirin Enteric Coated 81 MG TABLET.DR PO (07:37)
[2021-09-14] MEDS: Folic Acid 1 MG TABLET PO (07:37)
[2021-09-14] MEDS: Cholecalciferol (Vitamin D3) 10 MCG TABLET PO (07:37)
--- NOTE | 2021-09-14 08:41 | MHC.CM.PN ---
Received telephone call from patient's niece/2nd HCP/primary caregiver, January. She can be reached via telephone at [phone]. Patient was recently discharged from [facility] for short term rehab. Patient was discharged from [facility] on 09/11 and returned to [facility] on 09/12. January is very concerned about patient going home when medically stable because patient lives alone and has 7-8 stairs to get into her home. January is her primary caregiver but doesn't live with the patient. Patient has been adamant about returning home. January is concerned about her safety. Dr Viera has been made aware and asked to call January. Continue to monitor for d/c needs.
[2021-09-14 09:29] LABS: VBG Base Excess -6.5 mmol/L; VBG HCO3 17 mmol/L (22-26); VBG pCO2 27 mmHg; VBG pH 7.39 (7.32-7.43); VBG pO2 43 mmHg
[2021-09-14 09:34] LABS: Venous Blood Gas Refer to POC result
[2021-09-14 09:39] LABS: Anion Gap 10 (12-20); Blood Urea Nitrogen 15 mg/dL (9-16); Calcium 8.3 mg/dL (8.4-10.2); Carbon Dioxide 22 mmol/L (22-29); Chloride 114 mmol/L (96-108); Creatinine Clr Calc Pharmacy 28.3; Estimated Glomerular Filt Rate 30; Glucose Random 101 mg/dL (60-115); Sodium 143 mmol/L (135-145)
[2021-09-14] MEDS: Lactated Ringers 1,000 ML 100 ML IVCONT (09:51)
--- NOTE | 2021-09-14 12:43 | MHC.CM.PN ---
PATIENT ASKS FOR A REFERRAL TO [facility], NOW PLACED. PLAN IS DC TO FACILITY TOMORROW (09/15/21)
--- NOTE | 2021-09-14 13:53 | P.PNIM_ITS ---
Subjective Subjective Date of Service: 09/14/21 Interval History: Borderline blood pressure, diarrhea Review of Systems patient is generalized weak but feeling slightly better, as per the staff no diarrhea episode of night. denies any nausea vomiting fever chills. Physical Exam Vital Signs: Vital Signs: Last Vital Signs Temp 97.5 F 09/14/21 11:41 Pulse 77 09/14/21 11:41 Resp 20 09/14/21 11:41 BP 104/53 L 09/14/21 11:41 Pulse Ox 94 09/14/21 11:41 O2 Del Method 09/14/21 11:41 O2 Flow Rate 99 09/14/21 07:20 BMI result Body Mass Index 41.5 General: AO X 3, no acute distress Resp:? CTA bilateral CVS: S1,S2,RRR GI: +BS, NT, no distention Skin: No rash Neuro:? motor grossly intact Psych: appropriate affect Objective Data Active Medications Acetaminophen (Acetaminophen 325 Mg Tablet) 650 mg PO Q6H PRN PRN Reason: Pain, Mild (Pain Scale 1-3) Acetaminophen (Acetaminophen 325 Mg Tablet) 650 mg PO DAILY [facility] Last Admin: 09/14/21 07:36 Dose: 650 mg Documented By: ERI Albuterol Sulfate (Albuterol Sulfate 90 Mcg 18 Gm Inhaler) 2 puff INHALE Q4H PRN PRN Reason: Wheezing Aspirin (Aspirin Enteric Coated 81 Mg Tablet.) 81 mg PO DAILY [facility] Last Admin: 09/14/21 07:37 Dose: 81 mg Documented By: ERI Atorvastatin Calcium (Atorvastatin Calcium 40 Mg Tablet) 40 mg PO BEDTIME [facility] Last Admin: 09/13/21 22:20 Dose: 40 mg Documented By: LORENZO Folic Acid (Folic Acid 1 Mg Tablet) 1 mg PO DAILY [facility] Last Admin: 09/14/21 07:37 Dose: 1 mg Documented By: ERI Heparin Sodium (Porcine) (Heparin Sodium,Porcine 5,000 Unit/Ml Vial) 5,000 unit SUBCUT Q12H [facility] Last Admin: 09/14/21 03:45 Dose: 5,000 unit Documented By: CASTILM Lactated Ringer's (Lr) 1,000 mls @ 100 mls/hr IVCONT .Q10H [facility] Last Admin: 09/14/21 09:51 Dose: 100 mls/hr Documented By: ERI Meclizine HCl (Meclizine Hcl 12.5 Mg Tablet) 12.5 mg PO TID PRN PRN Reason: Dizziness Metoprolol Succinate (Metoprolol Succinate Er 25 Mg Tab.Er.24h) 25 mg PO BEDTIME [facility]; Protocol Last Admin: 09/13/21 22:21 Dose: Not Given Documented By: LORENZO Non-Admin Reason: Physician Held Med Nystatin (Nystatin Powder 15 Gm Bottle) 1 appl TOPICAL BID [facility]; Protocol Omeprazole (Omeprazole 20 Mg Capsule.Dr) 20 mg PO DAILY@0630 [facility] Last Admin: 09/14/21 05:43 Dose: 20 mg Documented By: CASTELIEZER Ondansetron HCl (Ondansetron Odt 4 Mg Tab.Rapdis) 4 mg TRANSLINGU Q6H PRN PRN Reason: Nausea Polyethylene Glycol (Polyethylene Glycol 3350 17 Gm Powd.Pack) 17 gm PO DAILY [facility] Last Admin: 09/14/21 07:37 Dose: Not Given Documented By: ERI Non-Admin Reason: Patient Refused Sodium Bicarbonate (Sodium Bicarbonate 650 Mg Tablet) 650 mg PO BID [facility] Last Admin: 09/14/21 07:36 Dose: 650 mg Documented By: ERI Sodium Chloride (0.9 % Sodium Chloride Flush 3 Ml Syringe) 3 ml IVFLUSH QSHIFT [facility] Last Admin: 09/14/21 07:37 Dose: Not Given Documented By: ERI Non-Admin Reason: IV Running Tiotropium [place] (Tiotropium [place] 18 Mcg Cap.W.Dev) 1 puff INHALE RDAILY [facility] Vitamin D (Cholecalciferol (Vitamin D3) 10 Mcg Tablet) 10 mcg PO DAILY [facility] Last Admin: 09/14/21 07:37 Dose: 10 mcg Documented By: ERI Labs CBC & Chem 7: 09/14/21 05:54 09/14/21 09:07 Labs: Laboratory Results - last 24 hr 09/13/21 09/14/21 09/14/21 13:51 05:54 09:07 MCV 93.4 MCH 29.4 MCHC 31.5 RDW 17.1 H Plt Count TNP MPV Not Reportable Absolute Nucleated RBC 0.000 Nucleated RBC % (auto) 0.0 VBG pH VBG pCO2 VBG pO2 VBG HCO3 VBG O2 Saturation VBG Base Excess Anion Gap 10 L Estim Creat Clear Calc 28.3 Estimated GFR 30 Random Glucose 101 Lactic Acid F/U @ 2Hr 1.4 Calcium 8.3 L D 09/14/21 09:14 MCV MCH MCHC RDW Plt Count MPV Absolute Nucleated RBC Nucleated RBC % (auto) VBG pH 7.39 VBG pCO2 27 VBG pO2 43 VBG HCO3 17 L VBG O2 Saturation 71.0 VBG Base Excess -6.5 Anion Gap Estim Creat Clear Calc Estimated GFR Random Glucose Lactic Acid F/U @ 2Hr Calcium Microbiology Microbiology Results: Microbiology 09/13/21 10:57 Blood Culture - Preliminary Blood - Venous No growth after 24 hours. 09/13/21 09:50 Blood Culture - Preliminary Blood - Venous No growth after 24 hours. 09/13/21 Unknown Urine Culture - Final Urine clean catch - Urine bhatia top Assessment and Plan (1) Chronic bacteriuria: Status: Acute (2) Abdominal aortic aneurysm (AAA) without rupture: Status: Acute (3) Diarrhea: Status: Acute Plan 85-year-old female with a past medical history of CKD, COPD on home oxygen at night, CAD, obstructive uropathy-status post bilateral ureteral stents, has chronic Kevin catheter, recurrent UTI-growing ESBL Klebsiella in past , Enterococcus during the recent admission; abdominal aortic aneurysm status post repair, anemia, obesity,? recent hospitalization for colitis and now coming back with diarrhea leading to hypotension. Diarrhea -- Repeat CT of abdomen: Colonic diverticulosis. Improvement of prior inflammatory changes along the sigmoid colon. No current bowel wall thickening or inflammation. ? recent C dif has been negative, but will repeat cdiff pendin, IV fluid. #UTI: recrrent UTI--was recently treated for UTI again, culture was negative, she chronic bacteruria from chronic Kevin.. Change kevin if not done recently #Lactic acidosis:? due to diarrhea and chronic renal failure, this is not due to sepsis #Hyptension--NOT due to sepsis, rather due to volume loss/dehydration from diarrhea - IV fluid #Abdominal aortic aneurysm: Was evaluated by Dr. Castillo during last hospitalization and does not need intervention? #Elevated troponins:?? type 2, no chest pain, chronic elevated due to CKD and is stable. #Anemia of chronic disrase?? H/H within her baseline #Chronic kidney disease:?? stable #Metabolic acidosis: In the setting of CKD and diarrahe -improved with Bicab replacement. Increased bilateral lung basilar opacities favoring atelectasis.: incentive aayush and chest physio. DVT prophylaxis:? Subcu heparin Pt eval: str inpatient stay: diarrhae,boderline blood pressure requires ivf. Quality Stroke Does the patient have a stroke diagnosis?: No VTE Prior VTE?: No VTE Risk Level:: Medical - moderate - high VTE Device Contraindication: Treatment Not Indicated VTE Drug Contraindication: N/A - Med Ordered
[2021-09-14] MEDS: Potassium Chloride Packet 20 MEQ PACKET 40 MEQ PO (14:44)
[2021-09-14 15:04] LABS: Leukocytes Stool Qualitative NEGATIVE (NEGATIVE)
[2021-09-14 16:00] LABS: Magnesium 1.4 mg/dL (1.6-2.6)
[2021-09-14] MEDS: Magnesium Sulfate/D5W 1 GM/100 ML PIGGYBACK IV (16:48)
[2021-09-14] MEDS: 0.9 % Sodium Chloride Flush 3 ML SYRINGE IVFLUSH (16:49)
[2021-09-14] MEDS: Magnesium Oxide 400 MG TABLET PO (16:49)
[2021-09-14 18:33] LABS: CDiff Gene PCR NEGATIVE (Negative)
[2021-09-14] MEDS: Atorvastatin Calcium 40 MG TABLET PO (19:51)
[2021-09-14] MEDS: Nystatin Powder 15 GM BOTTLE 1 APPL TOPICAL (22:39)
[2021-09-15] VITALS (7 sets, daily range): BP systolic 99–121; BP diastolic 50–58; PULSE 61–78; RESP 16–20; TEMP 36–37.3; O2SAT 92–96
[2021-09-15] MEDS: 0.9 % Sodium Chloride Flush 3 ML SYRINGE IVFLUSH (01:14)
[2021-09-15] MEDS: Heparin Sodium,Porcine 5,000 UNIT/ML VIAL 5000 UNIT SUBCUT ×2 (03:44→15:29)
[2021-09-15] MEDS: Lactated Ringers 1,000 ML 1000 ML IVCONT ×2 (03:45→04:50)
[2021-09-15] MEDS: Omeprazole 20 MG CAPSULE.DR PO (05:12)
[2021-09-15 06:36] LABS: Hematocrit 26.1 % (37.0-47.0); Hemoglobin 8.1 g/dl (12.0-16.0)
[2021-09-15 07:17] LABS: Anion Gap 11 (12-20); Blood Urea Nitrogen 12 mg/dL (9-16); Calcium 8.2 mg/dL (8.4-10.2); Carbon Dioxide 21 mmol/L (22-29); Chloride 115 mmol/L (96-108); Creatinine Clr Calc Pharmacy 30.6; Estimated Glomerular Filt Rate 33; Glucose Random 83 mg/dL (60-115); Potassium 3.9 mmol/L (3.3-5.1); Sodium 143 mmol/L (135-145)
--- NOTE | 2021-09-15 07:33 | P.CDIC_ITS ---
CDI Concurrent Query Documentation Clarification: PHYSICIAN'S DOCUMENTATION REQUEST Date of Query: 09/15/21 0733 Patient Name: Portia Appiah Admit Date: 09/13/21 Dear Doctor, A review of the medical record indicates additional documentation may be needed. Please review below and update the documentation accordingly Risk Factors/Clinical Indicators/Treatments Nursing notes height and weight: 09/14 - BMI 41.5 5' 2 in height. Extreme obesity Class III. If possible, please provide an associated diagnosis related to the abnormal BMI, such as: For a BMI >= 40: * Overweight * Obesity * Due to excess calories * Drug induced * Due to other cause * Severe or Morbid Obesity * With alveolar hypoventilation * Without alveolar hypoventilation Or: * BMI is not significant * Other (please specify) * Unable to determine Use of terms such as suspected, likely, concern for, or probable (associated with a specific diagnosis that is being evaluated, monitored, or treated as if it exists) are acceptable and can be coded in the inpatient setting, when documented at the time of discharge. Thank you, Richelle Oliveira [facility], CDIS Extension: [phone] Please use your independent medical judgment in providing your response. THIS QUERY IS PART OF THE PERMANENT MEDICAL RECORD Provider Response: Other Other Diagnosis: morbid obese
--- NOTE | 2021-09-15 07:37 | MHC.CDI.CONC ---
CDI Concurrent Query Documentation Clarification: PHYSICIAN'S DOCUMENTATION REQUEST Date of Query: 09/15/21 0737 Patient Name: Portia Appiah Admit Date: 09/13/21 Dear Doctor, A review of the medical record indicates additional documentation may be indicated. Please review below and update the documentation accordingly. Clinical Indicators: Risk Factors/Clinical Indicators/Treatments Clinical nutrition notes 09/10 - Pressure injury Stage II bilateral buttocks. Ensure to promote healing. Wound care - Foam dressing, dry. Based on the above, could you please provide, in the Progress Notes, further information regarding the ulcer/wound: If a pressure ulcer, please also include the stage* of the ulcer: Stage 1 - Skin intact, non-blanchable redness Stage 2 - Partial thickness loss of dermis, includes intact or open blister Stage 3 - Full thickness tissue not including bone, tendon, or muscle Unable to determine *Source: National Pressure Ulcer Advisory Panel (NPUAP) Use of terms such as suspected, likely, concern for, or probable (associated with a specific diagnosis that is being evaluated, monitored, or treated as if it exists) are acceptable and can be coded in the inpatient setting, when documented at the time of discharge. Thank you, Richelle Oliveira [facility], CDIS Extension: [phone] Please use your independent medical judgment in providing your response. THIS QUERY IS PART OF THE PERMANENT MEDICAL RECORD Provider Response: Other Other Diagnosis: buttock decubitus
[2021-09-15 09:33] LABS: Magnesium 1.6 mg/dL (1.6-2.6)
--- NOTE | 2021-09-15 09:53 | CONS_ITS ---
DATE OF SERVICE: 09/14/2021 REASON FOR CONSULTATION: I was asked to see patient to assist in evaluation and management of patient's renal dysfunction as reflected by creatinine 1.95 on admission in the setting of recurrent episodes of acute kidney injury on chronic kidney disease. Her labs this morning also showed hypokalemia with potassium 3.0. HISTORY OF PRESENT ILLNESS: In summary, the patient is an 85-year-old female with a history of stage 3B chronic kidney disease, baseline creatinine is 1.5 to 2.0 range along with home O2 dependent COPD; coronary artery disease; obstructive uropathy with bilateral stents in place, followed by Dr. Sung; ella Pedro with recurrent urinary tract infections along with also other chronic medical problems including status post aortic aneurysm repair in the past, anemia, and obesity, who presents to the hospital after having just been discharged to rehab on the 08 of September. She presents now with diarrhea, feeling lightheaded, and general malaise. Previous hospitalization was again for diarrhea, colitis, urinary tract infection, and acute kidney injury. She actually went home on the 12 of September, feeling very good and now readmitted to the hospital yesterday feeling very unwell with diarrhea and feeling washed out. PAST MEDICAL HISTORY: As mentioned above. MEDICATIONS: Her medications on admission are noted in the admitting notes include aspirin, Lipitor, meclizine, Protonix, Zofran, and Lopressor. Her current medications are noted in the MAR. ALLERGIES: SHE HAS NO KNOWN DRUG ALLERGIES. SOCIAL HISTORY: She is an ex-smoker. No alcohol or illicit drug use. PHYSICAL EXAMINATION: VITAL SIGNS: Blood pressure 108/50 with heart rate in the 90s. I's and O's from the computer show 4 L in and 800 cc out. HEENT: Mucous membranes are dry. LUNGS: Breath sounds are diminished in the bases. CARDIAC: Regular rate and rhythm. ABDOMEN: Soft. EXTREMITIES: Show trace edema. LABORATORY DATA: Show hemoglobin 8, hematocrit 25.4, and white blood cell count 4.9. Sodium 143, potassium 3, chloride 114, bicarb 22, BUN 15, creatinine 1.63, calcium 8.3, mag 1.4. On admission, her potassium was 3.8 and bicarb was 13. She had been receiving IV sodium bicarb overnight, now switched to LR. She had a CAT scan of the abdomen and pelvis without contrast, which showed bilateral ureteral stents, mild fullness of the right collecting system. There is a 0.3 cm calculus in the lower pole of the left kidney. IMPRESSION: AN 85-YEAR-OLD READMITTED TO THE HOSPITAL WITH DIARRHEA AND DEHYDRATION. 1. Stage 3B chronic kidney disease. Creatinine ranged 1.5 to 2.5, seems to be volume dependent. Renal function is now relatively stable. 2. Hypokalemia. This is due to ongoing diarrheal losses along with probably secondary hyperaldosteronism from decreased intravascular volume and increased aldosterone production. She is getting replaced. 3. Recurrent episodes of depressed serum bicarb. This is due to her diarrheal losses requiring continuous bicarb replacement and she should be maintained on some oral sodium bicarb. She responded well to the IV sodium bicarb overnight. 4. Anemia. She may be candidate for iron and/or EPO. We will check iron studies. 5. Ongoing diarrhea. She is getting further evaluation. 6. Obstructive uropathy with status post bilateral ureteral stents. She is followed by Dr. Sung. SUGGESTIONS: Start complete replacement of potassium. Replace magnesium. Continue oral sodium bicarb. Check iron studies. We will see about starting her on Procrit. Avoid nephrotoxins. We will follow the patient closely with the team. MD MARYJANE Askew/GABBY / [phone]
[2021-09-15] MEDS: Acetaminophen 325 MG TABLET 650 MG PO (10:10)
[2021-09-15] MEDS: Aspirin Enteric Coated 81 MG TABLET.DR PO (10:10)
[2021-09-15] MEDS: Magnesium Oxide 400 MG TABLET PO (10:10)
[2021-09-15] MEDS: Folic Acid 1 MG TABLET PO (10:11)
[2021-09-15] MEDS: Cholecalciferol (Vitamin D3) 10 MCG TABLET PO (10:11)
[2021-09-15] MEDS: Sodium Bicarbonate 650 MG TABLET PO ×2 (10:11→21:47)
[2021-09-15] MEDS: Nystatin Powder 15 GM BOTTLE 1 APPL TOPICAL ×2 (10:12→21:47)
[2021-09-15 10:54] LABS: Adenovirus F 40/41 Not Detected (Not Detect.); Astrovirus Not Detected (Not Detect.); Campylobacter Not Detected (Not Detect.); Cryptosporidium Not Detected (Not Detect.); Cyclospora cayetanensis Not Detected (Not Detect.); E. coli EAEC Not Detected (Not Detect.); E. coli EPEC Not Detected (Not Detect.); E. coli ETEC Not Detected (Not Detect.); E. coli STEC Not Detected (Not Detect.); Entamoeba histolytica Not Detected (Not Detect.); Giardia lamblia Not Detected (Not Detect.); Norovirus GI/GII Not Detected (Not Detect.); Plesiomonas shigelloides Not Detected (Not Detect.); Salmonella Not Detected (Not Detect.); Shigella sp./EIEC Not Detected (Not Detect.); Vibrio Not Detected (Not Detect.); Vibrio Cholerae Not Detected (Not Detect.); Yersinia enterocolitica Not Detected (Not Detect.)
[2021-09-15 10:55] LABS: Rotavirus A Not Detected (Not Detect.); Sapovirus Not Detected (Not Detect.)
--- NOTE | 2021-09-15 14:21 | P.PNIM_ITS ---
Subjective Subjective Date of Service: 09/15/21 Interval History: Borderline blood pressure, diarrhea, buttock decubtii Review of Systems still had episodes of diarrhea last night, oral intake is poor no fever or chills or nausea or vomiting or abdominal pain. Physical Exam Vital Signs: Vital Signs: Last Vital Signs Temp 98.4 F 09/15/21 11:21 Pulse 61 09/15/21 11:21 Resp 16 09/15/21 11:21 BP 107/52 L 09/15/21 11:21 Pulse Ox 93 09/15/21 11:21 O2 Del Method 09/15/21 11:21 O2 Flow Rate 2 09/15/21 03:44 BMI result Body Mass Index 41.5 General: AO X 3, no acute distress Resp:? CTA bilateral CVS: S1,S2,RRR GI: +BS, NT, no distention Skin: No rash Neuro:? motor grossly intact Psych: appropriate affect Objective Data Active Medications Acetaminophen (Acetaminophen 325 Mg Tablet) 650 mg PO Q6H PRN PRN Reason: Pain, Mild (Pain Scale 1-3) Acetaminophen (Acetaminophen 325 Mg Tablet) 650 mg PO DAILY [facility] Last Admin: 09/15/21 10:10 Dose: 650 mg Documented By: JORGE Albuterol Sulfate (Albuterol Sulfate 90 Mcg 18 Gm Inhaler) 2 puff INHALE Q4H PRN PRN Reason: Wheezing Last Admin: 09/15/21 09:38 Dose: 2 puff Documented By: BROOKE Aspirin (Aspirin Enteric Coated 81 Mg Tablet.) 81 mg PO DAILY [facility] Last Admin: 09/15/21 10:10 Dose: 81 mg Documented By: JORGE Atorvastatin Calcium (Atorvastatin Calcium 40 Mg Tablet) 40 mg PO BEDTIME [facility] Last Admin: 09/14/21 19:51 Dose: 40 mg Documented By: LIO Folic Acid (Folic Acid 1 Mg Tablet) 1 mg PO DAILY [facility] Last Admin: 09/15/21 10:11 Dose: 1 mg Documented By: JORGE Heparin Sodium (Porcine) (Heparin Sodium,Porcine 5,000 Unit/Ml Vial) 5,000 unit SUBCUT Q12H [facility] Last Admin: 09/15/21 03:44 Dose: 5,000 unit Documented By: LIO Lactated Ringer's (Lr) 1,000 mls @ 100 mls/hr IVCONT .Q10H [facility] Last Infusion: 09/15/21 05:53 Dose: 0 mls/hr Documented By: LIO Magnesium Oxide (Magnesium Oxide 400 Mg Tablet) 400 mg PO BIDPC [facility] Last Admin: 09/15/21 10:10 Dose: 400 mg Documented By: JORGE Meclizine HCl (Meclizine Hcl 12.5 Mg Tablet) 12.5 mg PO TID PRN PRN Reason: Dizziness Metoprolol Succinate (Metoprolol Succinate Er 25 Mg Tab.Er.24h) 25 mg PO BEDTIME [facility]; Protocol Last Admin: 09/13/21 22:21 Dose: Not Given Documented By: LORENZO Non-Admin Reason: Physician Held Med Nystatin (Nystatin Powder 15 Gm Bottle) 1 appl TOPICAL BID [facility]; Protocol Last Admin: 09/15/21 10:12 Dose: 1 appl Documented By: JORGE Omeprazole (Omeprazole 20 Mg Capsule.Dr) 20 mg PO DAILY@0630 [facility] Last Admin: 09/15/21 05:12 Dose: 20 mg Documented By: LIO Ondansetron HCl (Ondansetron Odt 4 Mg Tab.Rapdis) 4 mg TRANSLINGU Q6H PRN PRN Reason: Nausea Polyethylene Glycol (Polyethylene Glycol 3350 17 Gm Powd.Pack) 17 gm PO DAILY [facility] Last Admin: 09/15/21 10:11 Dose: Not Given Documented By: JORGE Non-Admin Reason: pt reports diarrhea Sodium Bicarbonate (Sodium Bicarbonate 650 Mg Tablet) 650 mg PO BID [facility] Last Admin: 09/15/21 10:11 Dose: 650 mg Documented By: JORGE Sodium Chloride (0.9 % Sodium Chloride Flush 3 Ml Syringe) 3 ml IVFLUSH QSHIFT [facility] Last Admin: 09/15/21 10:11 Dose: Not Given Documented By: JORGE Non-Admin Reason: IV Running Tiotropium [place] (Tiotropium [place] 18 Mcg Cap.W.Dev) 1 puff INHALE RDAILY [facility] Last Admin: 09/15/21 09:46 Dose: Not Given Documented By: BROOKE Non-Admin Reason: Patient Refused Vitamin D (Cholecalciferol (Vitamin D3) 10 Mcg Tablet) 10 mcg PO DAILY [facility] Last Admin: 09/15/21 10:11 Dose: 10 mcg Documented By: JORGE Labs CBC & Chem 7: 09/15/21 05:23 09/15/21 05:23 Labs: Laboratory Results - last 24 hr 09/14/21 09/14/21 09/14/21 09:07 13:17 13:17 Anion Gap Estim Creat Clear Calc Estimated GFR Random Glucose Calcium Magnesium 1.4 L* Stool Leukocytes, Qual NEGATIVE Stl C. cayetanensis PCR Not Detected Stool Rotavirus A PCR Not Detected Stl Adenov F 40/41 PCR Not Detected Stool Astrovirus (PCR) Not Detected Stool Campylobacter PCR Not Detected Stool Cryptosporidium PCR Not Detected Stl Sh Tox Pr E STEC PCR Not Detected Stool E coli O157 PCR Not applicable Stl Enterotoxigenic E PCR Not Detected Stool EPEC (PCR) Not Detected Stool EAEC (PCR) Not Detected Stl E. histolytica PCR Not Detected Stool Giardia Lamblia PCR Not Detected Stl P. shigelloides PCR Not Detected Stool Salmonella PCR Not Detected Stool Sapovirus (PCR) Not Detected Stl Shigella/EIEC PCR Not Detected St Y.enterocolitica PCR Not Detected Stool Vibrio (PCR) Not Detected Stl Vibrio cholerae PCR Not Detected Stl Norovirus GI/GII PCR Not Detected C. difficile Tox B Gene 09/14/21 09/15/21 13:22 05:23 Anion Gap 11 L Estim Creat Clear Calc 30.6 Estimated GFR 33 Random Glucose 83 Calcium 8.2 L Magnesium 1.6 Stool Leukocytes, Qual Stl C. cayetanensis PCR Stool Rotavirus A PCR Stl Adenov F 40/41 PCR Stool Astrovirus (PCR) Stool Campylobacter PCR Stool Cryptosporidium PCR Stl Sh Tox Pr E STEC PCR Stool E coli O157 PCR Stl Enterotoxigenic E PCR Stool EPEC (PCR) Stool EAEC (PCR) Stl E. histolytica PCR Stool Giardia Lamblia PCR Stl P. shigelloides PCR Stool Salmonella PCR Stool Sapovirus (PCR) Stl Shigella/EIEC PCR St Y.enterocolitica PCR Stool Vibrio (PCR) Stl Vibrio cholerae PCR Stl Norovirus GI/GII PCR C. difficile Tox B Gene NEGATIVE Microbiology Microbiology Results: Microbiology 09/13/21 10:57 Blood Culture - Preliminary Blood - Venous No growth after 48 hours. 09/13/21 09:50 Blood Culture - Preliminary Blood - Venous No growth after 48 hours. Assessment and Plan (1) Acute hypotension: Status: Acute (2) Diarrhea: Status: Acute Plan 85-year-old female with a past medical history of CKD, COPD on home oxygen at night, CAD, obstructive uropathy-status post bilateral ureteral stents, has chronic Pedro catheter, recurrent UTI-growing ESBL Klebsiella in past , Enterococcus during the recent admission; abdominal aortic aneurysm status post repair, anemia, obesity,? recent hospitalization for colitis and now coming back with diarrhea leading to hypotension. Diarrhea -- Repeat CT of abdomen: ?Colonic diverticulosis. Improvement of prior inflammatory changes along the sigmoid colon. No current bowel wall thickening or inflammation. recent C dif has been negative, but will repeat cdiff -neg,? IV fluid. #UTI: recrrent UTI--was recently treated for UTI again, culture was negative, she chronic bacteruria from chronic Pedro. #Lactic acidosis:? due to diarrhea and chronic renal failure, this is not due to sepsis #Hyptension--NOT due to sepsis, rather due to volume loss/dehydration from diarrhea - IV fluid #Abdominal aortic aneurysm: Was evaluated by Dr. Castillo during last hospitalization and does not need intervention? #Elevated troponins:?? type 2, no chest pain, chronic elevated due to CKD and is stable. #Anemia of chronic disease?? H/H within her baseline #Chronic kidney disease:?? stable #Metabolic acidosis: In the setting of CKD and diarrahe -improved with Bicab replacement. Increased bilateral lung basilar opacities favoring atelectasis.: incentive aayush and chest physio. buttock decubtii:wound care and nutrition consult. morbid obesity: encouraged to cut down calories and weight loss. DVT prophylaxis:? Subcu heparin Pt eval: str inpatient stay: diarrhae,boderline blood pressure requires ivf. Quality Stroke Does the patient have a stroke diagnosis?: No VTE Prior VTE?: No VTE Risk Level:: Medical - moderate - high VTE Device Contraindication: Treatment Not Indicated VTE Drug Contraindication: N/A - Med Ordered
--- NOTE | 2021-09-15 14:48 | MHC.CLN ---
Addendum entered by Clara Wang, AMILCAR 09/15/21 14:51: CURRENT INTAKE SHOWS 75-100% AT MEALS. Original Note: NUTRITION CONSULT CONSULT FOR DECUBITI. PER ASSESSMENTS, NO CURRENT OPEN AREAS NOTED. PRIOR ADMISSION NOTES STAGE II PRESSURE INJURY TO BILATERAL BUTTOCKS. POOR ORAL INTAKE NOTED. PER PRIOR ADMISSION, PATIENT DOES NOT WANT ENSURE SUPPLEMENT. CONTINUE TO FOLLOW [facility].
[2021-09-15] MEDS: Lactated Ringers 1,000 ML 100 ML IVCONT (15:29)
--- NOTE | 2021-09-15 17:47 | PM.PNNEP ---
Subjective Subjective Date of Service: 09/15/21 Interval history: Seen and examined, events noted Physical Exam Vital Signs: Vital Signs: Last Vital Signs Temp 97.8 F 09/15/21 15:28 Pulse 70 09/15/21 15:28 Resp 20 09/15/21 15:28 BP 104/50 L 09/15/21 15:28 Pulse Ox 92 09/15/21 15:28 O2 Del Method 09/15/21 15:28 O2 Flow Rate 2 09/15/21 03:44 BMI result Body Mass Index 41.5 Const: Other: Constitutional: Alert, in no distress, Mental Status: Oriented to person, place and time. Eyes: Pupils are equal, round and reactive to light. Ear, Nose and Throat: Oropharynx clear, mucous membranes moist Respiratory: Clear to auscultation. No wheezing, rales or rhonchi. Cardiovascular: S1 S2 regular. No murmurs, rubs or gallops. Gastrointestinal: Abdomen soft, non-tender, non-distended. Normal bowel sounds.? Neurologic: Cranial nerves II-XII grossly intact. No focal neurological deficits. Moves all extremities spontaneously.? Skin: No rashes or lesions.? Musculoskeletal: No cyanosis or clubbing. Psychiatric: Normal mood and affect? General: cooperative and no acute distress Orientation/consciousness: patient oriented x3 Limitations: no limitations HEENT: Head: Yes normal to inspection and Yes atraumatic Ears: hearing grossly normal bilaterally General nose exam: Normal external nose present Face and sinus: Yes normal facial exam Eyes: General: appearance normal, both eyes and all related structures EOM: EOMs intact bilaterally Neck: Neck: Yes normal visual inspection and Yes no meningeal signs Resp: Effort & Inspection: normal respiratory effort and no respiratory distress Auscultation: clear to auscultation bilaterally, no rales, no rhonchi, no wheezes and diminished lung sounds bilateral (mildly) in the lower lung mcneal Cardio: Rate: regular rate Heart sounds: S1 normal heart sound present and S2 normal heart sound present GI: Inspection: Yes normal to inspection Palpation (GI): Soft to palpation, nontender, no guarding and not rigid : General: Yes no CVA tenderness Back/Spine/Pelvis: Back: no CVA tenderness Skin: Rashes: no rashes Wounds: no wounds Neuro: General: patient oriented x3, tone normal and no meningeal signs Gait exam (Neuro): Normal gait present Extrem: General: Yes normal to inspection Objective Data Labs CBC & Chem 7: 09/15/21 05:23 09/15/21 05:23 Labs: Laboratory Results - last 24 hr 09/14/21 09/14/21 09/15/21 13:17 13:22 05:23 Hgb 8.1 L Hct 26.1 L Sodium Potassium Chloride Carbon Dioxide Anion Gap BUN Creatinine Estim Creat Clear Calc Estimated GFR Random Glucose Calcium Magnesium Stl C. cayetanensis PCR Not Detected Stool Rotavirus A PCR Not Detected Stl Adenov F 40/41 PCR Not Detected Stool Astrovirus (PCR) Not Detected Stool Campylobacter PCR Not Detected Stool Cryptosporidium PCR Not Detected Stl Sh Tox Pr E STEC PCR Not Detected Stool E coli O157 PCR Not applicable Stl Enterotoxigenic E PCR Not Detected Stool EPEC (PCR) Not Detected Stool EAEC (PCR) Not Detected Stl E. histolytica PCR Not Detected Stool Giardia Lamblia PCR Not Detected Stl P. shigelloides PCR Not Detected Stool Salmonella PCR Not Detected Stool Sapovirus (PCR) Not Detected Stl Shigella/EIEC PCR Not Detected St Y.enterocolitica PCR Not Detected Stool Vibrio (PCR) Not Detected Stl Vibrio cholerae PCR Not Detected Stl Norovirus GI/GII PCR Not Detected C. difficile Tox B Gene NEGATIVE 09/15/21 05:23 Hgb Hct Sodium 143 Potassium 3.9 D Chloride 115 H Carbon Dioxide 21 L Anion Gap 11 L BUN 12 Creatinine 1.51 H Estim Creat Clear Calc 30.6 Estimated GFR 33 Random Glucose 83 Calcium 8.2 L Magnesium 1.6 Stl C. cayetanensis PCR Stool Rotavirus A PCR Stl Adenov F 40/41 PCR Stool Astrovirus (PCR) Stool Campylobacter PCR Stool Cryptosporidium PCR Stl Sh Tox Pr E STEC PCR Stool E coli O157 PCR Stl Enterotoxigenic E PCR Stool EPEC (PCR) Stool EAEC (PCR) Stl E. histolytica PCR Stool Giardia Lamblia PCR Stl P. shigelloides PCR Stool Salmonella PCR Stool Sapovirus (PCR) Stl Shigella/EIEC PCR St Y.enterocolitica PCR Stool Vibrio (PCR) Stl Vibrio cholerae PCR Stl Norovirus GI/GII PCR C. difficile Tox B Gene Microbiology Microbiology Results: Microbiology 09/13/21 10:57 Blood - Venous Blood Culture - Preliminary No growth after 48 hours. 09/13/21 09:50 Blood - Venous Blood Culture - Preliminary No growth after 48 hours. 09/13/21 Unknown Urine clean catch - Urine bhatia top Urine Culture - Final Procedures Date of Service Date of Service: 09/15/21 Assessment & Plan Assessment and plan (1) Acute hypotension: Status: Acute (2) Diarrhea: Status: Acute Plan 1. Non-Oliguric GAURANG: resolving w IVF c/w renal hypoperfusion 2.CKD 3: BSL SCr 1.5-2.0 3. Anemia: multifact--ques Fe and /or EPO def REC: cont IVF; avoid NToxins; checkFe level Time Spent With Patient Time: Total time spent is greater than 50% in coordination of care (as documented) at patient's floor/unit and/or counseling patient: Progress Note: Quality Stroke Does the patient have a stroke diagnosis?: No
[2021-09-15] MEDS: Magnesium Oxide 400 MG TABLET 800 MG PO (19:00)
[2021-09-15] MEDS: Atorvastatin Calcium 40 MG TABLET PO (21:47)
--- NOTE | 2021-09-15 23:14 | P.CONWO_ITS ---
History of Present Illness Data of Consult Service Date: 09/15/21 Requesting physician: Brayden Viera Primary Care Provider: Aguilar Moreno MD HPI Reason for consult: buttock wound The pt is a 85 year old female who has had multiple med issues recently and was admitted with diarrhea. on 09/10 she was noted to have stage 2 buttock pressure injury wounds and covered with foam dressing. today wound care asked to evaluate. pt complains of the area being sore PMFSH Medical History Abdominal aortic aneurysm (AAA) without rupture Acute blood loss anemia Acute dehydration Acute kidney injury superimposed on CKD Acute UTI Atherosclerotic cardiovascular disease Chronic bacteriuria CKD (chronic kidney disease) stage 3, GFR 30-59 ml/min COPD (chronic obstructive pulmonary disease) Hydronephrosis concurrent with and due to calculi of kidney and ureter Kidney stone on right side Nocturnal hypoxemia Obesity Recurrent falls Restrictive lung disease Skin tear of hand without complication Smoker Family History Father No problems noted. Mother No problems noted. Social History Household Members: None Housing: House Housing Other:: SNF Do you presently have visiting nurse or other home services: Yes Alcohol intake: never Patient Tobacco Use Status: Current everyday Tobacco user Tobacco use type: Cigarette Cigarettes Per Day: 1 Second Hand Smoke Exposure: No Use of substances other than those prescribed or required for medical reasons: No Currently Displaying Signs/Symptoms of Drug Intoxication Withdrawal: No Have you been hit, kicked, punched, or otherwise hurt by someone within the past year? If so, by whom?: No Do you feel safe in your current relationship?: No Is there a partner from a previous relationship who is making you feel unsafe now?: No Are you made to feel afraid or neglected: No Advance Directives: No Advance Directives Information Provided: Yes Advance Directives Date on File: 07/21/21 Do you have thoughts of harming others: None Do you have a plan to hurt others: No Plan Recently lost weight without trying: No How much weight loss: Unsure Eating poorly because of decreased appetite: No Nutrition screen score: 2 Nutrition Risks: No Nutritional Risk Patient : No : No Poor oral hygiene: No service: No Current occupational status: retired Meds Allergies Allergy/AdvReac Type Severity Reaction Status Date / Time No Known Allergies Allergy Verified 05/17/21 10:30 [No Known Allergies*] Active Medications: Current Medications Acetaminophen (Acetaminophen 325 Mg Tablet) 650 mg PO Q6H PRN PRN Reason: Pain, Mild (Pain Scale 1-3) Acetaminophen (Acetaminophen 325 Mg Tablet) 650 mg PO DAILY [facility] Last Admin: 09/15/21 10:10 Dose: 650 mg Albuterol Sulfate (Albuterol Sulfate 90 Mcg 18 Gm Inhaler) 2 puff INHALE Q4H PRN PRN Reason: Wheezing Last Admin: 09/15/21 09:38 Dose: 2 puff Aspirin (Aspirin Enteric Coated 81 Mg Tablet.) 81 mg PO DAILY [facility] Last Admin: 09/15/21 10:10 Dose: 81 mg Atorvastatin Calcium (Atorvastatin Calcium 40 Mg Tablet) 40 mg PO BEDTIME [facility] Last Admin: 09/15/21 21:47 Dose: 40 mg Folic Acid (Folic Acid 1 Mg Tablet) 1 mg PO DAILY [facility] Last Admin: 09/15/21 10:11 Dose: 1 mg Heparin Sodium (Porcine) (Heparin Sodium,Porcine 5,000 Unit/Ml Vial) 5,000 unit SUBCUT Q12H [facility] Last Admin: 09/15/21 15:29 Dose: 5,000 unit Lactated Ringer's (Lr) 1,000 mls @ 100 mls/hr IVCONT .Q10H [facility] Last Admin: 09/15/21 15:29 Dose: 100 mls/hr Magnesium Oxide (Magnesium Oxide 400 Mg Tablet) 800 mg PO BIDPC [facility] Last Admin: 09/15/21 19:00 Dose: 800 mg Meclizine HCl (Meclizine Hcl 12.5 Mg Tablet) 12.5 mg PO TID PRN PRN Reason: Dizziness Metoprolol Succinate (Metoprolol Succinate Er 25 Mg Tab.Er.24h) 25 mg PO BEDTIME [facility]; Protocol Last Admin: 09/13/21 22:21 Dose: Not Given Nystatin (Nystatin Powder 15 Gm Bottle) 1 appl TOPICAL BID [facility]; Protocol Last Admin: 09/15/21 21:47 Dose: 1 appl Omeprazole (Omeprazole 20 Mg Capsule.) 20 mg PO DAILY@0630 [facility] Last Admin: 09/15/21 05:12 Dose: 20 mg Ondansetron HCl (Ondansetron Odt 4 Mg Tab.Rapdis) 4 mg TRANSLINGU Q6H PRN PRN Reason: Nausea Polyethylene Glycol (Polyethylene Glycol 3350 17 Gm Powd.Pack) 17 gm PO DAILY [facility] Last Admin: 09/15/21 10:11 Dose: Not Given Sodium Bicarbonate (Sodium Bicarbonate 650 Mg Tablet) 650 mg PO BID [facility] Last Admin: 09/15/21 21:47 Dose: 650 mg Sodium Chloride (0.9 % Sodium Chloride Flush 3 Ml Syringe) 3 ml IVFLUSH QSHIFT [facility] Last Admin: 09/15/21 21:47 Dose: Not Given Tiotropium [place] (Tiotropium [place] 18 Mcg Cap.W.Dev) 1 puff INHALE RDAILY [facility] Last Admin: 09/15/21 09:46 Dose: Not Given Vitamin D (Cholecalciferol (Vitamin D3) 10 Mcg Tablet) 10 mcg PO DAILY [facility] Last Admin: 09/15/21 10:11 Dose: 10 mcg Home Medications Medication Instructions Recorded Confirmed Last Taken Type cholecalciferol (vitamin D3) 10 10 mcg PO DAILY 04/16/20 09/13/21 09/12/21 History mcg (400 unit) capsule aspirin 81 mg tablet,delayed 81 mg PO DAILY 04/21/20 09/13/21 09/12/21 History release (Adult Low Dose Aspirin) acetaminophen 325 mg tablet 650 mg PO DAILY 07/20/21 09/13/21 09/08/21 History (Tylenol) atorvastatin 40 mg tablet 40 mg PO BEDTIME 07/20/21 09/13/21 09/12/21 History meclizine 12.5 mg tablet 12.5 mg PO TID PRN Dizziness 07/20/21 09/13/21 08/06/21 History pantoprazole 40 mg tablet,delayed 40 mg PO DAILY 07/20/21 09/13/21 09/12/21 History release (Protonix) polyethylene glycol 3350 17 17 g PO DAILY 07/20/21 09/13/21 09/08/21 History gram/dose oral powder (Miralax) albuterol 90 mcg/actuation aerosol 180 mcg inhalation Q4H PRN Wheezing 08/06/21 09/13/21 Unknown History inhaler ondansetron 4 mg disintegrating 4 mg PO Q6H PRN Nausea 08/06/21 09/13/21 08/16/21 History tablet metoprolol succinate 25 mg 1 tab PO BEDTIME 09/09/21 09/13/21 09/12/21 History tablet,extended release 24 hr Physical Exam Vital Signs and Narrative: Vital Signs: Last Vital Signs Temp 99.2 F 09/15/21 19:23 Pulse 74 09/15/21 19:23 Resp 20 09/15/21 19:23 BP 99/54 L 09/15/21 19:23 Pulse Ox 93 09/15/21 19:23 O2 Del Method 09/15/21 19:23 O2 Flow Rate 2 09/15/21 03:44 BMI result Body Mass Index 41.5 Skin: Other: buttock area covered with zinc oxide cream but there is an area with some mild skin color change and tender to palpation - no firm mass noted and no skin breakdown noted. Results Labs CBC and Chem 7: 09/15/21 05:23 09/15/21 05:23 Labs: Laboratory Results - last 24 hr 09/14/21 09/15/21 13:17 05:23 Anion Gap 11 L Estim Creat Clear Calc 30.6 Estimated GFR 33 Random Glucose 83 Calcium 8.2 L Magnesium 1.6 Stl C. cayetanensis PCR Not Detected Stool Rotavirus A PCR Not Detected Stl Adenov F 40/41 PCR Not Detected Stool Astrovirus (PCR) Not Detected Stool Campylobacter PCR Not Detected Stool Cryptosporidium PCR Not Detected Stl Sh Tox Pr E STEC PCR Not Detected Stool E coli O157 PCR Not applicable Stl Enterotoxigenic E PCR Not Detected Stool EPEC (PCR) Not Detected Stool EAEC (PCR) Not Detected Stl E. histolytica PCR Not Detected Stool Giardia Lamblia PCR Not Detected Stl P. shigelloides PCR Not Detected Stool Salmonella PCR Not Detected Stool Sapovirus (PCR) Not Detected Stl Shigella/EIEC PCR Not Detected St Y.enterocolitica PCR Not Detected Stool Vibrio (PCR) Not Detected Stl Vibrio cholerae PCR Not Detected Stl Norovirus GI/GII PCR Not Detected Assessment and Plan (1) Pressure injury of buttock, stage 1: Status: Acute Plan stage 1 pressure injury - mild - looks probably better than before - area is sore but not sure why other than skin breakdown maybe a little. recommend cont with zinc oxide and repostion patient often. she is able to move herself sufficiently consider covering with foam dressing and shay qod.
[2021-09-16] VITALS (12 sets, daily range): BP systolic 96–127; BP diastolic 48–60; PULSE 65–92; RESP 12–20; TEMP 36.1–37.2; O2SAT 92–100
[2021-09-16] MEDS: Lactated Ringers 1,000 ML 100 ML IVCONT (01:00)
[2021-09-16] MEDS: Heparin Sodium,Porcine 5,000 UNIT/ML VIAL 5000 UNIT SUBCUT ×2 (03:40→16:20)
[2021-09-16] MEDS: Omeprazole 20 MG CAPSULE.DR PO (05:57)
[2021-09-16] MEDS: guaiFENesin 100 MG/5 ML LIQUID PO ×3 (11:13→20:19)
[2021-09-16] MEDS: Magnesium Oxide 400 MG TABLET 800 MG PO ×2 (11:13→16:19)
[2021-09-16] MEDS: Acetaminophen 325 MG TABLET 650 MG PO ×2 (11:13→20:29)
[2021-09-16] MEDS: Sodium Bicarbonate 650 MG TABLET PO ×2 (11:14→20:20)
[2021-09-16] MEDS: Cholecalciferol (Vitamin D3) 10 MCG TABLET PO (11:14)
[2021-09-16] MEDS: Aspirin Enteric Coated 81 MG TABLET.DR PO (11:14)
[2021-09-16] MEDS: Folic Acid 1 MG TABLET PO (11:14)
[2021-09-16] MEDS: Nystatin Powder 15 GM BOTTLE 1 APPL TOPICAL ×2 (11:14→20:20)
[2021-09-16] MEDS: Albuterol/Iprat 2.5/0.5MG 3 ML AMPUL.NEB INHALE ×3 (11:41→20:08)
--- NOTE | 2021-09-16 13:10 | HO.PM.IMPN ---
Subjective Subjective Date of Service: 09/16/21 Interval History: cough, congestion ,soar throat , generalised weak. Review of Systems diarrhea somewhat better, but has above symptoms. Physical Exam Vital Signs: Vital Signs: Last Vital Signs Temp 97.9 F 09/16/21 11:37 Pulse 72 09/16/21 11:38 Resp 18 09/16/21 11:38 BP 120/58 L 09/16/21 11:37 Pulse Ox 100 09/16/21 11:37 O2 Del Method 09/16/21 11:37 O2 Flow Rate 2 09/16/21 11:37 BMI result Body Mass Index 41.5 General: AO X 3, no acute distress Resp:? CTA bilateral CVS: S1,S2,RRR GI: +BS, NT, no distention Skin: No rash Neuro:? motor grossly intact Psych: appropriate affect Objective Data Active Medications Acetaminophen (Acetaminophen 325 Mg Tablet) 650 mg PO Q6H PRN PRN Reason: Pain, Mild (Pain Scale 1-3) Acetaminophen (Acetaminophen 325 Mg Tablet) 650 mg PO DAILY [facility] Last Admin: 09/16/21 11:13 Dose: 650 mg Documented By: TREY Albuterol Sulfate (Albuterol Sulfate 90 Mcg 18 Gm Inhaler) 2 puff INHALE Q4H PRN PRN Reason: Wheezing Last Admin: 09/15/21 09:38 Dose: 2 puff Documented By: BROOKE Albuterol/Ipratropium (Albuterol/Iprat 2.5/0.5mg 3 Ml Ampul.Neb) 3 ml INHALE RQ4H WHILE AWAKE [facility] Last Admin: 09/16/21 11:41 Dose: 3 ml Documented By: DIANA Aspirin (Aspirin Enteric Coated 81 Mg Tablet.Dr) 81 mg PO DAILY [facility] Last Admin: 09/16/21 11:14 Dose: 81 mg Documented By: TREY Atorvastatin Calcium (Atorvastatin Calcium 40 Mg Tablet) 40 mg PO BEDTIME [facility] Last Admin: 09/15/21 21:47 Dose: 40 mg Documented By: RACHEL Folic Acid (Folic Acid 1 Mg Tablet) 1 mg PO DAILY [facility] Last Admin: 09/16/21 11:14 Dose: 1 mg Documented By: TREY Guaifenesin (Guaifenesin 100 Mg/5 Ml Liquid) 5 ml PO Q6H [facility] Last Admin: 09/16/21 11:13 Dose: 5 ml Documented By: TREY Heparin Sodium (Porcine) (Heparin Sodium,Porcine 5,000 Unit/Ml Vial) 5,000 unit SUBCUT Q12H [facility] Last Admin: 09/16/21 03:40 Dose: 5,000 unit Documented By: RACHEL Magnesium Oxide (Magnesium Oxide 400 Mg Tablet) 800 mg PO BIDPC [facility] Last Admin: 09/16/21 11:13 Dose: 800 mg Documented By: RTEY Meclizine HCl (Meclizine Hcl 12.5 Mg Tablet) 12.5 mg PO TID PRN PRN Reason: Dizziness Metoprolol Succinate (Metoprolol Succinate Er 25 Mg Tab.Er.24h) 25 mg PO BEDTIME [facility]; Protocol Last Admin: 09/13/21 22:21 Dose: Not Given Documented By: LORENZO Non-Admin Reason: Physician Held Med Nystatin (Nystatin Powder 15 Gm Bottle) 1 appl TOPICAL BID [facility]; Protocol Last Admin: 09/16/21 11:14 Dose: 1 appl Documented By: TREY Omeprazole (Omeprazole 20 Mg Capsule.Dr) 20 mg PO DAILY@0630 [facility] Last Admin: 09/16/21 05:57 Dose: 20 mg Documented By: RACHEL Ondansetron HCl (Ondansetron Odt 4 Mg Tab.Rapdis) 4 mg TRANSLINGU Q6H PRN PRN Reason: Nausea Polyethylene Glycol (Polyethylene Glycol 3350 17 Gm Powd.Pack) 17 gm PO DAILY [facility] Last Admin: 09/16/21 11:17 Dose: Not Given Documented By: TREY Non-Admin Reason: Diarrhea other day Sodium Bicarbonate (Sodium Bicarbonate 650 Mg Tablet) 650 mg PO BID [facility] Last Admin: 09/16/21 11:14 Dose: 650 mg Documented By: TREY Sodium Chloride (0.9 % Sodium Chloride Flush 3 Ml Syringe) 3 ml IVFLUSH QSHIFT [facility] Last Admin: 09/16/21 10:43 Dose: Not Given Documented By: TREY Non-Admin Reason: IV Running Tiotropium [place] (Tiotropium [place] 18 Mcg Cap.W.Dev) 1 puff INHALE RDAILY [facility] Last Admin: 09/16/21 07:56 Dose: 1 puff Documented By: DIANA Vitamin D (Cholecalciferol (Vitamin D3) 10 Mcg Tablet) 10 mcg PO DAILY [facility] Last Admin: 09/16/21 11:14 Dose: 10 mcg Documented By: TREY Labs CBC & Chem 7: 09/15/21 05:23 09/15/21 05:23 Microbiology Microbiology Results: Microbiology 09/13/21 10:57 Blood Culture - Preliminary Blood - Venous No growth after 48 hours. 09/13/21 09:50 Blood Culture - Preliminary Blood - Venous No growth after 48 hours. Assessment and Plan (1) Acute hypotension: Status: Acute (2) Diarrhea: Status: Acute Plan 85-year-old female with a past medical history of CKD, COPD on home oxygen at night, CAD, obstructive uropathy-status post bilateral ureteral stents, has chronic Pedro catheter, recurrent UTI-growing ESBL Klebsiella in past , Enterococcus during the recent admission; abdominal aortic aneurysm status post repair, anemia, obesity,? recent hospitalization for colitis and now coming back with diarrhea leading to hypotension. Diarrhea -- Repeat CT of abdomen: ?Colonic diverticulosis. Improvement of prior inflammatory changes along the sigmoid colon. No current bowel wall thickening or inflammation. recent C dif has been negative, but will repeat cdiff -neg,? IV fluid. #UTI: recrrent UTI--was recently treated for UTI again, culture was negative, she chronic bacteruria from chronic Pedro. #Lactic acidosis:? due to diarrhea and chronic renal failure, this is not due to sepsis #Hyptension--NOT due to sepsis, rather due to volume loss/dehydration from diarrhea blood pressure flactuating #Abdominal aortic aneurysm: Was evaluated by Dr. Castillo during last hospitalization and does not need intervention? #Elevated troponins:?? type 2, no chest pain, chronic elevated due to CKD and is stable. #Anemia of chronic disease?? H/H within her baseline #Chronic kidney disease:?? stable #Metabolic acidosis: In the setting of CKD and diarrahe -improved with Bicab replacement. Increased bilateral lung basilar opacities favoring atelectasis.: incentive aayush and chest physio. buttock decubtii::wound care-seems stage 1: cont with zinc oxide and repostion patient often. she is able to move herself sufficiently consider covering with foam dressing and shay qod and nutrition consult. morbid obesity: encouraged to cut down calories and weight loss. congestion/cough soar throat: no fevers cxr -atelcatsis added res panel rapd strep and throat cultures nebs,incentive aayush, chest physio, cough medication DVT prophylaxis:? Subcu heparin Pt eval: str inpatient stay:flactuating blood pressure,significant chest congestion and generalised weak Quality Stroke Does the patient have a stroke diagnosis?: No VTE Prior VTE?: No VTE Risk Level:: Medical - moderate - high VTE Device Contraindication: Treatment Not Indicated VTE Drug Contraindication: N/A - Med Ordered
[2021-09-16 13:20] LABS: Adenovirus PCR Not Detected (Not Detect.); Bordetella parapertussis PCR Not Detected (Not Detect.); Bordetella pertussis PCR Not Detected (Not Detect.); Chlamydia pneumoniae PCR Not Detected (Not Detect.); Coronavirus 229E PCR Not Detected (Not Detect.); Coronavirus HKU1 PCR Not Detected (Not Detect.); Coronavirus NL63 PCR Not Detected (Not Detect.); Coronavirus OC43 PCR Not Detected (Not Detect.); Human metapneumovirus PCR Not Detected (Not Detect.); Influenza A PCR Not Detected (Not Detect.); Influenza B PCR Not Detected (Not Detect.); Rhino/Enterovirus PCR Not Detected (Not Detect.); SARS-CoV-2 PCR Not Detected (Not Detect.)
[2021-09-16 13:21] LABS: Mycoplasma pneumoniae PCR Not Detected (Not Detect.); Parainfluenza 1 PCR Not Detected (Not Detect.); Parainfluenza 2 PCR Not Detected (Not Detect.); Parainfluenza 3 PCR Not Detected (Not Detect.); Parainfluenza 4 PCR Not Detected (Not Detect.); RSV PCR Not Detected (Not Detect.)
[2021-09-16 13:41] LABS: Strep A Nucleic Acid Negative (Negative)
[2021-09-16] MEDS: 0.9 % Sodium Chloride Flush 3 ML SYRINGE IVFLUSH ×2 (16:21→20:20)
--- NOTE | 2021-09-16 18:37 | PM.PNNEP ---
Subjective Subjective Date of Service: 09/16/21 Interval history: seen and examined, events noted Physical Exam Vital Signs: Vital Signs: Last Vital Signs Temp 97.3 F 09/16/21 15:09 Pulse 65 09/16/21 17:09 Resp 18 09/16/21 17:09 BP 103/55 L 09/16/21 15:09 Pulse Ox 97 09/16/21 15:09 O2 Del Method 09/16/21 15:09 O2 Flow Rate 2.0 09/16/21 15:09 BMI result Body Mass Index 41.5 Const: Other: Constitutional: Alert, in no distress, Mental Status: Oriented to person, place and time. Eyes: Pupils are equal, round and reactive to light. Ear, Nose and Throat: Oropharynx clear, mucous membranes moist Respiratory: Clear to auscultation. No wheezing, rales or rhonchi. Cardiovascular: S1 S2 regular. No murmurs, rubs or gallops. Gastrointestinal: Abdomen soft, non-tender, non-distended. Normal bowel sounds.? Neurologic: Cranial nerves II-XII grossly intact. No focal neurological deficits. Moves all extremities spontaneously.? Skin: No rashes or lesions.? Musculoskeletal: No cyanosis or clubbing. Psychiatric: Normal mood and affect? General: cooperative and no acute distress Orientation/consciousness: patient oriented x3 Limitations: no limitations HEENT: Head: Yes normal to inspection and Yes atraumatic Ears: hearing grossly normal bilaterally General nose exam: Normal external nose present Face and sinus: Yes normal facial exam Eyes: General: appearance normal, both eyes and all related structures EOM: EOMs intact bilaterally Neck: Neck: Yes normal visual inspection and Yes no meningeal signs Resp: Effort & Inspection: normal respiratory effort and no respiratory distress Auscultation: clear to auscultation bilaterally, no rales, no rhonchi, no wheezes and diminished lung sounds bilateral (mildly) in the lower lung mcneal Cardio: Rate: regular rate Heart sounds: S1 normal heart sound present and S2 normal heart sound present GI: Inspection: Yes normal to inspection Palpation (GI): Soft to palpation, nontender, no guarding and not rigid : General: Yes no CVA tenderness Back/Spine/Pelvis: Back: no CVA tenderness Skin: Rashes: no rashes Wounds: no wounds Neuro: General: patient oriented x3, tone normal and no meningeal signs Gait exam (Neuro): Normal gait present Extrem: General: Yes normal to inspection Objective Data Labs CBC & Chem 7: 09/15/21 05:23 09/15/21 05:23 Labs: Laboratory Results - last 24 hr 09/16/21 09/16/21 11:53 13:19 Respiratory Panel [place] See Note Adenovirus (Rapid PCR) Not Detected B.pert (TEM-PCR) Not Detected B.parapertussis DNA PCR Not Detected C. pneumoniae DNA (PCR) Not Detected Coronavirus OC43 (PCR) Not Detected Coronavirus HKU1 (PCR) Not Detected Coronavirus 229E (PCR) Not Detected Coronavirus NL63 (PCR) Not Detected Human Metapneumovir PCR Not Detected Influenza A (RT-PCR) Not Detected Influenza B (RT-PCR) Not Detected M. pneumoniae (PCR) Not Detected Parainfluenza 1 (PCR) Not Detected Parainfluenza 2 (PCR) Not Detected Parainfluenza 3 (PCR) Not Detected Parainfluenza 4 (PCR) Not Detected RSV (PCR) Not Detected Entero/Rhino (PCR) Not Detected SARS-CoV-2 RNA (RT-PCR) Not Detected S. pyogenes GrpA MARGARITA Negative Microbiology Microbiology Results: Microbiology 09/13/21 10:57 Blood - Venous Blood Culture - Preliminary No growth after 48 hours. 09/13/21 09:50 Blood - Venous Blood Culture - Preliminary No growth after 48 hours. 09/13/21 Unknown Urine clean catch - Urine bhatia top Urine Culture - Final Procedures Date of Service Date of Service: 09/16/21 Assessment & Plan Assessment and plan (1) Acute hypotension: Status: Acute (2) Diarrhea: Status: Acute Plan 1. Non-Oliguric GAURANG: resolving w IVF c/w renal hypoperfusion 2.CKD 3: BSL SCr 1.5-2.0 3. Anemia: multifact--ques Fe and /or EPO def REC: cont IVF; avoid NToxins; checkFe level (I will reorder); start epo ( I will order) Time Spent With Patient Time: Total time spent is greater than 50% in coordination of care (as documented) at patient's floor/unit and/or counseling patient: Progress Note: Quality Stroke Does the patient have a stroke diagnosis?: No
[2021-09-16 19:11] LABS: Iron 55 mcg/dL (30-160); Percent Iron Saturation 33 % (15-50); Total Iron Binding Capacity 165 mcg/dL (228-428); Unsaturated Iron Binding 110 ug/dL
[2021-09-16] MEDS: Atorvastatin Calcium 40 MG TABLET PO (20:20)
[2021-09-16 20:23] LABS: Ferritin 72 ng/mL (10-250)
[2021-09-17] VITALS (10 sets, daily range): BP systolic 107–128; BP diastolic 51–75; PULSE 65–103; RESP 15–18; TEMP 36.4–36.9; O2SAT 93–100
[2021-09-17] MEDS: Heparin Sodium,Porcine 5,000 UNIT/ML VIAL 5000 UNIT SUBCUT ×2 (05:21→17:17)
[2021-09-17] MEDS: Omeprazole 20 MG CAPSULE.DR PO (05:22)
[2021-09-17] MEDS: Albuterol/Iprat 2.5/0.5MG 3 ML AMPUL.NEB INHALE ×3 (08:05→16:02)
[2021-09-17] MEDS: Aspirin Enteric Coated 81 MG TABLET.DR PO (09:32)
[2021-09-17] MEDS: Cholecalciferol (Vitamin D3) 10 MCG TABLET PO (09:33)
[2021-09-17] MEDS: Folic Acid 1 MG TABLET PO (09:33)
[2021-09-17] MEDS: Acetaminophen 325 MG TABLET 650 MG PO (09:34)
[2021-09-17] MEDS: Magnesium Oxide 400 MG TABLET 800 MG PO ×2 (09:35→17:17)
[2021-09-17] MEDS: Sodium Bicarbonate 650 MG TABLET PO ×2 (09:35→20:47)
[2021-09-17] MEDS: guaiFENesin 100 MG/5 ML LIQUID PO ×2 (09:35→20:47)
[2021-09-17] MEDS: Nystatin Powder 15 GM BOTTLE 1 APPL TOPICAL ×2 (09:37→20:49)
--- NOTE | 2021-09-17 11:10 | PM.PNNEP ---
Subjective Subjective Date of Service: 09/17/21 Interval history: Events noted; All recent data reviewed Physical Exam Vital Signs: Vital Signs: Last Vital Signs Temp 97.6 F 09/17/21 07:53 Pulse 72 09/17/21 10:14 Resp 16 09/17/21 08:06 BP 128/60 09/17/21 07:53 Pulse Ox 96 09/17/21 07:53 O2 Del Method 09/17/21 07:53 O2 Flow Rate 2.0 09/17/21 07:53 BMI result Body Mass Index 41.5 Const: General: no acute distress Eyes: EOM: EOMs intact bilaterally Neck: Neck: Yes supple Resp: Auscultation: diminished lung sounds Cardio: Rate: regular rate GI: Palpation (GI): Soft to palpation Neuro: General: moves all extremities Objective Data Labs CBC & Chem 7: 09/15/21 05:23 09/15/21 05:23 Labs: Laboratory Results - last 24 hr 09/15/21 09/16/21 09/16/21 05:23 11:53 13:19 Iron 55 TIBC 165 L % Saturation 33 Unsat Iron Binding 110 Ferritin Respiratory Panel Mckeon See Note Adenovirus (Rapid PCR) Not Detected B.pert (TEM-PCR) Not Detected B.parapertussis DNA PCR Not Detected C. pneumoniae DNA (PCR) Not Detected Coronavirus OC43 (PCR) Not Detected Coronavirus HKU1 (PCR) Not Detected Coronavirus 229E (PCR) Not Detected Coronavirus NL63 (PCR) Not Detected Human Metapneumovir PCR Not Detected Influenza A (RT-PCR) Not Detected Influenza B (RT-PCR) Not Detected M. pneumoniae (PCR) Not Detected Parainfluenza 1 (PCR) Not Detected Parainfluenza 2 (PCR) Not Detected Parainfluenza 3 (PCR) Not Detected Parainfluenza 4 (PCR) Not Detected RSV (PCR) Not Detected Entero/Rhino (PCR) Not Detected SARS-CoV-2 RNA (RT-PCR) Not Detected S. pyogenes GrpA MARGARITA Negative 09/16/21 19:33 Iron TIBC % Saturation Unsat Iron Binding Ferritin 72 Respiratory Panel Mckeon Adenovirus (Rapid PCR) B.pert (TEM-PCR) B.parapertussis DNA PCR C. pneumoniae DNA (PCR) Coronavirus OC43 (PCR) Coronavirus HKU1 (PCR) Coronavirus 229E (PCR) Coronavirus NL63 (PCR) Human Metapneumovir PCR Influenza A (RT-PCR) Influenza B (RT-PCR) M. pneumoniae (PCR) Parainfluenza 1 (PCR) Parainfluenza 2 (PCR) Parainfluenza 3 (PCR) Parainfluenza 4 (PCR) RSV (PCR) Entero/Rhino (PCR) SARS-CoV-2 RNA (RT-PCR) S. pyogenes GrpA MARGARITA Microbiology Microbiology Results: Microbiology 09/13/21 10:57 Blood - Venous Blood Culture - Preliminary No growth after 48 hours. 09/13/21 09:50 Blood - Venous Blood Culture - Preliminary No growth after 48 hours. 09/13/21 Unknown Urine clean catch - Urine bhatia top Urine Culture - Final Procedures Date of Service Date of Service: 09/17/21 Assessment & Plan Assessment and plan (1) GAURANG (acute kidney injury): Status: Acute Assessment and Plan: GAURANG due to renal hypoperfusion ( non oliguric- improved) CKD 3 with baseline serum creatinine of 1.5-2.0 Renal function close to baseline now Anemia multifactactorial ; Was given EPO Concur with res of current managment Time Spent With Patient Time: Total time spent is greater than 50% in coordination of care (as documented) at patient's floor/unit and/or counseling patient: Progress Note: Quality Stroke Does the patient have a stroke diagnosis?: No
--- NOTE | 2021-09-17 14:16 | PM.DS ---
DS: Providers Provider Date of Service: 09/17/21 Date of admission: 09/13/21 15:58 Primary care physician: Aguilar Moreno MD Consults: 09/13/21 15:56 Consult to Nephrology Routine Consulting Provider: Wilmer Wood Reason for consultation: CKD, gaurang, metabolic acidosis 09/15/21 08:31 Consult to Wound Care Routine Consulting Provider: [facility] Reason for consultation: buttock decubtii Has provider been notified: No DS: Diagnosis Discharge Diagnosis (1) GAURANG (acute kidney injury): Status: Acute DS: Summary Hospital Course Hospital Course: 85-year-old female with a past medical history of CKD, COPD on home oxygen at night, CAD, obstructive uropathy-status post bilateral ureteral stents, has chronic Kevin catheter, recurrent UTI-growing ESBL Klebsiella, Enterococcus,? abdominal aortic aneurysm status post repair, anemia, obesity, GI bleed presented to the hospital today with a chief complaint of diarrhea.? She admitted to the hospital? August 06 to August 10 with GAURANG, dehydration, and UTI, coand was deconditioned and following that was discharged to rehab until September 08 when she was discharged to home, only to return to the hospital the following day on September 09 with darrhea/colitis, UTI and GAURANG and at that time CD dif? was negative--was discharged home with Ceftin and Flgyl, Gaurang resolved and diarrhea resolved and she was feeling well. PT reassessed her and recommended returning to? rehab but she declined in favor of going home. She went home on 09/12 and felt great all day and the next September 13 also she felt well. [facility] didn't get to see her. She woke up this morning with diffuse diarrhea, feeling week, no fever or chills and no abdominal pain and blood in the stool.? She was noted to be hypOtensive, lactive acid of 2.7, UA is positive due to chronic kevin. Creatine is 1.9 (baseline about 2.5). Hospital course: Patient was admitted for borderline to low blood pressure- hypotension probably related to decreased p.o. intake, diarrhea, dehydration- patient was hydrated and p.o. intakes it is improving and with supportive care patient blood pressure is improved also. Diarrhea: possibly viral-no abdominal pain or fever- workup including C diff, stool for WBC, stool panel also negative. abd ct preat shows - Improvement of colitis previously seen. GAURANG: Seems to be improving with hydration, creatinine possibly near hr baseline . had some mild throat soreness - repeat strep and throat culture negative, ordered lozenges. mild atelectasis: incentive spirometry, chest physio, ambulation as possible. patient has asymptomatic bacteriuria, denies any new symptom or fever. Blood cultures negative@48 hours . Defer antibiotics at present. Patient had buttock decubitii stage 1 - continue frequent turning, ambulate as possible, on wound care. Plan : strongly encouraged for p.o. intake, hydration. if patient condition worsen any fever or abdominal pain or perfuse diarrhea patient needs to get evaluated in nearest emergency room. Above management discussed with the patient in detail length he understand and in agreement with the above plan, time spent 50 minutes and 50% time spent on counseling. Significant findings: As above. Procedures performed: None. Treatment and response: As above. Complications: None. Time Spent with Patient Time attestation: Total time spent providing and/or coordinating discharge services: Discharge coordination time: Greater than 30 minutes Quality: Safe Use of Opioids Does Pt have an Active Cancer Diagnosis on the Problem List?: No Quality: Stroke Does the patient have a stroke diagnosis?: No Physical Exam Vital Signs: Vital Signs: Last Vital Signs Temp 98.5 F 09/17/21 11:47 Pulse 87 09/17/21 11:47 Resp 15 09/17/21 11:47 BP 116/51 L 09/17/21 11:47 Pulse Ox 98 09/17/21 11:47 O2 Del Method 09/17/21 11:47 O2 Flow Rate 2.0 09/17/21 07:53 BMI result Body Mass Index 41.5 General: AO X 3, no acute distress Resp:? CTA bilateral CVS: S1,S2,RRR GI: +BS, NT, no distention Skin: No rash Neuro:? motor grossly intact Psych: appropriate affect DS: Data Data Completed and Pending Completed studies during hospitalization [Text1]: Procedures Dilation of Bilateral Ureters with Intraluminal Device, Via Natural or Artificial Opening Endoscopic (07/20/21) Dilation of Right Ureter with Intraluminal Device, Via Natural or Artificial Opening Endoscopic (06/07/21) Fluoroscopy of Kidneys, Ureters and Bladder (07/20/21) Fluoroscopy of Right Kidney, Ureter and Bladder (06/07/21) Insertion of Infusion Device into Right Basilic Vein, Percutaneous Approach (07/20/21) Insertion of Infusion Device into Superior Vena Cava, Percutaneous Approach (07/20/21) Introduction of Vasopressor into Central Vein, Percutaneous Approach (07/20/21) Transfusion of Nonautologous Red Blood Cells into Peripheral Vein, Percutaneous Approach (07/20/21) Ultrasonography of Superior Vena Cava, Guidance (07/20/21) Labs on day of discharge: Laboratory Results - last 24 hr 09/15/21 09/16/21 05:23 19:33 Iron 55 TIBC 165 L % Saturation 33 Unsat Iron Binding 110 Ferritin 72 Preliminary micro results at discharge 09/16/21 17:08 Throat Culture - Preliminary Throat No Group A Beta-hemolytic Streptococci isolated. 09/13/21 10:57 Blood Culture - Preliminary Blood - Venous No growth after 48 hours. 09/13/21 09:50 Blood Culture - Preliminary Blood - Venous No growth after 48 hours. Additional Comments Additional comments: Laboratory Results - last 24 hr ? 09/14/21 09/14/21 09/14/21 ? 09:07 13:17 13:17 Anion Gap ? ? ? Estim Creat Clear Calc ? ? ? Estimated GFR ? ? ? Random Glucose ? ? ? Calcium ? ? ? Magnesium ?1.4 L* ? ? Stool Leukocytes, Qual ? ? ?NEGATIVE Stl C. cayetanensis PCR ? ?Not Detected ? Stool Rotavirus A PCR ? ?Not Detected ? Stl Adenov F 40/41 PCR ? ?Not Detected ? Stool Astrovirus (PCR) ? ?Not Detected ? Stool Campylobacter PCR ? ?Not Detected ? Stool Cryptosporidium PCR ? ?Not Detected ? Stl Sh Tox Pr E STEC PCR ? ?Not Detected ? Stool E coli O157 PCR ? ?Not applicable ? Stl Enterotoxigenic E PCR ? ?Not Detected ? Stool EPEC (PCR) ? ?Not Detected ? Stool EAEC (PCR) ? ?Not Detected ? Stl E. histolytica PCR ? ?Not Detected ? Stool Giardia Lamblia PCR ? ?Not Detected ? Stl P. shigelloides PCR ? ?Not Detected ? Stool Salmonella PCR ? ?Not Detected ? Stool Sapovirus (PCR) ? ?Not Detected ? Stl Shigella/EIEC PCR ? ?Not Detected ? St Y.enterocolitica PCR ? ?Not Detected ? Stool Vibrio (PCR) ? ?Not Detected ? Stl Vibrio cholerae PCR ? ?Not Detected ? Stl Norovirus GI/GII PCR ? ?Not Detected ? C. difficile Tox B Gene ? 09/14/21 09/15/21 ? 13:22 05:23 Anion Gap ? ?11 L Estim Creat Clear Calc ? ?30.6 Estimated GFR ? ?33 Random Glucose ? ?83 Calcium ? ?8.2 L Magnesium ? ?1.6 Stool Leukocytes, Qual ? ? Stl C. cayetanensis PCR ? ? Stool Rotavirus A PCR ? ? Stl Adenov F 40/41 PCR ? ? Stool Astrovirus (PCR) ? ? Stool Campylobacter PCR ? ? Stool Cryptosporidium PCR ? ? Stl Sh Tox Pr E STEC PCR ? ? Stool E coli O157 PCR ? ? Stl Enterotoxigenic E PCR ? ? Stool EPEC (PCR) ? ? Stool EAEC (PCR) ? ? Stl E. histolytica PCR ? ? Stool Giardia Lamblia PCR ? ? Stl P. shigelloides PCR ? ? Stool Salmonella PCR ? ? Stool Sapovirus (PCR) ? ? Stl Shigella/EIEC PCR ? ? St Y.enterocolitica PCR ? ? Stool Vibrio (PCR) ? ? Stl Vibrio cholerae PCR ? ? Stl Norovirus GI/GII PCR ? ? .C. difficile Tox B Gene ?NEGATIVE ? CT/CT abdomen pelvis wo con IMPRESSION: Colonic diverticulosis. Improvement of prior inflammatory changes along the sigmoid colon. No current bowel wall thickening or inflammation. ? Increased bilateral lung basilar opacities favoring atelectasis. ? Bilateral ureteral stents remain in place. Mild right-sided hydronephrosis again noted.? ? Fleischner guidelines were followed XR/XR chest 1V IMPRESSION: Small left pleural effusion with probable mild superjacent atelectasis represents interval worsening from the previous study. Discharge Plan Discharge Patient Disposition: er [facility] Discharge Diagnosis: boderline blood pressure ,gaurang,diarrahae Referrals: Aguilar Moreno MD [Primary Care Provider] - 1 Week Discharge Medications: Continued Incruse Ellipta 62.5 mcg/actuation blister with device 1 inh PO DAILY Qty: 30 0RF albuterol 90 mcg/actuation Aerosol 180 mcg INHALATION Q4H PRN (Reason: Wheezing) ondansetron 4 mg Tablet,Disintegrating 4 mg PO Q6H PRN (Reason: Nausea) acetaminophen [Tylenol] 325 mg Tablet 650 mg PO DAILY meclizine 12.5 mg Tablet 12.5 mg PO TID PRN (Reason: Dizziness) pantoprazole [Protonix] 40 mg Tablet,Delayed Release (Dr/Ec) 40 mg PO DAILY polyethylene glycol 3350 [Miralax] 17 gram/dose Powder 17 g PO DAILY atorvastatin 40 mg tablet 40 mg PO BEDTIME folic acid 1 mg Tablet 1 mg PO DAILY Qty: 30 0RF metoprolol succinate 25 mg tablet extended release 24 hr 1 tab PO BEDTIME Rx Instructions: hold sbp <110 sodium bicarbonate 650 mg tablet 650 mg PO BID Qty: 7 0RF cholecalciferol (vitamin D3) 10 mcg (400 unit) capsule 10 mcg PO DAILY aspirin [Adult Low Dose Aspirin] 81 mg tablet,delayed release (DR/EC) 81 mg PO DAILY Discontinued cefuroxime axetil 250 mg Tablet 250 mg PO BID Qty: 8 0RF metronidazole 500 mg Tablet 500 mg PO TID Qty: 15 0RF Discharge Orders: Discharge Order (Routine); Ordered 09/17/21 Ordered By: Brayden Viera Diet: Advance to usual diet Activity on Discharge: As tolerated Stand Alone Forms: Patient Portal Discharge page Care Plan Goals: Patient was admitted for borderline to low blood pressure- hypotension probably related to decreased p.o. intake, diarrhea, dehydration- patient was hydrated and p.o. intakes it is improving and with supportive care patient blood pressure is improved also. Diarrhea: possibly viral-no abdominal pain or fever- workup including C diff, stool for WBC, stool panel also negative. GAURANG: Seems to be improving with hydration, creatinine possibly near hr baseline . patient has asymptomatic bacteriuria, denies any new symptom or fever. Blood cultures negative@48 hours . Defer antibiotics at present. Patient had buttock decubitii stage 1 - continue frequent turning, ambulate as possible, on wound care. Health Concerns: strongly encouraged for p.o. intake, hydration. if patient condition worsen any fever or abdominal pain or perfuse diarrhea patient needs to get evaluated in nearest emergency room. Plan of Treatment: as above. Assessment: as above.
--- NOTE | 2021-09-17 16:16 | MHC.CM.PN ---
PT CLEARED TO DC TO STR TODAY SHE WILL DC TO [facility], HER PREFERRED FACILITY CM CALLED PTS SON/HCP, VLADIMIR [phone] AND INFORMED HIM OF DC AND TIME HE REPORTS BEING AGREEABLE SECOND IMM DELIVERED PT WILL DC TO [facility] FOR STR TODAY VIA [facility] AT 1800 HOURS
[2021-09-17] MEDS: Atorvastatin Calcium 40 MG TABLET PO (20:47)
[2021-09-18 04:00] VITALS: BP 111/58; PULSE 62; RESP 17; TEMP 36.4; O2SAT 96
[2021-09-18] MEDS: Omeprazole 20 MG CAPSULE.DR PO (05:03)
[2021-09-18] MEDS: Heparin Sodium,Porcine 5,000 UNIT/ML VIAL 5000 UNIT SUBCUT (05:03)
[2021-09-18 07:10] VITALS: BP 139/68; PULSE 70; RESP 18; TEMP 36.1; O2SAT 6
[2021-09-18] MEDS: Nystatin Powder 15 GM BOTTLE 1 APPL TOPICAL (09:01)
[2021-09-18] MEDS: Magnesium Oxide 400 MG TABLET 800 MG PO (09:01)
[2021-09-18] MEDS: Cholecalciferol (Vitamin D3) 10 MCG TABLET PO (09:01)
[2021-09-18] MEDS: Acetaminophen 325 MG TABLET 650 MG PO (09:01)
[2021-09-18] MEDS: guaiFENesin 100 MG/5 ML LIQUID PO (09:01)
[2021-09-18] MEDS: Folic Acid 1 MG TABLET PO (09:01)
[2021-09-18] MEDS: Aspirin Enteric Coated 81 MG TABLET.DR PO (09:01)
[2021-09-18] MEDS: 0.9 % Sodium Chloride Flush 3 ML SYRINGE IVFLUSH (09:02)
[2021-09-18] MEDS: Sodium Bicarbonate 650 MG TABLET PO (09:02)
[2021-09-18 09:08] VITALS: O2SAT 96
--- NOTE | 2021-09-18 10:12 | MHC.CM.PN ---
[facility] DID NOT SHOW UP FOR TRANSPORT YESTERDAY AFTERNOON, PER [facility] REBOOKED FOR 0900, AMBULANCE CREW IS HERE NOW AT TIME OF THIS NOTE TO TRANSPORT PT TO [facility].
== END 2021-09-18 10:30 | disposition skilled nursing facility (03) | DRG 315 ==
LOC: HO.ED 16:06 → HO.EDOVER 16:12 → HO.S3 19:38
PROVIDERS: Internal Medicine Nephrology; Physician Assistant; Admitting Provider Internal Medicine; Emergency Provider Emergency Medicine; PCP Family Medicine; Visit Provider Internal Medicine
DX: I95.9 Hypotension, unspecified (principal); E87.2 Acidosis; Z68.41 Body mass index [BMI] 40.0-44.9, adult; J98.11 Atelectasis; N17.9 Acute kidney failure, unspecified; E86.0 Dehydration; A08.4 Viral intestinal infection, unspecified; I25.10 Atherosclerotic heart disease of native coronary artery without angina pectoris; I71.4 Abdominal aortic aneurysm, without rupture; Z87.440 Personal history of urinary (tract) infections; F17.210 Nicotine dependence, cigarettes, uncomplicated; E66.01 Morbid (severe) obesity due to excess calories; N18.32 Chronic kidney disease, stage 3b; D63.1 Anemia in chronic kidney disease; L89.301 Pressure ulcer of unspecified buttock, stage 1; K57.30 Diverticulosis of large intestine without perforation or abscess without bleeding; E87.6 Hypokalemia; Z20.822 Contact with and (suspected) exposure to COVID-19; Z96.0 Presence of urogenital implants; Z99.81 Dependence on supplemental oxygen; Z71.6 Tobacco abuse counseling; Z79.82 Long term (current) use of aspirin; Z79.899 Other long term (current) drug therapy
CPT/HCPCS: 36415; 71045; 71250; 74176; 80048; 80076; 81001; 82728; 82803; 83540; 83605; 83690; 83735; 83880; 84484; 85014; 85018; 85025; 85027; 87040; 87071; 87086; 87493; 87507; 87633; 87635; 87651; 89055; 93005; 94640; 94664; 96361; 96374; 97110; 97162; 99285; C1758; J0885; J3475

== ENCOUNTER 2021-09-25 02:26 | Emergency (ER) | payer MEDICARE, OTHER, SELFPAY ==
--- NOTE | ~2021-09-25 | CT_ITS ---
EXAMINATION: CT CHEST WITHOUT CONTRAST CT ABDOMEN AND PELVIS WITHOUT CONTRAST CLINICAL INFORMATION: Evaluate abdominal aortic aneurysm rupture. Pain. COMPARISON: 09/13/2021 TECHNIQUE: Multidetector volumetric imaging of the chest, abdomen and pelvis was performed without contrast. Sagittal and coronal reformatted images were obtained on the technologist's workstation. This CT examination was performed using dose optimization techniques as appropriate, variously including the following: *Automated exposure control *Adjustment of mA and/or kV according to patient size (this includes techniques or standardized protocols for targeted exams where dose is matched to indication/reason for exam; i.e. extremities or head) *Use of iterative reconstruction technique DLP: 2250 mGy-cm FINDINGS: LUNGS/PLEURA: Moderate bilateral simple fluid attenuating pleural effusions with accompanying atelectasis. MEDIASTINUM/ANANT: Mild cardiomegaly. No pericardial effusion. There is a descending thoracic aortic aneurysm measuring approximately 4.8 x 4.4 cm which is unchanged. No ascending aortic aneurysm. CHEST WALL/AXILLA: Unremarkable. LIVER, GALLBLADDER, AND BILIARY TREE: The liver is normal in size, shape, and attenuation. No focal hepatic lesion or biliary ductal dilatation is present. Cholelithiasis. PANCREAS: Atrophic but otherwise unremarkable. SPLEEN: Unremarkable. ADRENAL GLANDS: Unremarkable. KIDNEYS AND URETERS: Bilateral renal atrophy. Bilateral nephroureteral stents in place. No hydronephrosis. Nonobstructive 3 mm calculus in the lower pole left kidney. BLADDER: Decompressed by Pedro catheter. GASTROINTESTINAL TRACT: Left colonic diverticulosis. No evidence of diverticulitis. Stomach and small bowel unremarkable. ABDOMINAL WALL: No significant hernia is appreciated. LYMPH NODES: Normal. VASCULAR: Stable appearance of aortobiiliac endovascular stent graft traversing an infrarenal abdominal aortic aneurysm, the excluded sac measuring 7.3 x 6.8 cm. PELVIC VISCERA: Uterus and adnexa unremarkable. OSSEOUS STRUCTURES: No acute or suspicious osseous abnormalities. CT/CT abdomen pelvis wo con IMPRESSION: * Stable descending thoracic aortic aneurysm measuring 4.8 x 4.4 cm. * Stable appearance of the excluded sac of the abdominal aortic aneurysm status post aortobiiliac endovascular stent repair. * No evidence of aneurysm rupture. * Moderate bilateral pleural effusions with accompanying atelectasis. * No acute findings within the abdomen or pelvis. * Triple vessel coronary calcifications. * Cholelithiasis. * Left colonic diverticulosis without evidence of diverticulitis.
--- NOTE | 2021-09-25 03:56 | ED_ITS ---
HPI - General Adult General Stated complaint: abd pain Time Seen by Provider: 09/25/21 02:32 Source: EMS Mode of arrival: EMS History of Present Illness HPI narrative: Patient came to the emergency room via EMS. According to the staff from the [facility], patient had been complaining of severe abdominal pain since early this morning. When patient arrived to the emergency room, patient was awake, alert. H We asked patient how come she [facility] not [facility] the [facility] that she was having abdominal pain, patient stated that she has been telling them all day long and calling for them. Before the ambulance oden d, patient was found to be very pale and brought to the emergency room by EMS. EMS reported that initial blood pressure was low 70s, 2nd blood pressure in the low 60s. They were unable to obtain access. I will to the emergency room, patient's blood pressure 123 systolic, heart rate 130. Related Data Home Medications Medication Instructions Recorded Confirmed cholecalciferol (vitamin D3) 10 10 mcg PO DAILY 04/16/20 09/13/21 mcg (400 unit) capsule aspirin 81 mg tablet,delayed 81 mg PO DAILY 04/21/20 09/13/21 release (Adult Low Dose Aspirin) acetaminophen 325 mg tablet 650 mg PO DAILY 07/20/21 09/13/21 (Tylenol) atorvastatin 40 mg tablet 40 mg PO BEDTIME 07/20/21 09/13/21 meclizine 12.5 mg tablet 12.5 mg PO TID PRN Dizziness 07/20/21 09/13/21 pantoprazole 40 mg tablet,delayed 40 mg PO DAILY 07/20/21 09/13/21 release (Protonix) polyethylene glycol 3350 17 17 g PO DAILY 07/20/21 09/13/21 gram/dose oral powder (Miralax) albuterol 90 mcg/actuation aerosol 180 mcg inhalation Q4H PRN Wheezing 08/06/21 09/13/21 inhaler ondansetron 4 mg disintegrating 4 mg PO Q6H PRN Nausea 08/06/21 09/13/21 tablet metoprolol succinate 25 mg 1 tab PO BEDTIME 09/09/21 09/13/21 tablet,extended release 24 hr Previous Rx's Medication Instructions Recorded Incruse Ellipta 62.5 mcg/actuation 1 inh PO DAILY #30 ea 06/09/21 powder for inhalation (umeclidinium) folic acid 1 mg tablet 1 mg PO DAILY #30 tabs 07/27/21 sodium bicarbonate 650 mg tablet 650 mg PO BID #7 tabs 09/11/21 dextromethorphan-benzocaine 5 1 nilo PO Q4H PRN sore throat #16 ea 09/18/21 mg-7.5 mg lozenges (Cepacol Sore Throat-Cough) Allergies Allergy/AdvReac Type Severity Reaction Status Date / Time No Known Allergies Allergy Verified 05/17/21 10:30 [No Known Allergies*] Review of Systems Review of Systems: Patient complaining of severe epigastric pain, no chest pain or shortness of breath, due to pain, unable to give any further history Yes Unobtainable due to mental condition [facility] Past Medical History Medical History Abdominal aortic aneurysm (AAA) without rupture Acute blood loss anemia Acute dehydration Acute kidney injury superimposed on CKD Acute UTI Atherosclerotic cardiovascular disease Chronic bacteriuria CKD (chronic kidney disease) stage 3, GFR 30-59 ml/min COPD (chronic obstructive pulmonary disease) Hydronephrosis concurrent with and due to calculi of kidney and ureter Kidney stone on right side Nocturnal hypoxemia Obesity Recurrent falls Restrictive lung disease Skin tear of hand without complication Smoker Urinary tract infection due to ESBL Klebsiella Family History Family History Father No problems noted. Mother No problems noted. Social History Social History Household Members: None Housing: House Housing Other:: SNF Do you presently have visiting nurse or other home services: Yes Alcohol intake: never Patient Tobacco Use Status: Current everyday Tobacco user Tobacco use type: Cigarette Cigarettes Per Day: 1 Second Hand Smoke Exposure: No Advance Directives: Yes Advance Directives on File: Yes Advance Directives Date on File: 07/21/21 service: No Current occupational status: retired Physical Exam ED Const Other: Appearance: Alert. Oriented X3. Ill-appearing Eyes: Pupils equal, round and reactive to light. ENT: Pharynx normal. Neck: Normal inspection. Neck supple. No lymph nodes noted. No crepitus CVS: Tachycardic in the 130s, initial blood pressure 123 Respiratory: No respiratory distress. Breath sounds normal. No Wheezing. No rales Abdomen: Soft , distended, severe pain to palpation in epigastric area Skin: Cool, dry, very pale Extremities: No lower extremity edema. No Lacerations. No Rash Neuro: nNo slurred speech. CN 2 through 12 grossly intact Psych: calm Course Course Course Narrative: On arrival, patient was alert, talking to us, seem to be in severe pain. Patient has history of AAA, patient's blood pressure 123 systolic on arrival, her in the 130s, patient was taken immediately to CT scan to rule out ruptured AAA. When the CT scan concluded, patient was transferred to the bed, patient lost consciousness. Patient was taken back to her room. Patient became severely bradycardic, patient has very poor access, and IO was inserted. 1 mg of atropine was given. Patient had very weak pulses. Shortly after, patient went into asystole and CPR was started. Patient was intubated, when the Gl ideScope was initially inserted, there was a very large amount of blood in the oropharynx. Patient was successfully intubated, as patient was being bagged, there was a significant amount of blood in the ET tube. Patient received several doses of epinephrine, patient regained pulse, very weak, bradycardic, 1 more dose of atropine was given. Heart rate improved to the low 50s. Shortly after, patient went back to asystole. CPR was restarted, morphine epinephrine given. Patient remain in time of was called at 03:35. Of note, patient known to be in Eliquis. Cough soft is unknown, however patient was very pale, had large amount on the oropharynx, hypotensive, tachycardic, patient likely had a GI bleed. CT scan did not show a ruptured AAA Patient's son has been informed, he is on his way here. [facility] declined the patient. Medical Decision Making Lab Data Labs: Lab Results 09/25/21 Range/Units 03:00 POC Glucose 157 H (60-115) mg/dL Critical Care Time Critical Care Time Critical Care Time: Yes Total Critical Care Time: 60 Attestation: I have personally provided critical care time. Time includes review of lab data, radiology results, discussion with consultants, and monitoring for potential decompensation. Intervention performed as documented. Discharge Plan Discharge Clinical Impression: Cardiac arrest Patient Disposition: Date/Time: 09/25/21 03:35
--- NOTE | 2021-09-25 04:12 | PC.NURSE ---
Called [facility] at [phone]. Spoke with Austen Valero, referral reference #[id number]. Pt. denied for organ/tissue donation at this time d/t her age.
--- NOTE | 2021-09-25 04:23 | PC.NURSE ---
Called [facility], pt.'s SNF, and spoke with nurse Dahiana on 4th floor to inform them of pt.'s passing
--- NOTE | 2021-09-25 04:43 | PC.NURSE ---
At 0340 this US/Pct asked if [employer] Player needed to be notified,Provider Declined. Rn aware
--- NOTE | 2021-09-25 05:29 | PC.NURSE ---
Pt.'s son, Javi, at pt.'s bedside for a few moments. Confirmed home: [address] [place] [address]
[2021-09-25 05:41] LABS: Glucose, Whole Blood 157 mg/dL (60-115)
== END 2021-09-25 03:35 | disposition expired ==
PROVIDERS: Emergency Provider Emergency Medicine; PCP Family Medicine
DX: I46.9 Cardiac arrest, cause unspecified (principal); R10.13 Epigastric pain; I95.9 Hypotension, unspecified; R00.0 Tachycardia, unspecified; J90 Pleural effusion, not elsewhere classified; J98.11 Atelectasis; K57.90 Diverticulosis of intestine, part unspecified, without perforation or abscess without bleeding; K80.20 Calculus of gallbladder without cholecystitis without obstruction; N18.30 Chronic kidney disease, stage 3 unspecified; I71.4 Abdominal aortic aneurysm, without rupture; F17.210 Nicotine dependence, cigarettes, uncomplicated; Z79.82 Long term (current) use of aspirin; Z79.02 Long term (current) use of antithrombotics/antiplatelets; Z79.01 Long term (current) use of anticoagulants; Z79.899 Other long term (current) drug therapy
CPT/HCPCS: 31500; 71250; 74176; 82947; 99285; J0171; J0461